=== PATIENT | female | born 2000 | race Caucasian/White ===

== ENCOUNTER 2020-06-23 10:46 | Outpatient (CLI) | payer BC, SELFPAY ==
[2020-06-23 11:49] LABS: SARS-CoV-2 Ag Negative (Negative)
[2020-06-24 00:45] LABS: SARS-CoV-2 RNA PCR Negative
== END 2020-06-23 10:47 | disposition home or self-care (01) ==
LOC: CHSLAB 10:49
PROVIDERS: PCP Internal Medicine; Visit Provider Internal Medicine
DX: Z20.822 Contact with and (suspected) exposure to COVID-19 (principal)
CPT/HCPCS: 87426; C9803; U0003; U0005

== ENCOUNTER 2020-08-23 14:41 | Outpatient (CLI) | payer BC, SELFPAY ==
[2020-08-23 16:01] LABS: SARS-CoV-2 RNA PCR Negative (Negative)
== END 2020-08-23 14:42 | disposition home or self-care (01) ==
LOC: CHSLAB 14:44
PROVIDERS: PCP Internal Medicine; Visit Provider Nurse Practitioner Family
DX: J06.9 Acute upper respiratory infection, unspecified (principal); Z20.822 Contact with and (suspected) exposure to COVID-19
CPT/HCPCS: C9803; U0003; U0005

== ENCOUNTER 2020-08-26 09:35 | Outpatient (CLI) | payer BC, SELFPAY ==
--- NOTE | ~2020-08-26 | XR_ITS ---
EXAMINATION: XR chest 2V EXAM DATE: 08/26/2020 09:58 INDICATION: Cough, right-sided chest pain. TECHNIQUE: Frontal and lateral projections of the chest obtained and reviewed. There is no prior govind dy for comparison. FINDINGS: Mild hyperinflation. The lungs are clear. There are no pleural effusions. The cardiomedi astinal silhouette is within normal limits. There is no pneumothorax suspected. The bones and soft tissues are unremarkable. IMPRESSION: Mild hyperinflation. Reviewed, dictated and finalized at location B. IMPRESSION: Mild hyperinflation.
[2020-08-26 09:48] LABS: Basophils Absolute Auto 0.04 K/mm3 (0.00-0.10); Basophils Percent Auto 0.6 % (0.0-1.0); Eosinophils Percent Auto 1.5 % (1.0-6.0); Hematocrit 37.9 % (35.0-49.0); Hemoglobin 12.6 g/dL (12.0-15.0); Immature Granulocyte Absolute 0.02 K/mm3 (0.00-0.00); Immature Granulocyte Percent A 0.3 % (0.0-0.0); Lymphocytes Percent Auto 33.6 % (18.0-42.0); Mean Corpuscular HGB Conc 33.2 g/dL (32.0-36.0); Mean Corpuscular Hemoglobin 29.6 pg (27.0-31.0); Mean Platelet Volume 10.7 fl (9.2-11.8); Monocytes Percent Auto 5.8 % (2.0-11.0); Neutrophils Percent Auto 58.2 % (50.0-70.0); Platelet Count Result 256 K/mm3 (150-420); Red Blood Count 4.26 M/mm3 (4.20-5.40); Red Cell Distribution Width 12.5 % (11.6-14.4); White Blood Count 6.9 K/mm3 (4.8-10.8)
[2020-08-26 11:11] LABS: Alanine Aminotransferase 21 U/L (14-59); Albumin Level 3.8 g/dL (3.4-5.0); Alkaline Phosphatase 58 U/L (46-116); Anion Gap 10 mmol/L (8-16); Aspartate Amino Transferase 13 U/L (15-37); Bilirubin,Total 0.3 mg/dL (0.00-1.00); Blood Urea Nitrogen 8 mg/dL (7-18); Calcium 9.6 mg/dL (8.5-10.1); Carbon Dioxide 26 mmol/L (21-32); Chloride 103 mmol/L (98-108); Estimated Glomerular Filt Rate > 60; Glucose 91 mg/dL (70-99); Osmolality Calculated 286 mOsm/kg (285-295); Potassium 4.4 mmol/L (3.5-5.1); Sodium 139 mmol/L (136-145)
== END 2020-08-26 09:36 | disposition home or self-care (01) ==
PROVIDERS: PCP Internal Medicine; Visit Provider Internal Medicine
DX: R05 Cough (principal); R07.9 Chest pain, unspecified
CPT/HCPCS: 36415; 71046; 80053; 85025

== ENCOUNTER 2020-10-01 14:05 | Outpatient (CLI) | payer BC, SELFPAY ==
--- NOTE | ~2020-10-01 | US_ITS ---
EXAMINATION: US thyroid EXAM DATE: 10/01/2020 14:59 INDICATION: LT Thyroid lobe enlarged . TECHNIQUE: Multiple grayscale and Doppler images of the thyroid were obtained (by a technologist who performed the scan) and subsequently reviewed. Individual nodules and recommendations may be reporte d in accordance with TI-RADS system as designated by the 2017 ACR White Paper TI-RADS committee. The re is no prior study for comparison. FINDINGS: The right there are lobe measures 5.3 x 1.5 x 2.0 cm, the left measuring 4.8 x 1.4 x 1.6 cm. There is homogeneous thyroid echogenicity with expected amount of vascularity. There is a left thyroid lobe c ategory TR 4 nodule measuring 8 x 4 x 6 mm. IMPRESSION: Left thyroid subcentimeter nodule; return to clinical follow-up and if additional palpabl e abnormality develops a repeat ultrasound can be obtained. Reviewed, dictated and finalized at location A. IMPRESSION: Left thyroid subcentimeter nodule; return to clinical follow-up and if additional palpable abnormality develops a repeat ultrasound can be obtaine d.
== END 2020-10-01 14:06 | disposition home or self-care (01) ==
LOC: CHSIMG 14:06
PROVIDERS: PCP Internal Medicine; Visit Provider Internal Medicine
DX: E04.9 Nontoxic goiter, unspecified (principal)
CPT/HCPCS: 76536

== ENCOUNTER 2020-12-06 15:36 | Outpatient (CLI) | payer BC, SELFPAY ==
--- NOTE | ~2020-12-06 | XR_ITS ---
XR chest 2V DATE: 12/06/2020 16:22 INDICATION: Chest pain and dyspnea for 3 days after second Covid vaccine TECHNIQUE: PA and lateral views COMPARISON: 08/26/2020 PA and lateral chest FINDINGS: Normal heart size. No hilar or mediastinal enlargement. No pulmonary infiltrate or consolid ation, pleural effusion or pulmonary vascular congestion or pneumothorax is detected. IMPRESSION: No active cardiopulmonary disease Reviewed, dictated and finalized at location A.
[2020-12-06 15:56] LABS: Hematocrit 37.1 % (35.0-49.0); Hemoglobin 12.3 g/dL (12.0-15.0); Mean Corpuscular HGB Conc 33.2 g/dL (32.0-36.0); Mean Corpuscular Hemoglobin 29.6 pg (27.0-31.0); Mean Corpuscular Volume 89.4 fL (78.0-102.0); Mean Platelet Volume 10.9 fl (9.2-11.8); Platelet Count Result 163 K/mm3 (150-420); Red Blood Count 4.15 M/mm3 (4.20-5.40); Red Cell Distribution Width 12.6 % (11.6-14.4); White Blood Count 6.1 K/mm3 (4.8-10.8)
[2020-12-06 16:24] LABS: Alanine Aminotransferase 28 U/L (14-59); Alkaline Phosphatase 56 U/L (46-116); Anion Gap 12 mmol/L (8-16); Aspartate Amino Transferase 17 U/L (15-37); Bilirubin,Total 0.2 mg/dL (0.00-1.00); Blood Urea Nitrogen 9 mg/dL (7-18); CRP 5.7 mg/dL (0.0-0.9); Carbon Dioxide 27 mmol/L (21-32); Chloride 103 mmol/L (98-108); Creatine Kinase 77 U/L (26-192); Estimated Glomerular Filt Rate > 60; Free T3 2.68 pg/mL (2.18-3.98); Free T4 Free Thyroxine 1.08 ng/dL (0.76-1.46); Glucose 81 mg/dL (70-99); NT Pro B Type Natriuretic Pept 981 pg/mL (0-125); Osmolality Calculated 291 mOsm/kg (285-295); Potassium 3.9 mmol/L (3.5-5.1); Sodium 142 mmol/L (136-145); Thyroid Stimulating Hormone 0.75 uIU/mL (0.36-3.74); Troponin I 45.6 ng/L (0.00-60.4)
[2020-12-06 16:30] LABS: Creatine Kinase MB < 0.50 ng/mL (0.00-5.00)
[2020-12-06 17:01] LABS: Band Neutrophils Percent 0 % (0-6); Eosinophils Absolute Manual 0.06 K/mm3 (0.02-0.5); Eosinophils Percent Manual 1 % (1-6); Monocytes Absolute Manual 0.48 K/mm3 (0.1-0.90); Monocytes Percent Manual 8 % (3-9); Neutrophils Absolute Manual 3.17 K/mm3 (1.7-7.2); Neutrophils Percent Manual 52 % (46-73); Total Cells Counted 100
[2020-12-06 17:02] LABS: Platelet Estimate Adequate (Adequate)
[2020-12-06 17:03] LABS: Atypical Lymphocytes Present
[2020-12-06 17:04] LABS: Lymphocytes Absolute Manual 2.37 K/mm3 (1.1-4.5); Lymphocytes Percent Manual 39 % (18-44)
[2020-12-06 17:47] LABS: Erythrocyte Sedimentation Rate 25 mm/hr (0-15)
--- NOTE | 2020-12-08 10:00 | WPDHOLTEREM ---
Holter/Event Monitor Holter/Event Monitor Date of procedure: 12/06/20 Holter/Event Procedure: 24 Hr Holter Monitor Indications: Palpitations Conclusion: 1. 24 hour holter monitor on 12/06/20. 2. Underlying rhythm is sinus rhythm. HR range 55-171 bpm; average HR 86 bpm. HR at 171 bpm occurred at 10:18 am. 3. There are 2 premature supraventricular complexes. No supraventricular tachycardia. 4. There are 4 premature ventricular complexes. No ventricular tachycardia. 5. No sinoatrial or atrioventricular blocks. No significant pauses greater than 2 seconds. 6. Patient reports symptoms of lightheadedness, chest pain, and heart racing which demonstrate sinus rhythm, HR range 74-124 bpm.
== END 2020-12-06 15:37 | disposition home or self-care (01) ==
LOC: CHSLAB 15:41
PROVIDERS: PCP Internal Medicine; Visit Provider Internal Medicine
DX: R00.2 Palpitations (principal); R06.00 Dyspnea, unspecified
CPT/HCPCS: 36415; 71046; 80053; 82550; 82553; 83880; 84439; 84443; 84481; 84484; 85025; 85652; 86140; 93225; 93226

== ENCOUNTER 2020-12-07 18:05 | Outpatient (CLI) | payer BC, SELFPAY ==
[2020-12-07 19:25] LABS: SARS-CoV-2 RNA PCR Negative (Negative)
== END 2020-12-07 18:06 | disposition home or self-care (01) ==
LOC: CHSLAB 18:08
PROVIDERS: PCP Internal Medicine; Visit Provider Internal Medicine
DX: J06.9 Acute upper respiratory infection, unspecified (principal); Z20.822 Contact with and (suspected) exposure to COVID-19
CPT/HCPCS: C9803; U0003; U0005

== ENCOUNTER 2021-01-24 16:09 | Outpatient (CLI) | payer BC, SELFPAY ==
[2021-01-24 16:59] LABS: Basophils Absolute Auto 0.03 K/mm3 (0.00-0.10); Basophils Percent Auto 0.3 % (0.0-1.0); Eosinophils Absolute Auto 0.09 K/mm3 (0.02-0.50); Hematocrit 36.8 % (35.0-49.0); Hemoglobin 12.3 g/dL (12.0-15.0); Immature Granulocyte Absolute 0.03 K/mm3 (0.00-0.00); Immature Granulocyte Percent A 0.3 % (0.0-0.0); Lymphocytes Percent Auto 32.6 % (18.0-42.0); Mean Corpuscular HGB Conc 33.4 g/dL (32.0-36.0); Mean Corpuscular Hemoglobin 29.8 pg (27.0-31.0); Mean Corpuscular Volume 89.1 fL (78.0-102.0); Mean Platelet Volume 11.2 fl (9.2-11.8); Monocytes Absolute Auto 0.63 K/mm3 (0.10-0.90); Monocytes Percent Auto 7.3 % (2.0-11.0); Neutrophils Percent Auto 58.5 % (50.0-70.0); Platelet Count Result 199 K/mm3 (150-420); Red Blood Count 4.13 M/mm3 (4.20-5.40); Red Cell Distribution Width 12.5 % (11.6-14.4); White Blood Count 8.6 K/mm3 (4.8-10.8)
[2021-01-24 17:15] LABS: Alanine Aminotransferase 22 U/L (14-59); Alkaline Phosphatase 59 U/L (46-116); Anion Gap 10 mmol/L (8-16); Aspartate Amino Transferase 14 U/L (15-37); Bilirubin,Total 0.4 mg/dL (0.00-1.00); Blood Urea Nitrogen 13 mg/dL (7-18); Calcium 8.8 mg/dL (8.5-10.1); Carbon Dioxide 30 mmol/L (21-32); Chloride 102 mmol/L (98-108); Estimated Glomerular Filt Rate > 60; Glucose 96 mg/dL (70-99); Magnesium 1.8 mg/dL (1.8-2.4); Osmolality Calculated 294 mOsm/kg (285-295); Potassium 4.1 mmol/L (3.5-5.1); Sodium 142 mmol/L (136-145); Total Protein 7.4 g/dL (6.4-8.2)
[2021-01-24 17:25] LABS: CRP < 0.5 mg/dL (0.0-0.9)
[2021-01-24 18:01] LABS: Erythrocyte Sedimentation Rate 6 mm/hr (0-15)
--- NOTE | 2021-02-01 08:25 | WPDHOLTEREM ---
Holter/Event Monitor Holter/Event Monitor Date of procedure: 01/24/21 Holter/Event Procedure: Event Monitor Indications: Palpitations Conclusion: 1. 6 days event monitor between 01/24/21-01/30/21. There are 31 available transmissions for analysis. 2. Underlying rhythm is sinus rhythm. HR range 52-176 bpm; average HR 84 bpm. HR ate 176 bpm is on 01/29/21 at 21:18. 3. Unable to calculate number of PAC's due to excessive artifact. 4. There are occasional premature ventricular complexes with total burden of <1%. No ventricular tachycardia. 5. No significant pauses greater than 2 seconds. 6. Patient reports 27 episodes of symptoms of heart racing, chest pain, shortness of breath, dizziness which demonstrate sinus rhythm, HR range 70-155 bpm.
== END 2021-01-24 16:10 | disposition home or self-care (01) ==
LOC: CHSLAB 16:10
PROVIDERS: PCP Internal Medicine; Visit Provider Internal Medicine
DX: R00.2 Palpitations (principal)
CPT/HCPCS: 36415; 80053; 83735; 85025; 85652; 86140; 93270

== ENCOUNTER 2021-04-13 11:20 | Outpatient (CLI) | payer BC, SELFPAY ==
[2021-04-13 12:39] LABS: SARS-CoV-2 RNA PCR Negative (Negative)
== END 2021-04-13 11:21 | disposition home or self-care (01) ==
LOC: CHSLAB 11:22
PROVIDERS: PCP Internal Medicine; Visit Provider Internal Medicine
DX: Z20.822 Contact with and (suspected) exposure to COVID-19 (principal)
CPT/HCPCS: C9803; U0003; U0005

== ENCOUNTER 2021-04-20 12:14 | Outpatient (CLI) | payer BC, SELFPAY ==
[2021-04-20 13:02] LABS: Basophils Absolute Auto 0.05 K/mm3 (0.00-0.10); Basophils Percent Auto 0.4 % (0.0-1.0); Eosinophils Absolute Auto 0.09 K/mm3 (0.02-0.50); Eosinophils Percent Auto 0.7 % (1.0-6.0); Hematocrit 37.8 % (35.0-49.0); Hemoglobin 12.5 g/dL (12.0-15.0); Immature Granulocyte Absolute 0.03 K/mm3 (0.00-0.00); Immature Granulocyte Percent A 0.2 % (0.0-0.0); Lymphocytes Absolute Auto 2.19 K/mm3 (1.10-4.50); Lymphocytes Percent Auto 17.8 % (18.0-42.0); Mean Corpuscular HGB Conc 33.1 g/dL (32.0-36.0); Mean Corpuscular Hemoglobin 30.1 pg (27.0-31.0); Mean Corpuscular Volume 91.1 fL (78.0-102.0); Mean Platelet Volume 10.8 fl (9.2-11.8); Monocytes Absolute Auto 0.78 K/mm3 (0.10-0.90); Monocytes Percent Auto 6.4 % (2.0-11.0); Neutrophils Absolute Auto 9.1 K/mm3 (1.7-7.2); Neutrophils Percent Auto 74.5 % (50.0-70.0); Platelet Count Result 193 K/mm3 (150-420); Red Blood Count 4.15 M/mm3 (4.20-5.40); Red Cell Distribution Width 12.5 % (11.6-14.4); White Blood Count 12.3 K/mm3 (4.8-10.8)
[2021-04-20 13:36] LABS: Alanine Aminotransferase 18 U/L (14-59); Albumin Level 4.1 g/dL (3.4-5.0); Alkaline Phosphatase 69 U/L (46-116); Anion Gap 12 mmol/L (8-16); Aspartate Amino Transferase 12 U/L (15-37); Bilirubin,Total 0.5 mg/dL (0.00-1.00); Blood Urea Nitrogen 13 mg/dL (7-18); Calcium 9.1 mg/dL (8.5-10.1); Carbon Dioxide 26 mmol/L (21-32); Chloride 104 mmol/L (98-108); Estimated Glomerular Filt Rate > 60; Glucose 87 mg/dL (70-99); Osmolality Calculated 293 mOsm/kg (285-295); Potassium 3.8 mmol/L (3.5-5.1); Sodium 142 mmol/L (136-145); Total Protein 7.2 g/dL (6.4-8.2)
[2021-04-20 14:35] LABS: Influenza A QL RT-PCR Negative (Negative); Influenza B QL RT-PCR Negative (Negative); SARS-CoV-2 RNA PCR Negative (Negative)
== END 2021-04-20 12:15 | disposition home or self-care (01) ==
LOC: CHSLAB 12:16
PROVIDERS: PCP Internal Medicine; Visit Provider Internal Medicine
DX: J06.9 Acute upper respiratory infection, unspecified (principal); Z20.822 Contact with and (suspected) exposure to COVID-19
CPT/HCPCS: 80053; 85025; 87081; 87502; 87880; C9803; U0003; U0005

== ENCOUNTER 2021-04-22 12:13 | Outpatient (CLI) | payer BC, SELFPAY ==
--- NOTE | ~2021-04-22 | XR_ITS ---
EXAMINATION: XR chest 2V DATE: 04/22/2021 12:30 INDICATION: Cough. TECHNIQUE: Frontal and lateral views of the chest were obtained. COMPARISON: Chest 2 views 12/06/2020 FINDINGS: The chest demonstrates clear lungs without pneumonia, pleural effusion, or pneumothorax. Th e heart size is normal. IMPRESSION: 1. No acute cardiopulmonary disease. Reviewed, dictated and finalized at location A. OF [employer]ES [employer]
== END 2021-04-22 12:14 | disposition home or self-care (01) ==
LOC: CHSIMG 12:15
PROVIDERS: PCP Internal Medicine; Visit Provider Internal Medicine
DX: R05.9 Cough, unspecified (principal)
CPT/HCPCS: 71046

== ENCOUNTER 2021-07-25 11:22 | Outpatient (CLI) | payer BC, SELFPAY ==
--- NOTE | ~2021-07-25 | XR_ITS ---
EXAMINATION: XR chest 2V DATE: 07/25/2021 11:38 INDICATION: Cough and shortness of breath and fever. TECHNIQUE: Frontal and lateral views of the chest were obtained. COMPARISON: Chest 2 views 04/22/2021 FINDINGS: The chest demonstrates clear lungs without pneumonia, pleural effusion, or pneumothorax. Th e heart size is normal. IMPRESSION: 1. No acute cardiopulmonary disease. Reviewed, dictated and finalized at location A.
[2021-07-25 11:32] LABS: Basophils Absolute Auto 0.02 K/mm3 (0.00-0.10); Basophils Percent Auto 0.3 % (0.0-1.0); Eosinophils Absolute Auto 0.04 K/mm3 (0.02-0.50); Eosinophils Percent Auto 0.7 % (1.0-6.0); Immature Granulocyte Absolute 0.02 K/mm3 (0.00-0.00); Immature Granulocyte Percent A 0.3 % (0.0-0.0); Lymphocytes Absolute Auto 1.45 K/mm3 (1.10-4.50); Lymphocytes Percent Auto 24.2 % (18.0-42.0); Mean Corpuscular HGB Conc 34.1 g/dL (32.0-36.0); Mean Corpuscular Hemoglobin 30.2 pg (27.0-31.0); Mean Corpuscular Volume 88.6 fL (78.0-102.0); Mean Platelet Volume 11.6 fl (9.2-11.8); Monocytes Absolute Auto 0.63 K/mm3 (0.10-0.90); Monocytes Percent Auto 10.5 % (2.0-11.0); Neutrophils Absolute Auto 3.8 K/mm3 (1.7-7.2); Platelet Count Result 158 K/mm3 (150-420); Red Blood Count 4.63 M/mm3 (4.20-5.40); Red Cell Distribution Width 12.5 % (11.6-14.4)
[2021-07-25 12:11] LABS: Alanine Aminotransferase 27 U/L (14-59); Albumin Level 4.2 g/dL (3.4-5.0); Alkaline Phosphatase 50 U/L (46-116); Anion Gap 12 mmol/L (8-16); Aspartate Amino Transferase 23 U/L (15-37); Bilirubin,Total 0.2 mg/dL (0.00-1.00); Blood Urea Nitrogen 11 mg/dL (7-18); Calcium 9.1 mg/dL (8.5-10.1); Carbon Dioxide 27 mmol/L (21-32); Chloride 100 mmol/L (98-108); Estimated Glomerular Filt Rate > 60; Glucose 78 mg/dL (70-99); Osmolality Calculated 286 mOsm/kg (285-295); Potassium 4.1 mmol/L (3.5-5.1); Sodium 139 mmol/L (136-145); Total Protein 7.7 g/dL (6.4-8.2)
== END 2021-07-25 11:23 | disposition home or self-care (01) ==
LOC: CHSIMG 11:23
PROVIDERS: PCP Internal Medicine; Visit Provider Nurse Practitioner Family
DX: J06.9 Acute upper respiratory infection, unspecified (principal)
CPT/HCPCS: 36415; 71046; 80053; 85025

== ENCOUNTER 2021-08-05 12:46 | Outpatient (CLI) | payer BC, SELFPAY | END 2021-08-05 12:47 | disposition home or self-care (01) | LOC: CHSCARD 12:48 | PROVIDERS: PCP Internal Medicine; Visit Provider Nurse Practitioner Family | DX: J45.909 Unspecified asthma, uncomplicated (principal) | CPT/HCPCS: 94060; 94726; 94729 ==

== ENCOUNTER 2021-10-12 11:20 | Outpatient (CLI) | payer BC, SELFPAY ==
[2021-10-12 12:47] LABS: Free T3 2.67 pg/mL (2.18-3.98); Free T4 Free Thyroxine 0.86 ng/dL (0.76-1.46); Thyroid Stimulating Hormone 0.49 uIU/mL (0.36-3.74)
[2021-10-14 12:06] LABS: NIL 0.02 IU/mL; Quantiferon TB Plus, 1T NEGATIVE (NEGATIVE)
== END 2021-10-12 11:21 | disposition home or self-care (01) ==
LOC: CHSLAB 11:23
PROVIDERS: PCP Internal Medicine; Visit Provider Internal Medicine
DX: K58.0 Irritable bowel syndrome with diarrhea (principal)
CPT/HCPCS: 36415; 84439; 84443; 84481; 86480

== ENCOUNTER 2021-10-17 08:04 | Outpatient (CLI) | payer BC, SELFPAY ==
--- NOTE | ~2021-10-17 | CT_ITS ---
EXAMINATION: CT sinus wo con DATE: 10/17/2021 08:21 INDICATION: Sinus pressure, drainage. Chronic sinusitis. TECHNIQUE: Computed tomography (CT) of the paranasal sinuses was performed without contrast. Iterativ e reconstruction technique was employed. Exam dose: 319.20 mGy-cm total exam DLP. COMPARISON: 02/04/2018 paranasal sinuses 08/29/2017 CT head FINDINGS: There is mild leftward bowing of the nasal septum. There is intralamellar cell and nas bullosa of both middle nasal turbinates. There is asymmetric s oft tissue swelling of the left inferior nasal turbinate compared to the right. The ostiomeatal units are patent bilaterally. The paranasal sinuses and mastoid air cells are normally developed and aerated. IMPRESSION: Intralamellar cell and nas bullosa of both middle nasal turbinates Asymmetric soft tissue swelling of left inferior nasal turbinate Patent paranasal sinuses, ostiomeatal units and mastoid air cells Reviewed, dictated and finalized at Location A. Reviewed, dictated and finalized at location B. IMPRESSION: Intralamellar cell and nas bullosa of both middle nasal turbina keyanna Asymmetric soft tissue swelling of left inferior nasal turbinate Patent paranasal sinuses, ostiomeatal units and mastoid air cells
== END 2021-10-17 08:05 | disposition home or self-care (01) ==
LOC: CHSIMG 08:05
PROVIDERS: PCP Internal Medicine; Visit Provider Internal Medicine
DX: J32.9 Chronic sinusitis, unspecified (principal)
CPT/HCPCS: 70486

== ENCOUNTER 2022-01-02 15:27 | Outpatient (CLI) | payer BC, SELFPAY ==
--- NOTE | ~2022-01-02 | XR_ITS ---
EXAMINATION: XR hand RT min 3V INDICATION: Right hand pain TECHNIQUE: Three views of the right hand are obtained. COMPARISON: None available FINDINGS: Bone alignment is normal. There is no acute fracture. Internal stabilization hardware is se en at the distal ulna stabilizing a healed fracture. There is palmar soft tissue swelling of the hand . IMPRESSION: 1. No acute osseous abnormality. Reviewed, dictated and finalized at location B.
== END 2022-01-02 15:28 | disposition home or self-care (01) ==
LOC: CHSIMG 15:30
PROVIDERS: PCP Internal Medicine; Visit Provider Internal Medicine
DX: S69.91XA Unspecified injury of right wrist, hand and finger(s), initial encounter (principal)
CPT/HCPCS: 73130

== ENCOUNTER 2022-10-09 15:02 | Outpatient (CLI) | payer BC, SELFPAY ==
--- NOTE | ~2022-10-09 | XR_ITS ---
XR hand RT min 3V 10/09/2022 15:19 INDICATION: Right hand pain for 2 days PROCEDURE: 3 views right hand COMPARISON: 01/02/2022 FINDINGS: Fracture, dislocation or subluxation is not identified. There is a side plate and screws tr ansfixing the distal ulna. The soft tissues appear within normal limits. No foreign bodies are ident ified. IMPRESSION: 1: NO ACUTE BONE OR JOINT ABNORMALITY IDENTIFIED. Reviewed, dictated and finalized at location []
== END 2022-10-09 15:03 | disposition home or self-care (01) ==
LOC: CHSIMG 15:04
PROVIDERS: PCP Internal Medicine; Visit Provider Internal Medicine
DX: S69.91XA Unspecified injury of right wrist, hand and finger(s), initial encounter (principal)
CPT/HCPCS: 73130

== ENCOUNTER 2022-10-16 13:24 | Outpatient (CLI) | payer BC, SELFPAY ==
--- NOTE | ~2022-10-16 | XR_ITS ---
EXAMINATION: XR hand RT min 3V INDICATION: Right hand injury and pain TECHNIQUE: Three views of the right hand are obtained. COMPARISON: 10/09/2022 FINDINGS: There is plate and screw fixation of an old distal ulnar fracture. No fracture is identifie d in the right hand. The joint spaces are normal. There are no productive changes of bony healing to indicate subacute fracture. IMPRESSION: 1. No acute osseous abnormality. Reviewed, dictated and finalized at location []
== END 2022-10-16 13:25 | disposition home or self-care (01) ==
LOC: CHSIMG 13:27
PROVIDERS: PCP Internal Medicine; Visit Provider Internal Medicine
DX: S69.91XA Unspecified injury of right wrist, hand and finger(s), initial encounter (principal)
CPT/HCPCS: 73130

== ENCOUNTER 2023-03-05 15:55 | Outpatient (RCR) | payer BC, SELFPAY ==
--- NOTE | 2023-03-05 16:58 | OTOPEVAL1 ---
Assessment and note entered by Lucrecia Corado, OT Evaluation Information Assessment Status Evaluation Diagnosis Left central TFCC tear, foveal TFCC tear and ulnocarpal impaction Onset 01/10/23 Subjective Information The patient reports that both of her ulnas are long and have affected the TFCC from tearing multiple times. The patient had tingling prior to surgery but has not since then. The patient reports that her pain is minimal 8 weeks post op but hurt severely bad after surgery. 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 The patient stated she is wearing her splint at all times except for AROM and bathing. Reported Pain Level Pain Score 0: Self Report Assessment OT Clinical Summary The patient is a 23 year old female who was referred to outpatient OT due to L central TFCC tear, foveal TFCC tear and ulnocarpal impaction. 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 The patient requires skilled OT to address deficits and return to PLOF. Plan of Care Interventions Therapeutic Exercise,Manual Therapy,Neuro Re- education,Therapeutic Activities,Hot Pack/Cold Pack,Electrical Stimulation,Sensory Integrative Techn,Self-Care/Home Management,Prosthetic Training,Check Out for Orthotic/Pr,Ultrasound OT Services Indicated Yes Treatment Frequency and 2x/week for 10 visits. Duration These treatments will address the objective and functional deficits as defined above. The patient will be advanced safely and appropriately in order for the patient to progress towards his/her prior level of function. Additional exercises will be introduced and as well as a comprehensive home exercise program upon discharge, if needed, ?to ensure carryover of functional gains achieved in the clinic. This treatment plan has been reviewed and agreement upon by the patient.
--- NOTE | 2023-04-19 10:09 | OTOPDC ---
Assessment and note entered by Lucrecia Corado, OT Evaluation Information Assessment Status Discharge Diagnosis Left central TFCC tear, foveal TFCC tear and ulnocarpal impaction Onset 01/10/23 Subjective Information The patient reports mild tingling in L hand digits 3-5. The patient reports 2/10 pain during activities throughout her day. She stated that her pain is tolerable and feels confident to discharge with HEP to maintain strength and function. The patient was instructed to perform ulnar nerve glides with HEP to address tingling at home. The patient reported that she will be going back to the doctor within the next month or two. 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 The patient continues to demonstrate minimal pain reporting 2/10 pain during daily tasks and new onset of mild tingling in L hand digits 3-5. The patient was educated on pain relief techniques and ulnar nerve glides to improve sensation of UE. The patient demonstrates improvement in overall function in L wrist scoring 15.9% on QuickDASH at discharge compared to 36.4% at evaluation. The patient is independent with UE HEP and is discharged at this time due to meeting goals and continued use of therapeutic techniques at home. Plan of Care OT Services Indicated No
== END 2023-04-19 14:21 | disposition home or self-care (01) ==
LOC: CHSOT 15:55
DX: M25.532 Pain in left wrist (principal)
CPT/HCPCS: 97110; 97140; 97165; 97530

== ENCOUNTER 2023-04-10 12:21 | Outpatient (CLI) | payer BC, SELFPAY ==
--- NOTE | ~2023-04-10 | CT_ITS ---
EXAMINATION: CT facial bones w con DATE: 04/10/2023 13:02 INDICATION: 2 months of cellulitis arising from right temporal at the right nasal region, refractory to 25 days of antibiotics. TECHNIQUE: Computed tomography (CT) of the facial bones and maxillofacial region was performed with 7 5 mL Omnipaque-350 intravenous contrast. Coronal reconstructions were obtained. Automated exposure co ntrol and iterative reconstruction technique were employed. The dose-length product was 303.17 mGy-cm . COMPARISON: None. FINDINGS: Tiny focus of skin thickening and underlying stranding in the superficial most subcutaneous fat overl dick the body of the right mandible. No other evident soft tissue swelling or inflammatory stranding. No abscess. Maxillofacial bones are unremarkable with no fractures or erosions. There is prominent s omewhat nodular mucosal thickening throughout the left maxillary sinus. Mild mucosal thickening along portions of the bilateral ethmoid and right maxillary sinuses. Orbits are normal. Visualized portion s of the brain are unremarkable. The visualized cervical spine is also unremarkable. IMPRESSION: 1. Tiny focus of skin thickening and superficial subcutaneous stranding likely inflammatory in etiolo gy overlying the body of the right mandible. No other evident soft tissue swelling, abscess or ostomy myelitis. 2. Sinus disease most prominent in the left maxillary sinus. Reviewed, dictated and finalized at location A. K TRADER IMPRESSION: 1. Tiny focus of skin thickening and superficial subcutaneous stranding likely inflammatory in etiology overlying the body of the right mandible. No other gorge dent soft tissue swelling, abscess or ostomy myelitis. 2. Sinus disease most prominent in the left maxillary sinus.
== END 2023-04-10 12:22 | disposition home or self-care (01) ==
LOC: CHSIMG 12:22
PROVIDERS: PCP Internal Medicine; Visit Provider Internal Medicine
DX: L03.211 Cellulitis of face (principal); L98.9 Disorder of the skin and subcutaneous tissue, unspecified; J32.0 Chronic maxillary sinusitis
CPT/HCPCS: 70487; Q9967

== ENCOUNTER 2023-06-08 08:27 | Outpatient (CLI) | payer BC, SELFPAY ==
[2023-06-08 08:45] LABS: Basophils Absolute Auto 0.02 K/mm3 (0.00-0.10); Basophils Percent Auto 0.3 % (0.0-1.0); Eosinophils Absolute Auto 0.07 K/mm3 (0.02-0.50); Eosinophils Percent Auto 1.1 % (1.0-6.0); Hemoglobin 12.7 g/dL (12.0-15.0); Immature Granulocyte Absolute 0.01 K/mm3 (0.00-0.00); Immature Granulocyte Percent A 0.2 % (0.0-0.0); Lymphocytes Absolute Auto 2.19 K/mm3 (1.10-4.50); Lymphocytes Percent Auto 33.2 % (18.0-42.0); Mean Corpuscular HGB Conc 33.4 g/dL (32.0-36.0); Mean Corpuscular Hemoglobin 29.5 pg (27.0-31.0); Mean Corpuscular Volume 88.2 fL (78.0-102.0); Mean Platelet Volume 10.5 fl (9.2-11.8); Monocytes Absolute Auto 0.58 K/mm3 (0.10-0.90); Monocytes Percent Auto 8.8 % (2.0-11.0); Neutrophils Absolute Auto 3.7 K/mm3 (1.7-7.2); Neutrophils Percent Auto 56.4 % (50.0-70.0); Platelet Count Result 196 K/mm3 (150-420); Red Blood Count 4.31 M/mm3 (4.20-5.40); Red Cell Distribution Width 12.7 % (11.6-14.4); White Blood Count 6.6 K/mm3 (4.8-10.8)
[2023-06-08 08:47] LABS: Appearance Urine Clear (Clear); Bilirubin Urine Negative (Negative); Blood Urine Negative (Negative); Color Urine Light Yellow (Yellow); Glucose Urine UA Negative (Negative); Ketones Urine Negative (Negative); Leukocyte Esterase Ur Negative LEU/UL (Negative); Nitrate Urine Negative (Negative); Protein Urine Negative (Negative); Urobilinogen Urine 0.2 mg/dL (0.2-1.0)
[2023-06-08 08:52] LABS: Add Urine Microscopic? NO
[2023-06-08 09:36] LABS: Alanine Aminotransferase 20 U/L (14-59); Alkaline Phosphatase 60 U/L (46-116); Anion Gap 9 mmol/L (8-16); Aspartate Amino Transferase 16 U/L (15-37); Bilirubin,Total 0.6 mg/dL (0.00-1.00); Blood Urea Nitrogen 15 mg/dL (7-18); Calcium 8.8 mg/dL (8.5-10.1); Carbon Dioxide 26 mmol/L (21-32); Chloride 103 mmol/L (98-108); Cholesterol 150 mg/dL (0-200); Estimated Glomerular Filt Rate > 60; Ferritin 54 ng/mL (8-252); Free T4 Free Thyroxine 0.76 ng/dL (0.76-1.46); Glucose 93 mg/dL (70-99); HDL Direct 65 mg/dL (40-60); Iron 122 ug/dL (50-170); LDL Cholesterol Calculated 77 mg/dL (<130); Osmolality Calculated 286 mOsm/kg (285-295); Potassium 4.3 mmol/L (3.5-5.1); Sodium 138 mmol/L (136-145); Thyroid Stimulating Hormone 0.59 uIU/mL (0.36-3.74); Total Protein 7.1 g/dL (6.4-8.2); Triglycerides 38 mg/dL (0-150)
[2023-06-12 14:34] LABS: NIL 0.03 IU/mL; Quantiferon TB Plus, 1T NEGATIVE (NEGATIVE); TB1-NIL 0.01 IU/mL; TB2-NIL 0.01 IU/mL
== END 2023-06-08 08:28 | disposition home or self-care (01) ==
LOC: CHSLAB 08:29
PROVIDERS: PCP Internal Medicine; Visit Provider Internal Medicine
DX: Z00.00 Encounter for general adult medical examination without abnormal findings (principal); Z11.1 Encounter for screening for respiratory tuberculosis
CPT/HCPCS: 36415; 80053; 80061; 81003; 82728; 83540; 84439; 84443; 85025; 86480

== ENCOUNTER 2023-08-06 08:01 | Outpatient (CLI) | payer BC, SELFPAY | END 2023-08-06 08:02 | disposition home or self-care (01) | LOC: CHSAUDIO 08:03 | PROVIDERS: PCP Internal Medicine; Visit Provider Internal Medicine | DX: H91.92 Unspecified hearing loss, left ear (principal) | CPT/HCPCS: 92552; 92556; 92567 ==

== ENCOUNTER 2024-03-05 07:58 | Outpatient (CLI) | payer BC, SELFPAY ==
[2024-03-05 09:15] LABS: Free T3 2.82 pg/mL (2.18-3.98); Free T4 Free Thyroxine 0.76 ng/dL (0.76-1.46); Thyroid Stimulating Hormone 0.47 uIU/mL (0.36-3.74)
== END 2024-03-05 07:59 | disposition home or self-care (01) ==
LOC: CHSLAB 08:01
PROVIDERS: PCP Internal Medicine; Visit Provider Internal Medicine
DX: L65.9 Nonscarring hair loss, unspecified (principal); R63.5 Abnormal weight gain
CPT/HCPCS: 36415; 84439; 84443; 84481

== ENCOUNTER 2024-06-09 09:50 | Outpatient (CLI) | payer BC, SELFPAY ==
[2024-06-09 10:05] LABS: Basophils Absolute Auto 0.02 K/mm3 (0.00-0.10); Basophils Percent Auto 0.4 % (0.0-1.0); Eosinophils Percent Auto 3.6 % (1.0-6.0); Hematocrit 38.4 % (35.0-49.0); Hemoglobin 12.6 g/dL (12.0-15.0); Immature Granulocyte Absolute 0.01 K/mm3 (0.00-0.00); Immature Granulocyte Percent A 0.2 % (0.0-0.0); Lymphocytes Absolute Auto 1.48 K/mm3 (1.10-4.50); Lymphocytes Percent Auto 26.9 % (18.0-42.0); Mean Corpuscular HGB Conc 32.8 g/dL (32-36); Mean Corpuscular Hemoglobin 29.6 pg (27.0-31.0); Mean Corpuscular Volume 90.1 fL (78.0-102.0); Mean Platelet Volume 10.9 fl (9.2-11.8); Monocytes Absolute Auto 0.59 K/mm3 (0.10-0.90); Monocytes Percent Auto 10.7 % (2.0-11.0); Neutrophils Absolute Auto 3.21 K/mm3 (1.70-7.20); Neutrophils Percent Auto 58.2 % (50.0-70.0); Platelet Count Result 192 K/mm3 (150-420); Red Blood Count 4.26 M/mm3 (4.20-5.40); White Blood Count 5.5 K/mm3 (4.8-10.8)
[2024-06-09 10:29] LABS: Alanine Aminotransferase 23 U/L (14-59); Albumin Level 4.3 g/dL (3.4-5.0); Alkaline Phosphatase 76 U/L (46-116); Anion Gap 10 mmol/L (4-12); Aspartate Amino Transferase 13 U/L (15-37); Bilirubin,Total 0.3 mg/dL (0.00-1.00); Blood Urea Nitrogen 8 mg/dL (7-18); Calcium 9.2 mg/dL (8.5-10.1); Carbon Dioxide 28 mmol/L (21-32); Chloride 104 mmol/L (98-108); Estimated Glomerular Filt Rate 60; Glucose 81 mg/dL (70-99); Osmolality Calculated 291 mOsm/kg (285-295); Potassium 4.3 mmol/L (3.5-5.1); Sodium 142 mmol/L (136-145); Total Protein 7.3 g/dL (6.4-8.2)
--- OUTSIDE RECORDS SUMMARY | 2024-06-09 12:42 | XMS_ITS | Clinical Summary ---
Author Organization [facility] osp[facility] Address [address] [place] [address] Care Team Providers Care Physical Therapy Instructor Name Role Phone Compa Correa MD Primary Care Provider Estuardo Luke MD Unavailable [phone] Polo Jeffery MD Unavailable Allergies Active Allergy Reactions Criticality Noted Date Comments Chlorhexidine Redness Low 01/24/2017 ChloraPrep local rash Medications albuterol HFA (PROVENTIL HFA,VENTOLIN HFA,PROAIR HFA) 90 mcg/actuation inhaler as needed Active fluticasone propionate (FLONASE) 50 mcg/actuation nasal sprayIndication s:Allergic Rhinitis Administer 2 sprays into each nostril every morning Active cetirizine (ZyrTEC) 10 mg tablet Take 1 tablet (10 mg total) by mouth daily as needed Active azelastine (ASTELIN) 137 mcg (0.1 %) nasal spray Administer 1 spray into each nostril daily Use in each nostril as directed Active Active Problems Problem Noted Date Diagnosed Date Nasal obstruction 07/11/2023 Otalgia of both ears 06/30/2023 Assessment & Plan (10/23/2023 8:25 PM CDT): Her ear exam is normal. She describes a sharp stabbing pain intermittently in each ear which does tend to improve with nonsteroidals such as Toradol. She does admit to probably grinding her teeth and clenching. 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 I recommended that she avoid chewing gum. I also recommended that she take ibuprofen as needed for the pain. She may want to consult with her dentist. She understands. 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 She tends to grind her teeth. I recommended that she talk with her dentist about this. Probably needs to get a crossing guard made. She understands. 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 She can breathe much better and everything seems to be better as far as her nasal airway is concerned. I suggested that she try using antibiotic ointment twice a day to the nasal septum because she does notice some dryness and crusting. She can do that for about a week to 10 days. She wanted to know if she should resume her Flonase and Astelin. I think resuming the Flonase would be fine as she does have pretty significant allergies. I recommended that she avoid spraying it medially towards the nasal septum. If she has any further problems she can call or follow-up with me. Assessment & Plan (10/02/2023 6:43 PM CDT): Her nasal septum looks good. No evidence of bleeding or hematoma. I recommended avoiding blowing her nose for few days and keep her head elevated as much as possible next 2-3 days. I would like to have her follow up in about 1-2 weeks. Assessment & Plan (06/30/2023 1:06 PM MENTAL HEALTH UNIT LEAD PSYCHOLOGIST): I think she would benefit from a septoplasty with bilateral inferior turbinectomy. I discussed the risk of a septoplasty with and without turbinectomy with the patient. There is a risk of continued nasal obstruction, bleeding, septal perforation, permanent anosmia. Also risk of inadequate correction which could result in continued nasal obstruction symptoms. She has a pharmacy technician program director and he would like to do this before she starts her clinicals. She is interested in getting it scheduled. She had no questions. Assessment & Plan (11/22/2021 7:42 PM CDT): She has pretty significant nasal septal deviation to the right side which is causing obstruction. Also has very large inferior turbinates. I think she would benefit from surgery to correct these. It is possible that they can be causing some of the facial pain also. I discussed the risk of a septoplasty with and without turbinectomy with the patient. There is a risk of continued nasal obstruction, bleeding, septal perforation, permanent anosmia. Also risk of inadequate correction which could result in continued nasal obstruction symptoms. She indicated that she is probably interested in pursuing this. Again I will look at her scan and let her know my thoughts. Chronic maxillary sinusitis 11/22/2021 Assessment & Plan (10/23/2023 8:23 PM CDT): Maxillary sinus areas look quite good and she has patent ostia and an open middle meatus. I removed all of the packing. She felt like that helped with her nasal congestion. I do not feel there is any need for further follow-up and she can follow up with me as needed. Assessment & Plan (10/02/2023 6:44 PM CDT): Sinus areas on both sides have packing which remains in place. No bleeding. I am recommending that she avoid blowing her nose for a few days. We would like to see her in about 2 weeks. Assessment & Plan (06/30/2023 1:11 PM MENTAL HEALTH UNIT LEAD PSYCHOLOGIST): She also has significant maxillary sinus disease worse on the left. This is noted on a CT scan of the sinuses that was done on 06/25/2023. I recommended surgery to address the nas bullosa and do bilateral maxillary antrostomies. I discussed the risks which include continued problems with maxillary sinusitis in the possibility of scar tissue obstructing the opening. Also risk of bleeding further infections as well as orbital and MOTOR GRADER ROUGH GRADE injuries. She understands. She would like to proceed with that also. She also currently is symptomatic and probably has a maxillary sinus infection. I am going to treat with a steroid pack and a course of Ceftin. Assessment & Plan (11/22/2021 7:41 PM CDT): I think she has obstruction of her maxillary sinuses probably due to nas bullosa that were mentioned on her CT scan report. I think she may benefit from surgery to address this. I would like to see her CT scan films however and I have asked her to bring a disc so I can view it. I will call her with further recommendations. Palpitations 12/29/2020 Right wrist pain 10/13/2019 Dysuria 11/09/2016 Overview (02/02/2017): 7--17 nl UA but grew 50-100K GBS - Rxed since symptomatic Elbow pain 04/03/2016 Overview (02/02/2017): RIGHT. 11/05 [facility] says triceps tendonitis. US & MRI neg. Surgery by Dr. Luke (this is SECOND surgery for elbow pain). Increase PT. 10 still hurts to throw in softball. Overweight 12/10/2013 Overview (02/02/2017): Arthralgia of temporomandibular joint 03/06/2013 Overview (02/02/2017): Ear pain, chews gum 03/05, 04/04, 06/06 Myopia 08/27/2012 Overview (02/02/2017): Contacts Health care maintenance 05/23/2012 Overview (02/02/2017): Resolved Problems Problem Noted Date Diagnosed Date Resolved Date Acute streptococcal pharyngitis 05/25/2016 02/02/2017 Overview (07/28/2016): Streptococcal pharyngitis Delayed onset of sleep 12/15/201402/02 Overview (02/02/2017): Melatonin Menorrhagia with irregular cycle 09/01/2014 02/02/2017 Overview (07/28/2016): Menometrorrhagia Otitis media 11/15/2012 02/02/2017 Overview (07/27/2016): Otitis media Immunizations Immunization Administration Dates Next Due DTaP 11/29/2004, 1,2000,05/08,2000 Hep B, Adolescent or Pediatric 2000,1999,2000 Hib (HbOC) 04/09/2001, 1,2000,03/07 IPV 11/29/2004, 1,2000,03/07 Influenza, Quadrivalent, Jocelyne l Culture-based MDCK, Preservative Free, Antibiotic Free, Intramuscular 02/13/2020 Influenza, Quadrivalent, Spl it, Intramuscular 02/02/2017 Influenza, Split 03/06/2013 Influenza, Trivalent, IM (MDV) 01/28/2014 Influenza, Trivalent, Preser vative Free, Intramuscular 03/16/2010 MMR 11/29/2004,01/08/2001 Meningococcal MCV4P (Menactra) 01/14/2016,2011 Pneumococcal Conjugate 7-Valent 04/09/20,2000,2000,03/07 Pneumococcal Polysaccharide PPV23 01/28/2014, Tdap 11/16/2011 Varicella 01/28/2014,01/08/2001 Surgical History Surgery Date Site/Laterality Comments OTHER SURGICAL HISTORY 04/23/2016 - 04/22/2017 Right R cubital tunnel/triceps tendinitis WRIST ARTHROSCOPY W/ TRIANGULAR FIBROCARTILAGE REPAIR 04/23/2012 - 04/22/[address] Luke WRIST ARTHROSCOPY W/ TRIANGULAR FIBROCARTILAGE REPAIR 04/23/2014 - 04/22/[address] Luke OTHER SURGICAL HISTORY 04/23/2015 - 04/22/2016 Right Medial epipicondylitis surgery Dr. Luke WRIST SURGERY 10/29/2019 Right Right wrist arthroscopy with extensive debridement WISDOM TOOTH EXTRACTION 04/23/2018 - 04/22/2019 NASAL SEPTOPLASTY W/ TURBINOPLASTY 10/01/2023 Septoplasty, bilateral inferior turbinectomy, bilateral endoscopic maxillary antrostomies & bilateral excision of nas bullosa Medical History Medical History Date Comments Nasal fracture 2013 2016 considering Platic Surgery Concussion 01/21/2014 & 11/05/2014 no residu al Fracture of phalanx of left thumb 02/15/2015 no surgery. Splinted-->heale d Jaw clicking no problems open ing mouth Allergic rhinitis Anxiety Sinusitis Last menstrual period (LMP) date last week Palpitations 11/2020 patient states s tarted after 2nd covid vaccine has off and on has seen cariodlogy dr Robbie Romero at [facility] see epic notes last visit 09/2021 Irritable bowel syndrome History of palpitations AFTER 2N D COVID VACCINE DEVELOPED PALPITATIONS SEES CARDIOLOGY Arrhythmia palpitations sin ce covid vaccine, moniter x2 that was ok Obesity Family History Medical History Relation Name Comments Atrial fibrillation Father Heart disease Mother Migraines Mother Bitemporal poun ding Asthma Other 1 Coronary artery disease Other 2 Diabetes Other 3 Hypertension Other 4 Stroke Other 5 Sudden Other 6 NONE Anesthesia problems Neg Hx Relation Name Status Comments Father Mother Alive Other 1 Other 2 Other 3 Other 4 Other 5 Other 6 Social History Tobacco Use Types Packs/Day Years Used Date Smoking Tobacco: Never Passive Smoke Exposure: Never Smokeless Tobacco: Never Alcohol Use Standard Drinks/Week Comments No 0 (1 standard drink = 0.6 oz pur e alcohol) AUDIT-C Answer Date Recorded Q1: How often do you have a drink containing alc ohol? 2-4 times a month 10/01/2023 Q2: How many drinks containi ng alcohol do you have on a typical day when you are drinking? 3 or 4 10/01/2023 Q3: How often do you have si x or more drinks on one occasion? Never 10/01/2023 Personal Safety Answer Date Recorded Have you ever been in or are you currently in a harmful physical or emotional relationship or is someone making you feel afraid or unsafe? Denies 10/01/2023 Comments No Sex and Gender Information Value Date Recorded Sex Assigned at Not on file Legal Sex Female 2:24 AM MENTAL HEALTH UNIT LEAD PSYCHOLOGIST Gender Identity Female 11/04/2019 10:07 PM CDT Sexual Orientation Straight 11/04/2019 10 :07 PM CDT Obstetrics History Last Filed Vital Signs Vital Sign Reading Time Taken Comments Blood Pressure 122/79 10/01/2023 2:00 PM CDT Pulse 70 10/01/2023 2:00 PM CDT Temperature 36.8 C (98.3 F) 10/01/2023 1:30 PM CDT Respiratory Rate 20 10/23/2023 4:44 PM CDT Oxygen Saturation 98% 10/01/2023 2: 00 PM CDT Inhaled Oxygen Concentration - - Weight 77.1 kg (169 lb 15.6 oz) 10/23/2023 4:44 PM CDT Height 160 cm (5' 3 ) 10/23/2023 4:44 PM CDT Body Mass Index 30.11 10/23/2023 4:44 PM CDT Plan of Treatment Health Maintenance Due Date Last Done Comments Cervical Cancer Screening 2000 Depression Screening 2000 Hepatitis C Screening 2000 HPV Vaccines (1 - 3-dose series) 01/05/2015 Regular Well Visit/Exam 18-64 01/05/2018 DTaP/Tdap/Td Vaccine (7 - Td or Tdap) 11/15/2021 11/16/2011, 11/29/2004, 04/09/2001, Additional history exists Influenza Vaccine (#1) 2023 0, 02/02/2017, 01/28/2014, Additional history exists Hepatitis B Screening Completed 2000 , 2000, 2000 Pneumococcal vaccine <65 Completed 014, 01/19/2009, 04/09/2001, Additional history exists Varicella Vaccines Completed 01/28/2014, 01/08/2001 Medical Devices Implanted Type Area Emt/Dispatcher Device Identifier Shelf Expiration Date Model / Serial / Lot AcSimris Algd [employer] Plul06 6 Hole Shortening Ulna Plate Bone Titanium Sterile - [id number] Implanted:Qty: 1 on 10/29/2019 by Estuardo Luke MD at [facility] [place] Right: Ulna [employer] [id number] / / [employer] Inc 102133 3.5mm 12mm Hexalobe Screw Bone Titanium Nonsterile Small Fragment - [id number] Implanted:Qty: 1 on 10/29/2019 by Estuardo Luke MD at [facility] [place] Right: Ulna [employer] [id number] / / [employer] 30-0258 3.5mm 14mm Hexalobe Screw Bone Titanium Nonsterile Small Fragment - [id number] Implanted:Qty: 1 on 10/29/2019 by Estuardo Luke MD at [facility] [place] Right: Ulna [employer] 30-0258 / / [employer] 101534 3.5mm 12mm Hexalobe Screw Bone Titanium Nonsterile Small Fragment - [id number] Implanted:Qty: 1 on 10/29/2019 by Estuardo Luke MD at [facility] [place] Right: Ulna [employer] [id number] / / [employer] [id number] 3.5mm 12mm Hexalobe Screw Bone Titanium Nonsterile Small Fragment - [id number] Implanted:Qty: 1 on 10/29/2019 by Estuardo Luke MD at [facility] [place] Right: Ulna [employer] [id number] / / [employer] 238262 3.5mm 12mm Hexalobe Screw Bone Titanium Nonsterile Small Fragment - [id number] Implanted:Qty: 1 on 10/29/2019 by Estuardo Luke MD at [facility] [place] Right: Ulna [employer] [id number] / / [employer] 155032 3.5mm 12mm Hexalobe Screw Bone Titanium Nonsterile Small Fragment - [id number] Implanted:Qty: 1 on 10/29/2019 by Estuardo Luke MD at [facility] [place] Right: Ulna [employer] [id number] / / [employer] [id number] 3.5mm 12mm Hexalobe Screw Bone Titanium Nonsterile Small Fragment - [id number] Implanted:Qty: 1 on 10/29/2019 by Estuardo Luke MD at [facility] [place] Right: Ulna [employer] [id number] / / [employer] 6 Hole Shortening Ulna Plate Bone Titanium Sterile Plul06 - [id number] Implanted:Qty: 1 on 01/10/2023 by Estuardo Luke MD at [facility] [place] Left: Arm [employer] [id number] / / [employer] 3.5mm 12mm Hexalobe Screw Bone Titanium Nonsterile Small Fragment [id number] - [id number] Implanted:Qty: 6 on 01/10/2023 by Estuardo Luke MD at [facility] Left: Arm [employer] [id number] / / [employer] 3.5mm 14mm Hexalobe Screw Bone Titanium Nonsterile Small Fragment 30-0258 - [id number] Implanted:Qty: 1 on 01/10/2023 by Estuardo Luke MD at [facility] [place] Left: Arm [employer] 30-0258 / / Ar[employer] Dx Swivelock 3.5mm 13.5mm Foot Elbow Medium Aiea Suture Peek Ar-8979p - [id number] Implanted:Qty: 1 on 01/10/2023 by Estuardo Luke MD at [facility] [place] Left: Arm Arth[employer] Inc AR-[id number] / / [employer] Inc Peg Fxatn Ulna Reduction Shortening Nonstrl 80-0422 - [id number] Implanted:Qty: 1 on 01/10/2023 by Estuardo Luke MD at [facility] [place] Left: Arm [employer] Inc 80-0422 / / Insurance COUNTS INCLUDE 234 BEDS AT [facility] BLUE ACCESS [place]ICE [place] ANTHEM ACCESS ANTHEM ACCESS CHOICE BLUE ACCESS CHOICE ID BLUE ACCESS ID BLUE ACCESS ID Advance Directives For more information, please contact: [phone] * Full Code (Latest Code Status on File) Date Activated Date Inactivated Comments 01/10/2023 3:03 PM 01/10/2023 8:07 PM * Full Code Date Activated Date Inactivated Comments 10/29/2019 1:32 PM 10/29/2019 6:42 PM Care Teams Physical Therapy Instructor Relationship Specialty Start Date End Date Compa Correa MD [address] [place] [address] PCP - General Internal Medicine 09/06/17 [place] [address] [place] [address] Surgeon Orthopedic Surgery 01/10/23 Polo Jeffery MD [address] [place] [address] Consulting Physician Otolaryngology 10/01/23
--- OUTSIDE RECORDS SUMMARY | 2024-06-09 12:42 | XMS_ITS | Encounter Summary ---
Author Organization [facility] Address [address] [place] [address] Phone Care Team Providers Care Animal Science Instructor Name Role Phone Compa Correa MD Primary Care Provider + [phone] Estuardo Luke MD Unavailable [phone] Polo Jeffery MD Unavailable [phone] Encounter Details Date Type Department Care Team (Latest Contact Info) Description 01/24/2021 Orders Only [facility] Scanning, Provider Social History Tobacco Use Types Packs/Day Years Used Date Smoking Tobacco: Never Smokeless Tobacco: Never Alcohol Use Standard Drinks/Week Comments No 0 (1 standard drink = 0.6 oz pur e alcohol) Comments No Sex and Gender Information Value Date Recorded Sex Assigned at Not on file Legal Sex Female 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 Gender Identity Female 11/04/2019 10:07 PM CDT Sexual Orientation Straight 11/04/2019 10 :07 PM CDT documented as of this encounter Plan of Treatment Not on file documented as of this encounter Procedures Procedure Name Priority Date/Time Associated Diagnosis Comments CARDIOLOGY DOCUMENT SCAN 01/24/2021 documented in this encounter Results * SCAN - CARDIOLOGY (01/24/2021) Anatomical Region Laterality Modality Other us Provider Scanning CV CARDIAC SERVICES PROCEDURES Final Result documented in this encounter Visit Diagnoses Not on filedocumented in this encounter Care Teams Animal Science Instructor Relationship Specialty Start Date End Date Compa Correa MD [address] [place] [address] PCP - General Internal Medicine 09/06/17 [place] [address] [place] [address] Surgeon Orthopedic Surgery 01/10/23 Polo Jeffery MD [address] [place] [address] Consulting Physician Otolaryngology 10/01/23 documented as of this encounter
--- OUTSIDE RECORDS SUMMARY | 2024-06-09 12:42 | XMS_ITS | Encounter Summary ---
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 2-4 times a month 10/01/2023 8:50 AM CDT Bridgette Delgado RN Q2: How many drinks containing alcohol do you have on a typical day when you are drinking? 3 or 4 10/01/2023 8:50 AM CDT Bridgette Delgado RN Q3: How often do you have six or more drinks on one occasion? Never 10/01/2023 8:50 AM CDT Bridgette Delgado RN documented as of this encounter Plan of Treatment Not on file documented as of this encounter Procedures Procedure Name Priority Date/Time Associated Diagnosis Comments HCG, URINE, QUALITATIVE Timed 08/16/2016 3:04 PM CDT documented in this encounter Results * HCG, urine, qualitative (08/16/2016 3:04 PM CDT) HCG, ur Negative Negative [facility] Urine 08/16/2016 3:04 PM CDT 08/16/2016 3:07 PM CDT Anupama Barth [facility] LAB URINE ORDERABLES Final Result [facility] [place] [address] documented in this encounter Visit Diagnoses Not on filedocumented in this encounter Care Teams Wastewater Operator Relationship Specialty Start Date End Date Vidhi Holley MD [address] [place] [address] PCP - General 06/16/16 09/05/17 documented as of this encounter
--- OUTSIDE RECORDS SUMMARY | 2024-06-09 12:42 | XMS_ITS | Referral Summary ---
Author Organization [facility] Address [address] [place] [address] Care Team Providers Care Agricultural Produce Washer Name Role Phone Compa Correa MD Primary Care Provider Estuardo Luke MD Unavailable [phone] Polo Jeffery MD Unavailable Allergies Active Allergy [...] understands. 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 She tends to grind her teeth. I recommended that she talk with her dentist about this. Probably needs to get a road crossing guard made. She understands. 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 Assessment & Plan (06/30/2023 1:06 PM WATCH ASSEMBLER): I think she would benefit from a septoplasty with bilateral inferior turbinectomy. I discussed the risk of a septoplasty with and without turbinectomy with the patient. There is a risk of continued nasal obstruction, bleeding, septal perforation, permanent anosmia. Also risk of inadequate correction which could result in continued nasal obstruction symptoms. She has a retail pharmacy manager and he would like to do this [...] weeks. 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 She understands. She would like to [...] Elbow pain 04/03/2016 Overview (02/02/2017): RIGHT. 11/05 [facility] says triceps tendonitis. US & MRI neg. [...] Polysaccharide PPV23 01/28/2014, Tdap 11/16/2011 Varicella 01/28/2014,01/08/2001 Social History Tobacco Use Types Packs/Day Years [...] on file Legal Sex Female 2:24 AM WATCH ASSEMBLER Gender Identity Female 11/04/2019 10:07 PM CDT Sexual Orientation Straight 11/04/2019 10 :07 PM CDT Last Filed Vital Signs Vital Sign Reading Time Taken Comments Blood Pressure 122/79 10/01/2023 2:00 PM CDT Pulse 70 10/01/2023 2:00 PM CDT Temperature 36.8 C (98.3 F) 10/01/2023 1:30 PM CDT Respiratory Rate 20 10/23/2023 4:44 PM CDT Oxygen Saturation 98% 10/01/2023 2:00 PM CDT Inhaled Oxygen Concentration - - Weight 77.1 kg (169 lb 15.6 oz) 10/23/2023 4:44 PM CDT Height 160 cm (5' 3 ) 10/23/2023 4:44 PM CDT Body Mass Index 30.11 10/23/2023 4:44 PM CDT Plan of Treatment Not on file Medical Devices Implanted Type [place] Finish Operator Tig Welder Device Identifier Shelf Expiration Date Model / Serial / Lot [employer] Plul06 6 Hole Shortening Ulna Plate Bone Titanium Sterile - [id number] Implanted:Qty: 1 on 10/29/2019 by Estuardo Luke MD at [facility] Right: Ulna [employer] [id number] / / [employer] [id number] 3.5mm 12mm Hexalobe Screw Bone Titanium Nonsterile Small Fragment - [id number] Implanted:Qty: 1 on 10/29/2019 by Estuardo Luke MD at [facility] Right: Ulna [employer] [id number] / / [employer] 30-0258 3.5mm 14mm Hexalobe Screw Bone Titanium Nonsterile Small Fragment - [id number] Implanted:Qty: 1 on 10/29/2019 by Estuardo Luke MD at [facility] Right: Ulna [employer] 30-0258 / / [employer] [id number] 3.5mm 12mm Hexalobe Screw Bone Titanium Nonsterile Small Fragment - [id number] Implanted:Qty: 1 on 10/29/2019 by Estuardo Luke MD at [facility] Right: Ulna [employer] [id number] / / [employer] [id number] 3.5mm 12mm Hexalobe Screw Bone Titanium Nonsterile Small Fragment - [id number] Implanted:Qty: 1 on 10/29/2019 by Estuardo Luke MD at [facility] Right: Ulna [employer] [id number] / / [employer] 022357 3.5mm 12mm Hexalobe Screw Bone Titanium Nonsterile Small Fragment - [id number] Implanted:Qty: 1 on 10/29/2019 by Estuardo Luke MD at [facility] Right: Ulna [employer] [id number] / / [employer] 208797 3.5mm 12mm Hexalobe Screw Bone Titanium Nonsterile Small Fragment - [id number] Implanted:Qty: 1 on 10/29/2019 by Estuardo Luke MD at [facility] Right: Ulna [employer] [id number] / / [employer] [id number] 3.5mm 12mm Hexalobe Screw Bone Titanium Nonsterile Small Fragment - [id number] Implanted:Qty: 1 on 10/29/2019 by Estuardo Luke MD at [facility] Right: Ulna [employer] [id number] / / [employer] 6 Hole Shortening Ulna Plate Bone Titanium Sterile Plul06 - [id number] Implanted:Qty: 1 on 01/10/2023 by Estuardo Luke MD at [facility] Left: Arm [employer] PLUL06 / / [employer] 3.5mm 12mm Hexalobe Screw Bone Titanium Nonsterile Small Fragment [id number] - [id number] Implanted:Qty: 6 on 01/10/2023 by Estuardo Luke MD at [facility] Left: Arm [employer] [id number] / / [employer] 3.5mm 14mm Hexalobe Screw Bone Titanium Nonsterile Small Fragment 30-0258 - [id number] Implanted:Qty: 1 on 01/10/2023 by Estuardo Luke MD at [facility] Left: Arm [employer] 30-0258 / / [employer] Dx Swivelock 3.5mm 13.5mm Foot Elbow Medium Mayer Suture Peek Ar-8979p - [id number] Implanted:Qty: 1 on 01/10/2023 by Estuardo Luke MD at [facility] Left: Arm [employer] AR-[id number] / / [employer] Peg Fxatn Ulna Reduction Shortening Nonstrl 80-0422 - [id number] Implanted:Qty: 1 on 01/10/2023 by Estuardo Luke MD at [facility] Left: Arm [employer] 80-0422 / / Insurance [facility] [employer] [place] AN[place] ACCESS CHOICE [employer] [place] [employer] [place] [employer] [place] Advance Directives For more information, please contact: [phone] * Full Code (Latest Code Status on File) Date Activated Date Inactivated Comments 01/10/2023 3:03 PM 01/10/2023 8:07 PM * Full Code Date Activated Date Inactivated Comments 10/29/2019 1:32 PM 10/29/2019 6:42 PM Care Teams Agricultural Produce Washer Relationship Specialty Start Date End Date Compa Correa MD [address] [place] [address] PCP - General Internal Medicine 09/06/17 [place] [id number] [place] [address] Surgeon Orthopedic Surgery 01/10/23 Polo Jeffery MD [address] [place] [address] Consulting Physician Otolaryngology 10/01/23
--- OUTSIDE RECORDS SUMMARY | 2024-06-09 12:42 | XMS_ITS | Data Portability ---
Author Organization [facility] [place] Address [address] [place] [address] Care Team Providers Care Guyline Operator Name Role Phone LIDIA MALDONADO Primary Care Provider Assessment Encounter Date Assessment Date Assessment LastModified by Organization Details LastModified Time 10/17/2021 10/17/2021 Annual gynecological exam performed. Patient will come back in a year unless there are new symptoms. Not available 10/17/2021 11:27:02 02/20/2024 02/20/2024 Annual gynecological exam performed. Patient will come back in a year unless there are new symptoms. [email or web address] Not available 02/04/2024 15:29:32 Plan of Treatment Reminders Order Date Submit Date Provider Last Modified By Organization Details Last Modified Time Details Appointments MED CHECK 2024 03:00P M OSMANY MCRAE NP Not available Not available Not available Lab HbA1c (hemoglob in A1c), blood 2023 [facility] (Lab), [address], [place], [address], 03/13/2024 13:16:29 dhea-sulf ate, serum 2023 [facility] (Lab), [address] [place], [address], 03/13/2024 13:16:26 estradiol , serum 2023 024 [facility] (Lab), [address], [place], [address], 03/13/2024 13:16:27 FSH (follicle -stimulat ing hormone), serum 2023 [facility] (Lab), [address] [facility], [place], [address], 03/13/2024 13:16:27 lh (luteiniz ing hormone), serum 2023 024 [facility] (Lab), [address] [facility], [place], [address], 03/13/2024 13:16:27 progester one, serum 2023 024 [facility] (Lab), [address] [facility], [place], [address], 03/13/2024 13:16:28 prolactin , serum 2023 [facility] (Lab), [address] [facility], [place], [address], 03/13/2024 13:16:28 testoster one free/test osterone total, ratio, serum 2023 024 [facility] (Lab), [address] [facility], [place], [address], 03/13/2024 13:16:29 test, urine 2023 [email or web address] [place], [facility] [address], [place], [address], 03/05/2024 12:31:02 vitamin B12, serum 2023 [facility] (Lab), [address] [facility], [place], [address], 03/13/2024 13:16:28 25-hydrox yvitamin D2 + 25-hydrox yvitamin D3, QN, serum or plasma 2023 024 [facility] (Lab), [address], [place], [address], 03/13/2024 13:16:29 Referral None recorded. Procedures None recorded. Surgeries None recorded. Imaging None recorded. Medication Orders Nexplanon 68 mg subdermal implant 2023 024 [email or web address] [facility], [address] [place], [place], [id number], 03/05/2024 12:31:01 buspirone 7.5 mg tablet 2023 024 [place] [facility], [address], [place], [id number], 02/20/2024 16:24:13 RASHMI (28) 3 mg-0.02 mg tablet 2021 022 [facility], [address] [place], [place], [id number], 02/20/2024 15:47:24 Aurovela 24 Fe 1 mg-20 mcg (24)/75 mg (4) tablet 2020 021 [email or web address] [facility], [facility] [address] [place], [place], [id number], 06/07/2020 11:04:25 Patient TargetsNo targets recorded. Patient InstructionsNo instructions recorded. Reason for Referral None Reported. Results Created Date Observation Date Name Description Value Unit Range Abnormal Flag Note LastModifiedBy Organization Detail LastModifiedTime 10/18/19 22 10/17/2021 IMAGE GUIDE D PAP, REFLE X HPV IF ASCUS ONLY image guided Pap, reflex HPV ASCUS only SEE RESULT S BELOW CASE REPOR T: Cytol ogy Gynec ologi lexa Repor t Case: [id number] Autho junie mendosa Provi cristin: Jason Ahuja Colle cted: 10/17 1431 DOCUMENT IMAGING MANAGER Order ing Locat ion: [place] [facility] logjamel Recei rodger: 10/18 0732 First Scree n: DeLuc a, Ingrid, CT Rescr een: Clarisse Lam Speci men: Scree feliz Pap - Image d, Cervi x STATE MENT OF ADEQU ACY: Satis facto ry for evalu ation Trans forma tion zone compo nent absen t. The absen ce of an endoc ervic al compo nent was confi rmed by an addit ional scree ner. FINAL DIAGN OSIS: Negat anil for Intra epith elial Lesio n or Shanika desai (NIL) . Funga l organ isms morph ologi wilbert consi stent with Sachi da spp. Elect lucius solis olu d by Clarisse Lam on 022 at 10:12 AM ----- ----- ----- ----- ----- ----- ----- ----- ----- ----- ----- ----- ----- ----- ----- ----- ----- ---- COMME NT: Note: This speci men was revie wed by a Cytot echno logis t and/o r Patho logis t (as indic ated in this repor t) after evalu ation using the Thinp rep Imagi ng Syste m. CLINI [facility] INFOR MATIO N: Menst rual Statu s: LMP (if appli cable ): Clini lexa Histo ry/Pr eviou s Pap: Type of Neopl es (if appli cable ): Signi fican t Clini lexa Findi ngs: Other Histo ry: Hormo cynthia (if appli cable ): PAP EDUCA IBETH L NOTE: The Pap Test is a scree feliz test with an inher ent false negat anil rate. Liqui d-bas ed sampl ing may decre ase, but will not elimi linsey, false negat anil resul ts. A negat anil resul t does not precl ude the prese nce and/o r devel opmen t of disea se, since the prese nce of abnor mal cells in the sampl e depen ds on the locat ion of the lesio n and sampl ing techn ique. Rose Marie nued regul ar scree feliz is the best metho d of cance r preve ntion . If repor kenyon cytol ogic findi ng do not corre late with physi lexa and/o r histo rical findi ngs, furth er inves tigat ion is recom royce d, as clini wilbert warra nted. Not Available [facility] (Lab) [address] [facility], [place], [address], 10/21/2021 11:15:00 10/18/19 22 10/17/2021 CT/GC (RAFFI) , THINP REP VIAL chlamydia trachomatis, PCR Negati ve negati ve Not Available [facility] (Lab) [address] [facility] [address], [place], [address], 10/21/2021 11:15:01 10/18/19 22 10/17/2021 CT/GC (RAFFI) , THINP REP VIAL neisseria gonorrhoeae, PCR Negati ve negati ve Not Available [facility] (Lab) [address], [place], [address], 10/21/2021 11:15:01 10/18/19 22 10/17/2021 TRICH OMONA S VAGIN RAY (RRNA ) trichomonas vaginalis ribosomal RNA (rrna) Negati ve negati ve Not Available [facility] (Lab) [address] [facility], [place], [address], 10/21/2021 11:15:01 03/05/20 24 03/05/2024 DHEA SULFA TE DHEA-sulfate 355 ug/dL Femal e Range s Age(y ) Range (ug/d L) 10-15 34-28 0 15-20 65-36 8 20-25 148-4 07 25-35 99-34 0 35-45 61-33 7 45-55 35-25 6 55-65 19-20 5 65-75 9-246 > 75 12-15 4 Not Available [facility] (Lab) [address] [facility], [place], [address], 03/13/2024 13:16:26 03/05/20 24 03/05/2024 LH (LUTE NIZIN G HORMO NE) LH 5.6 mIU/m L This assay was perfo rmed using [employer] ratio n reage nts and test kits. Value s obtai mino with other assay metho ds or kits canno t be used inter andrade eably . Femal es Mid-F ollic ular: 2.4-1 2.6 mIU/m L Mid-C ycle: 14.0- 95.6 mIU/m L Mid-L uteal : 1.0-1 1.4 mIU/m L Postm enopa use: 7.7-5 8.5 mIU/m L Not Available [facility] (Lab) [address], [place], [address], 03/13/2024 13:16:27 03/05/20 24 03/05/2024 ESTRA DIOL estradiol 17.7 pg/mL This assay was perfo rmed using [employer] ratio n reage nts and test kits. Value s obtai mino with other assay metho ds or kits canno t be used inter andrade eably . Femal e Estra diol Range s: Folli cular phase 12.4- 233 pg/mL Ovula tion phase 41.0- 398 pg/mL Lutea l phase 22.3- 341 pg/mL Postm enopa usal <5-13 8 pg/mL Healt hy Pregn ant Women 1st Trime ster 154-3 243 pg/mL 2nd Trime ster 1561- 72781 pg/mL 3rd Trime ster 8525- >3000 0 pg/mL Not Available [facility] (Lab) [address] [facility], [place], [address], 03/13/2024 13:16:27 03/05/20 24 03/05/2024 FSH FSH 5.5 mIU/m L This assay was perfo rmed using [employer] ratio n reage nts and test kits. Value s obtai mino with other assay metho ds or kits canno t be used inter [facility] . Femal es Folli cular : 3.5-1 2.5 mIU/m L Ovula tion: 4.7-2 1.5 mIU/m L Lutea l: 1.7-7 .7 mIU/m L Postm enopa use: 25.8- 134.8 mIU/m L Not Available [facility] (Lab) [address], [place], [address], 03/13/2024 13:16:27 03/05/20 24 03/05/2024 PROGE STERO NE progesterone 0.09 NG/mL This assay was perfo rmed using [employer] ratio n reage nts and test kits. Value s obtai mino with other assay metho ds or kits canno t be used inter [facility] . Femal e Proge stero ne Range s: Folli cular phase 0.06- 0.89 ng/mL Ovula tion phase 0.12- 12.00 ng/mL Lutea l phase 1.83- 23.90 ng/mL Postm enopa usal <0.05 -0.13 ng/mL Healt hy Pregn ant Women 1st Trime ster 11.0- 44.30 2nd Trime ster 25.40 -83.3 0 3rd Trime ster 58.70 -214. 00 Not Available [facility] (Lab) [address], [place], [address], 03/13/2024 13:16:28 03/05/20 24 03/05/2024 PROLA CTIN prolactin, total 14.90 NG/mL 4.79-2 3.30 This assay was perfo rmed using [employer] ratio n reage nts and test kits. Value s obtai mino with other assay metho ds or kits canno t be used inter [facility] . Not Available [facility] (Lab) [address] [place], [address], 03/13/2024 13:16:28 03/05/20 24 03/05/2024 VITAM IN B12 vitamin B12 267 pg/mL 180-91 4 Christine l Range : 180-9 14 pg/mL . Indet ermin ate Range : 145-1 80 pg/mL . Defic ient Range : <=145 pg/mL . Not Available [facility] (Lab) [address] [place], [address], 03/13/2024 13:16:28 03/05/20 24 03/05/2024 VITAM IN D, 25-OH (TOTA L D2/D3 ) vitamin D, 25-hydroxy, total 66.5 NG/mL 30.0-1 00.0 Sugge stive of Defic iency : <20 ng/mL Sugge stive of Insuf ficie ncy: 20-29 ng/mL Sugge stive of Suffi cienc y: 30-10 0 ng/mL Sugge stive of Toxic ity: >150 ng/mL Not Available [facility] (Lab) [address], [place], [address], 03/13/2024 13:16:29 03/05/20 24 03/05/2024 HEMOG LOBIN A1C hemoglobin A1C 5.2 % 0-5.6 The Ameri can Diabe keyanna Assoc iatio n recom mends that a prima ry goal of thera py shoul d be a HBA1C of < 7% and that physi cians shoul d reeva luate the treat ment regim en in patie nts with HBA1C value s consi stent ly > 8%. <5.7% Christine l 5.7 - 6.4% Incre ased risk for diabe keyanna >=6.5 % Diagn ostic of diabe keyanna <7.0% Goal of thera py >8.0% Actio n sugge sted Not Available [facility] (Lab) [address], [place], [address], 03/13/2024 13:16:29 03/05/20 24 03/05/2024 TESTO STERO NE, FREE( DIALY SIS) AND TOTAL (LC/M S/MS) testosterone , total 19 NG/dL 2-45 For addit ional [facility] refer to http: //rafael richardque stdia gnost ics.c om/fa q/ Total Testo stero neLCM SMSFA Q165 (This link is being provi ded for infor constance nal/ educa ibeth l purpo ses only. ) This test was devel oped and its catherine tical perfo rmanc e april cteri stics have been deter mined by [employer] [place], [place]. It has not been clear ed or appro rodger by the U.S. Food and Drug Admin istra tion. This assay has been valid ated pursu ant to the CLIA regul ation s and is used for clini lexa purpo ses. Not Available [facility] (Lab) [address] [facility], [place], [address], 03/13/2024 13:16:29 03/05/20 24 03/05/2024 TESTO STERO NE, FREE( DIALY SIS) AND TOTAL (LC/M S/MS) testosterone , free 3.3 pg/mL 0.1-6. 4 This test was devel oped and its catherine tical perfo rmanc e april cteri stics have been deter mined by [employer] [place] [place], [place]. It has not been clear ed or appro rodger by the U.S. Food and Drug Admin istra tion. This assay has been valid ated pursu ant to the CLIA regul ation s and is used for clini lexa purpo ses. Perfo rming Organ izati on [facility] n: Site ID: AMD Name: [employer] [facility] Addre ss: [id number] [place], [place] Direc tor: Rebecca Garcia MD PhD Not Available [facility] (Lab) [address] [facility], [place], [address], 03/13/2024 13:16:29 03/05/20 24 03/05/2024 pregn kimberly test, urine HCG negati ve Not Available [facility] [address], [place], [address], 03/05/2024 12:30:45 Result Notes None recorded. Problems Name Problem SNOMED Code Status Onset Date Resolution Date Notes Provider Name and Address Organization Details Recorded Time Educatio n Completed 201605/31/2020 Encounte r for oth general cnsl and advice on contrace ption;Pr actice ID: 0001 Moira maldonado, [facility] 09:18:41 Pregnanc y test negative [id number] Completed 201605/31/2020 Encounte r for pregnanc y test, result negative ;Practic e ID: 0001 Moira maldonado, [facility] 09:18:[address] Concept Completed 201605/31/2020 Encounte r for surveill ance of other contrace ptives;P ractice ID: 0001 Moirapato [facility], [facility] 09:18:45 Procedur e Completed 201705/31/2020 Enctr srvlnc implanta ble subderma l contrace ptive;Pr actice ID: 0001 Moira [facility], [facility] 09:18:44 Contrace ption care manageme nt Completed 201605/31/2020 Encounte r for contrace ptive manageme nt, unspecif ied;Kristian rded Elsewher e: No Locat ion: [facility] S ource: EHR Performance Tester marilou: N Practi ce ID: 0001 Thomas lable Time: 04:30:00 PM Moira maldonado [facility] 09:18:38 Problem Notes None recorded. Procedures Surgical History Date Name Laterality Status Provider Name and Address Organization Details Recorded Time 4 MM Nexplanon insert completed OSMANY MCRAE, SEB [address], [place], [address], [facility] 03/05/2024 13:54:07 0 Nexplanon Removal completed Poly Mckeon [facility] 03/03/2020 16:55:29 7 open reduction of fracture of ulna completed [facility] 02/16/2020 14:26:20 5 procedure on elbow completed [facility] 02/16/2020 14:26:36 Imaging Results None recorded. Procedure Notes None recorded. Medical Equipment None Reported. Allergies Allergen ID Allergen Name Allergen Category Reaction Reaction Severity Criticality Documentation Date Start Date Code Code System Note Provider Name and Address Organization Details Recorded Time 2504 chlorhexi dine medicatio n Not available Not available Not available 02/16/2020 2358 RxNorm [facility] 0 14:25:02 Medications Name Sig Start Date Stop Date Status Note LastModified by Organization Details LastModified Time amoxicillin 500 mg capsule 05/31 completed Not Available Not Available Not Available venlafaxine ER 37.5 mg capsule,ext ended release 24 hr 02/19 completed Not Available Not Available Not Available prednisone 10 mg tablet 02/19 completed Not Available Not Available Not Available cefuroxime axetil 250 mg tablet 02/19 completed Not Available Not Available Not Available tizanidine 2 mg tablet 02/19 completed Not Available Not Available Not Available azithromyci n 250 mg tablet 10/17 completed Not Available Not Available Not Available fluconazole 150 mg tablet Take 1 tablet every day by oral route as directed for 1 day. 02/19 completed Not Available Not Available Not Available benzonatate 200 mg capsule 10/17 completed Not Available Not Available Not Available hydrocodone 5 mg-acetamin ophen 325 mg tablet 05/31 completed Not Available Not Available Not Available prednisone 20 mg tablet 02/19 completed Not Available Not Available Not Available sulfamethox azole 800 mg-trimetho prim 160 mg tablet active Not Available Not Available Not Available ketorolac 10 mg tablet 02/19 completed Not Available Not Available Not Available cephalexin 500 mg capsule 02/19 completed Not Available Not Available Not Available buspirone 7.5 mg tablet TAKE ONE TABLET BY MOUTH TWICE A DAY active Not Available Not Available No t Available diclofenac sodium 75 mg tablet,clara yed release 02/19 completed Not Available Not Available Not Available amoxicillin 250 mg capsule 03/03 completed Not Available Not Available Not Available azelastine 137 mcg (0.1 %) nasal spray 02/19 completed Not Available Not Available Not Available methylpredn isolone 4 mg tablets in a dose pack 10/17 completed Not Available Not Available Not Available albuterol sulfate HFA 90 mcg/actuati on aerosol inhaler active Not Available Not Available Not Available ipratropium bromide 42 mcg (0.06 %) nasal spray 02/19 completed Not Available Not Available Not Available cefdinir 300 mg capsule 10/17 completed Not Available Not Available Not Available amoxicillin 875 mg-potassiu m clavulanate 125 mg tablet 02/19 completed Not Available Not Available Not Available neomycin 3.5 mg/g-polymy jordi B 10,000 unit/g-dexa meth 0.1 % eye oint 10/17 completed Not Available Not Available Not Available Zyrtec active Not Available Not Availa ble Not Available drospirenon e 3 mg-ethinyl estradiol 0.02 mg tablet TAKE ONE TABLET BY MOUTH DAILY 02/19 completed Not Available Not Available Not Available Nexplanon 68 mg subdermal implant Inject 1 implant by subcutane ous route. 2023 active Not Available Not Available Not Avai lable Allergy Relief (fluticason e) 50 mcg/actuati on nasal spray,suspe nsion active Not Available Not Available Not Available [place] Fe 1-20 EQ (28) 1 mg-20 mcg (21)/75 mg (7) tablet TAKE ONE TABLET BY MOUTH EVERY DAY 10/26 completed Not Available Not Available Not Available Aurovela 24 Fe 1 mg-20 mcg (24)/75 mg (4) tablet Take 1 tablet every day by oral route. 06/07 completed Not Available Not Available Not Available Flucelvax Quad (PF) 60 mcg (15 mcg x 4)/0.5 mL IM syringe 05/31 completed Not Available Not Available Not Available Vitals Date Recorded Body height Body mass index (BMI) Body weight Provider Name and Address Organization Details Last Updated DateTime 10/17/2021 162.56 cm 27.3 kg/m2 73364.19 g Bertha Rodriguez [facility] 10/17/2021 11:27:52 Date Recorded Systolic blood pressure Diastolic blood pressure Provider Name and Address Organization Details Last Updated DateTime 10/17/2021 120 mm[Hg] 74 mm[Hg] Cherry Doshi, [facility]- [address], [place], [address], [facility] 10/17/2021 11:35:46 Date Recorded Body height Body mass index (BMI) Body weight Systolic blood pressure Diastolic blood pressure Provider Name and Address Organization Details Last Updated DateTime 02/20/2024 162.56 cm 29.2 kg/m2 16382.42 g 130 mm[Hg] 81 mm[Hg] Doris Beyer [facility] 15:46:34 Date Recorded Body height Body mass index (BMI) Body mass index (BMI) Percentile per age and sex Body weight Body height Body mass index (BMI) Body mass index (BMI) Percentile per age and sex Body weight Systolic blood pressure Diastolic blood pressure Systolic blood pressure Diastolic blood pressure Provider Name and Address Organization Details Last Updated DateTime 1 160.02 cm 27.6 kg/m2 88 % 60895.4 1 g 160.02 cm 27.6 kg/m2 88 % 21498.4 1 g 122 mm[Hg] 78 mm[Hg] 122 mm[Hg] 78 mm[Hg] Moira [place] [facility] 09:52:08 Social History Question Answer Notes LastModified by Organizat ion Details LastModified Time Tobacco Smoking Status Never Smoker Christie [facility], [facility] 02/17/2020 10:57:01 Do You Have An Advance Directive? No [email or web address] Information n ot available 02/20/2024 What Is Your Level Of Alcohol Consumption? Moderate [email or web address] Information not available 02/20/2024 How Many Years Have You Consumed Alcohol? 3 [email or web address] Information not available 02/20/2024 Are You Blind Or Do You Have Difficulty Seeing? No Information n ot available 10/17/2021 What Is Your Level Of Caffeine Consumption? Moderate Information not available 10/17/2021 In The 14 Days Before Symptom Onset, Have You Had Close Contact With A Laboratory-confirm ed COVID-19 While That Case Was Ill? No [email or web address] Information n ot available 02/20/2024 In The 14 Days Before Symptom Onset, Have You Had Close Contact With A Person Who Is Under Investigation For COVID-19 While That Person Was Ill? No [email or web address] Information not available 02/20/2024 Have You Been To An Area Known To Be High Risk For COVID-19? No [email or web address] Information not available 02/20/2024 Are You Deaf Or Do You Have Serious Difficulty Hearing? No Information not available 10/17/2021 What Type Of Diet Are You Following? REGULAR [email or web address] Information n ot available 02/20/2024 What Is The Highest Grade Or Level Of School You Have Completed Or The Highest Degree You Have Received? 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 No Information not available 02/20/2024 Do You Use Protection During Sex? Always [email or web address] Information not available 02/20/2024 Do You Use Your Seat Belt Or Car Seat Routinely? Yes Information not available 10/17/2021 Do You Have Smoke And Carbon Monoxide Detectors In Your Home? Yes Information not available 10/17/2021 How Much Tobacco Do You Smoke? No Information not available 02/20/2024 Do You Feel Stressed (tense, Restless, Nervous, Or Anxious, Or Unable To Sleep At Night)? [id number] Information not available 10/17/2021 Do You Use Any Illicit Or Recreational Drugs? No Information not available 10/17/2021 Do You Use Sunscreen Routinely? Yes Information not available 10/17/2021 Have You Used IV Drugs? No Information not available 02/20/2024 Sex: Unknown Functional Status Question Answer Note LastModified by Organizat ion Details LastModified Time Do you have difficulty walking or climbing stairs? No Information not available 10/17/2021 Are you able to walk? [email or web address] Information not available 10/17/2021 Are you able to care for yourself? Yes Information not available 10/17/2021 Do you have difficulty dressing or bathing? No Information not available 10/17/2021 What is your exercise level? Moderate [email or web address] Information not available 02/20/2024 Mental Status None recorded. Family History Relationship Description Onset Age of this Age Resolved Age Notes LastModified by Organization Details LastModified Time Father Asthma [email or web address] Not available 14:23:24 Maternal Grandmother Heart disease jgumber Not available 2019 14:23:44 Maternal Grandmother Diabetes mellitus jgumber Not available 2019 14:24:09 Maternal Grandfather Heart disease jgumber Not available 2019 14:23:44 Maternal Grandfather Hypertensive disorder jgumber Not available 2019 14:24:01 Maternal Grandfather Diabetes mellitus jgumber Not available 2019 14:24:30 Paternal Grandmother Malignant tumor of lung jgumber Not available 2019 14:24:23 Maternal Aunt Seizure disorder Not available 2023 15:41:48 Medical History Condition Response Allergies (Food, seasonal, environmental ) Y Gynecological History Statement/Question Response Flow Heavy Date of Last Mammogram Date of LMP 02/05/2024 Was last menstrual period normal Y STIs/STDs N HPV Vaccine Y Duration of Flow (days) 3 Current Control Method Condoms Are cycles usually normal Y Frequency of Cycle (Q days) 28 Sexually Active? Y Menses Monthly N Age of first menstrual cycle 12 Date of Last Pap Smear Sexual Problems? N Desired Control Method Unknown LMP Approximate N Obstetrics History GPAL:G 0 P 0 0 0 0 Past Encounters Encounter ID Performer Location Encounter Start Date Encounter Closed Date Diagnosis/Indication Diagnosis SNOMED-CT Code Diagnosis ICD10 Code Diagnosis Note [id number] [place] [address] 02/17/2020 10:48:22 02/18/2020 12:52:43 Gynecologic examination [id number] Z01.419 Take Calcium with Vitamin D 1200mg daily if not receiving in daily diet. It is strongly advised to have an annual flu shot and up can obtain at most pharmacies . If you have not had a TDap shot in the last 10 years you should obtain one as well. Discussed with patient & provided with informatio n regarding Gardisil vaccine to prevent the 4 strains for HPV that cause cervical cancer. Encourage safe sexual practices, to use condoms and limit partners if not already in a monogamous relationsh ip. Do monthly self breast exams. BRCA testing is now available for patients with strong genetic history of female cancer. If interested contact the office. Engage in daily exercise of low impact aerobic exercise 45-60 minutes 4-5 times weekly. Avoid tobacco, illicit drugs, and alcohol. This lifestyle behavior pattern will lead to less health conditions and longer life span. If BMI greater than 25 weight watchers or dietary consult advised. Pap smear is not recommende d prior to the age of 21. If you have any concerns, pelvic, or vaginal problems we can discuss testing. Patient received above instructio ns, and questions have been answered. If you have any questions please call or respond to this email. Patient was made aware of the patient portal and may obtain a paper copy of today's plan if desired.p Contracept ion care management [id number] Z30.9 Discussed all control options in great detail. Pt would like to start ocp. She is aware of the risks and benefits. She does not have any medical condition that is contraindi cated with the use of estrogen containing control. Instructed on quick start since she still has nexplanon in and cycles are very irregular. She is aware it is not effective for control the first month. She is also aware of the importance of taking at the same time every day. Encouraged use of condoms as the pill does not protect against STD's. Will return in 3 months for med check. Consent was read and signed. Pt verbalized understand ing. Return for nexplanon removal 2 weeks after starting ocp. [id number] [facility] [address],[place] [address] 03/03/2020 15:09:33 03/03/2020 17:21:23 Removal of subcutaneous contraceptive [id number] Z30.46 Plan to return to follow up on ocp. [address] [facility] [address],[place] [address] 05/31/2020 09:35:22 05/31/2020 19:06:04 11560 Cherry Doshi [place] [address],[place] [address] 05/31/2020 09:46:38 05/31/2020 10:02:40 Contraception care management [id number] Z30.9 Patient is here today for a medicaton check of control. She voices goals of therapy have been met with use of this therapy. She denies neg side effects. She is eating, drinking, sleeping well; moods are stable & periods are well regulated. Wishes to continue this method of BC. Appropriat e to continue this medication . [id number] Cherry Doshi , [facility] [address],[place] [address] 10/17/2021 11:11:27 10/17/2021 12:02:13 Gynecologic examination [id number] Z01.419 Take Calcium with Vitamin D 1200mg daily if not receiving in daily diet. It is strongly advised to have an annual flu shot and up can obtain at most pharmacies . If you have not had a TDap shot in the last 10 years you should obtain one as well. Discussed with patient & provided with informatio n regarding Gardisil vaccine to prevent the 4 strains for HPV that cause cervical cancer if under age 26. Encourage safe sexual practices, to use condoms and limit partners if not already in a monogamous relationsh ip. Do monthly self breast exams. Have mammogram yearly or every other year depending on family history. BRCA testing is now available for patients with strong genetic history of female cancer. If interested contact the office. Engage in daily exercise of low impact aerobic exercise 45-60 minutes 4-5 times weekly. Avoid tobacco and illicit drugs as well as using moderation with alcohol intake less than 1-2 8 oz beverages daily. This lifestyle behavior pattern will lead to less health conditions and longer life span. If BMI greater than 25 weight watchers or dietary consult advised. Patient received above instructio ns, and questions have been answered. If you have any questions please call or respond to this email. Patient was made aware of the patient portal and may obtain a paper copy of today's plan if desired. Pap sent STD Screen sent Genetic Screen discussed Colon Screen na Dexa Screen na Routine Labs naMammo na Contracept ion care management [id number] Z30.9 Switch in OCP due to irregular start time of menses in her pill pack despite consistent use & timing.RTO x 3mos med check [id number] OSMANY MCRAE NP [place] [address] [address] 02/20/2024 15:41:11 02/20/2024 16:23:32 Gynecologic examination [id number] Z01.419 Annual gynecologi lexa exam performed. Patient will come back in a year unless there are new symptoms. Suggest Calcium with Vitamin D if not eating in diet. Patient advised to get annual flu shot. Recommend yearly physicals and perform monthly breast exams. Genetic testing is available for patients with family history of cancer. Engage in safe sexual practices, use condoms. Encouraged to have daily exercise. Avoid tobacco and illicit drugs, moderation of alcohol. If BMI greater than 25 dietary consult advised. If you have any questions please call or email. Pap smear- UTD (2021 - WNL), will repeat in 2024 per ASCCP guidelines . laboratory evaluation - PCP STI testing - declined Contracept ion care management [id number] Z30.9 Discussed all control options in depth and pt is interested in Nexplanon. Discussed all risks and benefits including irregular unschedule d bleeding. Pt verbalized understand ing and would like to proceed. She is aware that she needs to call us on the 1st day of her period to schedule placement. Generalize d anxiety disorder [id number] F41.1 Discussed coping mechanisms for stress and anxiety.Michele henry wishes to try a medication daily to treat anxiety.Rx sent for buspirone. Risks/bene fits/AEs discussed. RTO in 3 months for med check. [id number] Doris Beyer [facility] [address] [address] 03/05/2024 12:01:35 03/05/2024 14:01:41 Fatigue [id number] R53.83 Will check Vitamin B12 and vitamin D levels d/t c/o fatigue. Hirsutism [id number] L68. 0 Will check hormone levels that may contribute to reported sx of hirsutism and acne.Discu ssed that Nexplanon may aid in symptom improvemen t and we can re-evaluat e sx at 3 month med check. Patient verbalizes understand ing. Insertion of subcutaneous contraceptive [id number] Z30.46 1. The patient was instructed that the pressure dressing should remain in place until tomorrow. Most women do not experience pain after insertion, but if it occurs, OTC pain medication usually provide relief. She should call the provider if she develops pain, discharge, or swelling at the insertion site, fever, or other concerns.2 . Back-up contracept ion may be required.3 . The implant will need to be replaced in four years. Health Concerns Section Related Observation LastModified by Organization Detai ls LastModified Time None Recorded Concern Status LastModified by Organization Details LastModified Time None Recorded Advance Directives Directive N: Payers Encounter Date Sequence Insurance Name Policy Number Policy Rooney Covered Member ID Rooney Member ID Guarantor Name 05/31/2020 1 [place] [id number] Tyrone A Pirok [id number] 30 Tyrone Pirok 05/31/2020 1 [place] [id number] Tyrone A Pirok [id number] Tyrone Pirok 10/17/2021 1 [place] [id number] Tyrone A Pirok [id number] 30 Tyrone Pirok 02/20/2024 1 [place] [id number] Tyrone A Pirok [id number] 30 Tyrone Pirok 03/05/2024 1 [place] [id number] Tyrone Slater [id number] 30 Tyrone Slater Notes Date Note Type Note Provider Name and Address Organization Details Recorded Time 05/31/2020 text/html Patient is here today for a medicaton check of control. She voices goals of therapy have been met with use of this therapy. She denies neg side effects. She is eating, drinking, sleeping well; moods are stable & periods are well regulated. Wishes to continue this method of BC. Appropriate to continue this medication. Cherry Doshi [facility] [address], [place], [address], [facility] 05/31/2020 09:53:41 10/17/2021 text/html Annual GYNReport ed bypatient.Menstrual cycle:Irregular cycle intervals Urinary symptoms:No hematuria; No incontinence Vulva:No genital lesion Vagina:Normal vaginal discharge Breast:No breast pain; No breast lump; No nipple discharge Current Contraception:Oral contraceptives Sexual complaints:No sexual complaints; No pain during intercourse; Normal libido Menopausal Symptoms:No menopausal symptoms; Normal vaginal lubrication Psychological symptoms:No depression; No anxiety; No PMDD Preventive measures:Encourage self breast examination; Encourage regular exercise; Encourage no tobacco use; Encourage regular mammograms starting age 40 Cherry Doshi [facility] [address], [place], [address], [facility] 10/17/2021 11:46:43 02/20/2024 text/html Annual GYNReport ed bypatient.History:no gynecologic complaints Menstrual cycle:Normal menses Urinary symptoms:No hematuria; No incontinence Vulva:No genital lesion Vagina:Normal vaginal discharge Breast:No breast pain; No breast lump; No nipple discharge Sexual complaints:No sexual complaints; No pain during intercourse; Normal libido Menopausal Symptoms:No menopausal symptoms; Normal vaginal lubrication Psychological symptoms:No depression;Anxiety Preventive measures:Encourage self breast examination; Encourage regular exercise; Encourage no tobacco use; Encourage regular mammograms starting age 40 Patient presents for annual well woman exam. Patient would like to discuss BC options. Patient gained weight on the OCP and wishes for a progesterone only option. 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 Pt has tried venlafaxine in the past and did not like the side effects. OSMANY MCRAE, [facility] [address], [place], [address], [facility] 02/20/2024 16:23:03 03/05/2024 text/html Patient is here currently on her menses. She was given all the r/b/a of insertion of the Nexplanon device and has signed the consent. She is fully aware of all possible side effects of the device and has decided to move forward with placement. Patient also is wanting bloodwork to check hormone levels d/t difficulty losing weight and fatigue. Patient also c/o intermittent hair growth on chin and acne before her cycle. Doris maldonado, [facility] 03/05/2024 15:12:19 OBGyn Episode No OBEpisode recorded.
--- OUTSIDE RECORDS SUMMARY | 2024-06-09 12:42 | XMS_ITS | Encounter Summary ---
Author Organization [facility] Address [address] [place] [address] Phone Care Team Providers Care Executive Team Leader Name Role Phone Compa Correa MD Primary Care Provider + [phone] Estuardo Luke MD Unavailable [phone] Polo Jeffery MD Unavailable [phone] Encounter Details Date Type Department Care Team (Latest Contact Info) Description 02/01/2021 Orders Only [facility] Scanning, Provider Social History Tobacco Use Types Packs/Day Years Used Date Smoking Tobacco: Never Smokeless Tobacco: Never Alcohol Use Standard Drinks/Week Comments No 0 (1 standard drink = 0.6 oz pur e alcohol) Comments No Sex and Gender Information Value Date Recorded Sex Assigned at Not on file 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 Female 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 Gender Identity Female 11/04/2019 10:07 PM CDT Sexual Orientation Straight 11/04/2019 10 :07 PM CDT documented as of this encounter Plan of Treatment Not on file documented as of this encounter Procedures Procedure Name Priority Date/Time Associated Diagnosis Comments SCAN - LABS 02/01/2021 documented in this encounter Results * SCAN - LABS (02/01/2021) us Provider Scanning Edited Result - Final documented in this encounter Visit Diagnoses Not on filedocumented in this encounter Care Teams Executive Team Leader Relationship Specialty Start Date End Date Compa Correa MD [address] [place] [address] PCP - General Internal Medicine 09/06/17 [place] [address] [place] [address] Surgeon Orthopedic Surgery 01/10/23 Polo Jeffery MD [address] [facility] [place] [address] Consulting Physician Otolaryngology 10/01/23 documented as of this encounter
--- OUTSIDE RECORDS SUMMARY | 2024-06-09 12:42 | XMS_ITS | Encounter Summary ---
Author Organization [facility] Address [address] [place] [address] Phone Care Team Providers Care Buttonhole Maker Name Role Phone Vidhi Holley MD Primary Care Provider [phone] Compa Correa MD Primary Care Provider + [phone] Estuardo Luke MD Unavailable [phone] Polo Jeffery MD Unavailable [phone] Encounter Details Date Type Department Care Team (Late st Contact Info) Description 11/09/2016 Orders Only [facility] [address] [place] [address] Luciana Campbell RN Social History Tobacco Use Types Packs/Day Years Used Date Smoking Tobacco: Never Assessed Comments Unknown Sex and Gender Information Value Date Recorded Sex Assigned at Not on file Legal 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 40 tablet/capsule 11/09/2016 2 documented in this encounter Plan of Treatment Not on file documented as of this encounter Visit Diagnoses Not on filedocumented in this encounter Care Teams Buttonhole Maker Relationship Specialty Start Date End Date Vidhi Hloley MD [address] [place] [address] PCP - General 06/16/16 09/05/17 Compa Correa MD [address] [place] [address] PCP - General Internal Medicine 09/06/17 [place] [address] [facility] [address] [place] [address] Surgeon Orthopedic Surgery 01/10/23 Polo Jeffery MD [address] [place] [address] Consulting Physician Otolaryngology 10/01/23 documented as of this encounter
--- OUTSIDE RECORDS SUMMARY | 2024-06-09 12:42 | XMS_ITS | Encounter Summary ---
Author Organization [facility] Address [address] [place] [address] Phone Care Team Providers Care Casino Cashier Manager Name Role Phone Compa Correa MD Primary Care Provider [phone] Estuardo Luke MD Unavailable [phone] Polo Jeffery MD Unavailable [phone] Encounter Details Date Type Department Care Team (Latest Contact Info) Description 12/13/2020 Orders Only [facility] Scanning, Provider Social History Tobacco Use Types Packs/Day Years Used Date Smoking Tobacco: Never Smokeless Tobacco: Never Alcohol Use Standard Drinks/Week Comments No 0 (1 standard drink = 0.6 oz pur e alcohol) Comments No Sex and Gender Information Value Date Recorded Sex Assigned at Not on file 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 Gender Identity Female 11/04/2019 10:07 PM CDT Sexual Orientation Straight 11/04/2019 10 :07 PM CDT documented as of this encounter Plan of Treatment Not on file documented as of this encounter Procedures Procedure Name Priority Date/Time Associated Diagnosis Comments SCAN - RADIOLOGY/IMAGING 12/13/2020 CARDIOLOGY DOCUMENT SCAN 12/13/2020 documented in this encounter Results * SCAN - CARDIOLOGY (12/13/2020) Anatomical Region Laterality Modality Other us Provider Scanning [facility] CARDIAC SERVICES PROCEDURES Final Result * SCAN - RADIOLOGY/IMAGING (12/13/2020) Anatomical Region Laterality Modality Other us Provider Scanning Final Result documented in this encounter Visit Diagnoses Not on filedocumented in this encounter Care Teams Casino Cashier Manager Relationship Specialty Start Date End Date Compa Correa MD [address] [place] [address] PCP - General Internal Medicine 09/06/17 [place] [address] [place] [address] Surgeon Orthopedic Surgery 01/10/23 Polo Jeffery MD [address] [place] [address] Consulting Physician Otolaryngology 10/01/23 documented as of this encounter
== END 2024-06-09 09:51 | disposition home or self-care (01) ==
LOC: CHSLAB 09:52
PROVIDERS: PCP Internal Medicine; Visit Provider Internal Medicine
DX: J02.9 Acute pharyngitis, unspecified (principal)
CPT/HCPCS: 36415; 80053; 85025

== ENCOUNTER 2024-06-25 14:58 | Outpatient (CLI) | payer BC, SELFPAY ==
[2024-06-25 15:13] LABS: Basophils Absolute Auto 0.06 K/mm3 (0.00-0.10); Basophils Percent Auto 0.7 % (0.0-1.0); Eosinophils Absolute Auto 0.14 K/mm3 (0.02-0.50); Eosinophils Percent Auto 1.7 % (1.0-6.0); Hematocrit 37.9 % (35.0-49.0); Hemoglobin 12.4 g/dL (12.0-15.0); Immature Granulocyte Absolute 0.02 K/mm3 (0.00-0.00); Immature Granulocyte Percent A 0.2 % (0.0-0.0); Lymphocytes Percent Auto 32.1 % (18.0-42.0); Mean Corpuscular HGB Conc 32.7 g/dL (32-36); Mean Corpuscular Hemoglobin 29.4 pg (27.0-31.0); Mean Corpuscular Volume 89.8 fL (78.0-102.0); Mean Platelet Volume 10.8 fl (9.2-11.8); Monocytes Absolute Auto 0.53 K/mm3 (0.10-0.90); Monocytes Percent Auto 6.3 % (2.0-11.0); Neutrophils Absolute Auto 4.97 K/mm3 (1.70-7.20); Platelet Count Result 234 K/mm3 (150-420); Red Blood Count 4.22 M/mm3 (4.20-5.40); Red Cell Distribution Width 12.9 % (11.6-14.4); White Blood Count 8.4 K/mm3 (4.8-10.8)
--- OUTSIDE RECORDS SUMMARY | 2024-06-25 16:47 | XMS_ITS | Encounter Summary ---
Author Organization [facility] Address [address] [place] [address] Phone Care Team Providers Care Wad Compressor Operator Adjuster Name Role Phone Vidhi Holley MD Primary Care Provider [phone] Compa Correa MD Primary Care Provider + [phone] Estuardo Luke MD Unavailable [phone] Polo Jeffery MD Unavailable [phone] Encounter Details Date Type Department Care Team (Late st Contact Info) Description 11/09/2016 Orders Only [facility] [address] [place] [address] Luciana Campbell RN Social History Tobacco Use Types Packs/Day Years Used Date Smoking Tobacco: Never Assessed Comments Unknown Sex and Gender Information Value Date Recorded Sex Assigned at Not on file 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 Gender Identity Female 11/04/2019 10:07 PM CDT [...] on filedocumented in this encounter Care Teams Wad Compressor Operator Adjuster Relationship Specialty Start Date End Date Vidhi Holley MD [address] [place] [address] PCP - General 06/16/16 09/05/17 Compa Correa MD [address] [place] [address] PCP - General Internal Medicine 09/06/17 [place] [address] [facility] [address] [place] [address] Surgeon Orthopedic Surgery 01/10/23 Polo Jeffery MD [address] [place] [address] Consulting Physician Otolaryngology 10/01/23 documented as of this encounter
--- OUTSIDE RECORDS SUMMARY | 2024-06-25 16:47 | XMS_ITS | Continuity of Care Document ---
Author Organization [facility] Address [address] [place] [address] [address] [place] [address] Phone Care Team Providers Care Retail Salesman Name Role Phone Berkley MS, OTR/L, CHTChristie Unavailable Unavailable Procedures Procedure Date Therapeutic Exercise Neuromuscular Re-Ed Manual Therapy Therapeutic Exercise Neuromuscular Re-Ed Manual Therapy Therapeutic Exercise Neuromuscular Re-Ed OT Evaluation Low Complexity Therapeutic Exercise Theratube/band PT Re-evaluation Therapeutic Exercise Therapeutic Activities Neuromuscular Re-Ed Therapeutic Exercise Therapeutic Activities Neuromuscular Re-Ed Therapeutic Exercise Therapeutic Activities Neuromuscular Re-Ed Therapeutic Exercise Therapeutic Activities Neuromuscular Re-Ed Therapeutic Exercise Therapeutic Activities Neuromuscular Re-Ed Therapeutic Exercise Therapeutic Activities Neuromuscular Re-Ed Manual Therapy Therapeutic Exercise Therapeutic Activities Neuromuscular Re-Ed Manual Therapy Therapeutic Exercise Therapeutic Activities Neuromuscular Re-Ed Manual Therapy Therapeutic Exercise Therapeutic Activities Neuromuscular Re-Ed Manual Therapy Progress Note Therapeutic Exercise Therapeutic Activities Neuromuscular Re-Ed Manual Therapy Therapeutic Exercise Therapeutic Activities Neuromuscular Re-Ed Manual Therapy Therapeutic Exercise Therapeutic Activities Neuromuscular Re-Ed Manual Therapy Hot or Cold Pack Therapeutic Exercise Therapeutic Activities Neuromuscular Re-Ed Manual Therapy Hot or Cold Pack Therapeutic Exercise Therapeutic Activities Manual Therapy Hot or Cold Pack THERAPEUTIC EXERCISES NEUROMUSCULAR RE-ED MANUAL THERAPY FUNC ACTIVITY HOT/COLD PACK THERAPEUTIC EXERCISES NEUROMUSCULAR RE-ED MANUAL THERAPY FUNC ACTIVITY HOT/COLD PACK Therapeutic Exercise Therapeutic Activities Manual Therapy Hot or Cold Pack Electrical Stimulation Therapeutic Exercise Therapeutic Activities Manual Therapy Hot or Cold Pack Electrical Stimulation Therapeutic Exercise Therapeutic Activities Manual Therapy Hot or Cold Pack OT Evaluation Low Complexity Therapeutic Exercise Manual Therapy Hot or Cold Pack Progress Note THERAPEUTIC EXERCISES NEUROMUSCULAR RE-ED MANUAL THERAPY FUNC ACTIVITY THERAPEUTIC EXERCISES NEUROMUSCULAR RE-ED MANUAL THERAPY FUNC ACTIVITY THERAPEUTIC EXERCISES NEUROMUSCULAR RE-ED MANUAL THERAPY FUNC ACTIVITY ULTRASOUND THERAPY THERAPEUTIC EXERCISES NEUROMUSCULAR RE-ED FUNC ACTIVITY THERAPEUTIC EXERCISES NEUROMUSCULAR RE-ED FUNC ACTIVITY THERAPEUTIC EXERCISES NEUROMUSCULAR RE-ED FUNC ACTIVITY THERAPEUTIC EXERCISES NEUROMUSCULAR RE-ED MANUAL THERAPY FUNC ACTIVITY THERAPEUTIC EXERCISES NEUROMUSCULAR RE-ED FUNC ACTIVITY THERAPEUTIC EXERCISES NEUROMUSCULAR RE-ED FUNC ACTIVITY THERAPEUTIC EXERCISES NEUROMUSCULAR RE-ED FUNC ACTIVITY THERAPEUTIC EXERCISES NEUROMUSCULAR RE-ED FUNC ACTIVITY THERAPEUTIC EXERCISES NEUROMUSCULAR RE-ED FUNC ACTIVITY THERAPEUTIC EXERCISES NEUROMUSCULAR RE-ED FUNC ACTIVITY THERAPEUTIC EXERCISES NEUROMUSCULAR RE-ED MANUAL THERAPY FUNC ACTIVITY HOT/COLD PACK THERAPEUTIC EXERCISES NEUROMUSCULAR RE-ED MANUAL THERAPY FUNC ACTIVITY THERAPEUTIC EXERCISES NEUROMUSCULAR RE-ED MANUAL THERAPY FUNC ACTIVITY HOT/COLD PACK Progress Note THERAPEUTIC EXERCISES MANUAL THERAPY FUNC ACTIVITY HOT/COLD PACK ELECTRIC STIMULATION UNATT THERAPEUTIC EXERCISES MANUAL THERAPY FUNC ACTIVITY HOT/COLD PACK ELECTRIC STIMULATION UNATT THERAPEUTIC EXERCISES MANUAL THERAPY FUNC ACTIVITY HOT/COLD PACK ELECTRIC STIMULATION UNATT THERAPEUTIC EXERCISES MANUAL THERAPY FUNC ACTIVITY HOT/COLD PACK ELECTRIC STIMULATION UNATT THERAPEUTIC EXERCISES MANUAL THERAPY FUNC ACTIVITY HOT/COLD PACK ELECTRIC STIMULATION UNATT OT RE-EVALUATION THERAPEUTIC EXERCISES MANUAL THERAPY FUNC ACTIVITY HOT/COLD PACK ELECTRIC STIMULATION UNATT THERAPEUTIC EXERCISES MANUAL THERAPY FUNC ACTIVITY HOT/COLD PACK ELECTRIC STIMULATION UNATT THERAPEUTIC EXERCISES MANUAL THERAPY FUNC ACTIVITY HOT/COLD PACK ELECTRIC STIMULATION UNATT THERAPEUTIC EXERCISES MANUAL THERAPY FUNC ACTIVITY HOT/COLD PACK ELECTRIC STIMULATION UNATT THERAPEUTIC EXERCISES MANUAL THERAPY FUNC ACTIVITY HOT/COLD PACK ELECTRIC STIMULATION UNATT THERAPEUTIC EXERCISES MANUAL THERAPY FUNC ACTIVITY HOT/COLD PACK OT EVALUATION THERAPEUTIC EXERCISES NEUROMUSCULAR RE-ED MANUAL THERAPY FUNC ACTIVITY HOT/COLD PACK OT RE-EVALUATION THERAPEUTIC EXERCISES NEUROMUSCULAR RE-ED FUNC ACTIVITY HOT/COLD PACK THERAPEUTIC EXERCISES NEUROMUSCULAR RE-ED FUNC ACTIVITY HOT/COLD PACK THERAPEUTIC EXERCISES NEUROMUSCULAR RE-ED FUNC ACTIVITY THERAPEUTIC EXERCISES NEUROMUSCULAR RE-ED FUNC ACTIVITY HOT/COLD PACK THERAPEUTIC EXERCISES MANUAL THERAPY FUNC ACTIVITY HOT/COLD PACK THERAPEUTIC EXERCISES MANUAL THERAPY FUNC ACTIVITY HOT/COLD PACK THERAPEUTIC EXERCISES MANUAL THERAPY FUNC ACTIVITY HOT/COLD PACK THERAPEUTIC EXERCISES MANUAL THERAPY FUNC ACTIVITY HOT/COLD PACK THERAPEUTIC EXERCISES MANUAL THERAPY FUNC ACTIVITY HOT/COLD PACK ELECTRIC STIMULATION UNATT OT EVALUATION THERAPEUTIC EXERCISES MANUAL THERAPY FUNC ACTIVITY HOT/COLD PACK OT RE-EVALUATION THERAPEUTIC EXERCISES NEUROMUSCULAR RE-ED FUNC ACTIVITY 15 MIN THERAPEUTIC EXERCISES NEUROMUSCULAR RE-ED FUNC ACTIVITY 15 MIN THERAPEUTIC EXERCISES NEUROMUSCULAR RE-ED FUNC ACTIVITY 15 MIN HOT/COLD PACK THERAPEUTIC EXERCISES NEUROMUSCULAR RE-ED FUNC ACTIVITY 15 MIN THERAPEUTIC EXERCISES NEUROMUSCULAR RE-ED FUNC ACTIVITY 15 MIN Theraputty THERAPEUTIC EXERCISES NEUROMUSCULAR RE-ED FUNC ACTIVITY 15 MIN THERAPEUTIC EXERCISES NEUROMUSCULAR RE-ED THERAPEUTIC EXERCISES FUNC ACTIVITY 15 MIN HOT/COLD PACK THERAPEUTIC EXERCISES FUNC ACTIVITY 15 MIN HOT/COLD PACK Therabanedgardo bauman yard THERAPEUTIC EXERCISES FUNC ACTIVITY 15 MIN HOT/COLD PACK THERAPEUTIC EXERCISES FUNC ACTIVITY 15 MIN HOT/COLD PACK THERAPEUTIC EXERCISES FUNC ACTIVITY 15 MIN HOT/COLD PACK OT RE-EVALUATION THERAPEUTIC EXERCISES MANUAL THERAPY FUNC ACTIVITY 15 MIN HOT/COLD PACK THERAPEUTIC EXERCISES MANUAL THERAPY FUNC ACTIVITY 15 MIN HOT/COLD PACK THERAPEUTIC EXERCISES MANUAL THERAPY FUNC ACTIVITY 15 MIN HOT/COLD PACK THERAPEUTIC EXERCISES MANUAL THERAPY FUNC ACTIVITY 15 MIN HOT/COLD PACK THERAPEUTIC EXERCISES MANUAL THERAPY FUNC ACTIVITY 15 MIN HOT/COLD PACK THERAPEUTIC EXERCISES MANUAL THERAPY FUNC ACTIVITY 15 MIN HOT/COLD PACK THERAPEUTIC EXERCISES MANUAL THERAPY FUNC ACTIVITY 15 MIN HOT/COLD PACK THERAPEUTIC EXERCISES MANUAL THERAPY FUNC ACTIVITY 15 MIN HOT/COLD PACK THERAPEUTIC EXERCISES MANUAL THERAPY FUNC ACTIVITY 15 MIN HOT/COLD PACK OT RE-EVALUATION THERAPEUTIC EXERCISES FUNC ACTIVITY 15 MIN PT RE-EVALUATION THERAPEUTIC EXERCISES NEUROMUSCULAR RE-ED FUNC ACTIVITY 15 MIN HOT/COLD PACK ELECTRIC STIMULATION UNATT Theraband, per yard OT RE-EVALUATION THERAPEUTIC EXERCISES FUNC ACTIVITY 15 MIN HOT/COLD PACK THERAPEUTIC EXERCISES NEUROMUSCULAR RE-ED FUNC ACTIVITY 15 MIN HOT/COLD PACK ELECTRIC STIMULATION UNATT THERAPEUTIC EXERCISES NEUROMUSCULAR RE-ED MANUAL THERAPY HOT/COLD PACK THERAPEUTIC EXERCISES FUNC ACTIVITY 15 MIN HOT/COLD PACK THERAPEUTIC EXERCISES NEUROMUSCULAR RE-ED FUNC ACTIVITY 15 MIN HOT/COLD PACK ELECTRIC STIMULATION UNATT THERAPEUTIC EXERCISES NEUROMUSCULAR RE-ED FUNC ACTIVITY 15 MIN HOT/COLD PACK ELECTRIC STIMULATION UNATT THERAPEUTIC EXERCISES MANUAL THERAPY FUNC ACTIVITY 15 MIN HOT/COLD PACK THERAPEUTIC EXERCISES NEUROMUSCULAR RE-ED FUNC ACTIVITY 15 MIN HOT/COLD PACK ELECTRIC STIMULATION UNATT THERAPEUTIC EXERCISES MANUAL THERAPY FUNC ACTIVITY 15 MIN HOT/COLD PACK PT EVALUATION THERAPEUTIC EXERCISES THERAPEUTIC EXERCISES FUNC ACTIVITY 15 MIN HOT/COLD PACK ELECTRIC STIMULATION UNATT THERAPEUTIC EXERCISES FUNC ACTIVITY 15 MIN HOT/COLD PACK ELECTRIC STIMULATION UNATT THERAPEUTIC EXERCISES FUNC ACTIVITY 15 MIN HOT/COLD PACK ELECTRIC STIMULATION UNATT THERAPEUTIC EXERCISES FUNC ACTIVITY 15 MIN HOT/COLD PACK ELECTRIC STIMULATION UNATT OT EVALUATION THERAPEUTIC EXERCISES FUNC ACTIVITY 15 MIN HOT/COLD PACK ELECTRIC STIMULATION UNA Advance Directives Directive Yes / No Effective Date File Name No Information Encounters Encounter Description Practice Location Reason(s) For Visit Diagnoses Date Provider Providers Copied on Encounter [address], [id number], tel:[phone] [place] No Information 8 Berkley Soriano. [address] [place] [address], [address], [place], [facility], . tel:[phone] [facility] [address] [place] [address], [id number], tel:[phone] [place] No Information 8 Berkley Soriano. [address] [place] [address], [address], [place], [facility], . tel:[phone] Referring Provider: Jovani Wills [facility] [address], [place], [address]. tel:[phone], [id number], tel:[phone] [place] No Information 8 Berkley Soriano. [address] [place] [address], [address], [place], [place], [facility], . tel:[phone] Referring Provider: Nai Wills[address] [facility] [address], [place], [address]. tel:[phone], [id number], tel:[phone] [place] No Information 8 Berkley Soriano. [address] [place] [address], [address], [place], [facility], . tel:[phone] Referring Provider: Nai Wills1 [facility] [address], [place], [address]. tel:[phone], [id number], tel:[phone] [place] Synovitis and tenosynovitis , unspecified 7 Hauschild Christie. [address] [place] [address], [address], [place], [facility], [place]. tel:[phone] Referring Provider: Estuardo Luke, [address] [facility] [address], [place], [address]. tel:[phone], [place], [place], [id number], tel:[phone] [place] No Information 7 Hauschild Christie. [address] [place] [address], [address], [place], [facility], [place]. tel:[phone] Referring Provider: Estuardo Luke, [address], [place], [address]. tel:[phone] [address], [place], [place], [id number], tel:[phone] [place] No Information 7 Hauschild Christie. [address] [place] [address], [address], [place], [address], [place]. tel:[phone] Referring Provider: Estuardo Luke, [address], [place], [address]. tel:[phone], [id number], tel:[phone] [place] No Information 7 Hauschild Christie. [address] [facility], [address], [place], [address], [place]. tel:[phone] Referring Provider: Estuardo Luke, [address], [place], [address]. tel:[phone] [place] [address] [facility], [place], [id number], tel:[phone] [place] No Information Hacruz Christie. [address] [place] [address], [address], [place], [address], [place]. tel:[phone] Referring Provider: Estuardo Luke, [address], [place], [address]. tel:[phone] [place] [address] [address] [facility], [place], [id number], tel:[phone] [place] No Information Berkley Christie. [address] [place] [address], [address], [place], [address], [place]. tel:[phone] Referring Provider: Estuardo Luke, [address], [place], [address]. tel:[phone] [place] [address] [facility], [place], [place], [address], [place] tel:[phone] [place] No Information Tristian Haro. . Referring Provider: Estuardo Luke, [address], [place], [address]. tel:[phone] [facility], [place], [place], [address], [place] tel:[phone] [place] No Information Lucretia Owen. [address] [place] [address], [address], [place], [address], [place]. tel:[phone] Referring Provider: Estuardo Luke, [address], [place], [address]. tel:[phone] [facility], [place], [place], [id number], tel:[phone] [place] No Information 7 Berkley Soriano. [address] [place] [address], [address], [place], [facility], . tel:[phone] Referring Provider: Estuardo Luke, [address], [place], [address]. tel:[phone] [place] [address] [address], [id number], [place] tel:[phone] [place] No Information 7 Berkley Soriano. [address] [place] [address], [address], [place], [facility], [place]. tel:[phone] Referring Provider: Estuardo Luke, [address], [place], [address]. tel:[phone] [place] [address] [facility] [address] [place] [address], [id number], [place] tel:[phone] [place] No Information 7 Berkley Soriano. [address] [place] [address], [address], [place], [address], [place]. tel:[phone] Referring Provider: Estuardo Luke, [address], [place], [address]. tel:[phone] [place] [address], [place], [id number], [place] tel:[phone] [place] No Information 7 Berkley Soriano. [address] [place] [address], [address], [place], [address], [place]. tel:[phone] Referring Provider: Estuardo Luke, [address], [place], [address]. tel:[phone] [facility] [address] [facility], [place], [place], [address], tel:[phone] [place] No Information Sep-2 7-201 7 Hacruz Christie. [address] [facility], [address], [place], [facility], . tel:[phone] Referring Provider: Estuardo Luke, [address], [place], [address]. tel:[phone], [place], [place], [address], tel:[phone] [place] No Information Sep-2 3-201 7 Berkley Christie. [address] [facility], [address], [place], [facility], . tel:[phone] Referring Provider: Estuardo Luke [address], [place], [address]. tel:[phone] [place], [place] [address], [place], [place], [address], tel:[phone] [place] No Information Sep-2 0-201 7 Berkley Christie. [address] [facility], [address], [place], [address], [place]. tel:[phone] Referring Provider: Estuardo Luke, [address], [place], [address]. tel:[phone] [facility] [address] [facility], [place], [place], [id number], tel:[phone] [place] No Information Sep-1 5-201 7 Yair Martinez. . Referring Provider: Estuardo Luke [address], [place], [address]. tel:[phone] [facility] [address], [place], [place], [address], tel:[phone] [place] No Information Sep-1 3-201 7 Yair Martinez. . Referring Provider: Estuardo Luke, [address], [place], [address]. tel:[phone] [place] [address] [facility] [address], [place], [place], [id number], tel:[phone] [place] No Information Kristian-0 9-201 7 Hauscjayme Foxfer. [address] [place] [address], [address], [place], [address], . tel:[phone] Referring Provider: Estuardo Luke, [address], [place], [address]. tel:[phone] [facility] [address] [facility] [address], [place], [place], [id number], tel:[phone] [place] No Information Sep-0 6-201 7 Hacruz Soriano. [address] [place] [address], [address], [place], [address], [place]. tel:[phone] Referring Provider: Estuardo Luke, [address], [place], [address]. tel:[phone] [place] [address] [place] [address], [place], [place], [id number], tel:[phone] [place] No Information August-3 0-201 7 Berkley Soriano. [address] [place] [address], [address], [place], [address], [place]. tel:[phone] Referring Provider: Estuardo Luke, [address], [place], [address]. tel:[phone] [facility] [address], [id number], tel:[phone] [place] Stiffness of right elbow, not elsewhere classifiedEff usion, right elbowMuscle weakness (generalized) Stiffness of right shoulder, not elsewhere classifiedLes ion of ulnar nerve, right upper limb August-2 6-201 7 Berkley Soriano. [address] [place] [address], [address], [place], [address], [place]. tel:[phone] Referring Provider: Estuardo Luke, [address], [place], [address]. tel:[phone] [facility], [address] [place], [place] [address], [place], [place], [address], tel:[phone] [place] No Information 4-201 7 Hauschild Christie. [address] [place] [address], [address], [place], [address], [place]. tel:[phone] Referring Provider: Win Wills[address], [place], [address]. tel:[phone] [facility], [address] [place], [place] [address] [address] [place] [address], [id number], tel:[phone] [place] No Information 0 9-201 7 Hauschild Christie. [address] [place] [address], [address], [place], [address], [place]. tel:[phone] Referring Provider: Win Wills[address], [place], [address]. tel:[phone] [facility], [address] [place], [place] [address], [place], [place], [address], [place] tel:[phone] [place] No Information 0 - 7 Hauschild Christie. [address] [place] [address], [address], [place], [address], [place]. tel:[phone] Referring Provider: Estuardo Luke [address], [place], [address]. tel:[phone] [facility], [address] [place], [place] [address], [place], [place], [address], [place] tel:[phone] [place] No Information 0-201 6 Hauschild Christie. [address] [place] [address], [address], [place], [facility], [place]. tel:[phone] Referring Provider: Estuardo Luke [address], [place], [address]. tel:[phone] [place] [address], [address] [place] [address], [id number], tel:[phone] [place] No Information Dec-1 6-201 6 Hauschild Christie. [address] [place] [address], [address], [place], [facility], [place]. tel:[phone] Referring Provider: Estuardo Luke, [address], [place], [address]. tel:[phone] [place] [address], [address] [place] [address], [id number], tel:[phone] [place] No Information Dec-1 3-201 6 Hauschild Christie. [address] [place] [address], [address], [place], [facility], [place]. tel:[phone] Referring Provider: Estuardo Luke [address], [place], [address]. tel:[phone] [place] [address], [address] [place] [address], [id number], tel:[phone] [place] No Information Dec-0 9-201 6 Hauschild Christie. [address] [place] [address], [address], [place], [address], [place]. tel:[phone] Referring Provider: Estuardo Luke [address], [place], [address]. tel:[phone] [place] [address], [id number], tel:[phone] [place] No Information Dec-0 6-201 6 Hauschild Christie. [address] [place] [address], [address], [place], [address], [place]. tel:[phone] Referring Provider: Estuardo Luke, [address], [place], [address]. tel:[phone] [place] [address], [address] [facility], [place], [place], [address], [place] tel:[phone] [place] No Information Nov-3 0-201 6 Bagautdinronny ChowdaryKristine. [address] [place] [address], [address], [place], [facility], . tel:[phone] Referring Provider: Estuardo Luke, [address], [place], [address]. tel:[phone] [place] [address] [facility] [address] [place] [address], [id number], [place] tel:[phone] [place] No Information Nov-2 8- 6 Bagautdinova Kristine. [address] [place] [address], [address], [place], [facility], [place]. tel:[phone] Referring Provider: Estuardo Luke, [address], [place], [address]. tel:[phone] [place] [address], [address] [facility] [address], [id number], [place] tel:[phone] [place] No Information Nov-2 5- 6 Félix Dumas [place], [place]. Referring Provider: Estuardo Luke, [address], [place], [address]. tel:[phone] [facility], [address] [facility], [place], [place], [id number], [place] tel:[phone] [place] No Information Nov-2 3- 6 Berkley Soriano. [address] [place] [address], [address], [place], [facility], [place]. tel:[phone] Referring Provider: Estuardo Luke, [address], [place], [address]. tel:[phone] [place] [address] [address], [place], [place], [address], [place] tel:[phone] [place] No Information 6 Hacharlesld Christie. [address] [place] [address], [address], [place], [facility], [place]. tel:[phone] Referring Provider: Estuardo Luke, [address], [place], [address]. tel:[phone] [place] [address] [address], [place], [place], [id number], [place] tel:[phone] [place] No Information 6 Hauschild Christie. [address] [place] [address], [address], [place], [address], [place]. tel:[phone] Referring Provider: Estuardo Luke, [address], [place], [address]. tel:[phone] [place] [address] [address], [place], [place], [id number], [place] tel:[phone] [place] No Information 6 [place], [place]. Referring Provider: Estuardo Luke, [address], [place], [address]. tel:[phone] [place] [address] [address], [place], [place], [address], [place] tel:[phone] [place] No Information 6 Elisabethld Christie. [address] [place] [address], [address], [place], [address], [place]. tel:[phone] Referring Provider: Estuardo Luke, [address], [place], [address]. tel:[phone] [facility], [place], [place], [address], tel:[phone] [place] No Information Jan-3 1-201 6 Hauschild Christie. [address] [facility], [address], [place], [facility], . tel:[phone] Referring Provider: Win Wills[address], [place], [address]. tel:[phone] [place] [address], [place], [place], [address], tel:[phone] [place] No Information Jan-2 6-201 6 Hauschild Christie. [address] [place] [address], [address], [place], [place], [facility], [place]. tel:[phone] Referring Provider: Win Wills[address], [place], [address]. tel:[phone] [place] [address], [place], [place], [address], tel:[phone] [place] No Information Jan-1 7-201 6 Hauschild Christie. [address] [place] [address], [address], [place], [facility], [place]. tel:[phone] Referring Provider: Win Wills[address], [place], [address]. tel:[phone] [address], [place], [place], [address], tel:[phone] [place] No Information Jan-1 0-201 6 Hauschild Christie. [address] [place] [address], [address], [place], [address], [place]. tel:[phone] Referring Provider: Win Wills[address], [place], [address]. tel:[phone] [address] [address], [address], tel:[phone] [place] No Information Jan-0 5-201 6 Hauschild Christie. [address] [facility], [address], [place], [address], [place]. tel:[phone] Referring Provider: Estuardo Luke, [address], [place], [address]. tel:[phone] [place], [place] [address]uite [address], [address], tel:[phone] [place] No Information Sep-2 8-201 6 Hauschild Christie. [address] [place] [address], [address], [place], [facility], [place]. tel:[phone] Referring Provider: Estuardo Luke [address], [place], [address]. tel:[phone] [place], [place] [address], [place], [place], [address], tel:[phone] [place] No Information Dec-0 7-201 6 Hauschild Christie. [address] [place] [address], [address], [place], [address], [place]. tel:[phone] Referring Provider: Win Wills[address], [place], [address]. tel:[phone] [place] [address], [place], [place], [address], tel:[phone] [place] No Information Nov-3 1-201 6 Hauschild Christie. [address] [facility], [address], [place], [address], [place]. tel:[phone] Referring Provider: Estuardo Luke [address], [place], [address]. tel:[phone] [facility], [address] [place], [place] [address], [place], [place], [address], tel:[phone] [place] No Information 6 Hauschild Christie. [address] [facility], [address], [place], [address], [place]. tel:[phone] Referring Provider: Win Wills[address], [place], [address]. tel:[phone] [place] [address], [address] [facility], [place], [address], [place] tel:[phone] [place] No Information 6 Hauschild Christie. [address] [facility], [address], [place], [address], [place]. tel:[phone] Referring Provider: Win Wills[address], [place], [address]. tel:[phone] [place] [address] [address] [facility], [place], [place], [address], [place] tel:[phone] [place] Pain in right elbowWeakness Other enthesopathie s, not elsewhere classified 6 Elisabethld Christie. [address] [facility], [address], [place], [address], [place]. tel:[phone] Referring Provider: Win Wills[address], [place], [address]. tel:[phone] [facility] [address], [place], [place], [address], [place] tel:[phone] [place] No Information 6 Hauschild Christie. [address] [facility], [address], [place], [address], [place]. tel:[phone] Referring Provider: Win Wills[address], [place], [address]. tel:[phone] [facility] [facility], [place], [address], [place] tel:[phone] [place] No Information Apr-2 0-201 5 Hauschild Christie. [address] [facility], [address], [place], [address], [place]. tel:[phone] Referring Provider: Estuardo Luke, [address], [place], [address]. tel:[phone] [place] [address], [place], [place], [address], tel:[phone] [place] No Information Apr-1 7-201 5 Hauschild Christie. [address] [facility], [address], [place], [address], [place]. tel:[phone] Referring Provider: Estuardo Luke [address], [place], [address]. tel:[phone] [place] [address], [place], [place], [address], tel:[phone] [place] No Information Apr-1 0-201 5 Hauschild Christie. [address] [place] [address], [address], [place], [address], [place]. tel:[phone] Referring Provider: Estuardo Luke [address], [place], [address]. tel:[phone] [place] [address], [place], [address], [place] tel:[phone] [place] No Information Apr-0 8-201 5 Hauschild Christie. [address] [facility], [address], [place], [address], [place]. tel:[phone] Referring Provider: Estuardo Luke, [address], [place], [address]. tel:[phone] [facility], [address] [place], [place] [address], [place], [place], [address], tel:[phone] [place] No Information Apr-0 1-201 5 Tenny Dang. [address] [facility], [address], [place], [address], [place]. tel:[phone] Referring Provider: Ronda [address], [place], [address]. tel:[phone] [place], [place] [address]u[address], [place], [place], [address], tel:[phone] [place] No Information Mar-3 0-201 5 Tenny Dang. [address] [facility], [address], [place], [address], [place]. tel:[phone] Referring Provider: Ronda W[address], [place], [address]. tel:[phone] [place] [address], [place], [address], [place] tel:[phone] [place] No Information Mar-2 5-201 5 Hauschild Christie. [address] [place] [address], [address], [place], [address], [place]. tel:[phone] Referring Provider: Ronda W[address], [place], [address]. tel:[phone] [place] [address], [place], [place], [address], [place] tel:[phone] [place] No Information Mar-2 3-201 5 Hauschild Christie. [address] [place] [address], [address], [place], [address], [place]. tel:[phone] Referring Provider: Ronda Wills [address], [place], [address]. tel:[phone] [place] [address], [facility] [address], [place], [place], [address], [place] tel:[phone] [place] No Information Mar-1 8-201 5 Hauschild Christie. [facility], [address], [place], [address], [place]. tel:[phone] Referring Provider: Estuardo Luke, [address], [place], [address]. tel:[phone] [place] [address], [address] [place], [place] [address], [place], [address], [place] tel:[phone] [place] No Information Jun- 6-201 5 Berkley Soriano. [address] [place] [address], [address], [place], [address], [place]. tel:[phone] Referring Provider: Estuardo Luke, [address], [place], [address]. tel:[phone] [place] [address], [address] [place], [place] [address]e [address], [place], [address], [place] tel:[phone] [place] No Information Dec-2 7-201 3 Berkley Soriano. [address] [place] [address], [address], [place], [address], [place]. tel:[phone] Referring Provider: Estuardo Luke, [address], [place], [address]. tel:[phone] [place] [address], [address] [place], [place] [address], [place], [address], [place] tel:[phone] [place] No Information Dec-2 3-201 3 Berkley Soriano. [address] [place] [address], [address], [place], [address], [place]. tel:[phone] Referring Provider: Estuardo Luke [address], [place], [address]. tel:[phone] [facility], [address] [place], [place] [address], [place], [address], [place] tel:[phone] [place] No Information Dec-2 0-201 3 Tenny Dang. [address] [place] [address], [address], [place], [facility], [place]. tel:[phone] Referring Provider: Estuardo Luke [address], [place], [address]. tel:[phone] [place] [address], [address] [place] [address], [place], [address], tel:[phone] [place] No Information Dec-1 6-201 3 Hauschild Christie. [address] [place] [address], [address], [place], [facility], [place]. tel:[phone] Referring Provider: Estuardo Luke, [address], [place], [address]. tel:[phone] [place] [address], [id number], tel:[phone] [place] No Information Dec-1 1-201 3 Hauschild Christie. [address] [place] [address], [address], [place], [facility], [place]. tel:[phone] Referring Provider: Win Wills[address], [place], [address]. tel:[phone] [place] [address], [id number], tel:[phone] [place] No Information Dec-0 6-201 3 Hauschild Christie. [address] [place] [address], [address], [place], [facility], [place]. tel:[phone] Referring Provider: Estuardo Luke, [address], [place], [address]. tel:[phone] [place] [address], [address] [place] [address], [id number], tel:[phone] [place] No Information Dec-0 4-201 3 Hauschild Christie. [address] [place] [address], [address], [place], [address], [place]. tel:[phone] Referring Provider: Estuardo Luke, [address], [place], [address]. tel:[phone] [place] [address], [address] [place], [place] [address], [place], [place], [address], tel:[phone] [place] No Information 3 Carlo Lidia. [address] [place] [address], [address], [place], [address], [place]. tel:[phone] Referring Provider: Estuardo Luke, [address], [place], [address]. tel:[phone], [id number], tel:[phone] [place] No Information 3 Berkley Soriano. [address] [place] [address], [address], [place], [address], [place]. tel:[phone] Referring Provider: Estuardo Luke, [address], [place], [address]. tel:[phone] [place] [address]e [address] [place] [address], [id number], [place] tel:[phone] [place] No Information 3 Carlo Lidia. [address] [place] [address], [address], [place], [address], [place]. tel:[phone] Referring Provider: Estuardo Luke, [address], [place], [address]. tel:[phone], [place], [address], [place] tel:[phone] [place] No Information 3- 3 Berkley Soriano. [address] [place] [address], [address], [place], [address], [place]. tel:[phone] Referring Provider: Estuardo Luke, [address], [place], [address]. tel:[phone] [address], [place], [place], [address], tel:[phone] [place] No Information Nov-0 8-201 3 Berkley Christie. [address] [place] [address], [address], [place], [facility], [place]. tel:[phone] Referring Provider: Estuardo Luke, [address], [place], [address]. tel:[phone] [address] [address], [place], [address], tel:[phone] [place] No Information Nov-0 6-201 3 Berkley Christie. [address] [place] [address], [address], [place], [address], [place]. tel:[phone] Referring Provider: Estuardo Luke, [address], [place], [address]. tel:[phone] [address] [facility], [place], [place], [address], tel:[phone] [place] No Information Nov-0 1-201 3 Berkley Soriano. [address] [place] [address], [address], [place], [address], [place]. tel:[phone] Referring Provider: Estuardo Luke, [address], [place], [address]. tel:[phone], [place], [address], [place] tel:[phone] [place] No Information Oct-3 0-201 3 Tenny Dang. [address] [place] [address], [address], [place], [address], [place]. tel:[phone] Referring Provider: Estuardo Luke, [address], [place], [address]. tel:[phone] [facility], [address] [place], [place] [address], [place], [place], [address], tel:[phone] [place] No Information 5-201 3 Hauschild Christie. [address] [place] [address], [address], [place], [address], [place]. tel:[phone] Referring Provider: Estuardo Luke, [address], [place], [address]. tel:[phone] [address], [place], [place], [address], [place] tel:[phone] [place] No Information 3-201 3 Hauschild Christie. [address] [place] [address], [address], [place], [address], [place]. tel:[phone] Referring Provider: Estuardo Luke, [address], [place], [address]. tel:[phone] [address], [place], [place], [address], [place] tel:[phone] [place] No Information 8- 3 Hauschild Christie. [address] [place] [address], [address], [place], [address], [place]. tel:[phone] Referring Provider: Estuardo Luke, [address], [place], [address]. tel:[phone] [address], [place], [place], [address], [place] tel:[phone] [place] No Information 4-201 3 Hauschild Christie. [address] [place] [address], [address], [place], [address], [place]. tel:[phone] Referring Provider: Estuardo Luke, [address], [place], [address]. tel:[phone] [facility] [address], [place], [place], [address], [place] tel:[phone] [place] No Information 3 Carlo Murillo. [address] [place] [address], [address], [place], [address], . tel:[phone] Referring Provider: Estuardo Luke, [address], [place], [address]. tel:[phone] [facility] [address], [place], [place], [address], [place] tel:[phone] [place] No Information 3 Dipti Leong. [address] [place] [address], [address], [place], [address], [place]. tel:[phone] Referring Provider: Estuardo Luke, [address], [place], [address]. tel:[phone] [facility] [address], [place], [place], [address], [place] tel:[phone] [place] No Information 3 Berkley Christie. [address] [place] [address], [address], [place], [address], [place]. tel:[phone] Referring Provider: Tang Rios, [address], [place], [address]. tel:[phone] [facility] [address], [place], [place], [address], [place] tel:[phone] [place] No Information 3 Rubia Gomez. [address] [place] [address], [address], [place], [address], [place]. tel:[phone] [facility] [address], [place], [place], [address], [place] tel:[phone] [place] No Information May-2 9-201 3 Olucruz Christie. [address] [facility], [address], [place], [address], [place]. tel:[phone] Referring Provider: Tang Rios, [address], [place], [address]. tel:[phone], [place], [place], [address], [place] tel:[phone] [place] No Information May-2 2-201 3 Rubia Jason. [address] [facility], [address], [place], [address], [place]. [phone], [place], [place], [address], [place] tel:[phone] [place] No Information August-2 2-201 3 Carlo Lidia. [address] [place] [address], [address], [place], [address], [place]. [phone] Referring Provider: Tang Rios, [address], [place], [address]. tel:[phone], [place], [place], [address], [place] tel:[phone] [place] No Information August-2 0-201 3 Carlo Lidia. [address] [place] [address], [address], [place], [address], [place]. tel:[phone] Referring Provider: Tang Rios, [address], [place], [address]. tel:[phone], [place], [place], [address], [place] tel:[phone] [place] No Information May-2 0-201 3 Rubia Jason. [address] [place] [address], [address], [place], [address], [place]. tel:[phone], [place], [place], [address], [place] tel:[phone] [place] No Information August- 7-201 3 Rubia Jason. [address] [place] [address], [address], [place], [address], [place]. tel:[phone] [address], [place], [place], [address], [place] tel:[phone] [place] No Information 7-201 3 Hauschild Christie. [address] [place] [address], [address], [place], [address], [place]. tel:[phone] Referring Provider: Tang Rios, [address], [place], [address]. tel:[phone] [address], [place], [place], [address], [place] tel:[phone] [place] No Information 3-201 3 Rubia Jason. [address] [place] [address], [address], [place], [address], [place]. tel:[phone] [place] [address] [address], [place], [place], [address], [place] tel:[phone] [place] No Information 3-201 3 Hauschild Christie. [address] [place] [address], [address], [place], [address], [place]. tel:[phone] Referring Provider: Tang Rios, [address], [place], [address]. tel:[phone], [place], [place], [address], [place] tel:[phone] [place] Pain in joint involving lower leg May-1 0-201 3 Rubia Jason. [address] [place] [address], [address], [place], [address], [place]. tel:[phone], [place], [place], [address], [place] tel:[phone] [place] No Information May-1 0-201 3 Hauschild Christie. [address] [place] [address], [address], [place], [address], [place]. tel:[phone] Referring Provider: Michael Dowell [address], [place], [address]. tel:[phone] [address], [place], [place], [address], tel:[phone] [place] No Information May-0 6-201 3 Hauschild Christie. [address] [place] [address], [address], [place], [facility], [place]. tel:[phone] Referring Provider: Michael Dowell E [address] [place] [address], [place], [address]. tel:[phone] [address], [place], [place], [address], [place] tel:[phone] [place] No Information May-0 3-201 3 Hauschild Christie. [address] [place] [address], [address], [place], [address], [place]. tel:[phone] Referring Provider: Michael Dowell E [address] [place] [address], [place], [address]. tel:[phone] [address] [facility], [place], [place], [address], [place] tel:[phone] [place] No Information Apr-2 9-201 3 Hauschild Christie. [address] [place] [address], [address], [place], [address], [place]. tel:[phone] Referring Provider: Michael Dowell E [address] [place] [address], [place], [address]. tel:[phone] [address], [place], [place], [address], tel:[phone] [place] Pain in joint involving hand Apr-2 4-201 3 Hauschild Christie. [address] [place] [address], [address], [place], [address], [place]. tel:[phone] Referring Provider: Tang Rios, [address], [place], [address]. tel:[phone] Family History Family Member Type Diagnosis Age At Onset No Information Payers Payer name Insurance type Covered republican ID Authoriza tiivan(s) [facility] [id number] Social History Type Description Quantity Date Captured Comments Sex Female Smoking Status No Information Chief Complaint And Reason For Visit No Information Reason For Referral Reason For Referral No Information History Of Present Illness Encounter Date Complaint History Of Prese nt Illness No Information Functional Status Date Functional Assessmen t No Information Instructions Date Instruction Additional Infor mation No Information Assessments Type Assessment Date No Information Patient Care Teams Name Effective Dates (start - stop) Status Members No Information
--- OUTSIDE RECORDS SUMMARY | 2024-06-25 16:48 | XMS_ITS | Referral Summary ---
Author Organization [facility] Address [address] [place] [address] Care Team Providers Care Criminal Records Technician Name Role Phone Compa Correa MD Primary Care Provider Estuardo Luke MD Unavailable [phone] Polo Jeffery MD Unavailable Allergies Active Allergy [...] understands. 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 She tends to grind her teeth. I recommended that she talk with her dentist about this. Probably needs to get a night baker made. She understands. 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 Assessment & Plan (06/30/2023 1:06 PM PHOTOGRAPHER SCIENTIFIC): I think she would benefit from a septoplasty with bilateral inferior turbinectomy. I discussed the risk of a septoplasty with and without turbinectomy with the patient. There is a risk of continued nasal obstruction, bleeding, septal perforation, permanent anosmia. Also risk of inadequate correction which could result in continued nasal obstruction symptoms. She has a pharmacy clerk and he would like to do this [...] weeks. Assessment & Plan (06/30/2023 1:11 PM PHOTOGRAPHER SCIENTIFIC): She also has significant maxillary sinus disease [...] further infections as well as orbital and INSPECTOR ROUGH CASTINGS injuries. She understands. She would like to [...] Elbow pain 04/03/2016 Overview (02/02/2017): RIGHT. 11/05 [facility] says triceps tendonitis. US & MRI [...] on file Legal Sex Female 2:24 AM PHOTOGRAPHER SCIENTIFIC Gender Identity Female 11/04/2019 10:07 PM CDT [...] on file Medical Devices Implanted Type Area Battery Tester Field Device Identifier Shelf Expiration Date Model / Serial / Lot Acumed Inc Plul06 6 Hole Shortening Ulna Plate Bone Titanium Sterile - [id number] Implanted:Qty: 1 on 10/29/2019 by Estuardo Luke MD at [facility] Right: Ulna Acumed Inc PLUL06 / / Acumed Inc [id number] 3.5mm 12mm Hexalobe Screw Bone Titanium Nonsterile Small Fragment - [id number] Implanted:Qty: 1 on 10/29/2019 by Estuardo Luke MD at [facility] Right: Ulna Acumed Inc [id number] / / Acumed Inc 30-0258 3.5mm 14mm Hexalobe Screw Bone Titanium Nonsterile Small Fragment - [id number] Implanted:Qty: 1 on 10/29/2019 by Estuardo Luke MD at [facility] Right: Ulna Acumed Inc 30-0258 / / Acumed Inc 200683 3.5mm 12mm Hexalobe Screw Bone Titanium Nonsterile Small Fragment - [id number] Implanted:Qty: 1 on 10/29/2019 by Estuardo Luke MD at [facility] Right: Ulna [employer] Inc [id number] / / Acumed Inc 034948 3.5mm 12mm Hexalobe Screw Bone Titanium Nonsterile Small Fragment - [id number] Implanted:Qty: 1 on 10/29/2019 by Estuardo Luke MD at [facility] Right: Ulna [employer] Inc [id number] / / Acumed Inc 333214 3.5mm 12mm Hexalobe Screw Bone Titanium Nonsterile Small Fragment - [id number] Implanted:Qty: 1 on 10/29/2019 by Estuardo Luke MD at [facility] Right: Ulna [employer]umed Inc 192505 / / Acumed Inc 340260 3.5mm 12mm Hexalobe Screw Bone Titanium Nonsterile Small Fragment - [id number] Implanted:Qty: 1 on 10/29/2019 by Estuardo Luke MD at [facility] Right: Ulna [employer] Inc [id number] / / Ac[employer] Inc [id number] 3.5mm 12mm Hexalobe Screw Bone Titanium Nonsterile Small Fragment - [id number] Implanted:Qty: 1 on 10/29/2019 by Estuardo Luke MD at [facility] Right: Ulna [employer] Inc [id number] / / Acumed Inc 6 Hole Shortening Ulna Plate Bone Titanium Sterile Plul06 - [id number] Implanted:Qty: 1 on 01/10/2023 by Estuardo Luke MD at [facility] Left: Arm Acumed Inc PLUL06 / / Acumed Inc 3.5mm 12mm Hexalobe Screw Bone Titanium Nonsterile Small Fragment [id number] - [id number] Implanted:Qty: 6 on 01/10/2023 by Estuardo Luke MD at [facility] Left: Arm Acumed Inc [id number] / / Acumed Inc 3.5mm 14mm Hexalobe Screw Bone Titanium Nonsterile Small Fragment 30-0258 - [id number] Implanted:Qty: 1 on 01/10/2023 by Estuardo Luke MD at [facility] Left: Arm Acumed Inc 30-0258 / / Arthrex Inc Dx Swivelock 3.5mm 13.5mm Foot Elbow Medium [place] Suture Peek Ar-8979p - [id number] Implanted:Qty: 1 on 01/10/2023 by Estuardo Luke MD at [facility] Left: Arm Arthrex Inc AR-8979P / / Acumed Inc Peg Fxatn Ulna Reduction Shortening Nonstrl 80-0422 - [id number] Implanted:Qty: 1 on 01/10/2023 by Estuardo Luke MD at [facility] Left: Arm Acumed Inc 80-0422 / / Insurance [facility] [place] AN[place] ACC[place] ANTH[place]links ACC[place] Direct[place] For more information, please contact: [phone] * Full Code (Latest Code Status on File) Date Activated Date Inactivated Comments 01/10/2023 3:03 PM 01/10/2023 8:07 PM * Full Code Date Activated Date Inactivated Comments 10/29/2019 1:32 PM 10/29/2019 6:42 PM Care Teams Criminal Records Technician Relationship Specialty Start Date End Date Compa Correa MD [address] [place] [address] PCP - General Internal Medicine 09/06/17 [place] [address] [place] [address] Surgeon Orthopedic Surgery 01/10/23 Polo Jeffery MD [address] [place] [address] Consulting Physician Otolaryngology 10/01/23
--- OUTSIDE RECORDS SUMMARY | 2024-06-25 16:48 | XMS_ITS | Encounter Summary ---
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 Gender Identity Female 11/04/2019 10:07 PM CDT [...] 3:04 PM CDT) HCG, ur Negative Negative [facility] Urine 08/16/2016 3:04 PM CDT 08/16/2016 3:07 PM CDT Anupama Barth CUSTOMER SUPPORT MANAGER LAB URINE ORDERABLES Final Result [facility] Department [place] [address] documented in this encounter Visit Diagnoses Not on filedocumented in this encounter Care Teams Special Delivery Messenger Relationship Specialty Start Date End Date Vidhi Holley MD [address] [place] [address] PCP - General 06/16/16 09/05/17 documented as of this encounter
--- OUTSIDE RECORDS SUMMARY | 2024-06-25 16:48 | XMS_ITS | Clinical Summary ---
Author Organization [facility] Address [address] [place] [address] Care Team Providers Care Gettering Filament Machine Operator Name Role Phone Compa Correa MD Primary Care Provider Estuardo Luke MD Unavailable [phone] Polo Jeffery MD Unavailable [phone] Allergies Active Allergy Reactions Criticality Noted Date [...] understands. 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 She tends to grind her teeth. I recommended that she talk with her dentist about this. Probably needs to get a police guard made. She understands. 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 Assessment & Plan (06/30/2023 1:06 PM FILM EDITOR): I think she would benefit from a septoplasty with bilateral inferior turbinectomy. I discussed the risk of a septoplasty with and without turbinectomy with the patient. There is a risk of continued nasal obstruction, bleeding, septal perforation, permanent anosmia. Also risk of inadequate correction which could result in continued nasal obstruction symptoms. 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 Assessment & Plan (06/30/2023 1:11 PM FILM EDITOR): She also has significant maxillary sinus disease [...] further infections as well as orbital and PULL THROUGH HOOKER injuries. She understands. She would like to [...] Elbow pain 04/03/2016 Overview (02/02/2017): RIGHT. 11/05 [facility] says triceps tendonitis. US & MRI neg. [...] has seen cariodlogy dr Robbie Romero at [facility] see epic notes last visit 09/2021 Irritable [...] on file Legal Sex Female 2:24 AM FILM EDITOR Gender Identity Female 11/04/2019 10:07 PM CDT [...] 01/28/2014, 01/08/2001 Medical Devices Implanted Type Area Data Warehousing Manager Device Identifier Shelf Expiration Date Model / Serial / Lot [employer] Plul06 6 Hole Shortening Ulna Plate Bone Titanium Sterile - [id number] Implanted:Qty: 1 on 10/29/2019 by Estuardo Luke MD at [facility] Right: Ulna Acumed Inc PLUL06 / / Acumed Inc 766499 3.5mm 12mm Hexalobe Screw Bone Titanium Nonsterile Small Fragment - [id number] Implanted:Qty: 1 on 10/29/2019 by Estuardo Luke MD at [facility] Right: Ulna Acumed Inc [id number] / / Acumed Inc 30-0258 3.5mm 14mm Hexalobe Screw Bone Titanium Nonsterile Small Fragment - [id number] Implanted:Qty: 1 on 10/29/2019 by Estuardo Luke MD at [facility] Right: Ulna Acumed Inc 30-0258 / / Acumed Inc 795165 3.5mm 12mm Hexalobe Screw Bone Titanium Nonsterile Small Fragment - [id number] Implanted:Qty: 1 on 10/29/2019 by Estuardo Luke MD at [facility] Right: Ulna Acumed Inc 314175 / / Acumed Inc 418062 3.5mm 12mm Hexalobe Screw Bone Titanium Nonsterile Small Fragment - [id number] Implanted:Qty: 1 on 10/29/2019 by Estuardo Luke MD at [facility] Right: Ulna Acumed Inc 486214 / / Acumed Inc 421402 3.5mm 12mm Hexalobe Screw Bone Titanium Nonsterile Small Fragment - [id number] Implanted:Qty: 1 on 10/29/2019 by Estuardo Luke MD at [facility] Right: Ulna Acumed Inc 983435 / / Acumed Inc 192382 3.5mm 12mm Hexalobe Screw Bone Titanium Nonsterile Small Fragment - [id number] Implanted:Qty: 1 on 10/29/2019 by Estuardo Luke MD at [facility] Right: Ulna Acumed Inc [id number] / / Acumed Inc 468772 3.5mm 12mm Hexalobe Screw Bone Titanium Nonsterile Small Fragment - [id number] Implanted:Qty: 1 on 10/29/2019 by Estuardo Luke MD at [facility] Right: Ulna Acumed Inc 483643 / / Acumed Inc 6 Hole Shortening Ulna Plate Bone Titanium Sterile Plul06 - [id number] Implanted:Qty: 1 on 01/10/2023 by Estuardo Luke MD at [facility] Left: Arm Acumed Inc PLUL06 / / Acumed Inc 3.5mm 12mm Hexalobe Screw Bone Titanium Nonsterile Small Fragment 607703 - [id number] Implanted:Qty: 6 on 01/10/2023 by Estuardo Luke MD at [facility] Left: Arm Acumed Inc 714431 / / Acumed Inc 3.5mm 14mm Hexalobe Screw Bone Titanium Nonsterile Small Fragment 30-0258 - [id number] Implanted:Qty: 1 on 01/10/2023 by Estuardo Luke MD at [facility] Left: Arm Acumed Inc 30-0258 / / Arthrex Inc Dx Swivelock 3.5mm 13.5mm Foot Elbow Medium [place] Suture Peek Ar-8979p - [id number] Implanted:Qty: 1 on 01/10/2023 by Estuardo Luke MD at [facility] Left: Arm Arthrex Inc AR-8979P / / Acumed Inc Peg Fxatn Ulna Reduction Shortening Nonstrl 80-0422 - [id number] Implanted:Qty: 1 on 01/10/2023 by Estuardo Luke MD at [facility] Left: Arm Acumed Inc 80-0422 / / Insurance [facility] BL[facility] [place] CHO[place] ACC[place] ANTHEM ACCESS CHOICE [place] Advance Directives For more information, please contact: [phone] * Full Code (Latest Code Status on File) Date Activated Date Inactivated Comments 01/10/2023 3:03 PM 01/10/2023 8:07 PM * Full Code Date Activated Date Inactivated Comments 10/29/2019 1:32 PM 10/29/2019 6:42 PM Care Teams Gettering Filament Machine Operator Relationship Specialty Start Date End Date Compa Correa MD [address] [place] [address] PCP - General Internal Medicine 09/06/17 [place] [address] [place] [address] Surgeon Orthopedic Surgery 01/10/23 Polo Jeffery MD [address] [place] [address] Consulting Physician Otolaryngology 10/01/23
--- OUTSIDE RECORDS SUMMARY | 2024-06-25 16:48 | XMS_ITS | Encounter Summary ---
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
--- OUTSIDE RECORDS SUMMARY | 2024-06-25 16:48 | XMS_ITS | Encounter Summary ---
Author Organization [facility] Address [address] [place] [address] Phone Care Team Providers Care Mix Crusher Operator Name Role Phone Compa Correa MD Primary Care Provider + [phone] Estuardo Luke MD Unavailable [phone] Polo Jeffery MD Unavailable [phone] Encounter Details Date Type Department Care Team [...] on file Legal Sex Female 2:24 AM CODING SPECIALIST Gender Identity Female 11/04/2019 10:07 PM CDT [...] on filedocumented in this encounter Care Teams Mix Crusher Operator Relationship Specialty Start Date End Date Compa Correa MD [address] [place] [address] PCP - General Internal Medicine 09/06/17 [place] [address] [place] [address] Surgeon Orthopedic Surgery 01/10/23 Polo Jeffery MD [address] [facility] [facility] [address] Consulting Physician Otolaryngology 10/01/23 documented as of this encounter
--- OUTSIDE RECORDS SUMMARY | 2024-06-25 16:48 | XMS_ITS | Encounter Summary ---
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
--- OUTSIDE RECORDS SUMMARY | 2024-06-25 16:48 | XMS_ITS | Data Portability ---
Author Organization [facility] [place] Address [address] [place] [address] Care Team Providers Care Mortician Investigator Name Role Phone LIDIA MALDONADO Primary Care Provider Assessment Encounter Date Assessment Date Assessment LastModified by Organization Details LastModified Time 10/17/2021 10/17/2021 Annual gynecological exam performed. Patient will come back in a year unless there are new symptoms. Not available 10/17/2021 11:27:02 02/20/2024 02/20/2024 Annual gynecological exam performed. Patient will come back in a year unless there are new symptoms. [email or web address] Not available 02/04/2024 15:29:32 Plan of Treatment Reminders Order Date Submit Date Provider Last Modified By Organization Details Last Modified Time Details Appointments MED CHECK 2024 08:15A Blaise MCRAE NP Not available Not available Not available Lab HbA1c (hemoglob in A1c), blood 2023 [facility] (Lab), [address], [place], [address], 03/13/2024 13:16:29 dhea-sulf ate, serum 2023 [facility] (Lab), [address] [place], [address], 03/13/2024 13:16:26 estradiol , serum 2023 024 [facility] (Lab), [address], [place], [address], 03/13/2024 13:16:27 FSH (follicle -stimulat ing hormone), serum 2023 [facility] (Lab), [address], [place], [address], 03/13/2024 13:16:27 lh (luteiniz ing hormone), serum 2023 024 [facility] (Lab), [address], [place], [address], 03/13/2024 13:16:27 progester one, serum 2023 024 [facility] (Lab), [address], [place], [address], 03/13/2024 13:16:28 prolactin , serum 2023 [facility] (Lab), [address], [place], [address], 03/13/2024 13:16:28 testoster one free/test osterone total, ratio, serum 2023 024 [facility] (Lab), [address], [place], [address], 03/13/2024 13:16:29 test, urine 2023 [email or web address] [place], [facility] [address], [place], [address], 03/05/2024 12:31:02 vitamin B12, serum 2023 [facility] (Lab), [address], [place], [address], 03/13/2024 13:16:28 25-hydrox yvitamin D2 + 25-hydrox yvitamin D3, QN, serum or plasma 2023 024 [facility] (Lab), [address], [place], [address], 03/13/2024 13:16:29 Referral None recorded. Procedures None recorded. Surgeries None recorded. Imaging None recorded. Medication Orders sertralin e 50 mg tablet 2024 025 [place] [facility], [facility] [address], [id number], 06/17/2024 16:20:12 Nexplanon 68 mg subdermal implant 2023 024 [email or web address] [facility], [address], [place], [id number], 03/05/2024 12:31:01 buspirone 7.5 mg tablet 2023 024 [email or web address] [facility], [address], [id number], 06/17/2024 16:17:10 RASHMI (28) 3 mg-0.02 mg tablet 2021 022 [email or web address] [facility], [address], [id number], 02/20/2024 15:47:24 Aurovela 24 Fe 1 mg-20 mcg (24)/75 mg (4) tablet 2020 021 [email or web address] [facility], [address], [id number], 06/07/2020 11:04:25 Patient TargetsNo targets recorded. Patient [...] -0723 16 Autho junie mendosa Provi cristin: Linda nixon , Kathia Alcala cted: 10/17 1431 CLIENT TECHNOLOGIES ANALYST Order ing Locat ion: [place] [facility] Recei rodger: 10/18 0732 First Scree n: DeLuc a, Ingrid, CT Rescr een: Clarisse Lam Speci men: Scree feliz Pap - Image d, Cervi x STATE MENT OF ADEQU ACY: Satis facto ry for evalu ation Trans forma tion zone compo nent absen t. The absen ce of an endoc ervic al compo nent was confi rmed by an addit ional drake ner. FINAL DIAGN OSIS: Negat anil for Intra epith elial Lessmita n or Shanika desai (NIL) . Funga [...] is recom royce d, as clini wilbert mantilla nted. Not Available [facility] (Lab) [address], [place], [address], 10/21/2021 11:15:00 10/18/19 22 10/17/2021 CT/GC (RAFFI) , THINP REP VIAL chlamydia trachomatis, PCR Negati ve negati ve Not Available [facility] (Lab) [address], [place], [address], 10/21/2021 11:15:01 10/18/19 22 10/17/2021 CT/GC (RAFFI) , THINP REP VIAL neisseria gonorrhoeae, PCR Negati ve negati ve Not Available [facility] (Lab) [address], [place], [address], 10/21/2021 11:15:01 10/18/19 22 10/17/2021 TRICH OMONA S VAGIN RAY (RRNA ) trichomonas vaginalis ribosomal RNA (rrna) Negati ve negati ve Not Available [facility] (Lab) [address] [place], [address], 10/21/2021 11:15:01 03/05/20 24 03/05/2024 DHEA SULFA TE DHEA-sulfate 355 ug/dL Femal e Range s Age(y ) Range (ug/d L) 10-15 34-28 0 15-20 65-36 8 20-25 148-4 07 25-35 99-34 0 35-45 61-33 7 45-55 35-25 6 55-65 19-20 5 65-75 9-246 > 75 12-15 4 Not Available [facility] (Lab) [address], [place], [address], 03/13/2024 13:16:26 03/05/20 24 03/05/2024 LH (LUTE NIZIN G HORMO NE) LH 5.6 mIU/m L This assay was perfo rmed using [employer] ratio n reage nts and test kits. Value s obtai mino with other assay metho ds or kits canno t be used inter [facility] eay . Femal es Mid-F ollic ular: 2.4-1 2.6 mIU/m L Mid-C ycle: 14.0- 95.6 mIU/m L Mid-L uteal : 1.0-1 1.4 mIU/m L Postm enopa use: 7.7-5 8.5 mIU/m L Not Available [facility] (Lab) [address] [place], [address], 03/13/2024 13:16:27 03/05/20 24 03/05/2024 ESTRA DIOL [...] 154-3 243 pg/mL 2nd Trime ster 1561- 69585 pg/mL 3rd Trime ster 8525- >3000 0 pg/mL Not Available [facility] (Lab) [address] [place], [address], 03/13/2024 13:16:27 03/05/20 24 03/05/2024 FSH FSH 5.5 mIU/m L This assay was perfo rmed using [employer] ratio n reage nts and test kits. Value s obtai mino with other assay metho ds or kits canno t be used inter andrade eably . Femal es Folli cular : 3.5-1 2.5 mIU/m L Ovula tion: 4.7-2 1.5 mIU/m L Lutea l: 1.7-7 .7 mIU/m L Postm enopa use: 25.8- 134.8 mIU/m L Not Available [facility] (Lab) [address], [place], [address], 03/13/2024 13:16:27 03/05/20 24 03/05/2024 PROGE STERO NE progesterone 0.09 NG/mL This assay was perfo rmed using [employer] ratio n reage nts and test kits. Value s obtai mino with other assay metho ds or kits canno t be used inter andrade eay . Femal e Proge stero ne Range s: Folli cular phase 0.06- 0.89 ng/mL Ovula tion phase 0.12- 12.00 ng/mL Lutea l phase 1.83- 23.90 ng/mL Postm enopa usal <0.05 -0.13 ng/mL Healt hy Pregn ant Women 1st Trime ster 11.0- 44.30 2nd Trime ster 25.40 -83.3 0 3rd Trime ster 58.70 -214. 00 Not Available [facility] (Lab) [address], [place], [address], 03/13/2024 13:16:28 03/05/20 24 03/05/2024 PROLA CTIN prolactin, total 14.90 NG/mL 4.79-2 3.30 This assay was perfo rmed using [employer] ratio n reage nts and test kits. Value s obtai mino with other assay metho ds or kits canno t be used inter andrade eably . Not Available [facility] (Lab) [address] [place], [address], 03/13/2024 13:16:28 03/05/20 24 03/05/2024 VITAM IN B12 vitamin B12 267 pg/mL 180-91 4 Christine l Range : 180-9 14 pg/mL . Indet ermin ate Range : 145-1 80 pg/mL . Defic ient Range : <=145 pg/mL . Not Available [facility] (Lab) [address], [place], [address], 03/13/2024 13:16:28 03/05/20 24 03/05/2024 VITAM IN D, 25-OH (TOTA L D2/D3 ) vitamin D, 25-hydroxy, total 66.5 NG/mL 30.0-1 00.0 Sugge stive of Defic iency : <20 ng/mL Sugge stive of Insuf ficie ncy: 20-29 ng/mL Sugge stive of Suffi cienc y: 30-10 0 ng/mL Sugge stive of Toxic ity: >150 ng/mL Not Available [facility] (Lab) [address] [place], [address], 03/13/2024 13:16:29 03/05/20 24 03/05/2024 HEMOG LOBIN A1C hemoglobin A1C 5.2 % 0-5.6 The Ameri can Di[employer] keyanna [employer] iatio n recom mends that a prima ry goal of thera py ashley d be a HBA1C of < 7% and that physi cians shoul d reeva luate the treat ment regim en in patie nts with HBA1C value s consi stent ly > 8%. <5.7% Christine l 5.7 - 6.4% Incre ased risk for diabe keyanna >=6.5 % Diagn ostic of diabe keyanna <7.0% Goal of thera py >8.0% Actio n sugge sted Not Available [facility] (Lab) [address], [place], [address], 03/13/2024 13:16:29 03/05/20 24 03/05/2024 TESTO STERO NE, FREE( DIALY SIS) AND TOTAL (LC/M S/MS) testosterone , total 19 NG/dL 2-45 For addit ional infor rishi shah e refer to http: //[facility] karlene carias.que stdia gnost ics.c om/fa q/ Total Testo stero neLCM SMSFA Q165 (This link is being provi ded for infor matio nal/ educa ibeth l purpo ses only. ) This test was devel oped and its catherine tical perfo rmanc e april cteri stics have been deter mined by [employer] [facility] [place], [place]. It has not been clear ed or appro rodger by the U.S. Food and Drug Admin istra tion. This assay has been valid ated pursu ant to the CLIA regul ation s and is used for clini lexa purpo ses. Not Available [facility] (Lab) [address], [place], [address], 03/13/2024 13:16:29 03/05/20 24 03/05/2024 TESTO STERO NE, FREE( DIALY SIS) AND TOTAL (LC/M S/MS) testosterone , free 3.3 pg/mL 0.1-6. 4 This test was devel oped and its catherine tical perfo rmanc e april cteri stics have been deter mined by [employer] [place], [place]. It has not been clear ed or appro rodger by the U.S. Food and Drug Admin istra tion. This assay has been valid ated pursu ant to the CLIA regul ation s and is used for clini lexa purpo ses. Perfo rming Organ izati on [facility]: Site ID: AMD Name: [employer] ls Guidefitteri collin Addre ss: [id number] [place], [place] Direc tor: Rebecca Garcia MD PhD Not Available [facility] (Lab) [address], [place], [address], 03/13/2024 13:16:29 03/05/20 24 03/05/2024 pregn kimberly test, urine HCG negati ve Not Available [place] [address], [place], [address], 03/05/2024 12:30:45 Result Notes None recorded. Problems Name Problem SNOMED Code Status Onset Date Resolution Date Notes Provider Name and Address Organization Details Recorded Time Educatio n Completed 201605/31/2020 Encounte r for oth general cnsl and advice on contrace ption;Pr actice ID: 0001 Moira maldonado, [facility] 09:18:41 Pregnanc y test negative [id number] Completed 201605/31/2020 Encounte r for pregnanc y test, result negative ;Practic e ID: 0001 Moira [facility], [facility] 09:18:[address] Concept Completed 201605/31/2020 Encounte r for surveill ance of other contrace ptives;P ractice ID: 0001 Moira maldonado, [facility] 09:18:45 Procedur e Completed 201705/31/2020 Enctr srvlnc implanta ble subderma l contrace ptive;Pr actice ID: 0001 Moira maldonado, [facility] 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 1 09:18:38 Problem Notes None recorded. Procedures Surgical History Date Name Laterality Status Provider Name and Address Organization Details Recorded Time 4 MM Nexplanon insert completed OSMANY MCRAE NP [address], [place], [address], [facility] 03/05/2024 13:54:07 0 Nexplanon Removal completed Poly Mckeon [facility] 03/03/2020 16:55:29 7 open reduction of fracture of ulna completed [facility] 02/16/2020 14:26:20 5 procedure on elbow completed [facility] 02/16/2020 14:26:36 Imaging Results None recorded. Procedure Notes None recorded. Medical Equipment None Reported. Allergies Allergen ID Allergen Name Allergen Category Reaction Reaction Severity Criticality Documentation Date Start Date Code Code System Note Provider Name and Address Organization Details Recorded Time 2504 chlorhexi dine medicatio n Not available Not available Not available 02/16/2020 2358 RxNorm [facility] 0 14:25:02 Medications Name Sig Start [...] azole 800 mg-trimetho prim 160 mg tablet 06/17 completed Not Available Not Available Not Available ketorolac 10 mg tablet 02/19 completed Not Available Not Available Not Available cephalexin 500 mg capsule 02/19 completed Not Available Not Available Not Available buspirone 7.5 mg tablet TAKE ONE TABLET BY MOUTH TWICE A DAY 06/17 completed Not Available Not Available Not Available diclofenac sodium 75 mg tablet,clara yed release 02/19 completed Not Available Not Available Not Available amoxicillin 250 mg capsule 03/03 completed Not Available Not Available Not Available azelastine 137 mcg (0.1 %) nasal spray 02/19 completed Not Available Not Available Not Available triamcinolo ne acetonide 0.1 % lotion active Not Available Not Available Not Available methylpredn [...] completed Not Available Not Available Not Available sertraline 50 mg tablet Take 1 tablet every day by oral route. 2024 active Not Available Not Available Not Avai lable amoxicillin 875 mg-potassiu m clavulanate 125 mg tablet 06/17 completed Not Available Not Available Not Available [...] active Not Available Not Available Not Available Bangs Fe 1-20 EQ (28) 1 mg-20 mcg [...] Updated DateTime 10/17/2021 162.56 cm 27.3 kg/m2 10671.19 g Bertha Rodriguez [facility] 10/17/2021 11:27:52 Date Recorded Systolic blood pressure Diastolic blood pressure Provider Name and Address Organization Details Last Updated DateTime 10/17/2021 120 mm[Hg] 74 mm[Hg] Cherry Doshi, [facility]- [address], [place], [address], [facility] 10/17/2021 11:35:46 Date Recorded Body height Body mass index (BMI) Body weight Systolic blood pressure Diastolic blood pressure Provider Name and Address Organization Details Last Updated DateTime 02/20/2024 162.56 cm 29.2 kg/m2 81804.42 g 130 mm[Hg] 81 mm[Hg] Doris Beyer [facility] 15:46:34 Date Recorded Body height Body mass index (BMI) Body weight Systolic blood pressure Diastolic blood pressure Provider Name and Address Organization Details Last Updated DateTime 06/17/2024 162.56 cm 29.1 kg/m2 77057.55 g 118 mm[Hg] 78 mm[Hg] Doris Beyer [facility] 5 16:01:04 Date Recorded Body height Body mass index [...] 1 160.02 cm 27.6 kg/m2 88 % 30353.4 1 g 160.02 cm 27.6 kg/m2 88 % 73040.4 1 g 122 mm[Hg] 78 mm[Hg] 122 mm[Hg] 78 mm[Hg] Moira Duffan [facility] 1 09:52:08 Social History Question Answer Notes LastModified by Organizat ion Details LastModified Time Tobacco Smoking Status Never Smoker Christie maldonado, [facility] 02/17/2020 10:57:01 Do You Have An Advance Directive? No [email or web address] Information n ot available 02/20/2024 What Is Your Level Of Alcohol Consumption? Moderate [email or web address] Information not available 02/20/2024 How Many Years Have You Consumed Alcohol? 3 [email or web address] Information not available 02/20/2024 Are You Blind Or Do You Have Difficulty Seeing? No Information n ot available 10/17/2021 What Is Your Level Of Caffeine Consumption? Moderate Information not available 10/17/2021 In The 14 Days Before Symptom Onset, Have You Had Close Contact With A Laboratory-confirm ed COVID-19 While That Case Was Ill? No [email or web address] Information n ot available 02/20/2024 In The 14 Days Before Symptom Onset, Have You Had Close Contact With A Person Who Is Under Investigation For COVID-19 While That Person Was Ill? No Information not available 02/20/2024 Have You Been To An Area Known To Be High Risk For COVID-19? No [email or web address] Information not available 02/20/2024 Are You Deaf Or Do You Have Serious Difficulty Hearing? No Information not available 10/17/2021 What Type Of Diet Are You Following? REGULAR [email or web address] Information n ot available 02/20/2024 What Is The Highest Grade Or Level Of School You Have Completed Or The Highest Degree You Have Received? 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 Student [email or web address] Information not available 02/20/2024 Are There Any Guns Present In Your Home? No [email or web address] Information not available 02/20/2024 Do You Use Protection During Sex? Always [email or web address] Information not available 02/20/2024 Do You Use Your Seat Belt Or Car Seat Routinely? Yes Information not available 10/17/2021 Do You Have Smoke And Carbon Monoxide Detectors In Your Home? Yes Information not available 10/17/2021 How Much Tobacco Do You Smoke? No [email or web address] Information not available 02/20/2024 Do You Feel Stressed (tense, Restless, Nervous, Or Anxious, Or Unable To Sleep At Night)? [id number] Information not available 10/17/2021 Do You Use Any Illicit Or Recreational Drugs? No Information not available 10/17/2021 Do You Use Sunscreen Routinely? Yes Information not available 10/17/2021 Have You Used IV Drugs? No [email or web address] Information not available 02/20/2024 Sex: Unknown Functional [...] 10/17/2021 What is your exercise level? Moderate [email or web address] Information not available 02/20/2024 Mental Status None [...] available 2019 14:24:23 Maternal Aunt Seizure disorder [email or web address] Not available 2023 15:41:48 Medical History Condition Response Allergies (Food, seasonal, environmental ) Y Gynecological History Statement/Question Response Flow Heavy Date of Last Mammogram Date of LMP 02/05/2024 Was last menstrual period normal Y STIs/STDs N HPV Vaccine Y Duration of Flow (days) 3 Current Control Method Implant Are cycles usually normal Y Frequency of Cycle (Q days) 28 Sexually Active? Y Menses Monthly N Age of first menstrual cycle 12 Date of Last Pap Smear Sexual Problems? N Desired Control Method Implant LMP Approximate N Obstetrics History GPAL:G 0 P 0 0 0 0 Past Encounters Encounter ID Performer Location Encounter Start Date Encounter Closed Date Diagnosis/Indication Diagnosis SNOMED-CT Code Diagnosis ICD10 Code Diagnosis Note [id number] Poly Mckeon [address] [address] 02/17/2020 10:48:22 02/18/2020 12:52:43 Gynecologic examination 62106492 Z01.419 Take Calcium with Vitamin D 1200mg [...] a paper copy of today's plan if desired.lorena Contracept ion care management 454781263 Z30.9 Discussed all control options in great [...] nexplanon [facility] [id number] [address] [place] [address] 03/03/2020 15:09:33 03/03/2020 17:21:23 Removal of subcutaneous contraceptive 093735152 Z30.46 Plan to return to follow up on ocp. [id number] Poly Mckeon [facility] [address] [place] [place] [address] 05/31/2020 09:35:22 05/31/2020 19:06:04 [id number] [facility] [address] [place] [address] 05/31/2020 09:46:38 05/31/2020 10:02:40 Contraception care management 131997515 Z30.9 Patient is here today for a medicaton check of control. She voices goals of therapy have been met with use of this therapy. She denies neg side effects. She is eating, drinking, sleeping well; moods are stable & periods are well regulated. Wishes to continue this method of BC. Appropriat e to continue this medication . [id number] DEEPIKA [facility] [address] [address] 10/17/2021 11:11:27 10/17/2021 12:02:13 Gynecologic examination 70575052 Z01.419 Take Calcium with Vitamin D 1200mg [...] Labs naMammo na Contracept ion care management 562193882 Z30.9 Switch in OCP due to irregular start time of menses in her pill pack despite consistent use & timing.RTO x 3mos med check [id number] OSMANY MCRAE NP [facility] [address] [address] 02/20/2024 15:41:11 02/20/2024 16:23:32 Gynecologic examination 09094343 Z01.419 Annual gynecologi lexa exam performed. Patient [...] testing - declined Contracept ion care management 905078473 Z30.9 Discussed all control options in depth and pt is interested in Nexplanon. Discussed all risks and benefits including irregular unschedule d bleeding. Pt verbalized understand ing and would like to proceed. She is aware that she needs to call us on the 1st day of her period to schedule placement. Generalize d anxiety disorder 56759373 F41.1 Discussed coping mechanisms for stress and anxiety.Michele henry wishes to try a medication daily to treat anxiety.Rx sent for buspirone. Risks/bene fits/AEs discussed. RTO in 3 months for med check. [id number] [facility] [address] [address] 03/05/2024 12:01:35 03/05/2024 14:01:41 Fatigue 51031828 R53.83 Will check Vitamin B12 and vitamin D levels d/t c/o fatigue. Hirsutism 080740775 L68. 0 Will check hormone levels that may contribute to reported sx of hirsutism and acne.Discu ssed that Nexplanon may aid in symptom improvemen t and we can re-evaluat e sx at 3 month med check. Patient verbalizes understand ing. Insertion of subcutaneous contraceptive 814249155 Z30.46 1. The patient was instructed that [...] need to be replaced in four years. [id number] OSMANY MCRAE NP [facility] [address] [address] 06/17/2024 15:58:13 06/17/2024 16:22:13 Generalized anxiety disorder 58507629 F41.1 Recommende d that patient stop buspirone due to worsening AE of dizziness when taking. Discussed other treatment options for chronic anxiety, including risks/bene fits/adver se effects.Michele henry interested in trying a SSRI to stabilize her mood.Discu ssed that antidepres sants may take 4-6 weeks to become effective. Rx sent for sertraline 50 mg PO daily. Patient to start with 1/2 tablet (25 mg) PO daily for 2 weeks, then increase to 50 mg thereafter for maintenanc e therapy. Recommende d that patient take medication with food.Discu ssed that patient is to go to ER if she experience s any suicidal/h omicidal ideation. Patient to RTO in 6 weeks for med check. Patient verbalized understand ing and agreement of POC. Recommende d counseling /therapy in addition to pharmacolo gic treatment. Health Concerns Section Related Observation LastModified by Organization Detai ls LastModified Time None Recorded Concern Status LastModified by Organization Details LastModified Time None Recorded Advance Directives Directive N: Payers Encounter Date Sequence Insurance Name Policy Number Policy Rooney Covered Member ID Rooney Member ID Guarantor Name 05/31/2020 1 [place] [id number] Tyrone A Pirok [id number] 30 Tyrone Pirok 10/17/2021 1 [place] [id number] Tyrone A Pirok [id number] 30 Tyrone Pirok 02/20/2024 1 [place] [id number] Tyrone A Pirok [id number] 30 Tyrone Pirok 03/05/2024 1 [place] [id number] Tyrone A Pirok [id number] 30 Tyrone Pirok 06/17/2024 1 [place] [id number] Tyrone A Pirok [id number] 30 Tyrone Pirok Notes Date Note Type Note Provider Name [...] Appropriate to continue this medication. Cherry Doshi [facility] [address], [place], [address], [facility] 05/31/2020 09:53:41 10/17/2021 text/html Annual GYNReport [...] regular mammograms starting age 40 Cherry Doshi [facility] [address], [place], [address], [facility] 10/17/2021 11:46:43 02/20/2024 text/html Annual GYNReport [...] did not like the side effects. OSMANY MCRAE NP [address], [place], [address], [facility] 02/20/2024 16:23:03 03/05/2024 text/html Patient is [...] and acne before her cycle. Doris maldonado, [facility] 03/05/2024 15:12:19 06/17/2024 text/html Patient here for 3 month med check since starting buspirone for generalized anxiety.Patient states that the buspirone helped her mood slightly, but she has moderate to severe dizziness and feeling of intoxication for 45 minutes to 1 hour after taking each dose. Patient said that she wanted to give the medication at least a few months to see if the AE would go away, but it has not subsided.Denies SI/HI. OSMANY MCRAE NP [address], [place], [address], [facility] 06/17/2024 16:21:37 OBGyn Episode No OBEpisode recorded.
[2024-06-25 16:53] LABS: Toxigenic C. Diff POSITIVE (NEGATIVE)
[2024-06-25 22:17] LABS: Alanine Aminotransferase 17 U/L (14-59); Albumin Level 4.6 g/dL (3.4-5.0); Alkaline Phosphatase 72 U/L (46-116); Anion Gap 10 mmol/L (4-12); Aspartate Amino Transferase 28 U/L (15-37); Bilirubin,Total 0.4 mg/dL (0.00-1.00); Blood Urea Nitrogen 13 mg/dL (7-18); Calcium 9.4 mg/dL (8.5-10.1); Carbon Dioxide 28 mmol/L (21-32); Chloride 105 mmol/L (98-108); Estimated Glomerular Filt Rate > 60; Glucose 85 mg/dL (70-99); Osmolality Calculated 295 mOsm/kg (285-295); Potassium 4.2 mmol/L (3.5-5.1); Sodium 143 mmol/L (136-145); Total Protein 7.3 g/dL (6.4-8.2)
== END 2024-06-25 14:59 | disposition home or self-care (01) ==
PROVIDERS: PCP Internal Medicine; Visit Provider Nurse Practitioner Family
DX: R19.7 Diarrhea, unspecified (principal)
CPT/HCPCS: 36415; 80053; 85025; 87045; 87427; 87449; 87493

== ENCOUNTER 2024-07-07 13:30 | Outpatient (CLI) | payer BC, SELFPAY ==
[2024-07-07 13:44] LABS: Hemoglobin 12.1 g/dL (12.0-15.0); Mean Corpuscular HGB Conc 32.7 g/dL (32-36); Mean Corpuscular Volume 88.7 fL (78.0-102.0); Mean Platelet Volume 11.3 fl (9.2-11.8); Platelet Count Result 203 K/mm3 (150-420); Red Blood Count 4.17 M/mm3 (4.20-5.40); Red Cell Distribution Width 12.4 % (11.6-14.4); White Blood Count 7.1 K/mm3 (4.8-10.8)
[2024-07-07 14:13] LABS: Alanine Aminotransferase 20 U/L (14-59); Albumin Level 4.2 g/dL (3.4-5.0); Alkaline Phosphatase 76 U/L (46-116); Anion Gap 8 mmol/L (4-12); Aspartate Amino Transferase 13 U/L (15-37); Bilirubin,Total 0.4 mg/dL (0.00-1.00); Blood Urea Nitrogen 14 mg/dL (7-18); Calcium 9.3 mg/dL (8.5-10.1); Carbon Dioxide 30 mmol/L (21-32); Chloride 104 mmol/L (98-108); Estimated Glomerular Filt Rate > 60; Glucose 91 mg/dL (70-99); Osmolality Calculated 294 mOsm/kg (285-295); Sodium 142 mmol/L (136-145); Total Protein 7.2 g/dL (6.4-8.2)
--- OUTSIDE RECORDS SUMMARY | 2024-07-07 16:05 | XMS_ITS | Clinical Summary ---
Author Organization [facility] Address [address] [place] [address] Care Team Providers Care Pulmonary Fellow Name Role Phone Compa Correa MD Primary Care Provider Estuardo Luke MD Unavailable [phone] Polo Jeffery MD Unavailable Allergies Active Allergy [...] understands. 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 She tends to grind her teeth. I recommended that she talk with her dentist about this. Probably needs to get a lumber stacker operator made. She understands. 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 Assessment & Plan (06/30/2023 1:06 PM MOONER): I think she would benefit from a septoplasty with bilateral inferior turbinectomy. I discussed the risk of a septoplasty with and without turbinectomy with the patient. There is a risk of continued nasal obstruction, bleeding, septal perforation, permanent anosmia. Also risk of inadequate correction which could result in continued nasal obstruction symptoms. She has a director pharmacy services and he would like to do this [...] weeks. 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 She understands. She would like to [...] Elbow pain 04/03/2016 Overview (02/02/2017): RIGHT. 11/05 [facility] says triceps tendonitis. US & [...] has seen cariodlogy dr Robbie Romero at [facility]. [facility] see epic notes last visit 09/2021 [...] on file Legal Sex Female 2:24 AM MOONER Gender Identity Female 11/04/2019 10:07 PM CDT [...] 01/28/2014, 01/08/2001 Medical Devices Implanted Type Area Cycle Director Device Identifier Shelf Expiration Date Model / Serial / Lot Ac[employer]d Inc Plul06 6 Hole Shortening Ulna Plate Bone Titanium Sterile - [id number] Implanted:Qty: 1 on 10/29/2019 by Estuardo Luke MD at [facility] Right: Ulna Acumed Inc [id number] / / Acumed Inc [id number] 3.5mm 12mm Hexalobe Screw Bone Titanium Nonsterile Small Fragment - [id number] Implanted:Qty: 1 on 10/29/2019 by Estuardo Luke MD at [facility] Right: Ulna Acumed Inc [id number] / / Acumed Inc 30-0258 3.5mm 14mm Hexalobe Screw Bone Titanium Nonsterile Small Fragment - [id number] Implanted:Qty: 1 on 10/29/2019 by Estuardo Luke MD at [facility] Right: Ulna [employer]umed Inc 30-0258 / / Acumed Inc 632926 3.5mm 12mm Hexalobe Screw Bone Titanium Nonsterile Small Fragment - [id number] Implanted:Qty: 1 on 10/29/2019 by Estuardo Luke MD at [facility] Right: Ulna [employer] Inc [id number] / / Acumed Inc [id number] 3.5mm 12mm Hexalobe Screw Bone Titanium Nonsterile Small Fragment - [id number] Implanted:Qty: 1 on 10/29/2019 by Estuardo Luke MD at [facility] Right: Ulna [employer]umed Inc [id number] / / Acumed Inc 339945 3.5mm 12mm Hexalobe Screw Bone Titanium Nonsterile Small Fragment - [id number] Implanted:Qty: 1 on 10/29/2019 by Estuardo Luke MD at [facility] Right: Ulna Acumed Inc [id number] / / Acumed Inc 032725 3.5mm 12mm Hexalobe Screw Bone Titanium Nonsterile Small Fragment - [id number] Implanted:Qty: 1 on 10/29/2019 by Estuardo Luke MD at [facility] Right: Ulna [employer] Inc [id number] / / Acumed Inc [id number] 3.5mm 12mm Hexalobe Screw Bone Titanium Nonsterile Small Fragment - [id number] Implanted:Qty: 1 on 10/29/2019 by Estuardo Luke MD at [facility] Right: Ulna [employer] Inc [id number] / / Acumed Inc 6 Hole Shortening Ulna Plate Bone Titanium Sterile Plul06 - [id number] Implanted:Qty: 1 on 01/10/2023 by Estuardo Luke MD at [facility] Left: Arm Acumed Inc PLUL06 / / Acumed Inc 3.5mm 12mm Hexalobe Screw Bone Titanium Nonsterile Small Fragment [id number] - [id number] Implanted:Qty: 6 on 01/10/2023 by Estuardo Luke MD at [facility] Left: Arm Acumed Inc [id number] / / Acumed Inc 3.5mm 14mm Hexalobe Screw Bone Titanium Nonsterile Small Fragment 30-0258 - [id number] Implanted:Qty: 1 on 01/10/2023 by Estuardo Luke MD at [facility] Left: Arm Acumed Inc 30-0258 / / Arthrex Inc Dx Swivelock 3.5mm 13.5mm Foot Elbow Medium [place] Suture Peek Ar-8979p - [id number] Implanted:Qty: 1 on 01/10/2023 by Estuardo Luke MD at [facility] Left: Arm Arthrex Inc AR-8979P / / Acumed Inc Peg Fxatn Ulna Reduction Shortening Nonstrl 80-0422 - [id number] Implanted:Qty: 1 on 01/10/2023 by Estuardo Luke MD at [facility] Left: Arm Acumed Inc 80-0422 / / Insurance [facility] BLUE ACCESS CHOICE [place] ACC[place] ACCESS CHO[place] Advance Directives For more information, please contact: [phone] * Full Code (Latest Code Status on File) Date Activated Date Inactivated Comments 01/10/2023 3:03 PM 01/10/2023 8:07 PM * Full Code Date Activated Date Inactivated Comments 10/29/2019 1:32 PM 10/29/2019 6:42 PM Care Teams Pulmonary Fellow Relationship Specialty Start Date End Date Compa Correa MD [address] [place] [address] PCP - General Internal Medicine 09/06/17 [place] [address] [place] [address] Surgeon Orthopedic Surgery 01/10/23 Polo Jeffery MD [address] [place] [address] Consulting Physician Otolaryngology 10/01/23
--- OUTSIDE RECORDS SUMMARY | 2024-07-07 16:05 | XMS_ITS | Encounter Summary ---
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
--- OUTSIDE RECORDS SUMMARY | 2024-07-07 16:05 | XMS_ITS | Encounter Summary ---
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
--- OUTSIDE RECORDS SUMMARY | 2024-07-07 16:05 | XMS_ITS | Encounter Summary ---
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
--- OUTSIDE RECORDS SUMMARY | 2024-07-07 16:05 | XMS_ITS | Encounter Summary ---
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
--- OUTSIDE RECORDS SUMMARY | 2024-07-07 16:05 | XMS_ITS | Referral Summary ---
Author Organization [facility] Address [address] [place] [address] Care Team Providers Care Pipelines Superintendent Name Role Phone Compa Correa MD Primary Care Provider Estuardo Luke MD Unavailable [phone] Polo Jeffery MD Unavailable Allergies Active Allergy [...] understands. 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 She tends to grind her teeth. I recommended that she talk with her dentist about this. Probably needs to get a guide tour made. She understands. 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 Assessment & Plan (06/30/2023 1:06 PM EXCEL VBA DEVELOPER): I think she would benefit from a septoplasty with bilateral inferior turbinectomy. I discussed the risk of a septoplasty with and without turbinectomy with the patient. There is a risk of continued nasal obstruction, bleeding, septal perforation, permanent anosmia. Also risk of inadequate correction which could result in continued nasal obstruction symptoms. She has a pharmacy sales representative and he would like to do this [...] weeks. 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 She understands. She would like to [...] Elbow pain 04/03/2016 Overview (02/02/2017): RIGHT. 11/05 [facility] says triceps tendonitis. US & MRI neg. [...] on file Legal Sex Female 2:24 AM EXCEL VBA DEVELOPER Gender Identity Female 11/04/2019 10:07 PM CDT [...] on file Medical Devices Implanted Type Area Evp Global Product Leadership Device Identifier Shelf Expiration Date Model / Serial / Lot Acumed Inc Plul06 6 Hole Shortening Ulna Plate Bone Titanium Sterile - [id number] Implanted:Qty: 1 on 10/29/2019 by Estuardo Luke MD at [facility] Right: Ulna Acumed Inc PLUL06 / / Acumed Inc 608384 3.5mm 12mm Hexalobe Screw Bone Titanium Nonsterile Small Fragment - [id number] Implanted:Qty: 1 on 10/29/2019 by Estuardo Luke MD at [facility] Right: Ulna Acumed Inc [id number] / / Acumed Inc 30-0258 3.5mm 14mm Hexalobe Screw Bone Titanium Nonsterile Small Fragment - [id number] Implanted:Qty: 1 on 10/29/2019 by Estuardo Luke MD at [facility] Right: Ulna Acumed Inc 30-0258 / / Acumed Inc 230344 3.5mm 12mm Hexalobe Screw Bone Titanium Nonsterile Small Fragment - [id number] Implanted:Qty: 1 on 10/29/2019 by Estuardo Luke MD at [facility] Right: Ulna Acumed Inc 870178 / / Acumed Inc 553061 3.5mm 12mm Hexalobe Screw Bone Titanium Nonsterile Small Fragment - [id number] Implanted:Qty: 1 on 10/29/2019 by Estuardo Luke MD at [facility] Right: Ulna Acumed Inc [id number] / / Acumed Inc 101819 3.5mm 12mm Hexalobe Screw Bone Titanium Nonsterile Small Fragment - [id number] Implanted:Qty: 1 on 10/29/2019 by Estuardo Luke MD at [facility] Right: Ulna Acumed Inc 283904 / / Acumed Inc 984243 3.5mm 12mm Hexalobe Screw Bone Titanium Nonsterile Small Fragment - [id number] Implanted:Qty: 1 on 10/29/2019 by Estuardo Luke MD at [facility] Right: Ulna Acumed Inc [id number] / / Acumed Inc 827431 3.5mm 12mm Hexalobe Screw Bone Titanium Nonsterile Small Fragment - [id number] Implanted:Qty: 1 on 10/29/2019 by Estuardo Luke MD at [facility] Right: Ulna Acumed Inc 037438 / / Acumed Inc 6 Hole Shortening Ulna Plate Bone Titanium Sterile Plul06 - [id number] Implanted:Qty: 1 on 01/10/2023 by Estuardo Luke MD at [facility] Left: Arm Acumed Inc PLUL06 / / Acumed Inc 3.5mm 12mm Hexalobe Screw Bone Titanium Nonsterile Small Fragment [id number] - [id number] Implanted:Qty: 6 on 01/10/2023 by Estuardo Luke MD at [facility] Left: Arm Acumed Inc [id number] / / Acumed Inc 3.5mm 14mm Hexalobe Screw Bone Titanium Nonsterile Small Fragment 30-0258 - [id number] Implanted:Qty: 1 on 01/10/2023 by Estuardo Luke MD at [facility] Left: Arm Acumed Inc 30-0258 / / Arthrex Inc Dx Swivelock 3.5mm 13.5mm Foot Elbow Medium [place] Suture Peek Ar-8979p - [id number] Implanted:Qty: 1 on 01/10/2023 by Estuardo Luke MD at [facility] Left: Arm Arthrex Inc AR-8979P / / Acumed Inc Peg Fxatn Ulna Reduction Shortening Nonstrl 80-0422 - [id number] Implanted:Qty: 1 on 01/10/2023 by Estuardo Luke MD at [facility] Left: Arm Acumed Inc 80-0422 / / Insurance [facility] [place] ACCESS [employer] ACCESS CHOICE [place] CHO[place] GLG [place] GLG [place] Advance Directives For more information, please contact: [phone] * Full Code (Latest Code Status on File) Date Activated Date Inactivated Comments 01/10/2023 3:03 PM 01/10/2023 8:07 PM * Full Code Date Activated Date Inactivated Comments 10/29/2019 1:32 PM 10/29/2019 6:42 PM Care Teams Pipelines Superintendent Relationship Specialty Start Date End Date Compa Correa MD [address] [place] [address] PCP - General Internal Medicine 09/06/17 [place] [address] [place] [address] Surgeon Orthopedic Surgery 01/10/23 Polo Jeffery MD [address] [place] [address] Consulting Physician Otolaryngology 10/01/23
--- OUTSIDE RECORDS SUMMARY | 2024-07-07 16:05 | XMS_ITS | Data Portability ---
Author Organization [facility] [place] Address [address] [place] [address] Care Team Providers Care Senior Painter Name Role Phone LIDIA MALDONADO Primary Care Provider [phone] Assessment Encounter Date Assessment Date Assessment LastModified by Organization Details LastModified Time 10/17/2021 10/17/2021 Annual gynecological exam performed. Patient will come back in a year unless there are new symptoms. Not available 10/17/2021 11:27:02 02/20/2024 02/20/2024 Annual gynecological exam performed. Patient will come back in a year unless there are new symptoms. [email or web address] Not available 02/04/2024 15:29:32 Plan of Treatment Reminders Order Date Submit Date Provider Last Modified By Organization Details Last Modified Time Details Appointments MED CHECK 2024 08:15A Blaise MCRAE NP Not available Not available Not available Lab HbA1c (hemoglob in A1c), blood 2023 [facility] (Lab), [address], [place], [address], 03/13/2024 13:16:29 dhea-sulf ate, serum 2023 [facility] (Lab), [address] [place], [address], 03/13/2024 13:16:26 estradiol , serum 2023 024 [facility] (Lab), [address], [place], [address], 03/13/2024 13:16:27 FSH (follicle -stimulat ing hormone), serum 2023 [facility] (Lab), [address], [place], [address], 03/13/2024 13:16:27 lh (luteiniz ing hormone), serum 2023 024 [facility] (Lab), [address], [place], [address], 03/13/2024 13:16:27 progester one, serum 2023 024 [facility] (Lab), [address], [place], [address], 03/13/2024 13:16:28 prolactin , serum 2023 [facility] (Lab), [address], [place], [address], 03/13/2024 13:16:28 testoster one free/test osterone total, ratio, serum 2023 024 [facility] (Lab), [address], [place], [address], 03/13/2024 13:16:29 test, urine 2023 [email or web address] [place], [facility] [address], [place], [address], 03/05/2024 12:31:02 vitamin B12, serum 2023 [facility] (Lab), [address], [place], [address], 03/13/2024 13:16:28 25-hydrox yvitamin D2 + 25-hydrox yvitamin D3, QN, serum or plasma 2023 024 [facility] (Lab), [address], [place], [address], 03/13/2024 13:16:29 Referral None recorded. Procedures None recorded. Surgeries None recorded. Imaging None recorded. Medication Orders sertralin e 50 mg tablet 2024 025 MELLETTE [facility], [facility] [address], [id number], 06/17/2024 16:20:12 Nexplanon 68 mg subdermal implant 2023 024 [email or web address] [facility], [address], [id number], 03/05/2024 12:31:01 buspirone 7.5 mg tablet 2023 024 [email or web address] [facility], [address], [id number], 06/17/2024 16:17:10 RASHMI (28) 3 mg-0.02 mg tablet 2021 022 [facility], [address], [id number], 02/20/2024 15:47:24 Aurovela 24 Fe 1 mg-20 mcg (24)/75 mg (4) tablet 2020 021 [email or web address] [facility], [address], [id number], 06/07/2020 11:04:25 Patient TargetsNo targets recorded. 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 Not Available [facility] (Lab) [address], [place], [address], 10/21/2021 11:15:00 10/18/19 22 10/17/2021 CT/GC (RAFFI) , THINP REP VIAL chlamydia trachomatis, PCR Negati ve negati ve Not Available [facility] (Lab) [address], [place], [address], 10/21/2021 11:15:01 10/18/19 22 10/17/2021 CT/GC (RAFFI) , THINP REP VIAL neisseria gonorrhoeae, PCR Negati ve negati ve Not Available [facility] (Lab) [address], [place], [address], 10/21/2021 11:15:01 10/18/19 22 10/17/2021 TRICH OMONA S VAGIN RAY (RRNA ) trichomonas vaginalis ribosomal RNA (rrna) Negati ve negati ve Not Available [facility] (Lab) [address] [place], [address], 10/21/2021 11:15:01 03/05/20 24 03/05/2024 DHEA SULFA TE DHEA-sulfate 355 ug/dL Femal e Range s Age(y ) Range (ug/d L) 10-15 34-28 0 15-20 65-36 8 20-25 148-4 07 25-35 99-34 0 35-45 61-33 7 45-55 35-25 6 55-65 19-20 5 65-75 9-246 > 75 12-15 4 Not Available [facility] (Lab) [address], [place], [address], 03/13/2024 13:16:26 03/05/20 24 03/05/2024 LH (LUTE NIZIN G HORMO NE) LH 5.6 mIU/m L This assay was perfo rmed using [employer] ratio n reage nts and test kits. Value s obtai mino with other assay metho ds or kits canno t be used inter [facility] eay . Femal es Mid-F ollic ular: 2.4-1 2.6 mIU/m L Mid-C ycle: 14.0- 95.6 mIU/m L Mid-L uteal : 1.0-1 1.4 mIU/m L Postm enopa use: 7.7-5 8.5 mIU/m L Not Available [facility] (Lab) [address] [place], [address], 03/13/2024 13:16:27 03/05/20 24 03/05/2024 ESTRA DIOL [...] 154-3 243 pg/mL 2nd Trime ster 1561- 80547 pg/mL 3rd Trime ster 8525- >3000 0 pg/mL Not Available [facility] (Lab) [address] [place], [address], 03/13/2024 13:16:27 03/05/20 24 03/05/2024 FSH FSH [...] use: 25.8- 134.8 mIU/m L Not Available [facility] (Lab) [address], [place], [address], 03/13/2024 13:16:27 03/05/20 24 03/05/2024 PROGE STERO [...] Trime ster 58.70 -214. 00 Not Available [facility] (Lab) [address], [place], [address], 03/13/2024 13:16:28 03/05/20 24 03/05/2024 PROLA CTIN prolactin, total 14.90 NG/mL 4.79-2 3.30 This assay was perfo rmed using [employer] ratio n reage nts and test kits. Value s obtai mino with other assay metho ds or kits canno t be used inter andrade eably . Not Available [facility] (Lab) [address] [place], [address], 03/13/2024 13:16:28 03/05/20 24 03/05/2024 VITAM IN B12 vitamin B12 267 pg/mL 180-91 4 Christine l Range : 180-9 14 pg/mL . Indet ermin ate Range : 145-1 80 pg/mL . Defic ient Range : <=145 pg/mL . Not Available [facility] (Lab) [address], [place], [address], 03/13/2024 13:16:28 03/05/20 24 03/05/2024 VITAM IN D, 25-OH (TOTA L D2/D3 ) vitamin D, 25-hydroxy, total 66.5 NG/mL 30.0-1 00.0 Sugge stive of Defic iency : <20 ng/mL Sugge stive of Insuf ficie ncy: 20-29 ng/mL Sugge stive of Suffi cienc y: 30-10 0 ng/mL Sugge stive of Toxic ity: >150 ng/mL Not Available [facility] (Lab) [address] [place], [address], 03/13/2024 13:16:29 03/05/20 24 03/05/2024 HEMOG LOBIN [...] >8.0% Actio n sugge sted Not Available [facility] (Lab) [address], [place], [address], 03/13/2024 13:16:29 03/05/20 24 03/05/2024 TESTO STERO NE, FREE( DIALY SIS) AND TOTAL (LC/M S/MS) testosterone , total 19 NG/dL 2-45 For addit ional infor rishi shah e refer to http: //[facility] karlene carias.que stdia gnost ics.c om/fa q/ Total Testo stero neLCM SMSFA Q165 (This link is being provi ded for infor matio nal/ educa ibeth l purpo ses only. ) This test was devel oped and its catherine tical perfo rmanc e april cteri stics have been deter mined by [employer] [place], [place]. It has not been clear ed or appro rodger by the U.S. Food and Drug Admin istra tion. This assay has been valid ated pursu ant to the CLIA regul ation s and is used for clini lexa purpo ses. Not Available [facility] (Lab) [address], [place], [address], 03/13/2024 13:16:29 03/05/20 24 03/05/2024 TESTO STERO NE, FREE( DIALY SIS) AND TOTAL (LC/M S/MS) testosterone , free 3.3 pg/mL 0.1-6. 4 This test was devel oped and its catherine tical perfo rmanc e april cteri stics have been deter mined by [employer] [place], [place]. It has not been clear ed or appro rodger by the U.S. Food and Drug Admin istra tion. This assay has been valid ated pursu ant to the CLIA regul ation s and is used for clini lexa purpo ses. Perfo rming Organ izati on [facility] n: Site ID: AMD Name: [email or web address] collin Addre ss: [id number] [place], [place] Direc tor: Rebecca Garcia MD PhD Not Available [facility] (Lab) [address], [place], [address], 03/13/2024 13:16:29 03/05/20 24 03/05/2024 pregn kimberly test, urine HCG negati ve Not Available [place] [address], [place], [address], 03/05/2024 12:30:45 Result Notes None recorded. Problems Name Problem SNOMED Code Status Onset Date Resolution Date Notes Provider Name and Address Organization Details Recorded Time Educatio n Completed 201605/31/2020 Encounte r for oth general cnsl and advice on contrace ption;Pr actice ID: 0001 Moira maldonado, [facility] 09:18:41 Pregnanc y test negative [id number] Completed 201605/31/2020 Encounte r for pregnanc y test, result negative ;Practic e ID: 0001 Moira Moreland [facility], [facility] 09:18:[address] Concept Completed 201605/31/2020 Encounte r for surveill ance of other contrace ptives;P ractice ID: 0001 Moira maldonado, [facility] 09:18:45 Procedur e Completed 201705/31/2020 Enctr srvlnc implanta ble subderma l contrace ptive;Pr actice ID: 0001 Moira maldonado, [facility] 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 1 09:18:38 Problem Notes None recorded. Procedures Surgical History Date Name Laterality Status Provider Name and Address Organization Details Recorded Time 4 MM Nexplanon insert completed OSMANY MCRAE NP [address], [place], [address], [facility] 03/05/2024 13:54:07 0 Nexplanon Removal completed Poly Mckeon [facility] 03/03/2020 16:55:29 7 open reduction of fracture of ulna completed [facility] 02/16/2020 14:26:20 5 procedure on elbow completed [facility] 02/16/2020 14:26:36 Imaging Results None recorded. Procedure Notes None recorded. Medical Equipment None Reported. Allergies Allergen ID Allergen Name Allergen Category Reaction Reaction Severity Criticality Documentation Date Start Date Code Code System Note Provider Name and Address Organization Details Recorded Time 2504 chlorhexi dine medicatio n Not available Not available Not available 02/16/2020 2358 RxNorm [facility] 0 14:25:02 Medications Name Sig Start [...] Not Available Not Available Not Available fluconazole 200 mg tablet active Not Available Not Available Not Available prednisone 20 mg tablet 02/19 completed Not Available Not Available Not Available sulfamethox azole 800 mg-trimetho prim 160 mg tablet 06/17 completed Not Available Not Available Not Available vancomycin 125 mg capsule active Not Available Not Available Not Available [...] 1 tablet every day by oral route. active Not Available Not Available No t Available amoxicillin 875 mg-potassiu m clavulanate 125 [...] active Not Available Not Available Not Available [place] Fe 1-20 EQ (28) 1 mg-20 mcg [...] Updated DateTime 10/17/2021 162.56 cm 27.3 kg/m2 55988.19 g Bertha Rodriguez [facility] 10/17/2021 11:27:52 Date Recorded Systolic blood pressure Diastolic blood pressure Provider Name and Address Organization Details Last Updated DateTime 10/17/2021 120 mm[Hg] 74 mm[Hg] Cherry Doshi, [facility]- [address], [place], [address], [facility] 10/17/2021 11:35:46 Date Recorded Body height Body mass index (BMI) Body weight Systolic blood pressure Diastolic blood pressure Provider Name and Address Organization Details Last Updated DateTime 02/20/2024 162.56 cm 29.2 kg/m2 94254.42 g 130 mm[Hg] 81 mm[Hg] Doris Beyer [facility] 15:46:34 Date Recorded Body height Body mass index (BMI) Body weight Systolic blood pressure Diastolic blood pressure Provider Name and Address Organization Details Last Updated DateTime 06/17/2024 162.56 cm 29.1 kg/m2 76795.55 g 118 mm[Hg] 78 mm[Hg] Doris Beyer [facility] 5 16:01:04 Date Recorded Body height [...] 1 160.02 cm 27.6 kg/m2 88 % 04953.4 1 g 160.02 cm 27.6 kg/m2 88 % 61979.4 1 g 122 mm[Hg] 78 mm[Hg] 122 mm[Hg] 78 mm[Hg] Moira Moreland [facility] 1 09:52:08 Social History Question Answer Notes LastModified by Organizat ion Details LastModified Time Tobacco Smoking Status Never Smoker Christie maldonado, [facility] 02/17/2020 10:57:01 Do You Have An Advance Directive? No [email or web address] Information n ot available 02/20/2024 What Is Your Level Of Alcohol Consumption? Moderate [email or web address] Information not available 02/20/2024 How Many Years Have You Consumed Alcohol? 3 [email or web address] Information not available 02/20/2024 Are You Blind Or Do You Have Difficulty Seeing? No Information n ot available 10/17/2021 What Is Your Level Of Caffeine Consumption? Moderate Information not available 10/17/2021 In The 14 Days Before Symptom Onset, Have You Had Close Contact With A Laboratory-confirm ed COVID-19 While That Case Was Ill? No [email or web address] Information n ot available 02/20/2024 In The 14 Days Before Symptom Onset, Have You Had Close Contact With A Person Who Is Under Investigation For COVID-19 While That Person Was Ill? No [email or web address] Information not available 02/20/2024 Have You Been To An Area Known To Be High Risk For COVID-19? No [email or web address] Information not available 02/20/2024 Are You Deaf Or Do You Have Serious Difficulty Hearing? No Information not available 10/17/2021 What Type Of Diet Are You Following? REGULAR Information n ot available 02/20/2024 What Is The Highest Grade Or Level Of School You Have Completed Or The Highest Degree You Have Received? 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 Student [email or web address] Information not available 02/20/2024 Are There Any Guns Present In Your Home? No [email or web address] Information not available 02/20/2024 Do You Use Protection During Sex? Always [email or web address] Information not available 02/20/2024 Do You Use Your Seat Belt Or Car Seat Routinely? Yes Information not available 10/17/2021 Do You Have Smoke And Carbon Monoxide Detectors In Your Home? Yes Information not available 10/17/2021 How Much Tobacco Do You Smoke? No Information not available 02/20/2024 Do You Feel Stressed (tense, Restless, Nervous, Or Anxious, Or Unable To Sleep At Night)? [id number] Information not available 10/17/2021 Do You Use Any Illicit Or Recreational Drugs? No Information not available 10/17/2021 Do You Use Sunscreen Routinely? Yes Information not available 10/17/2021 Have You Used IV Drugs? No [email or web address] Information not available 02/20/2024 Sex: Unknown Functional [...] 10/17/2021 What is your exercise level? Moderate [email or web address] Information not available 02/20/2024 Mental Status None [...] available 2019 14:24:23 Maternal Aunt Seizure disorder [email or web address] Not available 2023 15:41:48 Medical History Condition [...] SNOMED-CT Code Diagnosis ICD10 Code Diagnosis Note 57122 Poly Mckeon [address] [address] 02/17/2020 10:48:22 02/18/2020 12:52:43 Gynecologic examination 49033411 Z01.419 Take Calcium with Vitamin D 1200mg [...] paper copy of today's plan if desired.lorena Alvaradot ion care management [id number] Z30.9 Discussed all control options in great [...] nexplanon removal 2 [facility]. [address] [address] [place] [address] 03/03/2020 15:09:33 03/03/2020 17:21:23 Removal of subcutaneous contraceptive [id number] Z30.46 Plan to return to follow up on ocp. 33760 Poly Mckeon [place] [address] [place] [address] 05/31/2020 09:35:22 05/31/2020 19:06:04 51858 Cherry Doshi [facility] [address] [place] [address] 05/31/2020 09:46:38 05/31/2020 10:02:40 Contraception care management 460564950 Z30.9 Patient is here today for a medicaton check of control. She voices goals of therapy have been met with use of this therapy. She denies neg side effects. She is eating, drinking, sleeping well; moods are stable & periods are well regulated. Wishes to continue this method of BC. Appropriat e to continue this medication . [id number] DEEPIKA [facility] [address] [address] 10/17/2021 11:11:27 10/17/2021 12:02:13 Gynecologic examination 27412551 Z01.419 Take Calcium with Vitamin D 1200mg [...] Labs naMammo na Contracept ion care management 301566687 Z30.9 Switch in OCP due to irregular start time of menses in her pill pack despite consistent use & timing.RTO x 3mos med check 193852 OSMANY MCRAE NP [place] [address] [address] 02/20/2024 15:41:11 02/20/2024 16:23:32 Gynecologic examination 24741824 Z01.419 Annual gynecologi lexa exam performed. Patient [...] testing - declined Contracept ion care management 917977067 Z30.9 Discussed all control options in depth and pt is interested in Nexplanon. Discussed all risks and benefits including irregular unschedule d bleeding. Pt verbalized understand ing and would like to proceed. She is aware that she needs to call us on the 1st day of her period to schedule placement. Generalize d anxiety disorder 80276984 F41.1 Discussed coping mechanisms for stress and anxiety.Michele henry wishes to try a medication daily to treat anxiety.Rx sent for buspirone. Risks/bene fits/AEs discussed. RTO in 3 months for med check. 169846 Doris [facility] [address] [address] 03/05/2024 12:01:35 03/05/2024 14:01:41 Fatigue 45621855 R53.83 Will check Vitamin B12 and vitamin D levels d/t c/o fatigue. Hirsutism 150982832 L68. 0 Will check hormone levels that may contribute to reported sx of hirsutism and acne.Discu ssed that Nexplanon may aid in symptom improvemen t and we can re-evaluat e sx at 3 month med check. Patient verbalizes understand ing. Insertion of subcutaneous contraceptive 062916385 Z30.46 1. The patient was instructed that [...] need to be replaced in four years. [id number] OSMANY MCRAE, SEB [place] [address] [address] 06/17/2024 15:58:13 06/17/2024 16:22:13 Generalized anxiety disorder 76524964 F41.1 Recommende d that patient stop buspirone [...] ID Guarantor Name 05/31/2020 1 [place] [id number] Tyrone A Pirok [id number] 30 Tyrone Pirok 10/17/2021 1 [place] [id number] Tyrone A Pirok [id number] 30 Tyrone Pirok 02/20/2024 1 [place] [id number] Tyrone A Pirok [id number] 30 Tyrone Pirok 03/05/2024 1 [place] [id number] Tyrone A Pirok [id number] 30 Tyrone Pirok 06/17/2024 1 [place] [id number] Tyrone A Pirok [id number] 30 Tyrone Pirok Notes Date Note Type [...] Appropriate to continue this medication. Cherry Doshi [facility] [address], [place], [address], [facility] 05/31/2020 09:53:41 10/17/2021 text/html Annual GYNReport [...] regular mammograms starting age 40 Cherry Doshi [facility] [address], [place], [address], [facility] 10/17/2021 11:46:43 02/20/2024 text/html Annual GYNReport [...] and did not like the side effects. OMSANY MCRAE NP [address], [place], [address], [facility] 02/20/2024 16:23:03 03/05/2024 text/html Patient is [...] and acne before her cycle. Doris maldonado, [facility] 03/05/2024 15:12:19 06/17/2024 text/html Patient here [...] has not subsided.Denies SI/HI. OSMANY MCRAE NP [address], [place], [address], [facility] 06/17/2024 16:21:37 OBGyn Episode No OBEpisode recorded.
--- OUTSIDE RECORDS SUMMARY | 2024-07-07 16:05 | XMS_ITS | Encounter Summary ---
Author Organization [facility] Address [address] [place] [address] Phone Care Team Providers Care Hospice Office Coordinator Name Role Phone Vidhi Holley MD Primary Care Provider [phone] Compa Correa MD Primary Care Provider [phone] Estuardo Luke MD Unavailable [phone] Polo Jeffery MD Unavailable [phone] Encounter Details Date Type Department Care Team (Late st Contact Info) Description 11/09/2016 Orders Only [facility] [address] [place] [address] Luciana Campbell RN Social History Tobacco Use Types Packs/Day Years Used Date Smoking Tobacco: Never Assessed Comments Unknown Sex and Gender Information Value Date Recorded Sex Assigned at Not on file Legal Sex Female 2:24 AM [employer] Gender Identity Female 11/04/2019 10:07 PM CDT [...] on filedocumented in this encounter Care Teams Hospice Office Coordinator Relationship Specialty Start Date End Date Vidhi Holley MD [address] [place] [address] PCP - General 06/16/16 09/05/17 Compa Correa MD [address] [place] [address] PCP - General Internal Medicine 09/06/17 [place] [id number] [facility] [address] [place] [address] Surgeon Orthopedic Surgery 01/10/23 Polo Jeffery MD [address] [place] [address] Consulting Physician Otolaryngology 10/01/23 documented as of this encounter
== END 2024-07-07 13:31 | disposition home or self-care (01) ==
LOC: CHSLAB 13:32
PROVIDERS: PCP Internal Medicine; Visit Provider Nurse Practitioner Family
DX: A04.72 Enterocolitis due to Clostridium difficile, not specified as recurrent (principal)
CPT/HCPCS: 36415; 80053; 85027

== ENCOUNTER 2024-07-08 08:28 | Outpatient (CLI) | payer BC, SELFPAY ==
--- OUTSIDE RECORDS SUMMARY | 2024-07-08 08:41 | XMS_ITS | Clinical Summary ---
Author Organization [facility] ospital Address [address] [place] [address] Care Team Providers Care Car Mechanic Name Role Phone Compa Correa MD Primary Care Provider Estuardo Luke MD Unavailable [phone] Polo Jeffery MD Unavailable Allergies Active Allergy [...] understands. 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 She tends to grind her teeth. I recommended that she talk with her dentist about this. Probably needs to get a adult crossing guard made. She understands. 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 Assessment & Plan (06/30/2023 1:06 PM COMPANY TRUCK DRIVER): I think she would benefit from a septoplasty with bilateral inferior turbinectomy. I discussed the risk of a septoplasty with and without turbinectomy with the patient. There is a risk of continued nasal obstruction, bleeding, septal perforation, permanent anosmia. Also risk of inadequate correction which could result in continued nasal obstruction symptoms. She has a student success counselor and he would like to do this [...] weeks. Assessment & Plan (06/30/2023 1:11 PM COMPANY TRUCK DRIVER): She also has significant maxillary sinus disease [...] infections as well as orbital and INSPECTOR SUBASSEMBLY injuries. She understands. She would like to [...] Elbow pain 04/03/2016 Overview (02/02/2017): RIGHT. 11/05 [facility] says triceps tendonitis. US & MRI [...] has seen cariodlogy dr Robbie Romero at [facility]. [facility] see epic notes last visit 09/2021 Irritable [...] on file Legal Sex Female 2:24 AM COMPANY TRUCK DRIVER Gender Identity Female 11/04/2019 10:07 PM CDT [...] 01/28/2014, 01/08/2001 Medical Devices Implanted Type Area Building Construction Superintendent Device Identifier Shelf Expiration Date Model / Serial / Lot AcMoleculind Inc Plul06 6 Hole Shortening Ulna Plate Bone Titanium Sterile - [id number] Implanted:Qty: 1 on 10/29/2019 by Estuardo Luke MD at [facility] [place] Right: Ulna Acumed Inc PLUL06 / / Acumed Inc [id number] 3.5mm 12mm Hexalobe Screw Bone Titanium Nonsterile Small Fragment - [id number] Implanted:Qty: 1 on 10/29/2019 by Estuardo Luke MD at [facility] [place] Right: Ulna Acumed Inc [id number] / / Acumed Inc 30-0258 3.5mm 14mm Hexalobe Screw Bone Titanium Nonsterile Small Fragment - [id number] Implanted:Qty: 1 on 10/29/2019 by Estuardo Luke MD at [facility] [place] Right: Ulna Acumed Inc 30-0258 / / Acumed Inc [id number] 3.5mm 12mm Hexalobe Screw Bone Titanium Nonsterile Small Fragment - [id number] Implanted:Qty: 1 on 10/29/2019 by Estuardo Luke MD at [facility] [place] Right: Ulna Acumed Inc [id number] / / Acumed Inc 900025 3.5mm 12mm Hexalobe Screw Bone Titanium Nonsterile Small Fragment - [id number] Implanted:Qty: 1 on 10/29/2019 by Estuardo Luke MD at [facility] [place] Right: Ulna Acumed Inc [id number] / / Acumed Inc 004158 3.5mm 12mm Hexalobe Screw Bone Titanium Nonsterile Small Fragment - [id number] Implanted:Qty: 1 on 10/29/2019 by Estuardo Luke MD at [facility] [place] Right: Ulna Acumed Inc [id number] / / Acumed Inc 986432 3.5mm 12mm Hexalobe Screw Bone Titanium Nonsterile Small Fragment - [id number] Implanted:Qty: 1 on 10/29/2019 by Estuardo Luke MD at [facility] [place] Right: Ulna Acumed Inc [id number] / / Acumed Inc 136512 3.5mm 12mm Hexalobe Screw Bone Titanium Nonsterile Small Fragment - [id number] Implanted:Qty: 1 on 10/29/2019 by Estuardo Luke MD at [facility] [place] Right: Ulna Acumed Inc [id number] / / Acumed Inc 6 Hole Shortening Ulna Plate Bone Titanium Sterile Plul06 - [id number] Implanted:Qty: 1 on 01/10/2023 by Estuardo Luke MD at [facility] [place] Left: Arm Acumed Inc PLUL06 / / Acumed Inc 3.5mm 12mm Hexalobe Screw Bone Titanium Nonsterile Small Fragment [id number] - [id number] Implanted:Qty: 6 on 01/10/2023 by Estuardo Luke MD at [facility] Left: Arm Acumed Inc [id number] / / Acumed Inc 3.5mm 14mm Hexalobe Screw Bone Titanium Nonsterile Small Fragment 30-0258 - [id number] Implanted:Qty: 1 on 01/10/2023 by Estuardo Luke MD at [facility] [place] Left: Arm Acumed Inc 30-0258 / / Arthrex Inc Dx Swivelock 3.5mm 13.5mm Foot Elbow Medium [place] Suture Peek Ar-8979p - [id number] Implanted:Qty: 1 on 01/10/2023 by Estuardo Luke MD at [facility] [place] Left: Arm Arthrex Inc AR-8979P / / Acumed Inc Peg Fxatn Ulna Reduction Shortening Nonstrl 80-0422 - [id number] Implanted:Qty: 1 on 01/10/2023 by Estuardo Luke MD at [facility] [place] Left: Arm Acumed Inc 80-0422 / / Insurance [facility] BLUE ACCESS CHOICE [place] ANTHEM ACCESS ANTHEM ACCESS CHOICE BLUE ACCESS CHOICE CT BLUE ACCESS CT BLUE ACCESS CT Advance Directives For more information, please contact: [phone] * Full Code (Latest Code Status on File) Date Activated Date Inactivated Comments 01/10/2023 3:03 PM 01/10/2023 8:07 PM * Full Code Date Activated Date Inactivated Comments 10/29/2019 1:32 PM 10/29/2019 6:42 PM Care Teams Car Mechanic Relationship Specialty Start Date End Date Compa Correa MD [address] [place] [address] PCP - General Internal Medicine 09/06/17 [place] [address] [place] [address] Surgeon Orthopedic Surgery 01/10/23 Polo Jeffery MD [address] [place] [address] Consulting Physician Otolaryngology 10/01/23
--- OUTSIDE RECORDS SUMMARY | 2024-07-08 08:41 | XMS_ITS | Encounter Summary ---
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
--- OUTSIDE RECORDS SUMMARY | 2024-07-08 08:41 | XMS_ITS | Encounter Summary ---
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
--- OUTSIDE RECORDS SUMMARY | 2024-07-08 08:41 | XMS_ITS | Encounter Summary ---
Author Organization [facility] Address [address] [place] [address] Phone Care Team Providers Care Truck Spotter Name Role Phone Compa Correa MD Primary Care Provider + [phone] Estuardo Luke MD Unavailable [phone] Polo Jeffery MD Unavailable [phone] Encounter Details Date Type Department Care Team [...] on file Legal Sex Female 2:24 AM ROOF BOLTER Gender Identity Female 11/04/2019 10:07 PM CDT [...] on filedocumented in this encounter Care Teams Truck Spotter Relationship Specialty Start Date End Date Compa Correa MD [address] [place] [address] PCP - General Internal Medicine 09/06/17 [place] [address] [place] [address] Surgeon Orthopedic Surgery 01/10/23 Polo Jeffery MD [address] [place] [address] Consulting Physician Otolaryngology 10/01/23 documented as of this encounter
--- OUTSIDE RECORDS SUMMARY | 2024-07-08 08:41 | XMS_ITS | Encounter Summary ---
Author Organization [facility] Address [address] [place] [address] Phone Care Team Providers Care Photovoltaic Fabrication Technician Name Role Phone Vidhi Holley MD Primary Care Provider [phone] Compa Correa MD Primary Care Provider + [phone] Estuardo Luke MD Unavailable [phone] Polo Jeffery MD Unavailable [phone] Encounter Details Date Type Department Care Team (Late st Contact Info) Description 11/09/2016 Orders Only [facility] [address] [place] [address] Luciana Campbell RN Social History Tobacco Use Types Packs/Day Years Used Date Smoking Tobacco: Never Assessed Comments Unknown Sex and Gender Information Value Date Recorded Sex Assigned at Not on file Legal Sex Female 2:24 AM TEST 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 Gender Identity Female 11/04/2019 10:07 PM CDT [...] on filedocumented in this encounter Care Teams Photovoltaic Fabrication Technician Relationship Specialty Start Date End Date Vidhi Holley MD [address] [place] [address] PCP - General 06/16/16 09/05/17 Compa Correa MD [address] [place] [address] PCP - General Internal Medicine 09/06/17 [place] [address] [facility] [address] [place] [address] Surgeon Orthopedic Surgery 01/10/23 Polo Jeffery MD [address] [place] [address] Consulting Physician Otolaryngology 10/01/23 documented as of this encounter
--- OUTSIDE RECORDS SUMMARY | 2024-07-08 08:41 | XMS_ITS | Encounter Summary ---
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
--- OUTSIDE RECORDS SUMMARY | 2024-07-08 08:42 | XMS_ITS | Referral Summary ---
Author Organization [facility] ospital Address [address] [place] [address] Care Team Providers Care Certified Vehicle Fire Investigator Name Role Phone Compa Correa MD Primary Care Provider Estuardo Luke MD Unavailable [phone] Polo Jeffery MD Unavailable [phone] Allergies Active Allergy Reactions Criticality Noted Date [...] understands. 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 She tends to grind her teeth. I recommended that she talk with her dentist about this. Probably needs to get a toll testboard worker made. She understands. 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 Assessment & Plan (06/30/2023 1:06 PM C[place]ION MAT MAKER): I think she would benefit from a septoplasty with bilateral inferior turbinectomy. I discussed the risk of a septoplasty with and without turbinectomy with the patient. There is a risk of continued nasal obstruction, bleeding, septal perforation, permanent anosmia. Also risk of inadequate correction which could result in continued nasal obstruction symptoms. She has a pharmacy resource tech and he would like to do this [...] weeks. Assessment & Plan (06/30/2023 1:11 PM C[place]ION MAT MAKER): She also has significant maxillary sinus disease [...] further infections as well as orbital and EMR SPECIALIST injuries. She understands. She would like to [...] Elbow pain 04/03/2016 Overview (02/02/2017): RIGHT. 11/05 [facility] says triceps tendonitis. US & MRI neg. [...] on file Legal Sex Female 2:24 AM CUSHION MAT MAKER Gender Identity Female 11/04/2019 10:07 PM CDT [...] on file Medical Devices Implanted Type Area Preparing Box Tender Device Identifier Shelf Expiration Date Model / Serial / Lot Acumed Inc Plul06 6 Hole Shortening Ulna Plate Bone Titanium Sterile - [id number] Implanted:Qty: 1 on 10/29/2019 by Estuardo Luke MD at [facility] Right: Ulna Acumed Inc PLUL06 / / Acumed Inc 861689 3.5mm 12mm Hexalobe Screw Bone Titanium Nonsterile Small Fragment - [id number] Implanted:Qty: 1 on 10/29/2019 by Estuardo Luke MD at [facility] Right: Ulna Acumed Inc [id number] / / Acumed Inc 30-0258 3.5mm 14mm Hexalobe Screw Bone Titanium Nonsterile Small Fragment - [id number] Implanted:Qty: 1 on 10/29/2019 by Estuardo Luke MD at [facility] [place] Right: Ulna Acumed Inc 30-0258 / / Acumed Inc 694810 3.5mm 12mm Hexalobe Screw Bone Titanium Nonsterile Small Fragment - [id number] Implanted:Qty: 1 on 10/29/2019 by Estuardo Luke MD at [facility] Right: Ulna Acumed Inc [id number] / / Acumed Inc 762911 3.5mm 12mm Hexalobe Screw Bone Titanium Nonsterile Small Fragment - [id number] Implanted:Qty: 1 on 10/29/2019 by Estuardo Luke MD at [facility] [place] Right: Ulna Acumed Inc [id number] / / Acumed Inc 521761 3.5mm 12mm Hexalobe Screw Bone Titanium Nonsterile Small Fragment - [id number] Implanted:Qty: 1 on 10/29/2019 by Estuardo Luke MD at [facility] Right: Ulna Acumed Inc [id number] / / Acumed Inc 318414 3.5mm 12mm Hexalobe Screw Bone Titanium Nonsterile Small Fragment - [id number] Implanted:Qty: 1 on 10/29/2019 by Estuardo Luke MD at [facility] Right: Ulna Acumed Inc [id number] / / Acumed Inc 307513 3.5mm 12mm Hexalobe Screw Bone Titanium Nonsterile Small Fragment - [id number] Implanted:Qty: 1 on 10/29/2019 by Estuardo Luke MD at [facility] Right: Ulna Acumed Inc 368348 / / Acumed Inc 6 Hole Shortening Ulna Plate Bone Titanium Sterile Plul06 - [id number] Implanted:Qty: 1 on 01/10/2023 by Estuardo Luke MD at [facility] Left: Arm Acumed Inc PLUL06 / / Acumed Inc 3.5mm 12mm Hexalobe Screw Bone Titanium Nonsterile Small Fragment 070180 - [id number] Implanted:Qty: 6 on 01/10/2023 by Estuardo Luke MD at [facility] Left: Arm Acumed Inc [id number] / / Acumed Inc 3.5mm 14mm Hexalobe Screw Bone Titanium Nonsterile Small Fragment 30-0258 - [id number] Implanted:Qty: 1 on 01/10/2023 by Estuardo Luke MD at [facility] Left: Arm Acumed Inc 30-0258 / / Arthrex Inc Dx Swivelock 3.5mm 13.5mm Foot Elbow Medium [place] Suture Peek Ar-8979p - [id number] Implanted:Qty: 1 on 01/10/2023 by Estuardo Luke MD at [facility] Left: Arm Arthrex Inc AR-8979P / / Acumed Inc Peg Fxatn Ulna Reduction Shortening Nonstrl 80-0422 - [id number] Implanted:Qty: 1 on 01/10/2023 by Estuardo Luke MD at [facility] Left: Arm Acumed Inc 80-0422 / / Insurance [facility] [employer] [place] ACCESS ANTHPay-[place] ACCESS CHOICE [employer] [place] [employer] [place] [employer] [place] Advance Directives For more information, please contact: [phone] * Full Code (Latest Code Status on File) Date Activated Date Inactivated Comments 01/10/2023 3:03 PM 01/10/2023 8:07 PM * Full Code Date Activated Date Inactivated Comments 10/29/2019 1:32 PM 10/29/2019 6:42 PM Care Teams Certified Vehicle Fire Investigator Relationship Specialty Start Date End Date Compa Correa MD [address] [place] [address] PCP - General Internal Medicine 09/06/17 [place] [address] [place] [address] Surgeon Orthopedic Surgery 01/10/23 Polo Jeffery MD [address] [place] [address] Consulting Physician Otolaryngology 10/01/23
[2024-07-08 10:48] LABS: Toxigenic C. Diff NEGATIVE (NEGATIVE)
== END 2024-07-08 08:29 | disposition home or self-care (01) ==
LOC: CHSLAB 08:30
PROVIDERS: PCP Internal Medicine; Visit Provider Nurse Practitioner Family
DX: A04.72 Enterocolitis due to Clostridium difficile, not specified as recurrent (principal)
CPT/HCPCS: 87493

== ENCOUNTER 2024-09-23 09:13 | Outpatient (CLI) | payer BC, SELFPAY ==
--- OUTSIDE RECORDS SUMMARY | 2024-09-23 09:31 | XMS_ITS | Encounter Summary ---
Author Organization [facility] Address [address] [place] [address] Phone Care Team Providers Care Container Shop Welder Name Role Phone Compa Correa MD Primary Care Provider + [phone] Estuardo Luke MD Unavailable [phone] Polo Jeffery MD Unavailable [phone] Encounter Details Date Type Department Care Team [...] on file Legal Sex Female 2:24 AM BIRTH ATTENDANT Gender Identity Female 11/04/2019 10:07 PM CDT [...] on filedocumented in this encounter Care Teams Container Shop Welder Relationship Specialty Start Date End Date Compa Correa MD [address] [place] [address] PCP - General Internal Medicine 09/06/17 [place] [address] [place] [address] Surgeon Orthopedic Surgery 01/10/23 Polo Jeffery MD [address] [place] [address] Consulting Physician Otolaryngology 10/01/23 documented as of this encounter
--- OUTSIDE RECORDS SUMMARY | 2024-09-23 09:31 | XMS_ITS | Encounter Summary ---
Author Organization [facility] Address [address] [place] [address] Phone Care Team Providers Care Intelligence Agent Name Role Phone Compa Correa MD Primary Care Provider + [phone] Estuardo Luke MD Unavailable [phone] Polo Jeffery MD Unavailable [phone] Encounter Details Date Type Department Care Team [...] on file Legal Sex Female 2:24 AM TRANSPORT OPERATIONS INSPECTOR Gender Identity Female 11/04/2019 10:07 PM [...] on filedocumented in this encounter Care Teams Intelligence Agent Relationship Specialty Start Date End Date Compa Correa MD [address] [place] [address] PCP - General Internal Medicine 09/06/17 [place] [address] [place] [address] Surgeon Orthopedic Surgery 01/10/23 Polo Jeffery MD [address] [facility] [place] [address] Consulting Physician Otolaryngology 10/01/23 documented as of this encounter
--- OUTSIDE RECORDS SUMMARY | 2024-09-23 09:31 | XMS_ITS | Data Portability ---
Author Organization [facility] Address [address] [place] [address] Care Team Providers Care Sports Media Name Role Phone LIDIA MALDONADO Primary Care Provider Assessment Encounter Date Assessment Date Assessment LastModified by Organization Details LastModified Time 10/17/2021 10/17/2021 Annual gynecological exam performed. Patient will come back in a year unless there are new symptoms. Not available 10/17/2021 11:27:02 02/20/2024 02/20/2024 Annual gynecological exam performed. Patient will come back in a year unless there are new symptoms. [email or web address] Not available 02/04/2024 15:29:32 Plan of Treatment Reminders Order Date Submit Date Provider Last Modified By Organization Details Last Modified Time Details Appointments WELL WOMAN-EST 2024 09:00A M OSMANY MCRAE NP Not available Not available Not available Lab HbA1c (hemoglob in A1c), blood 2023 [facility] (Lab), [address], [place], [address], 03/13/2024 13:16:29 dhea-sulf ate, serum 2023 024 [facility] (Lab), [address], [place], [address], 03/13/2024 13:16:26 estradiol , serum 2023 024 [facility] (Lab), [address], [place], [address], 03/13/2024 13:16:27 FSH (follicle -stimulat ing hormone), serum 2023 [facility] (Lab), [address], [place], [address], 03/13/2024 13:16:27 lh (luteiniz ing hormone), serum 2023 024 [facility] (Lab), [address], [place], [address], 03/13/2024 13:16:27 progester one, serum 2023 024 [facility] (Lab), [address], [place], [address], 03/13/2024 13:16:28 prolactin , serum 2023 024 [facility] (Lab), [address], [place], [address], 03/13/2024 13:16:28 testoster one free/test osterone total, ratio, serum 2023 024 [facility] (Lab), [address] [facility], [place], [address], 03/13/2024 13:16:29 test, urine 2023 [place], [facility] [address], [place], [address], 03/05/2024 12:31:02 vitamin B12, serum 2023 [facility] (Lab), [address] [facility], [place], [address], 03/13/2024 13:16:28 25-hydrox yvitamin D2 + 25-hydrox yvitamin D3, QN, serum or plasma 2023 024 [facility] (Lab), [address], [place], [address], 03/13/2024 13:16:29 Referral None recorded. Procedures None recorded. Surgeries None recorded. Imaging None recorded. Medication Orders sertralin e 50 mg tablet 2024 025 IWONA [facility], [facility] [place], [address], 07/31/2024 15:59:26 sertralin e 50 mg tablet 2024 025 IWONA [facility], [address] [place], [address], 06/17/2024 16:20:12 Nexplanon 68 mg subdermal implant 2023 024 [email or web address] [facility], [address] [place], [address], 03/05/2024 12:31:01 buspirone 7.5 mg tablet 2023 024 [email or web address] [facility], [address] [place], [address], 06/17/2024 16:17:10 RASHMI (28) 3 mg-0.02 mg tablet 2021 022 [facility], [facility] [place], [address], 02/20/2024 15:47:24 Patient TargetsNo targets recorded. Patient InstructionsNo instructions recorded. Reason for Referral None Reported. Results Created Date Observation Date Name Description Value Unit Range Abnormal Flag Note LastModifiedBy Organization Detail LastModifiedTime 10/18/19 22 10/17/2021 IMAGE GUIDE D PAP, REFLE X HPV IF ASCUS ONLY image guided Pap, reflex HPV ASCUS only SEE RESULT S BELOW CASE REPOR T: Cytol ogy Gynec ologi margarito Repor t Case: [id number] Autho junie mendosa Provi cristin: Linda tiffani , Kathia Alcala cted: 10/17 1431 [employer] Order ing Locat ion: [place] [facility] logjamel [...] Negat anil for Intra epith elial Lessmita carias or Shanika desai (NIL) . Funga l [...] Thinp rep Imagi ng Syste m. CLINI MARGARITO INFOR MATIO N: Menst rual Statu s: LMP (if appli cable ): Clini margarito Histo ry/Pr eviou s Pap: Type of Neopl es (if appli cable ): Signi fican t Clini margarito Findi ngs: Other Histo ry: Hormo cynthia [...] ng do not corre late with physi margarito and/o r histo rical findi ngs, furth er inves tigat ion is recom royce d, as clini wilbert mantilla nted. Not Available [facility] (Lab) [address], [place], [address], 10/21/2021 11:15:00 10/18/19 22 10/17/2021 CT/GC (RAFFI) , THINP REP VIAL chlamydia trachomatis, PCR Negati ve negati ve Not Available [facility] (Lab) [address] [facility] [address], [place], [address], 10/21/2021 11:15:01 10/18/19 22 10/17/2021 CT/GC (RAFFI) , THINP REP VIAL neisseria gonorrhoeae, PCR Negati ve negati ve Not Available [facility] (Lab) [address] [place], [address], 10/21/2021 11:15:01 10/18/19 22 10/17/2021 TRICH OMONA S VAGIN RAY (RRNA ) trichomonas vaginalis ribosomal RNA (rrna) Negati ve negati ve Not Available [facility] (Lab) [address], [place], [address], 10/21/2021 11:15:01 03/05/20 24 03/05/2024 DHEA SULFA TE DHEA-sulfate 355 ug/dL Femal e Range s Age(y ) Range (ug/d L) 10-15 34-28 0 15-20 65-36 8 20-25 148-4 07 25-35 99-34 0 35-45 61-33 7 45-55 35-25 6 55-65 19-20 5 65-75 9-246 > 75 12-15 4 Not Available [facility] (Lab) [address] [facility], [place], [address], 03/13/2024 13:16:26 03/05/20 24 03/05/2024 LH (LUTE NIZIN G HORMO NE) LH 5.6 mIU/m L This assay was perfo rmed using [employer] ratio n reage nts and test kits. Value s obtai mino with other assay metho ds or kits canno t be used [facility] . Femal es Mid-F ollic ular: 2.4-1 2.6 mIU/m L Mid-C ycle: 14.0- 95.6 mIU/m L Mid-L uteal : 1.0-1 1.4 mIU/m L Postm enopa use: 7.7-5 8.5 mIU/m L Not Available [facility] (Lab) [address] [facility], [place], [address], 03/13/2024 13:16:27 03/05/20 24 03/05/2024 ESTRA DIOL estradiol 17.7 pg/mL This assay was perfo rmed using [employer] ratio n reage nts and test kits. Value s obtai mino with other assay metho ds or kits canno t be used inter [facility] . Femal e Estra diol Range s: Folli cular phase 12.4- 233 pg/mL Ovula tion phase 41.0- 398 pg/mL Lutea l phase 22.3- 341 pg/mL Postm enopa usal <5-13 8 pg/mL Healt hy Pregn ant Women 1st Trime ster 154-3 243 pg/mL 2nd Trime ster 1561- 88666 pg/mL 3rd Trime ster 8525- >3000 0 pg/mL Not Available [facility] (Lab) [address], [place], [address], 03/13/2024 13:16:27 03/05/20 24 03/05/2024 FSH FSH 5.5 mIU/m L This assay was perfo rmed using [employer] ratio n reage nts and test kits. Value s obtai mino with other assay metho ds or kits canno t be used inter [facility] . Femal es Folli cular : 3.5-1 2.5 mIU/m L Ovula tion: 4.7-2 1.5 mIU/m L Lutea l: 1.7-7 .7 mIU/m L Postm enopa use: 25.8- 134.8 mIU/m L Not Available [facility] (Lab) [address] [place], [address], 03/13/2024 13:16:27 03/05/20 24 03/05/2024 PROGE STERO NE progesterone 0.09 NG/mL This assay was perfo rmed using [employer] ratio n reage nts and test kits. Value s obtai mino with other assay metho ds or kits canno t be used [facility] . Femal e Proge stero ne Range s: Folli cular phase 0.06- 0.89 ng/mL Ovula tion phase 0.12- 12.00 ng/mL Lutea l phase 1.83- 23.90 ng/mL Postm enopa usal <0.05 -0.13 ng/mL Healt hy Pregn ant Women 1st Trime ster 11.0- 44.30 2nd Trime ster 25.40 -83.3 0 3rd Trime ster 58.70 -214. 00 Not Available [facility] (Lab) [address], [place], [address], 03/13/2024 13:16:28 03/05/20 24 03/05/2024 PROLA CTIN prolactin, total 14.90 NG/mL 4.79-2 3.30 This assay was perfo rmed using [employer] ratio n reage nts and test kits. Value s obtai mino with other assay metho ds or kits canno t be used [facility] . Not Available [facility] (Lab) [address] [facility] [address], [place], [address], 03/13/2024 13:16:28 03/05/20 24 03/05/2024 VITAM IN B12 vitamin B12 267 pg/mL 180-91 4 Christine l Range : 180-9 14 pg/mL . Indet ermin ate Range : 145-1 80 pg/mL . Defic ient Range : <=145 pg/mL . Not Available [facility] (Lab) [address] [facility] [address], [place], [address], 03/13/2024 13:16:28 03/05/20 24 03/05/2024 VITAM IN D, 25-OH (TOTA L D2/D3 ) vitamin D, 25-hydroxy, total 66.5 NG/mL 30.0-1 00.0 Sugge stive of Defic iency : <20 ng/mL Sugge stive of Insuf ficie ncy: 20-29 ng/mL Sugge stive of Suffi cienc y: 30-10 0 ng/mL Sugge stive of Toxic ity: >150 ng/mL Not Available [facility] (Lab) [address] [facility] [address], [place], [address], 03/13/2024 13:16:29 03/05/20 24 03/05/2024 HEMOG LOBIN [...] >8.0% Actio n sugge sted Not Available [facility] (Lab) [address] [facility] [address], [place], [address], 03/13/2024 13:16:29 03/05/20 24 03/05/2024 TESTO STERO NE, FREE( DIALY SIS) AND TOTAL (LC/M S/MS) testosterone , total 19 NG/dL 2-45 For addit ional [facility] e refer to http: //[facility] karlene carias.que stdia gnost ics.c om/fa q/ Total Testo stero neLCM SMSFA Q165 (This link is being provi ded for infor constance nal/ educa ibeth l purpo ses only. ) This test was devel oped and its catherine tical perfo rmanc e april cteri stics have been deter mined by [employer] ostic s [place], [place]. It has not been clear ed or appro rodger by the U.S. Food and Drug Admin istra tion. This assay has been valid ated pursu ant to the CLGA regul ation s and is used for clini margarito purpo ses. Not Available [facility] (Lab) [address] [facility] [address], [place], [address], 03/13/2024 13:16:29 03/05/20 24 03/05/2024 TESTO STERO NE, FREE( DIALY SIS) AND TOTAL (LC/M S/MS) testosterone , free 3.3 pg/mL 0.1-6. 4 This test was devel oped and its catherine tical perfo rmanc e april cteri stics have been deter mined by [employer] ostic [employer] [place]. It has not been clear ed or appro rodger by the U.S. Food and Drug Admin istra tion. This assay has been valid ated pursu ant to the CLIA regul ation s and is used for clini margarito purpo ses. Perfo rming Organ izati on [facility] melasmita carias: Site ID: AMD Name: [employer] ostcherri s [employer] collin Addre ss: [id number] [facility] [employer] [place], [place] Direc tor: Rebecca Garcia MD PhD Not Available [facility] (Lab) [address], [place], [address], 03/13/2024 13:16:29 03/05/20 24 03/05/2024 pregn kimberly test, urine HCG negati ve Not Available [place] [address], [place], [address], 03/05/2024 12:30:45 Result Notes None recorded. Problems Name Problem SNOMED Code Status Onset Date Resolution Date Notes Provider Name and Address Organization Details Recorded Time Educatio n Completed 201605/31/2020 Encounte r for oth general cnsl and advice on contrace ption;Pr actice ID: 0001 Moira maldonado, [facility] 09:18:41 Pregnanc y test negative [id number] Completed 201605/31/2020 Encounte r for pregnanc y test, result negative ;Practic e ID: 0001 Moira maldonado, [facility] 09:18:[address] Concept Completed 201605/31/2020 Encounte r for surveill ance of other contrace ptives;P ractice ID: [id number] Moira Doran [facility], [facility] 09:18:45 Procedur e Completed 201705/31/2020 Enctr srvlnc implanta ble subderma l contrace ptive;Pr actice ID: 0001 Moira maldonado, [facility] 09:18:44 Contrace ption care manageme nt Completed 201605/31/2020 Encounte r for contrace ptive manageme nt, unspecif ied;Kristian rded Elsewher e: No [facility] S ource: EHR Installation Drafter marilou: N Practi ce ID: 0001 Thomas lable Time: 04:30:[address] [facility] 1 09:18:38 Problem Notes None recorded. Procedures Surgical History Date Name Laterality Status Provider Name and Address Organization Details Recorded Time 03/05/20 24 MM Nexplanon insert completed OSMANY MCRAE NP [address], [place], [address], [place] [facility] 03/05/2024 13:54:07 10/18/19 22 Date of Last Pap Smear completed [facility] 07/31/2024 15:17:42 03/03/20 20 [facility]2020 16:55:29 04/23/19 17 open reduction of fracture of ulna completed [facility] 02/16/2020 14:26:20 04/23/19 15 procedure on elbow completed [facility] 02/16/2020 14:26:36 12/05/19 13 Orthopedic Surgery completed [facility] 07/31/2024 15:17:23 Imaging Results None recorded. Procedure Notes None recorded. Medical Equipment None Reported. Allergies Allergen ID Allergen Name Allergen Category Reaction Reaction Severity Criticality Documentation Date Start Date Code Code System Note Provider Name and Address Organization Details Recorded Time 2504 chlorhexi dine medicatio n Not available Not available Not available 02/16/2020 3586 RxNorm Christie [facility] 0 14:25:02 Medications [...] Available Not Available fluconazole 200 mg tablet 07/31 completed Not Available Not Available Not Available prednisone 20 mg tablet 02/19 completed Not Available Not Available Not Available hydroxyzine HCl 50 mg tablet Take 1 tablet every day by oral route at bedtime. 2024 active Not Available Not Available Not Avai lable sulfamethox azole 800 mg-trimetho prim 160 mg tablet 06/17 completed Not Available Not Available Not Available vancomycin 125 mg capsule 07/31 completed Not Available Not Available Not Available [...] active Not Available Not Available Not Available [place] Fe 1-20 EQ (28) 1 mg-20 mcg [...] Updated DateTime 06/17/2024 162.56 cm 29.1 kg/m2 70425.55 g 118 mm[Hg] 78 mm[Hg] [facility] 5 16:01:04 Date Recorded Body height Body mass index (BMI) Body weight Systolic blood pressure Diastolic blood pressure Provider Name and Address Organization Details Last Updated DateTime 07/31/2024 162.56 cm 27.8 kg/m2 92718.96 g 110 mm[Hg] 71 mm[Hg] [facility] 04/10/202 5 15:26:53 Date Recorded Systolic blood pressure Diastolic blood pressure Provider Name and Address Organization Details Last Updated DateTime 10/17/2021 120 mm[Hg] 74 mm[Hg] Cherry Doshi, [facility]- [address], [place], [address], [facility] 10/17/2021 11:35:46 Date Recorded Body height Body mass index (BMI) Body weight Provider Name and Address Organization Details Last Updated DateTime 10/17/2021 162.56 cm 27.3 kg/m2 01517.19 g Bertha Rodriguez [facility] 10/17/2021 11:27:52 Date Recorded Body height Body mass index (BMI) Body weight Systolic blood pressure Diastolic blood pressure Provider Name and Address Organization Details Last Updated DateTime 02/20/2024 162.56 cm 29.2 kg/m2 45515.42 g 130 mm[Hg] 81 mm[Hg] Doris Beyer [facility] 4 15:46:34 Social History Question Answer Notes LastModified by Organizat ion Details LastModified Time Tobacco Smoking Status Never Smoker Christie maldonado, [facility] 02/17/2020 10:57:01 Do You Have An Advance Directive? No [email or web address] Information n ot available 02/20/2024 How Many Years Have You Consumed Alcohol? 3 Information not available 02/20/2024 Are You Blind Or Do You Have Difficulty Seeing? No Information n ot available 10/17/2021 What Is Your Level Of Caffeine Consumption? Moderate Information not available 10/17/2021 How Much Tobacco Do You Chew? None [email or web address] Information not available 07/31/2024 In The 14 Days Before Symptom Onset, Have You Had Close Contact With A Laboratory-confirm ed COVID-19 While That Case Was Ill? No [email or web address] Information n ot available 02/20/2024 In The 14 Days Before Symptom Onset, Have You Had Close Contact With A Person Who Is Under Investigation For COVID-19 While That Person Was Ill? No [email or web address] Information not available 02/20/2024 Have You Been To An Area Known To Be High Risk For COVID-19? No [email or web address] Information not available 02/20/2024 Are You Deaf Or Do You Have Serious Difficulty Hearing? No Information not available 10/17/2021 What Type Of Diet Are You Following? REGULAR [email or web address] Information n ot available 02/20/2024 What Is The Highest Grade Or Level Of School You Have Completed Or The Highest Degree You Have Received? [id number] [email or web address] Information not available 02/20/2024 Are There Any Guns Present In Your Home? No [email or web address] Information not available 02/20/2024 Do You Use Protection During Sex? Always [email or web address] Information not available 02/20/2024 Do You Use Your Seat Belt Or Car Seat Routinely? Yes Information not available 10/17/2021 Do You Have Smoke And Carbon Monoxide Detectors In Your Home? Yes Information not available 10/17/2021 How Much Tobacco Do You Smoke? No [email or web address] Information not available 02/20/2024 Do You Use Sunscreen Routinely? Yes Information not available 10/17/2021 Have You Used IV Drugs? No [email or web address] Information not available 02/20/2024 Do You Have Difficulty Walking Or Climbing Stairs? No Information not available 10/17/2021 Sex: Unknown Functional Status Question Answer Note LastModified by Organizat ion Details LastModified Time Do you use any illicit or recreational drugs? No Information not available 10/17/2021 What is your level of alcohol consumption? Moderate [email or web address] Information not available 02/20/2024 Are you able to walk? [email or web address] Information not available 10/17/2021 Are you able to care for yourself? 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 No Information not available 10/17/2021 What is your exercise level? Moderate [email or web address] Information not available 02/20/2024 Mental Status Question Answer Note LastModified by Organization D etails LastModified Time Do you feel stressed (tense, restless, nervous, or anxious, or unable to sleep at night)? [id number] Information not available 10/17/2021 Family History Relationship Description Onset Age of [...] Not available 2019 14:24:30 Paternal Grandmother Malignant neoplasm of lung [email or web address] Not available 2019 14:24:23 Maternal Aunt Seizure disorder [email or web address] Not available 2024 15:16:13 Medical History Condition Response Allergies (Food, seasonal, environmental ) Y Gynecological History Statement/Question Response Flow Heavy Date of Last Mammogram Date of LMP 03/23/2024 Was last menstrual period normal Y STIs/STDs N HPV Vaccine Y Duration of Flow (days) 3 Current Control Method Implant Are cycles usually normal Y Frequency of Cycle (Q days) 28 Sexually Active? Y Menses Monthly N Age of first menstrual cycle 12 Date of Last Pap Smear 10/17/2021 Sexual Problems? N Desired Control Method Implant LMP Approximate N Obstetrics History GPAL:G 0 P 0 0 0 0 Past Encounters Encounter ID Performer Location Encounter Start Date Encounter Closed Date Diagnosis/Indication Diagnosis SNOMED-CT Code Diagnosis ICD10 Code Diagnosis Note [id number] Poly Mckeon CNM [address] [address] 02/17/2020 10:48:22 02/18/2020 12:52:43 Gynecologic examination 08100242 Z01.419 Take Calcium with Vitamin D 1200mg [...] paper copy of today's plan if desired.lorena Vazquez [facility] care management [id number] Z30.9 Discussed all control options in great [...] nexplanon removal 2 weeks after [facility]. [id number] [facility] [address] [address] 03/03/2020 15:09:33 03/03/2020 17:21:23 Removal of subcutaneous contraceptive 095197405 Z30.46 Plan to return to follow up on ocp. [id number] Poly Mckeon CNM [facility] [address] [address] 05/31/2020 09:35:22 05/31/2020 19:06:04 [id number] Cherry Doshi [facility] [address] [address] 05/31/2020 09:46:38 05/31/2020 10:02:40 Contraception care management 592361269 Z30.9 Patient is here today for a medicaton check of control. She voices goals of therapy have been met with use of this therapy. She denies neg side effects. She is eating, drinking, sleeping well; moods are stable & periods are well regulated. Wishes to continue this method of BC. Appropriat e to continue this medication . [id number] Cherry Doshi , [facility] [address],[facility] [place] [address] 10/17/2021 11:11:27 10/17/2021 12:02:13 Gynecologic examination 21147300 Z01.419 Take Calcium with Vitamin D 1200mg [...] Labs naMammo na Contracept ion care management 125775172 Z30.9 Switch in OCP due to irregular start time of menses in her pill pack despite consistent use & timing.RTO x 3mos med check [id number] Jonny Cabral MD [facility] [address],[facility] [place] [address] 02/20/2024 15:41:11 02/20/2024 16:23:32 Gynecologic examination 29522975 Z01.419 Annual gynecologi margarito exam performed. Patient will come back in [...] evaluation - [facility] 486621091 Z30.9 Discussed all control options in depth and pt is interested in Nexplanon. Discussed all risks and benefits including irregular unschedule d bleeding. Pt verbalized understand ing and would like to proceed. She is aware that she needs to call us on the 1st day of her period to schedule placement. Generalize d anxiety disorder 60911194 F41.1 Discussed coping mechanisms for stress and anxiety.Michele henry wishes to try a medication daily to treat anxiety.Rx sent for buspirone. Risks/bene fits/AEs discussed. RTO in 3 months for med check. [id number] Jonny Cabral MD [facility] [address] [address] 03/05/2024 12:01:35 03/05/2024 14:01:41 Fatigue 79171707 R53.83 Will check Vitamin B12 and vitamin D levels d/t c/o fatigue. Hirsutism 318270973 L68. 0 Will check hormone levels that may contribute to reported sx of hirsutism and acne.Discu ssed that Nexplanon may aid in symptom improvemen t and we can re-evaluat e sx at 3 month med check. Patient verbalizes understand ing. Implantati on of subcutaneous contraceptive 644309733 Z30.46 1. The patient was instructed that [...] need to be replaced in four years. [id number] Jonny Cabral MD [place] [address] [address] 06/17/2024 15:58:13 06/17/2024 16:22:13 Generalized anxiety disorder 66821674 F41.1 Recommende d that patient stop buspirone [...] /therapy in addition to pharmacolo gic treatment. [id number] Jonny Cabral MD [place] [address] [address] 07/31/2024 15:15:41 07/31/2024 16:00:30 Generalized anxiety disorder 03385251 F41.1 Patient voices improvemen t in PATTI symptoms since starting sertraline . Discussed increasing dosage of medication if patient's anxiety worsens again. Risks/bene fits/AEs reviewed. Discussed that patient is to go to ER if she experience s any suicidal/h omicidal ideation. Patient to RTO for annual WWE, or sooner if needed. Health Concerns Section Related Observation LastModified by Organization [facility] LastModified Time None Recorded Concern Status LastModified by Organization Details LastModified Time None Recorded Advance Directives Directive N: Payers Encounter Date Sequence Insurance Name Policy Number Policy Rooney Covered Member ID Rooney Member ID Guarantor Name 10/17/2021 1 [place] [id number] Tyrone A Pirok [id number] 30 Tyrone Pirok 02/20/2024 1 [place] [id number] Tyrone A Pirok [id number] 30 Tyrone Pirok 03/05/2024 1 [place] [id number] Tyrone A Pirok [id number] 30 Tyrone Pirok 06/17/2024 1 [place] [id number] Tyrone A Pirok [id number] 30 Tyrone Pirok 07/31/2024 1 [place] [id number] Tyrone A Pirok [id number] 30 Tyrone Pirok Notes Date Note Type Note Provider Name and Address Organization Details Recorded Time 10/17/2021 text/html Annual GYNReport ed bypatient.Menstrual cycle:Irregular [...] Encourage regular mammograms starting age 40 Cherry Doshi, [facility]- [address], [place], [address], [facility] 10/17/2021 11:46:43 02/20/2024 text/html Annual GYNReport [...] the side effects. OSMANY MCRAE NP [address], [place], [address], [facility] 02/20/2024 16:23:03 03/05/2024 text/html Patient is [...] and acne before her cycle. Doris maldonado, [facility] 03/05/2024 15:12:19 06/17/2024 text/html Patient here [...] not subsided.Denies SI/HI. OSMANY MCRAE NP [address], [place], [address], [facility] 06/17/2024 16:21:37 07/31/2024 text/html 24 y/o female presents for 6 week med check after starting sertraline 50 mg PO daily for PATTI.Patient states that her mood and anxiety has improved significantly since starting the medication. Denies SI/HI. OSAMNY MCRAE NP [address], [place], [address], [facility] 07/31/2024 15:58:46 OBGyn Episode No OBEpisode recorded.
--- OUTSIDE RECORDS SUMMARY | 2024-09-23 09:31 | XMS_ITS | Clinical Summary ---
Author Organization [facility] Address [address] [place] [address] Care Team Providers Care Dry End Tester Name Role Phone Compa Correa MD Primary Care Provider Estuardo Luke MD Unavailable [phone] Polo Jeffery MD Unavailable Allergies Active Allergy [...] understands. 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 She tends to grind her teeth. I recommended that she talk with her dentist about this. Probably needs to get a guard chief made. She understands. 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 Assessment & Plan (06/30/2023 1:06 PM ESCROW PROCESSOR): I think she would benefit from a septoplasty with bilateral inferior turbinectomy. I discussed the risk of a septoplasty with and without turbinectomy with the patient. There is a risk of continued nasal obstruction, bleeding, septal perforation, permanent anosmia. Also risk of inadequate correction which could result in continued nasal obstruction symptoms. She has a student affairs vice president and he would like to do this [...] weeks. 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 She understands. She would like to [...] Elbow pain 04/03/2016 Overview (02/02/2017): RIGHT. 11/05 [facility] says triceps tendonitis. US & MRI neg. [...] has seen cariodlogy dr Robbie Romero at [facility]. [facility] see epic notes last visit 09/2021 Irritable [...] on file Legal Sex Female 2:24 AM ESCROW PROCESSOR Gender Identity Female 11/04/2019 10:07 PM CDT [...] 4:44 PM CDT Height 160 cm (5' 3) 10/23/2023 4:44 PM CDT Body Mass Index 30.11 10/23/2023 4:44 PM CDT Plan of Treatment Health Maintenance Due Date Last Done Comments Cervical Cancer Screening 2000 Depression Screening 2000 Hepatitis C Screening 2000 HPV Vaccines (1 - 3-dose series) 01/05/2015 Regular Well Visit/Exam 18-64 01/05/2018 DTaP/Tdap/Td Vaccine (7 - Td or Tdap) 11/15/2021 11/16/2011, 11/29/2004, 04/09/2001, Additional history exists Influenza Vaccine (Season Ended) 2024 02/13/2020, 02/02/2017, 01/28/2014, Additional history exists Hepatitis B Screening Completed 2000 , 2000, 2000 Pneumococcal vaccine <65 Completed 014, 01/19/2009, 04/09/2001, Additional history exists Varicella Vaccines Completed 01/28/2014, 01/08/2001 Medical Devices Implanted Type Area Agency Sales Director Device Identifier Shelf Expiration Date Model / Serial / Lot [employer] Plul06 6 Hole Shortening Ulna Plate Bone Titanium Sterile - [id number] Implanted:Qty: 1 on 10/29/2019 by Estuardo Luke MD at [facility] Right: Ulna [employer] Inc [id number] / / Acumed Inc [id number] 3.5mm 12mm Hexalobe Screw Bone Titanium Nonsterile Small Fragment - [id number] Implanted:Qty: 1 on 10/29/2019 by Estuardo Luke MD at [facility] Right: Ulna [employer] Inc [id number] / / Ac[employer] Inc 30-0258 3.5mm 14mm Hexalobe Screw Bone Titanium Nonsterile Small Fragment - [id number] Implanted:Qty: 1 on 10/29/2019 by Estuardo Luke MD at [facility] Right: Ulna [employer] Inc 30-0258 / / [employer] [id number] 3.5mm 12mm Hexalobe Screw Bone Titanium Nonsterile Small Fragment - [id number] Implanted:Qty: 1 on 10/29/2019 by Estuardo Luke MD at [facility] Right: Ulna [employer] Inc [id number] / / [employer] 748527 3.5mm 12mm Hexalobe Screw Bone Titanium Nonsterile Small Fragment - [id number] Implanted:Qty: 1 on 10/29/2019 by Estuardo Luke MD at [facility] Right: Ulna [employer] Inc [id number] / / [employer] Inc 749358 3.5mm 12mm Hexalobe Screw Bone Titanium Nonsterile Small Fragment - [id number] Implanted:Qty: 1 on 10/29/2019 by Estuardo Luke MD at [facility] Right: Ulna [employer] Inc [id number] / / [employer] Inc 205488 3.5mm 12mm Hexalobe Screw Bone Titanium Nonsterile Small Fragment - [id number] Implanted:Qty: 1 on 10/29/2019 by Estuardo Luke MD at [facility] Right: Ulna [employer] Inc [id number] / / [employer] Inc 717250 3.5mm 12mm Hexalobe Screw Bone Titanium Nonsterile Small Fragment - [id number] Implanted:Qty: 1 on 10/29/2019 by Estuardo Luke MD at [facility] Right: Ulna [employer] Inc [id number] / / [employer] Inc 6 Hole Shortening Ulna Plate Bone Titanium Sterile Plul06 - [id number] Implanted:Qty: 1 on 01/10/2023 by Estuardo Luke MD at [facility] Left: Arm [employer] Inc PLUL06 / / [employer] Inc 3.5mm 12mm Hexalobe Screw Bone Titanium Nonsterile Small Fragment [id number] - [id number] Implanted:Qty: 6 on 01/10/2023 by Estuardo Luke MD at [facility] Left: Arm [employer] Inc [id number] / / [employer] Inc 3.5mm 14mm Hexalobe Screw Bone Titanium Nonsterile Small Fragment 30-0258 - [id number] Implanted:Qty: 1 on 01/10/2023 by Estuardo Luke MD at [facility] Left: Arm Ac[employer] Inc 30-0258 / / Arthrex Inc Dx Swivelock 3.5mm 13.5mm Foot Elbow Medium [place] Suture Peek Ar-8979p - [id number] Implanted:Qty: 1 on 01/10/2023 by Estuardo Luke MD at [facility] Left: Arm Ar[employer] Inc AR-8979P / / Acumed Inc Peg Fxatn Ulna Reduction Shortening Nonstrl 80-0422 - [id number] Implanted:Qty: 1 on 01/10/2023 by Estuardo Luke MD at [facility] Left: Arm [employer] Inc 80-0422 / / Insurance [facility] [place] CHO[place] ACC[place] AN[place] ACCESS CHO[place] Advance Directives For more information, please contact: [phone] * Full Code (Latest Code Status on File) Date Activated Date Inactivated Comments 01/10/2023 3:03 PM 01/10/2023 8:07 PM * Full Code Date Activated Date Inactivated Comments 10/29/2019 1:32 PM 10/29/2019 6:42 PM Care Teams Dry End Tester Relationship Specialty Start Date End Date Compa Correa MD [address] [place] [address] PCP - General Internal Medicine 09/06/17 [place] [address] [place] [address] Surgeon Orthopedic Surgery 01/10/23 Polo Jeffery MD [address] [place] [address] Consulting Physician Otolaryngology 10/01/23
--- OUTSIDE RECORDS SUMMARY | 2024-09-23 09:31 | XMS_ITS | Encounter Summary ---
Author Organization [facility] Address [address] [place] [address] Care Team Providers Care Ware Finisher Name Role Phone Vidhi Holley MD Primary Care Provider Encounter Details Date Type Department Care Team (Late st Contact Info) Description 08/16/2016 1:15 PM CDT Hospital Encounter [facility] Procedure Holding [address] [place] [address] [place] [address] [place] [address] Social History Tobacco Use Types Packs/Day Years [...] on file Legal Sex Female 2:24 AM HAND PASTER Gender Identity Female 11/04/2019 10:07 PM CDT [...] 3:04 PM CDT) HCG, ur Negative Negative [facility] Urine 08/16/2016 3:04 PM CDT 08/16/2016 3:07 PM CDT Anupama Barth BAR USEFUL OR BUSSER LAB URINE ORDERABLES Final Result [facility] Department [place] [address] documented in this encounter Visit Diagnoses Not on filedocumented in this encounter Care Teams Ware Finisher Relationship Specialty Start Date End Date Vidhi Holley MD [address] [place] [address] PCP - General 06/16/16 09/05/17 documented as of this encounter
--- OUTSIDE RECORDS SUMMARY | 2024-09-23 09:31 | XMS_ITS | Referral Summary ---
Author Organization [facility] Address [address] [place] [address] Care Team Providers Care Clinical Trial Associate Name Role Phone Compa Correa MD Primary Care Provider Estuardo Luke MD Unavailable [phone] Polo Jeffery MD Unavailable Allergies Active Allergy [...] understands. 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 She tends to grind her teeth. I recommended that she talk with her dentist about this. Probably needs to get a lifeguard made. She understands. 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 Assessment & Plan (06/30/2023 1:06 PM NEEDLE LOOM OPERATOR HELPER): I think she would benefit from a septoplasty with bilateral inferior turbinectomy. I discussed the risk of a septoplasty with and without turbinectomy with the patient. There is a risk of continued nasal obstruction, bleeding, septal perforation, permanent anosmia. Also risk of inadequate correction which could result in continued nasal obstruction symptoms. She has a environmental health safety engineer and he would like to do this [...] weeks. 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 She understands. She would like to [...] Elbow pain 04/03/2016 Overview (02/02/2017): RIGHT. 11/05 [facility] says triceps tendonitis. US & MRI [...] on file Legal Sex Female 2:24 AM NEEDLE LOOM OPERATOR HELPER Gender Identity Female 11/04/2019 10:07 PM [...] on file Medical Devices Implanted Type Area Campus Recruiting Coordinator Device Identifier Shelf Expiration Date Model / Serial / Lot Acumed Inc Plul06 6 Hole Shortening Ulna Plate Bone Titanium Sterile - [id number] Implanted:Qty: 1 on 10/29/2019 by Estuardo Luke MD at [facility] Right: Ulna [employer] Inc PLUL06 / / Acumed Inc 200780 3.5mm 12mm Hexalobe Screw Bone Titanium Nonsterile Small Fragment - [id number] Implanted:Qty: 1 on 10/29/2019 by Estuardo Luke MD at [facility] Right: Ulna [employer]umed Inc [id number] / / Acumed Inc 30-0258 3.5mm 14mm Hexalobe Screw Bone Titanium Nonsterile Small Fragment - [id number] Implanted:Qty: 1 on 10/29/2019 by Estuardo Luke MD at [facility] Right: Ulna [employer] Inc 30-0258 / / Acumed Inc [id number] 3.5mm 12mm Hexalobe Screw Bone Titanium Nonsterile Small Fragment - [id number] Implanted:Qty: 1 on 10/29/2019 by Estuardo Luke MD at [facility] Right: Ulna [employer]umed Inc [id number] / / Acumed Inc 958919 3.5mm 12mm Hexalobe Screw Bone Titanium Nonsterile Small Fragment - [id number] Implanted:Qty: 1 on 10/29/2019 by Esutardo Luke MD at [facility] Right: Ulna [employer]umed Inc [id number] / / Acumed Inc 197709 3.5mm 12mm Hexalobe Screw Bone Titanium Nonsterile Small Fragment - [id number] Implanted:Qty: 1 on 10/29/2019 by Estuardo Luke MD at [facility] Right: Ulna [employer]umed Inc [id number] / / Acumed Inc 477139 3.5mm 12mm Hexalobe Screw Bone Titanium Nonsterile Small Fragment - [id number] Implanted:Qty: 1 on 10/29/2019 by Estuardo Luke MD at [facility] Right: Ulna [employer]umed Inc [id number] / / Acumed Inc 014182 3.5mm 12mm Hexalobe Screw Bone Titanium Nonsterile Small Fragment - [id number] Implanted:Qty: 1 on 10/29/2019 by Estuardo Luke MD at [facility] Right: Ulna [employer]umed Inc 841234 / / Acumed Inc 6 Hole Shortening Ulna Plate Bone Titanium Sterile Plul06 - [id number] Implanted:Qty: 1 on 01/10/2023 by Estuardo Luke MD at [facility] Left: Arm Ac[employer] Inc PLUL06 / / Acumed Inc 3.5mm 12mm Hexalobe Screw Bone Titanium Nonsterile Small Fragment [id number] - [id number] Implanted:Qty: 6 on 01/10/2023 by Estuardo Luke MD at [facility] Left: Arm Acumed Inc [id number] / / Acumed Inc 3.5mm 14mm Hexalobe Screw Bone Titanium Nonsterile Small Fragment 30-0258 - [id number] Implanted:Qty: 1 on 01/10/2023 by Estuardo Luke MD at [facility] Left: Arm Acumed Inc 30-0258 / / Arthrex Inc Dx Swivelock 3.5mm 13.5mm Foot Elbow Medium [place] Suture Peek Ar-8979p - [id number] Implanted:Qty: 1 on 01/10/2023 by Estuardo Luke MD at [facility] Left: Arm Arthrex Inc AR-8979P / / Acumed Inc Peg Fxatn Ulna Reduction Shortening Nonstrl 80-0422 - [id number] Implanted:Qty: 1 on 01/10/2023 by Estuardo Luke MD at [facility] Left: Arm Acumed Inc 80-0422 / / Insurance [facility] [employer] [place]ESS CHO[place] [employer] [place] [employer] [place] [employer] [place] Advance Directives For more information, please contact: [phone] * Full Code (Latest Code Status on File) Date Activated Date Inactivated Comments 01/10/2023 3:03 PM 01/10/2023 8:07 PM * Full Code Date Activated Date Inactivated Comments 10/29/2019 1:32 PM 10/29/2019 6:42 PM Care Teams Clinical Trial Associate Relationship Specialty Start Date End Date Compa Correa MD [address] [place] [address] PCP - General Internal Medicine 09/06/17 [place] [address] [place] [address] Surgeon Orthopedic Surgery 01/10/23 Polo Jeffery MD [address] [place] [address] Consulting Physician Otolaryngology 10/01/23
--- OUTSIDE RECORDS SUMMARY | 2024-09-23 09:31 | XMS_ITS | Encounter Summary ---
Author Organization [facility] Address [address] [place] [address] Phone Care Team Providers Care Director Payment Name Role Phone Compa Correa MD Primary Care Provider [phone] Estuardo Luke MD Unavailable [phone] Polo Jeffery MD Unavailable [phone] Encounter Details Date Type Department Care Team [...] file Legal Sex Female 2:24 AM CLIENT SERVICE COORDINATOR Gender Identity Female 11/04/2019 10:07 PM CDT [...] on filedocumented in this encounter Care Teams Director Payment Relationship Specialty Start Date End Date Compa Correa MD [address] [place] [address] PCP - General Internal Medicine 09/06/17 [place] [address] [place] [address] Surgeon Orthopedic Surgery 01/10/23 Polo Jeffery MD [address] [place] [address] Consulting Physician Otolaryngology 10/01/23 documented as of this encounter
--- OUTSIDE RECORDS SUMMARY | 2024-09-23 09:31 | XMS_ITS | Encounter Summary ---
Author Organization [facility] Address [address] [place] [address] Phone Care Team Providers Care Epic Interface Analyst Name Role Phone Vidhi Holley MD Primary Care Provider [phone] Compa Correa MD Primary Care Provider [phone] Estuardo Luke MD Unavailable [phone] Polo Jeffery MD Unavailable [phone] Encounter Details Date Type Department Care Team (Late st Contact Info) Description 11/09/2016 Orders Only [facility] [address] [place] [address] Luciana Campbell RN Social History Tobacco Use Types Packs/Day Years Used Date Smoking Tobacco: Never Assessed Comments Unknown Sex and Gender Information Value Date Recorded Sex Assigned at Not on file Legal Sex Female 2:24 AM HUMAN FACTORS 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 Gender Identity Female 11/04/2019 10:07 PM CDT [...] on filedocumented in this encounter Care Teams Epic Interface Analyst Relationship Specialty Start Date End Date Vidhi Holley MD [address] [place] [address] PCP - General 06/16/16 09/05/17 Compa Correa MD [address] [place] [address] PCP - General Internal Medicine 09/06/17 [place] [address] [facility] [address] [place] [address] Surgeon Orthopedic Surgery 01/10/23 Polo Jeffery MD [address] [place] [address] Consulting Physician Otolaryngology 10/01/23 documented as of this encounter
[2024-09-23 10:02] LABS: Hematocrit 38.3 % (35.0-49.0); Hemoglobin 12.5 g/dL (12.0-15.0); Mean Corpuscular HGB Conc 32.6 g/dL (32-36); Mean Corpuscular Hemoglobin 29.6 pg (27.0-31.0); Mean Corpuscular Volume 90.5 fL (78.0-102.0); Mean Platelet Volume 11.1 fl (9.2-11.8); Platelet Count Result 201 K/mm3 (150-420); Red Blood Count 4.23 M/mm3 (4.20-5.40); Red Cell Distribution Width 13.1 % (11.6-14.4); White Blood Count 5.3 K/mm3 (4.8-10.8)
[2024-09-23 10:30] LABS: Alanine Aminotransferase 15 U/L (6-35); Albumin Level 4.7 g/dL (3.5-5.1); Alkaline Phosphatase 59 U/L (38-126); Anion Gap 6 mmol/L (4-12); Aspartate Amino Transferase 27 U/L (14-36); Bilirubin,Total 0.6 mg/dL (0.2-1.3); Blood Urea Nitrogen 13 mg/dL (7-17); Calcium 9.5 mg/dL (8.4-10.2); Carbon Dioxide 27 mmol/L (22-30); Chloride 108 mmol/L (98-107); Estimated Glomerular Filt Rate > 60; Glucose 90 mg/dL (65-110); Iron 96 ug/dL (37-170); Osmolality Calculated 292 mOsm/kg (285-295); Potassium 4.5 mmol/L (3.4-5.0); Sodium 141 mmol/L (137-145); Total Protein 7.3 g/dL (6.3-8.2)
[2024-09-23 10:39] LABS: Percent Iron Saturation 28 % (20-50)
[2024-09-23 10:47] LABS: Vitamin D 25 Hydroxy 56.1 ng/mL
[2024-09-23 11:01] LABS: Thyroid Stimulating Hormone 0.521 uIU/mL (0.465-4.680)
[2024-09-24 16:39] LABS: FSH 6.7 mIU/mL; LH 6.1 mIU/mL
[2024-09-25 15:13] LABS: Total Triiodothyronine (T3) 80 ng/dL (76-181)
== END 2024-09-23 09:14 | disposition home or self-care (01) ==
LOC: CHSLAB 09:15
PROVIDERS: PCP Internal Medicine; Visit Provider Nurse Practitioner Family
DX: E04.9 Nontoxic goiter, unspecified (principal); R79.89 Other specified abnormal findings of blood chemistry; E55.9 Vitamin D deficiency, unspecified; L65.9 Nonscarring hair loss, unspecified; N92.0 Excessive and frequent menstruation with regular cycle; D64.9 Anemia, unspecified
CPT/HCPCS: 36415; 80053; 82306; 82670; 82728; 83001; 83002; 83540; 83550; 84436; 84443; 84480; 85027

== ENCOUNTER 2024-10-02 13:21 | Outpatient (CLI) | payer BC, SELFPAY ==
--- NOTE | ~2024-10-02 | US_ITS ---
Thyroid ultrasound. Clinical History: Nontoxic goiter Findings: Real-time sonography of the thyroid gland was performed. The right lobe measures 5.0 x 1.5 x 1.3 cm. The left lobe measures 4.2 x 1.7 x 1.5 cm. The isthmus is 3 mm in AP diameter. There is a 1.1 x 0.6 x 0.6 cm mixed solid and cystic, somewhat spongiform nodule at the left midpole, with benign appearance. No other thyroid nodule seen. Impression: 1.1 cm benign-appearing thyroid nodule, as detailed above.. Reviewed, dictated and finalized at location M. Impression: 1.1 cm benign-appearing thyroid nodule, as detailed above..
--- OUTSIDE RECORDS SUMMARY | 2024-10-02 14:00 | XMS_ITS | Encounter Summary ---
Author Organization [facility] Address [address] [place] [address] Phone Care Team Providers Care Customer Success Associate Name Role Phone Vidhi Holley MD Primary Care Provider [phone] Compa Correa MD Primary Care Provider [phone] Estuardo Luke MD Unavailable [phone] Polo Jeffery MD Unavailable [phone] Encounter Details Date Type Department Care Team (Late st Contact Info) Description 11/09/2016 Orders Only [facility] [address] [place] [address] Luciana Campbell RN Social History Tobacco Use Types Packs/Day Years Used Date Smoking Tobacco: Never Assessed Comments Unknown Sex and Gender Information Value Date Recorded Sex Assigned at Not on file Legal Sex Female 2:24 AM STOVE FITTER Gender Identity Female 11/04/2019 10:07 PM [...] on filedocumented in this encounter Care Teams Customer Success Associate Relationship Specialty Start Date End Date Vidhi Holley MD [address] [place] [address] PCP - General 06/16/16 09/05/17 Compa Correa MD [address] [place] [address] PCP - General Internal Medicine 09/06/17 [place] [address] [facility] [address] [place] [address] Surgeon Orthopedic Surgery 01/10/23 Polo Jeffery MD [address] [place] [address] Consulting Physician Otolaryngology 10/01/23 documented as of this encounter
--- OUTSIDE RECORDS SUMMARY | 2024-10-02 14:00 | XMS_ITS | Encounter Summary ---
Author Organization [facility] Healthcare Address [address] [place] [address] Care Team Providers Care Color Specialist Name Role Phone Vidhi Holley MD Primary Care Provider [phone] Encounter Details Date Type Department Care Team (Late st Contact Info) Description 08/16/2016 1:15 PM CDT Hospital Encounter [facility] Procedure Holding [address] [place] [address] [place] [address] [place] [address] Social History Tobacco Use Types Packs/Day Years [...] on file Legal Sex Female 2:24 AM NURSE INSTRUCTOR Gender Identity Female 11/04/2019 10:07 PM CDT [...] 3:04 PM CDT) HCG, ur Negative Negative [facility] Urine 08/16/2016 3:04 PM CDT 08/16/2016 3:07 PM CDT Anupama Barth DRY ICE MACHINE OPERATOR LAB URINE ORDERABLES Final Result [facility] Department [place] [address] documented in this encounter Visit Diagnoses Not on filedocumented in this encounter Care Teams Color Specialist Relationship Specialty Start Date End Date Vidhi Holley MD [address] [place] [address] PCP - General 06/16/16 09/05/17 documented as of this encounter
--- OUTSIDE RECORDS SUMMARY | 2024-10-02 14:01 | XMS_ITS | Data Portability ---
Author Organization [facility] Address [address] [place] [address] Care Team Providers Care Motel Keeper Name Role Phone LIDIA MALDONADO Primary Care Provider Assessment Encounter Date Assessment Date Assessment LastModified by Organization Details LastModified Time 10/17/2021 10/17/2021 Annual gynecological exam performed. Patient will come back in a year unless there are new symptoms. Not available 10/17/2021 11:27:02 02/20/2024 02/20/2024 Annual gynecological exam performed. Patient will come back in a year unless there are new symptoms. [email or web address] Not available 02/04/2024 15:29:32 Plan of Treatment Reminders Order Date Submit Date Provider Last Modified By Organization Details Last Modified Time Details Appointments WELL [facility]OMAN-EST 2024 09:00A M OSMANY MCRAE NP Not available Not available Not available Lab HbA1c (hemoglob in A1c), blood 2023 [facility] (Lab), [address], [place], [address], 03/13/2024 13:16:29 dhea-sulf ate, serum [address] [facility] (Lab), [address], [place], [address], 03/13/2024 13:16:26 estradiol , serum [address] [facility] (Lab), [address], [place], [address], 03/13/2024 13:16:27 FSH (follicle -stimulat ing hormone), serum [address]23 [facility] (Lab), [address], [place], [address], 03/13/2024 13:16:27 lh (luteiniz ing hormone), serum [address] [facility] (Lab), [address], [place], [address], 03/13/2024 13:16:27 progester one, serum [address] [facility] (Lab), [address], [place], [address], 03/13/2024 13:16:28 prolactin , serum [address] [facility] (Lab), [address], [place], [address], 03/13/2024 13:16:28 testoster one free/test osterone total, ratio, serum [address] [facility] (Lab), [address], [place], [address], 03/13/2024 13:16:29 test, urine 2023 [email or web address] [facility], [facility] [address], [place], [address], 03/05/2024 12:31:02 vitamin B12, serum 2023 [facility] (Lab), [address], [place], [address], 03/13/2024 13:16:28 25-hydrox yvitamin D2 + 25-hydrox yvitamin D3, QN, serum or plasma [address] [facility] (Lab), [address], [place], [address], 03/13/2024 13:16:29 Referral None recorded. Procedures None recorded. Surgeries None recorded. Imaging None recorded. Medication Orders sertralin e 50 mg tablet 2024 025 IWONA [facility], Formerly named [facility] [place], [address], 07/31/2024 15:59:26 sertralin e 50 mg tablet 2024 025 IWONA [facility], [address] [place], [address], 06/17/2024 16:20:12 Nexplanon 68 mg subdermal implant 2023 024 [email or web address] [facility], [address] [place], [address], 03/05/2024 12:31:01 buspirone 7.5 mg tablet 2023 024 [email or web address] [facility], [address] [place], [address], 06/17/2024 16:17:10 RASHMI (28) 3 mg-0.02 mg tablet 2021 022 [email or web address] [facility], Formerly named [facility] [place] [place], [address], 02/20/2024 15:47:24 Patient TargetsNo targets recorded. Patient [...] junie mendosa Provi cristin: Linda tiffani , Kathai Alcala cted: 10/17 1431 DAY CARE DIRECTOR Order ing Locat ion: [place] Patho logjamel [...] as clini wilbert mantilla nted. Not Available [facility] (Lab) [address], [place], [address], 10/21/2021 11:15:00 10/18/19 22 10/17/2021 CT/GC (RAFFI) , THINP REP VIAL chlamydia trachomatis, PCR Negati ve negati ve Not Available [facility] (Lab) [address], [place], [address], 10/21/2021 11:15:01 10/18/19 22 10/17/2021 CT/GC (RAFFI) , THINP REP VIAL neisseria gonorrhoeae, PCR Negati ve negati ve Not Available [facility] (Lab) [address] [place], [address], 10/21/2021 11:15:01 10/18/19 22 10/17/2021 TRICH OMONA S VAGIN RAY (RRNA ) trichomonas vaginalis ribosomal RNA (rrna) Negati ve negati ve Not Available [facility] (Lab) [address], [place], [address], 10/21/2021 11:15:01 03/05/20 24 03/05/2024 DHEA SULFA TE DHEA-sulfate 355 ug/dL Femal e Range s Age(y ) Range (ug/d L) 10-15 34-28 0 15-20 65-36 8 20-25 148-4 07 25-35 99-34 0 35-45 61-33 7 45-55 35-25 6 55-65 19-20 5 65-75 9-246 > 75 12-15 4 Not Available [facility] (Lab) [address], [place], [address], 03/13/2024 13:16:26 03/05/20 24 03/05/2024 LH (LUTE NIZIN G HORMO NE) LH 5.6 mIU/m L This assay was perfo rmed using [employer] ratio n reage nts and test kits. Value s obtai mino with other assay metho ds or kits canno t be used inter [facility] . Femal es Mid-F ollic ular: 2.4-1 2.6 mIU/m L Mid-C ycle: 14.0- 95.6 mIU/m L Mid-L uteal : 1.0-1 1.4 mIU/m L Postm enopa use: 7.7-5 8.5 mIU/m L Not Available [facility] (Lab) [address], [place], [address], 03/13/2024 13:16:27 03/05/20 24 03/05/2024 ESTRA DIOL estradiol 17.7 pg/mL This assay was perfo rmed using [employer] ratio n reage nts and test kits. Value s obtai mino with other assay metho ds or kits canno t be used inter [facility] . Femal e Estra diol Range s: Folli cular phase 12.4- 233 pg/mL Ovula tion phase 41.0- 398 pg/mL Lutea l phase 22.3- 341 pg/mL Postm enopa usal <5-13 8 pg/mL Healt hy Pregn ant Women 1st Trime ster 154-3 243 pg/mL 2nd Trime ster 1561- 41676 pg/mL 3rd Trime ster 8525- >3000 0 pg/mL Not Available [facility] (Lab) [address], [place], [address], 03/13/2024 13:16:27 03/05/20 24 03/05/2024 FSH FSH 5.5 mIU/m L This assay was perfo rmed using [employer] ratio n reage nts and test kits. Value s obtai mino with other assay metho ds or kits canno t be used inter [facility] . Femal es Folli cular : 3.5-1 2.5 mIU/m L Ovula tion: 4.7-2 1.5 mIU/m L Lutea l: 1.7-7 .7 mIU/m L Postm enopa use: 25.8- 134.8 mIU/m L Not Available [facility] (Lab) [address] [place], [address], 03/13/2024 13:16:27 03/05/20 24 03/05/2024 PROGE STERO NE progesterone 0.09 NG/mL This assay was perfo rmed using [employer] ratio n reage nts and test kits. Value s obtai mino with other assay metho ds or kits canno t be used inter [facility] . Femal e Proge stero ne Range s: Folli cular phase 0.06- 0.89 ng/mL Ovula tion phase 0.12- 12.00 ng/mL Lutea l phase 1.83- 23.90 ng/mL Postm enopa usal <0.05 -0.13 ng/mL Healt hy Pregn ant Women 1st Trime ster 11.0- 44.30 2nd Trime ster 25.40 -83.3 0 3rd Trime ster 58.70 -214. 00 Not Available [facility] (Lab) [address], [place], [address], 03/13/2024 13:16:28 03/05/20 24 03/05/2024 PROLA CTIN prolactin, total 14.90 NG/mL 4.79-2 3.30 This assay was perfo rmed using [employer] ratio n reage nts and test kits. Value s obtai mino with other assay metho ds or kits canno t be used [facility] . Not Available [facility] (Lab) [address], [place], [address], 03/13/2024 13:16:28 03/05/20 24 03/05/2024 VITAM IN B12 vitamin B12 267 pg/mL 180-91 4 Christine l Range : 180-9 14 pg/mL . Indet ermin ate Range : 145-1 80 pg/mL . Defic ient Range : <=145 pg/mL . Not Available [facility] (Lab) [address], [place], [address], 03/13/2024 13:16:28 03/05/20 24 03/05/2024 VITAM IN D, 25-OH (TOTA L D2/D3 ) vitamin D, 25-hydroxy, total 66.5 NG/mL 30.0-1 00.0 Sugge stive of Defic iency : <20 ng/mL Sugge stive of Insuf ficie ncy: 20-29 ng/mL Sugge stive of Suffi cienc y: 30-10 0 ng/mL Sugge stive of Toxic ity: >150 ng/mL Not Available [facility] (Lab) [address], [place], [address], 03/13/2024 13:16:29 03/05/20 24 03/05/2024 HEMOG LOBIN [...] >8.0% Actio n sugge sted Not Available [facility] (Lab) [address], [place], [address], 03/13/2024 13:16:29 03/05/20 24 03/05/2024 TESTO STERO NE, FREE( DIALY SIS) AND TOTAL (LC/M S/MS) testosterone , total 19 NG/dL 2-45 For addit ional [facility] e refer to http: //[facility] karlene carias.que stdia gnost ics.c om/fa q/ Total Testo stero neLCM SMSFA Q165 (This link is being provi ded for infor constance nal/ educa ibeth l purpo ses only. ) This test was devel oped and its catherine tical perfo rmanc e april cteri stics have been deter mined by [employer] [place], [place]. It has not been clear ed or appro rodger by the U.S. Food and Drug Admin istra tion. This assay has been valid ated pursu ant to the CLPA regul ation s and is used for clini margarito purpo ses. Not Available [facility] (Lab) [address], [place], [address], 03/13/2024 13:16:29 03/05/20 24 03/05/2024 TESTO STERO NE, FREE( DIALY SIS) AND TOTAL (LC/M S/MS) testosterone , free 3.3 pg/mL 0.1-6. 4 This test was devel oped and its catherine tical perfo rmanc e april cteri stics have been deter mined by [employer] [place] [place], [place]. It has not been clear ed or appro rodger by the U.S. Food and Drug Admin istra tion. This assay has been valid ated pursu ant to the CLIA regul ation s and is used for clini margarito purpo ses. Perfo rming Organ izati on [facility] melasmita carias: Site ID: AMD Name: [employer] [place] collin Addre ss: [id number] [facility] [place], [place] Direc tor: Rebecca Garcia MD PhD Not Available [facility] (Lab) [address], [place], [address], 03/13/2024 13:16:29 03/05/20 24 03/05/2024 pregn kimberly test, urine HCG negati ve Not Available [facility] [address], [place], [address], 03/05/2024 12:30:45 Result Notes None recorded. Problems Name Problem SNOMED Code Status Onset Date Resolution Date Notes Provider Name and Address Organization Details Recorded Time Educatio n Completed 201605/31/2020 Encounte r for oth general cnsl and advice on contrace ption;Pr actice ID: 0001 Moira maldonado, [facility] 09:18:41 Pregnanc y test negative [id number] Completed 201605/31/2020 Encounte r for pregnanc y test, result negative ;Practic e ID: 0001 Moira maldonado, [facility] 09:18:[address] Concept Completed 201605/31/2020 Encounte r for surveill ance of other contrace ptives;P ractice ID: 0001 Moira Doran [facility], [facility] 09:18:45 Procedur e Completed 201705/31/2020 Enctr srvlnc implanta ble subderma l contrace ptive;Pr actice ID: 0001 Moira maldonado, [facility] 09:18:44 Contrace ption care manageme nt Completed 201605/31/2020 Encounte r for contrace ptive manageme nt, unspecif ied;Kristian rded Elsewher e: No [facility] [place] S ource: EHR Landscape Contractor marilou: N Practi ce ID: [id number] Thomas lable Time: 04:30:00 PM Moira Aniceto [facility] 1 09:18:38 Problem Notes None recorded. Procedures Surgical History Date Name Laterality Status Provider Name and Address Organization Details Recorded Time 03/05/20 24 MM Nexplanon insert completed OSMANY MCRAE NP [address], [place], [address], [place] [facility] 03/05/2024 13:54:07 10/18/19 22 Date of Last Pap Smear completed [facility] 07/31/2024 15:17:42 03/03/20 20 [facility] 03/03/2020 16:55:29 04/23/19 17 open reduction of fracture of ulna completed [facility] 02/16/2020 14:26:20 04/23/19 15 procedure on elbow completed [facility] 02/16/2020 14:26:36 12/05/19 13 Orthopedic Surgery completed [facility] 07/31/2024 15:17:23 Imaging Results None recorded. Procedure Notes None recorded. Medical Equipment None Reported. Allergies Allergen ID Allergen Name Allergen Category Reaction Reaction Severity Criticality Documentation Date Start Date Code Code System Note Provider Name and Address Organization Details Recorded Time 2504 chlorhexi dine medicatio n Not available Not available Not available 02/16/2020 6427 RxNorm Christie [facility] 0 14:25:02 Medications Name Sig Start [...] active Not Available Not Available Not Available [place] Fe 1-20 EQ (28) 1 mg-20 mcg [...] Updated DateTime 06/17/2024 162.56 cm 29.1 kg/m2 53524.55 g 118 mm[Hg] 78 mm[Hg] [facility] 5 16:01:04 Date Recorded Body height Body mass index (BMI) Body weight Systolic blood pressure Diastolic blood pressure Provider Name and Address Organization Details Last Updated DateTime 07/31/2024 162.56 cm 27.8 kg/m2 10473.96 g 110 mm[Hg] 71 mm[Hg] [facility] 04/10/202 5 15:26:53 Date Recorded Systolic blood pressure Diastolic blood pressure Provider Name and Address Organization Details Last Updated DateTime 10/17/2021 120 mm[Hg] 74 mm[Hg] Cherry Doshi, [facility]- [address], [place], [address], [facility] 10/17/2021 11:35:46 Date Recorded Body height Body mass index (BMI) Body weight Provider Name and Address Organization Details Last Updated DateTime 10/17/2021 162.56 cm 27.3 kg/m2 96181.19 g Bertha Rodriguez [facility] 10/17/2021 11:27:52 Date Recorded Body height Body mass index (BMI) Body weight Systolic blood pressure Diastolic blood pressure Provider Name and Address Organization Details Last Updated DateTime 02/20/2024 162.56 cm 29.2 kg/m2 07176.42 g 130 mm[Hg] 81 mm[Hg] Doris Beyer [facility] 4 15:46:34 Social History Question Answer Notes LastModified by Organizat ion Details LastModified Time Tobacco Smoking Status Never Smoker Christie maldonado, [facility] 02/17/2020 10:57:01 Do You Have An Advance Directive? No [email or web address] Information n ot available 02/20/2024 How Many Years Have You Consumed Alcohol? 3 Information not available 02/20/2024 Are You Blind Or Do You Have Difficulty Seeing? No Information n ot available 10/17/2021 What Is Your Level Of Caffeine Consumption? Moderate Information not available 10/17/2021 How Much Tobacco Do You Chew? None [email or web address] Information not available 07/31/2024 In The 14 Days Before Symptom Onset, Have You Had Close Contact With A Laboratory-confirm ed COVID-19 While That Case Was Ill? No [email or web address] Information n ot available 02/20/2024 In The 14 Days Before Symptom Onset, Have You Had Close Contact With A Person Who Is Under Investigation For COVID-19 While That Person Was Ill? No [email or web address] Information not available 02/20/2024 Have You Been To An Area Known To Be High Risk For COVID-19? No [email or web address] Information not available 02/20/2024 Are You Deaf Or Do You Have Serious Difficulty Hearing? No Information not available 10/17/2021 What Type Of Diet Are You Following? REGULAR Information n ot available 02/20/2024 What Is The Highest Grade Or Level Of School You Have Completed Or The Highest Degree You Have Received? [id number] Information not available 02/20/2024 Are There Any Guns Present In Your Home? No Information not available 02/20/2024 Do You Use Protection During Sex? Always [email or web address] Information not available 02/20/2024 Do You Use Your Seat Belt Or Car Seat Routinely? Yes Information not available 10/17/2021 Do You Have Smoke And Carbon Monoxide Detectors In Your Home? Yes Information not available 10/17/2021 How Much Tobacco Do You Smoke? No [email or web address] Information not available 02/20/2024 Do You Use Sunscreen Routinely? Yes Information not available 10/17/2021 Have You Used IV Drugs? No [email or web address] Information not available 02/20/2024 Do You Have Difficulty Walking Or Climbing Stairs? No Information not available 10/17/2021 Sex: Unknown Functional Status Question Answer Note LastModified by Organizat ion Details LastModified Time Do you use any illicit or recreational drugs? No Information not available 10/17/2021 What is your level of alcohol consumption? Moderate [email or web address] Information not available 02/20/2024 Are you able to walk? YESWOREST Information not available 10/17/2021 Are you able to care for yourself? 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 No Information not available 10/17/2021 What is your exercise level? Moderate [email or web address] Information not available 02/20/2024 Mental Status Question Answer Note LastModified by Organization D etails LastModified Time Do you feel stressed (tense, restless, nervous, or anxious, or unable to sleep at night)? [id number] Information not available 10/17/2021 Family History Relationship [...] available 2019 14:24:23 Maternal Aunt Seizure disorder [email or web address] Not available 2024 15:16:13 Medical History Condition [...] SNOMED-CT Code Diagnosis ICD10 Code Diagnosis Note 39042 Poly Mckeon CNM [address] [address] 02/17/2020 10:48:22 02/18/2020 12:52:43 Gynecologic examination 97323111 Z01.419 Take Calcium with Vitamin D 1200mg [...] copy of today's plan if desired.lorena Vazquez [facility] care management [id number] Z30.9 Discussed all control options in great [...] nexplanon removal 2 weeks after starting [facility]. [id number] [facility] [address] [address] 03/03/2020 15:09:33 03/03/2020 17:21:23 Removal of subcutaneous contraceptive [id number] Z30.46 Plan to return to follow up on ocp. [id number] Poly Mckeon CNM [facility] [address] [address] 05/31/2020 09:35:22 05/31/2020 19:06:04 98353 Cherry Doshi [facility] [address] [address] 05/31/2020 09:46:38 05/31/2020 10:02:40 Contraception care management [id number] Z30.9 Patient is here today for a medicaton check of control. She voices goals of therapy have been met with use of this therapy. She denies neg side effects. She is eating, drinking, sleeping well; moods are stable & periods are well regulated. Wishes to continue this method of BC. Appropriat e to continue this medication . [id number] Cherry Doshi , [facility] [address],[facility] [place] [address] 10/17/2021 11:11:27 10/17/2021 12:02:13 Gynecologic examination 75454240 Z01.419 Take Calcium with Vitamin D 1200mg [...] Labs naMammo na Contracept ion care management [id number] Z30.9 Switch in OCP due to irregular start time of menses in her pill pack despite consistent use & timing.RTO x 3mos med check [id number] Jonny Cabral MD [facility] [address],[facility] [place] [address] 02/20/2024 15:41:11 02/20/2024 16:23:32 Gynecologic examination 42018662 Z01.419 Annual gynecologi margarito exam performed. Patient [...] evaluation - [facility] 438782276 Z30.9 Discussed all control options in depth and pt is interested in Nexplanon. Discussed all risks and benefits including irregular unschedule d bleeding. Pt verbalized understand ing and would like to proceed. She is aware that she needs to call us on the 1st day of her period to schedule placement. Generalize d anxiety disorder 14005122 F41.1 Discussed coping mechanisms for stress and anxiety.Michele henry wishes to try a medication daily to treat anxiety.Rx sent for buspirone. Risks/bene fits/AEs discussed. RTO in 3 months for med check. [id number] Jonny Cabral MD [facility] [address] [address] 03/05/2024 12:01:35 03/05/2024 14:01:41 Fatigue 28098706 R53.83 Will check Vitamin B12 and vitamin D levels d/t c/o fatigue. Hirsutism 270911228 L68. 0 Will check hormone levels that may contribute to reported sx of hirsutism and acne.Discu ssed that Nexplanon may aid in symptom improvemen t and we can re-evaluat e sx at 3 month med check. Patient verbalizes understand ing. Implantati on of subcutaneous contraceptive 435120614 Z30.46 1. The patient was instructed that [...] need to be replaced in four years. [id number] Jonny Cabral MD [facility] [address] [address] 06/17/2024 15:58:13 06/17/2024 16:22:13 Generalized anxiety disorder 35824419 F41.1 Recommende d that patient stop buspirone [...] /therapy in addition to pharmacolo gic treatment. [id number] Jonny Cabral MD [facility] [address] [address] 07/31/2024 15:15:41 07/31/2024 16:00:30 Generalized anxiety disorder 92808874 F41.1 Patient voices improvemen t in PATTI symptoms since starting sertraline . Discussed increasing dosage of medication if patient's anxiety worsens again. Risks/bene fits/AEs reviewed. Discussed that patient is to go to ER if she experience s any suicidal/h omicidal ideation. Patient to RTO for annual WWE, or sooner if needed. Health Concerns Section Related Observation LastModified by Organization [facility] LastModified Time None Recorded Concern Status LastModified by Organization Details LastModified Time None Recorded Advance Directives Directive N: Payers Insurance Date Sequence Insurance Name Policy Number Policy Rooney Covered Member ID Rooney Member ID Guarantor Name 07/29/2024 1 [place] [id number] Tyrone Slater [id number] Tyrone Slater Notes Date Note Type [...] use; Encourage regular mammograms starting age 40 DEEPIKA Trejo- [address], [place], [address], [facility] 10/17/2021 11:46:43 02/20/2024 text/html Annual GYNReport [...] effects. OSMANY MCRAE NP [address], [place], [address], [facility] 02/20/2024 16:23:03 03/05/2024 text/html Patient is [...] and acne before her cycle. Doris maldonado, [facility] 03/05/2024 15:12:19 06/17/2024 text/html Patient [...] SI/HI. OSMANY MCRAE NP [address], [place], [address], [facility] 06/17/2024 16:21:37 07/31/2024 text/html 24 y/o female presents for 6 week med check after starting sertraline 50 mg PO daily for PATTI.Patient states that her mood and anxiety has improved significantly since starting the medication. Denies SI/HI. OSMANY MCRAE NP [address], [place], [address], [facility] 07/31/2024 15:58:46 OBGyn Episode No OBEpisode recorded.
--- OUTSIDE RECORDS SUMMARY | 2024-10-02 14:01 | XMS_ITS | Referral Summary ---
Author Organization [facility] o[facility] Address [address] [place] [address] Care Team Providers Care Speech Therapy Teacher Name Role Phone Compa Correa MD Primary Care Provider Estuardo Luke MD Unavailable [phone] Polo Jeffery MD Unavailable [phone] Allergies Active Allergy Reactions Criticality Noted Date [...] understands. 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 She tends to grind her teeth. I recommended that she talk with her dentist about this. Probably needs to get a plant security guard made. She understands. 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 Assessment & Plan (06/30/2023 1:06 PM CONTINUOUS PROCESS ROTARY DRUM TANNER): I think she would benefit from a septoplasty with bilateral inferior turbinectomy. I discussed the risk of a septoplasty with and without turbinectomy with the patient. There is a risk of continued nasal obstruction, bleeding, septal perforation, permanent anosmia. Also risk of inadequate correction which could result in continued nasal obstruction symptoms. She has a clinical pharmacy manager and he would like to [...] weeks. Assessment & Plan (06/30/2023 1:11 PM CONTINUOUS PROCESS ROTARY DRUM TANNER): She also has significant maxillary sinus disease [...] further infections as well as orbital and DAY CARE AIDE injuries. She understands. She would like to [...] Elbow pain 04/03/2016 Overview (02/02/2017): RIGHT. 11/05 [facility] says triceps tendonitis. US & MRI [...] on file Legal Sex Female 2:24 AM CONTINUOUS PROCESS ROTARY DRUM TANNER Gender Identity Female 11/04/2019 10:07 PM CDT [...] on file Medical Devices Implanted Type Area Manager Quality Device Identifier Shelf Expiration Date Model / Serial / Lot Acumed Inc Plul06 6 Hole Shortening Ulna Plate Bone Titanium Sterile - [id number] Implanted:Qty: 1 on 10/29/2019 by Estuardo Luke MD at [facility] Right: Ulna Acumed Inc PLUL06 / / Acumed Inc [id number] 3.5mm 12mm Hexalobe Screw Bone Titanium Nonsterile Small Fragment - [id number] Implanted:Qty: 1 on 10/29/2019 by Estuardo Luke MD at [facility] [place] Right: Ulna Acumed Inc [id number] / / Acumed Inc 30-0258 3.5mm 14mm Hexalobe Screw Bone Titanium Nonsterile Small Fragment - [id number] Implanted:Qty: 1 on 10/29/2019 by Estuardo Luke MD at [facility] [place] Right: Ulna Acumed Inc 30-0258 / / Acumed Inc 640778 3.5mm 12mm Hexalobe Screw Bone Titanium Nonsterile Small Fragment - [id number] Implanted:Qty: 1 on 10/29/2019 by Estuardo Luke MD at [facility] Right: Ulna Acumed Inc 685401 / / Acumed Inc [id number] 3.5mm 12mm Hexalobe Screw Bone Titanium Nonsterile Small Fragment - [id number] Implanted:Qty: 1 on 10/29/2019 by Estuardo Luke MD at [facility] [place] Right: Ulna Acumed Inc 101380 / / Acumed Inc 726358 3.5mm 12mm Hexalobe Screw Bone Titanium Nonsterile Small Fragment - [id number] Implanted:Qty: 1 on 10/29/2019 by Estuardo Luke MD at [facility] Right: Ulna Acumed Inc [id number] / / Acumed Inc 160956 3.5mm 12mm Hexalobe Screw Bone Titanium Nonsterile Small Fragment - [id number] Implanted:Qty: 1 on 10/29/2019 by Estuardo Luke MD at [facility] [place] Right: Ulna Acumed Inc 826589 / / Acumed Inc 325386 3.5mm 12mm Hexalobe Screw Bone Titanium Nonsterile Small Fragment - [id number] Implanted:Qty: 1 on 10/29/2019 by Estuardo Luke MD at [facility] [place] Right: Ulna Acumed Inc 215680 / / Acumed Inc 6 Hole Shortening Ulna Plate Bone Titanium Sterile Plul06 - [id number] Implanted:Qty: 1 on 01/10/2023 by Estuardo Luke MD at [facility] [place] Left: Arm Acumed Inc PLUL06 / / Acumed Inc 3.5mm 12mm Hexalobe Screw Bone Titanium Nonsterile Small Fragment 123739 - [id number] Implanted:Qty: 6 on 01/10/2023 by Estuardo Luke MD at [facility] [place] Left: Arm Acumed Inc [id number] / / Acumed Inc 3.5mm 14mm Hexalobe Screw Bone Titanium Nonsterile Small Fragment 30-0258 - [id number] Implanted:Qty: 1 on 01/10/2023 by Estuardo Luke MD at [facility] [place] Left: Arm Acumed Inc 30-0258 / / Arthrex Inc Dx Swivelock 3.5mm 13.5mm Foot Elbow Medium [place] Suture Peek Ar-8979p - [id number] Implanted:Qty: 1 on 01/10/2023 by Estuardo Luke MD at [facility] [place] Left: Arm Arthrex Inc AR-8979P / / Acumed Inc Peg Fxatn Ulna Reduction Shortening Nonstrl 80-0422 - [id number] Implanted:Qty: 1 on 01/10/2023 by Estuardo Luke MD at [facility] [place] Left: Arm Acumed Inc 80-0422 / / Insurance [facility] [employer] [place] ANTHEM ACCESS ANTHRevivn ACCESS CHOICE [employer] [place] [employer] [place] [employer] [place] Advance Directives For more information, please contact: [phone] * Full Code (Latest Code Status on File) Date Activated Date Inactivated Comments 01/10/2023 3:03 PM 01/10/2023 8:07 PM * Full Code Date Activated Date Inactivated Comments 10/29/2019 1:32 PM 10/29/2019 6:42 PM Care Teams Speech Therapy Teacher Relationship Specialty Start Date End Date Compa Correa MD [address] [place] [address] PCP - General Internal Medicine 09/06/17 [place] [address] [place] [address] Surgeon Orthopedic Surgery 01/10/23 Polo Jeffery MD [address] [place] [address] Consulting Physician Otolaryngology 10/01/23
--- OUTSIDE RECORDS SUMMARY | 2024-10-02 14:01 | XMS_ITS | Clinical Summary ---
Author Organization [facility] o[facility] Address [address] [place] [address] Care Team Providers Care Medical Billing Supervisor Name Role Phone Compa Correa MD Primary Care Provider Estuardo Luke MD Unavailable [phone] Polo Jeffery MD Unavailable [phone] Allergies Active Allergy Reactions Criticality Noted Date [...] understands. 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 She tends to grind her teeth. I recommended that she talk with her dentist about this. Probably needs to get a bank guard made. She understands. 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 Assessment & Plan (06/30/2023 1:06 PM SUPERVISOR CONCRETE PIPE PLANT): I think she would benefit from a septoplasty with bilateral inferior turbinectomy. I discussed the risk of a septoplasty with and without turbinectomy with the patient. There is a risk of continued nasal obstruction, bleeding, septal perforation, permanent anosmia. Also risk of inadequate correction which could result in continued nasal obstruction symptoms. She has a pharmacy billing adjudicator and he would like to do this [...] weeks. Assessment & Plan (06/30/2023 1:11 PM SUPERVISOR CONCRETE PIPE PLANT): She also has significant maxillary sinus disease [...] further infections as well as orbital and FLASK MAKER injuries. She understands. She would like to [...] Elbow pain 04/03/2016 Overview (02/02/2017): RIGHT. 11/05 [facility] says triceps tendonitis. US & MRI [...] and on has seen cariodlogy dr Robbie oRmero at [facility]. [facility] see epic notes last visit 09/2021 [...] on file Legal Sex Female 2:24 AM SUPERVISOR CONCRETE PIPE PLANT Gender Identity Female 11/04/2019 10:07 PM CDT [...] 01/28/2014, 01/08/2001 Medical Devices Implanted Type Area Clinical Laboratory Scientist Device Identifier Shelf Expiration Date Model / Serial / Lot AcInTouch Technologyd Inc Plul06 6 Hole Shortening Ulna Plate Bone Titanium Sterile - [id number] Implanted:Qty: 1 on 10/29/2019 by Estuardo Luke MD at [facility] [place] Right: Ulna Acumed Inc PLUL06 / / Acumed Inc 158016 3.5mm 12mm Hexalobe Screw Bone Titanium Nonsterile Small Fragment - [id number] Implanted:Qty: 1 on 10/29/2019 by Estuardo Luke MD at [facility] Right: Ulna Acumed Inc [id number] / / Acumed Inc 30-0258 3.5mm 14mm Hexalobe Screw Bone Titanium Nonsterile Small Fragment - [id number] Implanted:Qty: 1 on 10/29/2019 by Estuardo Luke MD at [facility] Right: Ulna Acumed Inc 30-0258 / / Acumed Inc 636854 3.5mm 12mm Hexalobe Screw Bone Titanium Nonsterile Small Fragment - [id number] Implanted:Qty: 1 on 10/29/2019 by Estuardo Luke MD at [facility] Right: Ulna Acumed Inc 322570 / / Acumed Inc 808451 3.5mm 12mm Hexalobe Screw Bone Titanium Nonsterile Small Fragment - [id number] Implanted:Qty: 1 on 10/29/2019 by Estuardo Luke MD at [facility] Right: Ulna Acumed Inc 792708 / / Acumed Inc 033772 3.5mm 12mm Hexalobe Screw Bone Titanium Nonsterile Small Fragment - [id number] Implanted:Qty: 1 on 10/29/2019 by Estuardo Luke MD at [facility] Right: Ulna Acumed Inc 391637 / / Acumed Inc 408770 3.5mm 12mm Hexalobe Screw Bone Titanium Nonsterile Small Fragment - [id number] Implanted:Qty: 1 on 10/29/2019 by Estuardo Luke MD at [facility] Right: Ulna Acumed Inc 415560 / / Acumed Inc 627881 3.5mm 12mm Hexalobe Screw Bone Titanium Nonsterile Small Fragment - [id number] Implanted:Qty: 1 on 10/29/2019 by Estuardo Luke MD at [facility] Right: Ulna Acumed Inc 522400 / / Acumed Inc 6 Hole Shortening Ulna Plate Bone Titanium Sterile Plul06 - [id number] Implanted:Qty: 1 on 01/10/2023 by Estuardo Luke MD at [facility] Left: Arm Acumed Inc PLUL06 / / Acumed Inc 3.5mm 12mm Hexalobe Screw Bone Titanium Nonsterile Small Fragment 895340 - [id number] Implanted:Qty: 6 on 01/10/2023 by Estuardo Luke MD at [facility] Left: Arm Acumed Inc [id number] / / Acumed Inc 3.5mm 14mm Hexalobe Screw Bone Titanium Nonsterile Small Fragment 30-0258 - [id number] Implanted:Qty: 1 on 01/10/2023 by Estuardo Luke MD at [facility] Left: Arm Acumed Inc 30-0258 / / Arthrex Inc Dx Swivelock 3.5mm 13.5mm Foot Elbow Medium [place] Suture Peek Ar-8979p - [id number] Implanted:Qty: 1 on 01/10/2023 by Estuardo Luke MD at [facility] Left: Arm Arthrex Inc AR-8979P / / Acumed Inc Peg Fxatn Ulna Reduction Shortening Nonstrl 80-0422 - [id number] Implanted:Qty: 1 on 01/10/2023 by Estuardo Luke MD at [facility] Left: Arm Acumed Inc 80-0422 / / Insurance [facility] BLUE ACCESS CHOICE [place] ACC[place] ANTHE[place] ACCESS CHO[place] Advance Directives For more information, please contact: [phone] * Full Code (Latest Code Status on File) Date Activated Date Inactivated Comments 01/10/2023 3:03 PM 01/10/2023 8:07 PM * Full Code Date Activated Date Inactivated Comments 10/29/2019 1:32 PM 10/29/2019 6:42 PM Care Teams Medical Billing Supervisor Relationship Specialty Start Date End Date Compa Correa MD [address] [place] [address] PCP - General Internal Medicine 09/06/17 [place] [address] [place] [address] Surgeon Orthopedic Surgery 01/10/23 Polo Jeffery MD [address] [place] [address] Consulting Physician Otolaryngology 10/01/23
--- OUTSIDE RECORDS SUMMARY | 2024-10-02 14:01 | XMS_ITS | Encounter Summary ---
Author Organization [facility] Address [address] [place] [address] Phone Care Team Providers Care Combine Driver Name Role Phone Compa Correa MD Primary Care Provider [phone] Estuardo Luke MD Unavailable [phone] Polo Jeffery MD Unavailable [phone] Encounter Details Date Type Department Care Team [...] on file Legal Sex Female 2:24 AM DB2 DEVELOPER Gender Identity Female 11/04/2019 10:07 PM [...] on filedocumented in this encounter Care Teams Combine Driver Relationship Specialty Start Date End Date Compa Correa MD [address] [place] [address] PCP - General Internal Medicine 09/06/17 [place] [address] [place] [address] Surgeon Orthopedic Surgery 01/10/23 Polo Jeffery MD [address] [place] [address] Consulting Physician Otolaryngology 10/01/23 documented as of this encounter
--- OUTSIDE RECORDS SUMMARY | 2024-10-02 14:01 | XMS_ITS | Encounter Summary ---
Author Organization [facility] Address [address] [place] [address] Phone Care Team Providers Care Construction Project Assistant Name Role Phone Compa Correa MD Primary Care Provider [phone] Estuardo Luke MD Unavailable [phone] Polo Jeffery MD Unavailable [phone] Encounter Details Date Type Department Care Team [...] on file Legal Sex Female 2:24 AM INFORMATION SECURITY MANAGER Gender Identity Female 11/04/2019 10:07 PM [...] on filedocumented in this encounter Care Teams Construction Project Assistant Relationship Specialty Start Date End Date Compa Correa MD [address] [place] [address] PCP - General Internal Medicine 09/06/17 [place] [address] [place] [address] Surgeon Orthopedic Surgery 01/10/23 Polo Jeffery MD [address] [facility] [place] [address] Consulting Physician Otolaryngology 10/01/23 documented as of this encounter
--- OUTSIDE RECORDS SUMMARY | 2024-10-02 14:01 | XMS_ITS | Encounter Summary ---
Author Organization [facility] Address [address] [place] [address] Phone Care Team Providers Care Vp Talent Management Name Role Phone Compa Correa MD Primary Care Provider [phone] Estuardo Luke MD Unavailable [phone] Polo Jeffery MD Unavailable [phone] Encounter Details Date Type Department Care Team [...] on file Legal Sex Female 2:[address] Gender Identity Female 11/04/2019 10:07 PM CDT [...] on filedocumented in this encounter Care Teams Vp Talent Management Relationship Specialty Start Date End Date Compa Correa MD [address] [place] [address] PCP - General Internal Medicine 09/06/17 [place] [address] [place] [address] Surgeon Orthopedic Surgery 01/10/23 Polo Jeffery MD [address] [place] [address] Consulting Physician Otolaryngology 10/01/23 documented as of this encounter
== END 2024-10-02 13:22 | disposition home or self-care (01) ==
PROVIDERS: PCP Internal Medicine; Visit Provider Nurse Practitioner Family
DX: E04.9 Nontoxic goiter, unspecified (principal); R79.89 Other specified abnormal findings of blood chemistry
CPT/HCPCS: 76536

== ENCOUNTER 2024-11-28 21:43 | Emergency (ER) | payer BC, SELFPAY ==
--- NOTE | ~2024-11-28 | XR_ITS ---
HISTORY: SOFTBALL INJURY. LEFT KNEE PAIN AFTER POP WHILE RUNNING. COMPARISON: None TECHNIQUE: 3 views of the left knee were performed FINDINGS: No acute or subacute fracture, erosion, lytic or sclerotic lesion. Medial tibiofemoral joint space narrowing with sclerosis is identified. Small suprapatellar joint effusion is identified. The infrapatellar joint space is clear. Femoral notch sign is identified on lateral view for which ACL injury is suspected. 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 Additional findings suggesting possible ACL injury, as detailed above. Reviewed, dictated and finalized at location A. IMPRESSION: Trace degenerative disease with a small suprapatellar joint effusi on. Additional findings suggesting possible ACL injury, as detailed above.
--- NOTE | 2024-11-28 21:45 | PC.NURSE ---
ICE PACK TO LEFT KNEE. CURRENTLY IN WAITING ROOM. JULIETH CANCINO, OBTAINING VITAL SIGNS.
--- OUTSIDE RECORDS SUMMARY | 2024-11-28 21:45 | XMS_ITS | Clinical Summary ---
Author Organization [facility] o[facility] Address [address] [place] [address] Care Team Providers Care Cashier General Name Role Phone Compa Correa MD Primary Care Provider [phone] Estuardo Luke MD Unavailable [phone] Polo Jeffery MD Unavailable [phone] Allergies Active Allergy Reactions Criticality Noted Date [...] understands. 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 She tends to grind her teeth. I recommended that she talk with her dentist about this. Probably needs to get a zipper ironer made. She understands. 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 Assessment & Plan (06/30/2023 1:06 PM CHEMIST STEROIDS): I think she would benefit from a septoplasty with bilateral inferior turbinectomy. I discussed the risk of a septoplasty with and without turbinectomy with the patient. There is a risk of continued nasal obstruction, bleeding, septal perforation, permanent anosmia. Also risk of inadequate correction which could result in continued nasal obstruction symptoms. She has a pharmacy ancillary and he would like to do this [...] weeks. Assessment & Plan (06/30/2023 1:11 PM CHEMIST STEROIDS): She also has significant maxillary sinus disease [...] further infections as well as orbital and RESEARCH RN SPEC injuries. She understands. She would like to [...] Elbow pain 04/03/2016 Overview (02/02/2017): RIGHT. 11/05 [facility] says triceps tendonitis. US & MRI [...] seen cariodlogy dr Robbie Romero at [facility]. [facility] see epic notes last visit 09/2021 [...] on file Legal Sex Female 2:24 AM CHEMIST STEROIDS Gender Identity Female 11/04/2019 10:07 PM CDT [...] 04/09/2001, Additional history exists Influenza Vaccine (#1) 2024 0, 02/02/2017, 01/28/2014, Additional history exists Hepatitis B Screening Completed 2000 , 2000, 2000 Pneumococcal vaccine <65 Completed 014, 01/19/2009, 04/09/2001, Additional history exists Varicella Vaccines Completed 01/28/2014, 01/08/2001 Medical Devices Implanted Type Area Patient Relations Liaison Device Identifier Shelf Expiration Date Model / Serial / Lot AcMultimedia Plus | Quiz[employer] Inc Plul06 6 Hole Shortening Ulna Plate Bone Titanium Sterile - [id number] Implanted:Qty: 1 on 10/29/2019 by Estuardo Luke MD at [facility] [place] Right: Ulna Acumed Inc PLUL06 / / Acumed Inc 100471 3.5mm 12mm Hexalobe Screw Bone Titanium Nonsterile Small Fragment - [id number] Implanted:Qty: 1 on 10/29/2019 by Estuardo Luke MD at [facility] [place] Right: Ulna Acumed Inc 082705 / / Acumed Inc 30-0258 3.5mm 14mm Hexalobe Screw Bone Titanium Nonsterile Small Fragment - [id number] Implanted:Qty: 1 on 10/29/2019 by Estuardo Luke MD at [facility] [place] Right: Ulna Acumed Inc 30-0258 / / Acumed Inc 114096 3.5mm 12mm Hexalobe Screw Bone Titanium Nonsterile Small Fragment - [id number] Implanted:Qty: 1 on 10/29/2019 by Estuardo Luke MD at [facility] [place] Right: Ulna Acumed Inc 198381 / / Acumed Inc 402226 3.5mm 12mm Hexalobe Screw Bone Titanium Nonsterile Small Fragment - [id number] Implanted:Qty: 1 on 10/29/2019 by Estuardo Luke MD at [facility] [place] Right: Ulna Acumed Inc 038984 / / Acumed Inc 913221 3.5mm 12mm Hexalobe Screw Bone Titanium Nonsterile Small Fragment - [id number] Implanted:Qty: 1 on 10/29/2019 by Estuardo Luke MD at [facility] [place] Right: Ulna Acumed Inc 007197 / / Acumed Inc 462140 3.5mm 12mm Hexalobe Screw Bone Titanium Nonsterile Small Fragment - [id number] Implanted:Qty: 1 on 10/29/2019 by Estuardo Luke MD at [facility] [place] Right: Ulna Acumed Inc 596295 / / Acumed Inc 852435 3.5mm 12mm Hexalobe Screw Bone Titanium Nonsterile Small Fragment - [id number] Implanted:Qty: 1 on 10/29/2019 by Estuardo Luke MD at [facility] [place] Right: Ulna Acumed Inc 295785 / / Acumed Inc 6 Hole Shortening Ulna Plate Bone Titanium Sterile Plul06 - [id number] Implanted:Qty: 1 on 01/10/2023 by Estuardo Luke MD at [facility] [place] Left: Arm Acumed Inc PLUL06 / / Acumed Inc 3.5mm 12mm Hexalobe Screw Bone Titanium Nonsterile Small Fragment 858237 - [id number] Implanted:Qty: 6 on 01/10/2023 by Estuardo Luke MD at [facility] Left: Arm Acumed Inc 807426 / / Acumed Inc 3.5mm 14mm Hexalobe Screw Bone Titanium Nonsterile Small Fragment 30-0258 - [id number] Implanted:Qty: 1 on 01/10/2023 by Estuardo Luke MD at [facility] [place] Left: Arm Acumed Inc 30-0258 / / Arthrex Inc Dx Swivelock 3.5mm 13.5mm Foot Elbow Medium [place] Suture Peek Ar-8979p - [id number] Implanted:Qty: 1 on 01/10/2023 by Estuardo Luke MD at [facility] [place] Left: Arm Arthrex Inc AR-8979P / / Acumed Inc Peg Fxatn Ulna Reduction Shortening Nonstrl 80-0422 - [id number] Implanted:Qty: 1 on 01/10/2023 by Estuardo Luke MD at [facility] [place] Left: Arm Acumed Inc 80-0422 / / Insurance [facility] BLUE ACCESS CHOICE [place] ANTHEM ACCESS ANTHEM ACCESS CHOICE [place] Advance Directives For more information, please contact: [phone] * Full Code (Latest Code Status on File) Date Activated Date Inactivated Comments 01/10/2023 3:03 PM 01/10/2023 8:07 PM * Full Code Date Activated Date Inactivated Comments 10/29/2019 1:32 PM 10/29/2019 6:42 PM Care Teams Cashier General Relationship Specialty Start Date End Date Compa Correa MD [address] [place] [address] PCP - General Internal Medicine 09/06/17 [place] [address] [place] [address] Surgeon Orthopedic Surgery 01/10/23 Polo Jeffery MD [address] [place] [address] Consulting Physician Otolaryngology 10/01/23"
--- OUTSIDE RECORDS SUMMARY | 2024-11-28 21:45 | XMS_ITS | Encounter Summary ---
Author Organization [facility] Address [address] [place] [address] Phone Care Team Providers Care Quiller Machine Fixer Name Role Phone Compa Correa MD Primary Care Provider [phone] Estuardo Luke MD Unavailable [phone] Polo Jeffery MD Unavailable [phone] Encounter Details Date Type Department Care Team [...] on file Legal Sex Female 2:24 AM DRIVER ENGINEER Gender Identity Female 11/04/2019 10:07 PM CDT [...] on filedocumented in this encounter Care Teams Quiller Machine Fixer Relationship Specialty Start Date End Date Compa Correa MD [address] [place] [address] PCP - General Internal Medicine 09/06/17 [place] [address] [place] [address] Surgeon Orthopedic Surgery 01/10/23 Polo Jeffery MD [address] [place] [address] Consulting Physician Otolaryngology 10/01/23 documented as of this encounter
--- OUTSIDE RECORDS SUMMARY | 2024-11-28 21:45 | XMS_ITS | Encounter Summary ---
Author Organization [facility] Address [address] [place] [address] Phone Care Team Providers Care Door Frame Assembler Machine Name Role Phone Compa Correa MD Primary Care Provider + [phone] Estuardo Luke MD Unavailable [phone] Polo Jeffery MD Unavailable [phone] Encounter Details Date Type Department Care Team [...] on file Legal Sex Female 2:24 AM ELEVATOR SERVICE MECHANIC Gender Identity Female 11/04/2019 10:07 PM CDT [...] on filedocumented in this encounter Care Teams Door Frame Assembler Machine Relationship Specialty Start Date End Date Compa Correa MD [address] [place] [address] PCP - General Internal Medicine 09/06/17 [place] [address] [place] [address] Surgeon Orthopedic Surgery 01/10/23 Polo Jeffery MD [address] [facility] [address] Consulting Physician Otolaryngology 10/01/23 documented as of this encounter
--- OUTSIDE RECORDS SUMMARY | 2024-11-28 21:45 | XMS_ITS | Encounter Summary ---
Author Organization [facility] Address [address] [place] [address] Phone Care Team Providers Care Lead Blender Name Role Phone Vidhi Holley MD Primary Care Provider [phone] Compa Correa MD Primary Care Provider + [phone] Estuardo Luke MD Unavailable [phone] Polo Jeffery MD Unavailable [phone] Encounter Details Date Type Department Care Team (Late st Contact Info) Description 11/09/2016 Orders Only [facility] [address] [place] [address] Luciana Campbell RN Social History Tobacco Use Types Packs/Day Years Used Date Smoking Tobacco: Never Assessed Comments Unknown Sex and Gender Information Value Date Recorded Sex Assigned at Not on file Legal Sex Female 2:24 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
--- OUTSIDE RECORDS SUMMARY | 2024-11-28 21:45 | XMS_ITS | Encounter Summary ---
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 Gender Identity Female 11/04/2019 10:07 PM CDT [...] PM CDT) HCG, ur Negative Negative [facility] Urine 08/16/2016 3:04 PM CDT 08/16/2016 3:07 PM CDT [facility]up[facility] URINE ORDERABLES Final Result [facility] [place] [address] documented in this encounter Visit Diagnoses Not on filedocumented in this encounter Care Teams Licensed Surveyor Relationship Specialty Start Date End Date Vidhi Holley MD [address] [place] [address] PCP - General 06/16/16 09/05/17 documented as of this encounter
--- OUTSIDE RECORDS SUMMARY | 2024-11-28 21:45 | XMS_ITS | Continuity of Care Document ---
Author Organization [employer] [place] Address [address] [place] [address] [address] [place] [address] Phone Care Team Providers Care Molding Line Assistant Name Role Phone Berkley MS, OTR/L, CHTChristie [...] Diagnoses Date Provider Providers Copied on Encounter [address], [id number], tel:[phone] [place] No Information 8 Berkley Soriano. [address] [place] [address], [address], [place], [facility], . tel:[phone] [facility] [address] [place] [address], [place], [id number], tel:[phone] [place] No Information 8 Berkley Soriano. [address] [place] [address], [address], [place], [facility], . tel:[phone] Referring Provider: Jovani Wills [facility] [address]A, [place], [address]. tel:[phone], [id number], tel:[phone] [place] No Information 8 Berkley Soriano. [address] [place] [address], [address], [place], [facility], . tel:[phone] Referring Provider: Nai Wills1 [facility] [address],6B,12A, [place], [address]. tel:[phone], [id number], tel:[phone] [place] No Information 8 Berkley Soriano. [address] [place] [address], [address], [place], [facility], . tel:[phone] Referring Provider: Nai Wills1 [facility] [address],6B,12A, [place], [address]. tel:[phone], [id number], tel:[phone] [place] Synovitis and tenosynovitis , unspecified 7 Hauschild Christie. [address] [place] [address], [address], [place], [facility], [place]. tel:[phone] Referring Provider: Estuardo Luke, [address] [facility] [address],6B,12A, [place], [address]. tel:[phone] [address], [place], [place], [address], tel:[phone] [place] No Information 7 Hauschild Christie. [address] [place] [address], [address], [place], [facility], [place]. tel:[phone] Referring Provider: Estuardo Luke, [address], [place], [address]. tel:[phone] [address], [place], [place], [address], tel:[phone] [place] No Information 7 Hauschild Christie. [address] [place] [address], [address], [place], [address], [place]. tel:[phone] Referring Provider: Estuardo Luke, [address], [place], [address]. tel:[phone], [id number], tel:[phone] [place] No Information 7 Hauschild Christie. [address] [facility], [address], [place], [address], [place]. tel:[phone] Referring Provider: Estuardo Luke, [address], [place], [address]. tel:[phone] [place] [id number] [facility], [place], [place], [address], tel:[phone] [place] No Information Hacruz Christie. [address] [place] [address], [address], [place], [address], [place]. tel:[phone] Referring Provider: Estuardo Luke, [address], [place], [address]. tel:[phone] [place] [address] 2121 [facility], [place], [place], [address], tel:[phone] [place] No Information Berkley Christie. [address] [place] [address], [address], [place], [address], [place]. tel:[phone] Referring Provider: Estuardo Luke, [address], [place], [address]. tel:[phone] [place] [id number] [facility], [place], [place], [address], [place] tel:[phone] [place] No Information Tristian Haro. . Referring Provider: Estuardo Luke, [address], [place], [address]. tel:[phone] [facility], [place], [place], [address], [place] tel:[phone] [place] No Information Lucretia Owen. [address] [place] [address], [address], [place], [address], [place]. tel:[phone] Referring Provider: Estuardo Luke, [address], [place], [address]. tel:[phone] [facility], [place], [place], [address], tel:[phone] [place] No Information 7 Berkley Soriano. [address] [place] [address], [address], [place], [facility], . tel:[phone] Referring Provider: Estuardo Luke, [address], [place], [address]. tel:[phone] [place] [address] 2121 [facility] [address], [place], [address], [place] tel:[phone] [place] No Information 7 Berkley Soriano. [address] [place] [address], [address], [place], [facility], [place]. tel:[phone] Referring Provider: Estuardo Luke, [address], [place], [address]. tel:[phone] [place] [address] 2121 [facility] [address] [place] [address], [id number], [place] tel:[phone] [place] No Information 7 Berkley Soriano. [address] [place] [address], [address], [place], [address], [place]. tel:[phone] Referring Provider: Estuardo Luke, [address], [place], [address]. tel:[phone] [place] [address] 2121 [facility], [place], [place], [address], [place] tel:[phone] [place] No Information 7 Berkley Soriano. [address] [place] [address], [address], [place], [address], [place]. tel:[phone] Referring Provider: Estuardo Luke, [address], [place], [address]. tel:[phone] [facility] 2[address] [facility], [place], [place], [address], tel:[phone] [place] No Information Sep-2 7-201 7 Hacruz Christie. [address] [facility], [address], [place], [facility], . tel:[phone] Referring Provider: Estuardo Luke, [address], [place], [address]. tel:[phone], [place], [place], [address], tel:[phone] [place] No Information Sep-2 3-201 7 Berkley Christie. [address] [facility], [address], [place], [facility], . tel:[phone] Referring Provider: Estuardo Luke [address], [place], [address]. tel:[phone] [place], [place] [address], [place], [place], [address], tel:[phone] [place] No Information Sep-2 0-201 7 Berkley Christie. [address] [facility], [address], [address], [place]. tel:[phone] Referring Provider: Estuardo Luke, [address], [place], [address]. tel:[phone] [facility] [address] [facility], [place], [place], [address], tel:[phone] [place] No Information Sep-1 5-201 7 Yair Martinez. . Referring Provider: Estuardo Luke [address], [place], [address]. tel:[phone] [facility] [address], [place], [place], [address], tel:[phone] [place] No Information Sep-1 3-201 7 Yair Martinez. . Referring Provider: Estuardo Luke, [address], [place], [address]. tel:[phone] [place] [address] [facility] [address], [place], [place], [address], tel:[phone] [place] No Information Kristian-0 9-201 7 Hauscjayme Foxfer. [address] [place] [address], [address], [place], [address], . tel:[phone] Referring Provider: Estuardo Luke, [address], [place], [address]. tel:[phone] [facility] [address] [facility] 300, [place], [place], [address], tel:[phone] [place] No Information Sep-0 6-201 7 Hacruz Soriano. [address] [place] [address], [address], [place], [address], [place]. tel:[phone] Referring Provider: Estuardo Luke, [address], [place], [address]. tel:[phone] [address] [place] [address] [address] [address], [place], [place], [address], tel:[phone] [place] No Information August-3 0-201 7 Berkley Soriano. [address] [place] [address], [address], [place], [address], [place]. tel:[phone] Referring Provider: Estuardo Luke, [address], [place], [address]. tel:[phone] [facility] [address], [id number], tel:[phone] [place] Stiffness of right elbow, not elsewhere classifiedEff usion, right elbowMuscle weakness (generalized) Stiffness of right shoulder, not elsewhere classifiedLes ion of ulnar nerve, right upper limb August-2 6-201 7 Berkley Soriano. [address] [place] [address], [address], [place], [address], [place]. tel:[phone] Referring Provider: Estuardo Luke, [address], [place], [address]. tel:[phone] [facility], [address] [place], [place] [address], [place], [place], [address], tel:[phone] [place] No Information 4-201 7 Hauschild Christie. [address] [place] [address], [address], [place], [address], [place]. tel:[phone] Referring Provider: Win Wills[address], [place], [address]. tel:[phone] [facility], [address] [place], [place] [address]e [address] [place] [address], [id number], tel:[phone] [place] No Information 0 9-201 7 Hauschild Christie. [address] [place] [address], [address], [place], [address], [place]. tel:[phone] Referring Provider: Win Wills[address], [place], [address]. tel:[phone] [facility], [address] [place], [place] [address], [place], [place], [address], [place] tel:[phone] [place] No Information 0 - 7 Hauschild Christie. [address] [place] [address], [address], [place], [address], [place]. tel:[phone] Referring Provider: Estuardo Luke [address], [place], [address]. tel:[phone] [facility], [address] [place], [place] [address], [place], [place], [address], [place] tel:[phone] [place] No Information 0-201 6 Hauschild Christie. [address] [place] [address], [address], [place], [facility], [place]. tel:[phone] Referring Provider: Estuardo Luke [address], [place], [address]. tel:[phone] [place] [address], [address] [place] [address], [id number], tel:[phone] [place] No Information Dec-1 6-201 6 Hauschild Christie. [address] [place] [address], [address], [place], [facility], [place]. tel:[phone] Referring Provider: Estuardo Luke, [address], [place], [address]. tel:[phone] [place] [address], [address] [place] [address], [id number], tel:[phone] [place] No Information Dec-1 3-201 6 Hauschild Christie. [address] [place] [address], [address], [place], [facility], [place]. tel:[phone] Referring Provider: Estuardo Luke [address], [place], [address]. tel:[phone] [place] [address], [address] [place] [address], [id number], tel:[phone] [place] No Information Dec-0 9-201 6 Hauschild Christie. [address] [place] [address], [address], [place], [address], [place]. tel:[phone] Referring Provider: Estuardo Luke [address], [place], [address]. tel:[phone] [place] [address], [id number], tel:[phone] [place] No Information Dec-0 6-201 6 Hauschild Christie. [address] [place] [address], [address], [place], [address], [place]. tel:[phone] Referring Provider: Estuardo Luke, [address], [place], [address]. tel:[phone] [place] [address], [address]121 [facility], [place], [place], [address], [place] tel:[phone] [place] No Information Nov-3 0-201 6 Bagautdinronny ChowdaryKristine. [address] [place] [address], [address], [place], [facility], . tel:[phone] Referring Provider: Estuardo Luke, [address], [place], [address]. tel:[phone] [place] [address] 2121 [facility] [address] [place] [address], [id number], [place] tel:[phone] [place] No Information Nov-2 8- 6 Bagautdinova Kristine. [address] [place] [address], [address], [place], [facility], [place]. tel:[phone] Referring Provider: Estuardo Luke, [address], [place], [address]. tel:[phone] [place] [address], [address] [facility] [address], [place], [address], [place] tel:[phone] [place] No Information Nov-2 5- 6 Félix Dumas [place], [place]. Referring Provider: Estuardo Luke, [address], [place], [address]. tel:[phone] [facility], [address] [facility], [place], [place], [address], [place] tel:[phone] [place] No Information Nov-2 3- 6 Berkley Soriano. [address] [place] [address], [address], [place], [facility], [place]. tel:[phone] Referring Provider: Estuardo Luke, [address], [place], [address]. tel:[phone] [place] [id number] [address], [place], [place], [address], [place] tel:[phone] [place] No Information 6 Hacharlesld Christie. [address] [place] [address], [address], [place], [facility], [place]. tel:[phone] Referring Provider: Estuardo Luke, [address], [place], [address]. tel:[phone] [place] [id number] [address], [place], [place], [address], [place] tel:[phone] [place] No Information 6 Hauschild Christie. [address] [place] [address], [address], [place], [address], [place]. tel:[phone] Referring Provider: Estuardo Luke, [address], [place], [address]. tel:[phone] [place] [id number] [address], [place], [place], [address], [place] tel:[phone] [place] No Information 6 [place], [place]. Referring Provider: Estuardo Luke, [address], [place], [address]. tel:[phone] [place] [id number] [address], [place], [place], [address], [place] tel:[phone] [place] No Information 6 Elisabethld Christie. [address] [place] [address], [address], [place], [address], [place]. tel:[phone] Referring Provider: Estuardo Luke, [address], [place], [address]. tel:[phone] [facility], [place], [place], [address], tel:[phone] [place] No Information Jan-3 1-201 6 Hauschild Christie. [address] [facility], [address], [place], [facility], . tel:[phone] Referring Provider: Win Wills[address], [place], [address]. tel:[phone] [place] [address]e [address], [place], [place], [address], tel:[phone] [place] No Information Jan-2 6-201 6 Hauschild Christie. [address] [place] [address], [address], [place], [facility], [place]. tel:[phone] Referring Provider: Win Wills[address], [place], [address]. tel:[phone] [place] [address], [place], [place], [address], tel:[phone] [place] No Information Jan-1 7-201 6 Hauschild Christie. [address] [place] [address], [address], [place], [facility], [place]. tel:[phone] Referring Provider: Win Wills[address], [place], [address]. tel:[phone] [address], [place], [place], [address], tel:[phone] [place] No Information Jan-1 0-201 6 Hauschild Christie. [address] [place] [address], [address], [place], [address], [place]. tel:[phone] Referring Provider: Win Wills[address], [place], [address]. tel:[phone] [address], [place], [address], tel:[phone] [place] No Information Jan-0 5-201 6 Hauschild Christie. [address] [facility], [address], [place], [address], [place]. tel:[phone] Referring Provider: Estuardo Luke, [address], [place], [address]. tel:[phone] [place], [place] [address]u[address] [address], [place], [address], tel:[phone] [place] No Information Sep-2 8-201 6 Hauschild Christie. [address] [place] [address], [address], [place], [facility], [place]. tel:[phone] Referring Provider: Estuardo Luke [address], [place], [address]. tel:[phone] [place], [place] [address], [place], [place], [address], tel:[phone] [place] No Information Dec-0 7-201 6 Hauschild Christie. [address] [place] [address], [address], [place], [address], [place]. tel:[phone] Referring Provider: Win Wills[address], [place], [address]. tel:[phone] [place], [place] [address], [place], [place], [address], tel:[phone] [place] No Information Nov-3 1-201 6 Hauschild Christie. [address] [facility], [address], [place], [address], [place]. tel:[phone] Referring Provider: Estuardo Luke [address], [place], [address]. tel:[phone] [facility], [address] [place], [place] [address], [place], [place], [address], tel:[phone] [place] No Information 6 Hauschild Christie. [address] [facility], [address], [place], [address], [place]. tel:[phone] Referring Provider: Win Wills[address], [place], [address]. tel:[phone] [place] [address], [address] [facility], [place], [place], [address], [place] tel:[phone] [place] No Information 6 Hauschild Christie. [address] [facility], [address], [place], [address], [place]. tel:[phone] Referring Provider: Win Wills[address], [place], [address]. tel:[phone] [place] [address] 2121 [facility], [place], [place], [address], [place] tel:[phone] [place] Pain in right elbowWeakness Other enthesopathie s, not elsewhere classified 6 Elisabethld Christie. [address] [facility], [address], [place], [address], [place]. tel:[phone] Referring Provider: Win Wills[address], [place], [address]. tel:[phone] [facility] [address], [place], [place], [address], [place] tel:[phone] [place] No Information 6 Hauschild Christie. [address] [facility], [address], [place], [address], [place]. tel:[phone] Referring Provider: Win Wills[address], [place], [address]. tel:[phone] [facility], [place], [place], [address], [place] tel:[phone] [place] No Information Apr-2 0-201 5 Hauschild Christie. [address] [facility], [address], [place], [address], [place]. tel:[phone] Referring Provider: Estuardo Luke, [address], [place], [address]. tel:[phone] [place], [place] [address], [place], [place], [address], tel:[phone] [place] No Information Apr-1 7-201 5 Hauschild Christie. [address] [facility], [address], [place], [address], [place]. tel:[phone] Referring Provider: Estuardo Luke [address], [place], [address]. tel:[phone] [place], [place] [address], [place], [place], [address], tel:[phone] [place] No Information Apr-1 0-201 5 Hauschild Christie. [address] [place] [address], [address], [place], [address], [place]. tel:[phone] Referring Provider: Estuardo Luke [address], [place], [address]. tel:[phone] [place], [place] [address], [place], [place], [address], [place] tel:[phone] [place] No Information Apr-0 8-201 5 Hauschild Christie. [address] [facility], [address], [place], [address], [place]. tel:[phone] Referring Provider: Estuardo Luke, [address], [place], [address]. tel:[phone] [facility], [address] [place], [place] [address], [place], [place], [address], tel:[phone] [place] No Information Apr-0 1-201 5 Tenny Dang. [address] [facility], [address], [place], [address], [place]. tel:[phone] Referring Provider: Ronda Wills [address], [place], [address]. tel:[phone] [place], [place] [address], [place], [place], [address], tel:[phone] [place] No Information Mar-3 0-201 5 Tenny Dang. [address] [facility], [address], [place], [address], [place]. tel:[phone] Referring Provider: Ronda Wills [address], [place], [address]. tel:[phone] [place], [place] [address], [place], [place], [address], [place] tel:[phone] [place] No Information Mar-2 5-201 5 Hauschild Christie. [address] [place] [address], [address], [place], [address], [place]. tel:[phone] Referring Provider: Ronda Wills [address], [place], [address]. tel:[phone] [place], [place] [address], [place], [place], [address], [place] tel:[phone] [place] No Information Mar-2 3-201 5 Hauschild Christie. [address] [place] [address], [address], [place], [address], [place]. tel:[phone] Referring Provider: Ronda Wills [address], [place], [address]. tel:[phone] [place] [address], [facility] [address], [place], [place], [address], [place] tel:[phone] [place] No Information Mar-1 8-201 5 Hauschild Christie. [facility], [address], [place], [address], [place]. tel:[phone] Referring Provider: Estuardo Luke, [address], [place], [address]. tel:[phone] [place] [address], [address] [place], [place] [address], [place], [place], [address], [place] tel:[phone] [place] No Information Jun- 6-201 5 Berkley Soriano. [address] [place] [address], [address], [place], [address], [place]. tel:[phone] Referring Provider: Estuardo Luke, [address], [place], [address]. tel:[phone] [place] [address], [address] [address] [place] [address], [place], [place], [id number], [place] tel:[phone] [place] No Information Dec-2 7-201 3 Berkley Soriano. [address] [place] [address], [address], [place], [address], [place]. tel:[phone] Referring Provider: Estuardo Luke, [address], [place], [address]. tel:[phone] [place] [address], [address] [place], [place] [address], [place], [place], [id number], [place] tel:[phone] [place] No Information Dec-2 3-201 3 Berkley Soriano. [address] [place] [address], [address], [place], [address], [place]. tel:[phone] Referring Provider: Estuardo Luke [address], [place], [address]. tel:[phone] [facility], [address] [place], [place] [address], [place], [place], [id number], [place] tel:[phone] [place] No Information Dec-2 0-201 3 Tenny Dang. [address] [place] [address], [address], [place], [place], [facility], [place]. tel:[phone] Referring Provider: Estuardo Luke [address], [place], [address]. tel:[phone] [place] [address], [address] [place] [address], [place], [id number], tel:[phone] [place] No Information Dec-1 6-201 3 Hauschild Christie. [address] [place] [address], [address], [place], [facility], [place]. tel:[phone] Referring Provider: Estuardo Luke, [address], [place], [address]. tel:[id number] [place] [address], [id number], tel:[phone] [place] No Information Dec-1 1-201 3 Hauschild Christie. [address] [place] [address], [address], [place], [facility], [place]. tel:[phone] Referring Provider: Win Wills[address], [place], [address]. tel:[phone] [place] [address], [id number], tel:[phone] [place] No Information Dec-0 6-201 3 Hauschild Christie. [address] [place] [address], [address], [place], [facility], [place]. tel:[phone] Referring Provider: Estuardo Luke, [address], [place], [address]. tel:[phone] [place] [address], [address] [place] [address], [id number], tel:[phone] [place] No Information Dec-0 4-201 3 Hauschild Christie. [address] [place] [address], [address], [place], [address], [place]. tel:[phone] Referring Provider: Estuardo Luke, [address], [place], [address]. tel:[phone] [place] [address], [address] [place], [place] [address], [place], [place], [id number], tel:[phone] [place] No Information 3 Carlo Lidia. [address] [place] [address], [address], [place], [address], [place]. tel:[phone] Referring Provider: Estuardo Luke, [address], [place], [address]. tel:[phone], [id number], tel:[phone] [place] No Information 3 Berkley Soriano. [address] [place] [address], [address], [place], [address], [place]. tel:[phone] Referring Provider: Estuardo Luke, [address], [place], [address]. tel:[phone] [place] [address] [place] [address], [id number], [place] tel:[phone] [place] No Information 3 Carlo Lidia. [address] [place] [address], [address], [place], [address], [place]. tel:[phone] Referring Provider: Estuardo Luke, [address], [place], [address]. tel:[phone], [place], [id number], [place] tel:[phone] [place] No Information 3- 3 Berkley Soriano. [address] [place] [address], [address], [place], [address], [place]. tel:[phone] Referring Provider: Estuardo Luke, [address], [place], [address]. tel:[phone] [address], [place], [place], [id number], tel:[phone] [place] No Information Nov-0 8-201 3 Berkley Christie. [address] [place] [address], [address], [place], [facility], [place]. tel:[phone] Referring Provider: Estuardo Luke, [address], [place], [address]. tel:[phone] [address] [address], [place], [id number], tel:[phone] [place] No Information Nov-0 6-201 3 Berkley Christie. [address] [place] [address], [address], [place], [address], [place]. tel:[phone] Referring Provider: Estuardo Luke, [address], [place], [address]. tel:[phone] [address] [facility], [place], [place], [id number], tel:[phone] [place] No Information Nov-0 1-201 3 Berkley Soriano. [address] [place] [address], [address], [place], [address], [place]. tel:[phone] Referring Provider: Estuardo Luke, [address], [place], [address]. tel:[phone] [address] [address], [place], [address], [place] tel:[phone] [place] No Information Oct-3 0-201 3 Tenny Dang. [address] [place] [address], [address], [place], [address], [place]. tel:[phone] Referring Provider: Estuardo Luke, [address], [place], [address]. tel:[phone] [facility], [address] [place], [place] [address], [place], [place], [id number], tel:[phone] [place] No Information 5-201 3 Hauschild Christie. [address] [place] [address], [address], [place], [address], [place]. tel:[phone] Referring Provider: Estuardo Luke, [address], [place], [address]. tel:[phone] [address], [place], [place], [id number], [place] tel:[phone] [place] No Information 3-201 3 Hauschild Christie. [address] [place] [address], [address], [place], [address], [place]. tel:[phone] Referring Provider: Estuardo Luke, [address], [place], [address]. tel:[phone] [address], [place], [place], [id number], [place] tel:[phone] [place] No Information 8- 3 Hauschild Christie. [address] [place] [address], [address], [place], [address], [place]. tel:[phone] Referring Provider: Estuardo Luke, [address], [place], [address]. tel:[phone] [address], [place], [place], [id number], [place] tel:[phone] [place] No Information 4-201 3 Hauschild Christie. [address] [place] [address], [address], [place], [address], [place]. tel:[phone] Referring Provider: Estuardo Luke, [address], [place], [address]. tel:[phone] [facility] [address], [place], [place], [id number], [place] tel:[phone] [place] No Information 3 Carlo Murillo. [address] [place] [address], [address], [place], [address], . tel:[phone] Referring Provider: Estuardo Luke, [address], [place], [address]. tel:[phone] [facility] [address], [place], [place], [id number], [place] tel:[phone] [place] No Information 3 Dipti Leong. [address] [place] [address], [address], [place], [address], [place]. tel:[phone] Referring Provider: Estuardo Luke, [address], [place], [address]. tel:[phone] [facility] [address], [place], [place], [id number], [place] tel:[phone] [place] No Information 3 Berkley Christie. [address] [place] [address], [address], [place], [address], [place]. tel:[phone] Referring Provider: Tang Rios, [address], [place], [address]. tel:[phone] [facility] [address], [place], [place], [id number], [place] tel:[phone] [place] No Information 3 Rubia Gomez. [address] [place] [address], [address], [place], [address], [place]. tel:[phone] [facility] [address], [place], [place], [address], [place] tel:[phone] [place] No Information May-2 9-201 3 Olucruz Christie. [address] [facility], [address], [place], [address], [place]. tel:[phone] Referring Provider: Tang Rios, [address], [place], [address]. tel:[phone], [place], [place], [id number], [place] tel:[phone] [place] No Information May-2 2-201 3 Rubia Jason. [address] [facility], [address], [place], [address], [place]. [phone], [place], [place], [address], [place] tel:[phone] [place] No Information August-2 2-201 3 Carlo Lidia. [address] [place] [address], [address], [place], [address], [place]. [phone] Referring Provider: Tang Rios, [address], [place], [address]. tel:[phone], [place], [place], [address], [place] tel:[phone] [place] No Information August-2 0-201 3 Carlo Lidia. [address] [place] [address], [address], [place], [address], [place]. tel:[phone] Referring Provider: Tang Rios, [address], [place], [address]. tel:[phone], [place], [place], [id number], [place] tel:[phone] [place] No Information May-2 0-201 3 Rubia Jason. [address] [place] [address], [address], [place], [address], [place]. tel:[phone], [place], [place], [id number], [place] tel:[phone] [place] No Information August- 7-201 3 Rubia Jason. [address] [place] [address], [address], [place], [address], [place]. tel:[phone] [address], [place], [place], [address], [place] tel:[phone] [place] No Information 7-201 3 Hauschild Christie. [address] [place] [address], [address], [place], [address], [place]. tel:[phone] Referring Provider: Tang Rios, [address], [place], [address]. tel:[phone] [address], [place], [place], [address], [place] tel:[phone] [place] No Information 3-201 3 Rubia Jason. [address] [place] [address], [address], [place], [address], [place]. tel:[phone] [place] [address] [address], [place], [place], [address], [place] tel:[phone] [place] No Information 3-201 3 Hauschild Christie. [address] [place] [address], [address], [place], [address], [place]. tel:[phone] Referring Provider: Tang Rios, [address], [place], [address]. tel:[phone], [place], [place], [id number], [place] tel:[phone] [place] Pain in joint involving lower leg May-1 0-201 3 Rubia Jason. [address] [place] [address], [address], [place], [address], [place]. tel:[phone], [place], [place], [address], [place] tel:[phone] [place] No Information May-1 0-201 3 Hauschild Christie. [address] [place] [address], [address], [place], [address], [place]. tel:[phone] Referring Provider: Michael Dowell [address], [place], [address]. tel:[phone] [address], [place], [place], [address], tel:[phone] [place] No Information May-0 6-201 3 Hauschild Christie. [address] [place] [address], [address], [place], [facility], [place]. tel:[phone] Referring Provider: Michael Dowell E [address] [place] [address], [place], [address]. tel:[phone] [place] [address], [place], [place], [address], [place] tel:[phone] [place] No Information May-0 3-201 3 Hauschild Christie. [address] [place] [address], [address], [place], [address], [place]. tel:[phone] Referring Provider: Michale Dowell E [address] [place] [address], [place], [address]. tel:[phone] [address] [facility], [place], [place], [id number], [place] tel:[phone] [place] No Information Apr-2 9-201 3 Hauschild Christie. [address] [place] [address], [address], [place], [address], [place]. tel:[phone] Referring Provider: Michael Dowell E [address] [place] [address], [place], [address]. tel:[phone] [place] [address], [place], [place], [address], tel:[phone] [place] Pain in joint involving hand Apr-2 4-201 3 Hauschild Christie. [address] [place] [address], [address], [place], [address], [place]. tel:[phone] Referring Provider: Tang Rios, [address], [place], [address]. tel:[phone] Family History Family Member Type Diagnosis Age At Onset No Information Payers Payer name Insurance type Covered constitution party ID Authoriza tiivan(s) [facility] [id number] Social History Type Description Quantity Date Captured [...]
--- OUTSIDE RECORDS SUMMARY | 2024-11-28 21:45 | XMS_ITS | Encounter Summary ---
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
--- NOTE | 2024-11-28 21:47 | PC.NURSE ---
NOTIFIED MELISSA WITH RADIOLOGY THAT PATIENT IS CURRENTLY IN THE WAITING ROOM
--- NOTE | 2024-11-28 21:49 | PC.NURSE ---
PATIENT WAS UPDATED THAT AN XRAY ORDER WAS PLACED AND THAT MELISSA WITH RADIOLOGY WOULD BE COMING TO GET HER SOON. PATIENT VERBALIZED UNDERSTANDING
[2024-11-28 21:52] VITALS: BP 122/69; PULSE 116; RESP 15; TEMP 36.4; O2SAT 97
--- NOTE | 2024-11-28 22:23 | ED_ITS ---
HPI - Extremity Injury (Lower) General Chief Complaint: Extremity Injury, Lower Stated Complaint: left lower extremity injury Time Seen by Provider: 11/28/24 22:22 Source: patient Mode of arrival: ambulatory Limitations: no limitations History of Present Illness HPI Narrative: Patient is a 24-year-old female who was playing softball today and was running to a base and heard a pop in her knee. She was unable to walk on that leg any further and required assistance. MD complaint: knee injury ( Left) Onset (ago): day(s) ( 1) Type of Injury: hyperextension Place: street/outdoors Severity: moderate Severity scale (1-10): 4 Relieving factors: cold therapy and immobilization Exacerbating factors: weight bearing, movement and palpation Context: running Associated symptoms: snap/pop sensation Other symptoms: none Treatments prior to arrival: cold therapy Related Data Allergies Allergy/AdvReac Type Severity Reaction Status Date / Time chlorhexidine Allergy Unknown Unknown Verified 08/27/17 18:23 Review of Systems Review of Systems: All systems reviewed & are unremarkable except as noted in HPI and below Constitutional: Constitutional: Reports no additional constitutional complaints Eyes: Eyes: Reports no additional eye complaints ENT: Reports system reviewed and no additional complaints, except as documented Cardiovascular: Cardiovascular: Reports no additional cardiovascular compl aints Respiratory: Respiratory: Reports no additional respiratory complaints Gastrointestinal: Gastrointestinal: Reports no additional gastrointestinal complaints Genitourinary: Genitourinary: Reports no additional female genitourinary co mplaints Musculoskeletal: Musculoskeletal: Reports no additional musculoskeletal complaints Integumentary/Breasts: Skin/Breast: Reports system reviewed and no additional complaints, except as docu Neurologic: Reports system reviewed and no additional complaints, except as documented Psychiatric: Psychiatric: Reports no additional psychiatric complaints Endocrine: Endocrine: Reports no additional endocrine complaints Hematologic/Lymphatic: Hematologic/Lymphatic: Reports no additional hematologic/lymphatic complaints Allergic/Immunologic: Allergic/Immunologic: Reports no additional allergic/immunologic complaints Exam Const: General: healthy appearing Nutritional Appearance: well nourished Orientation/consciousness: patient oriented x3 HENMT: Head: normal to inspection Ears: external ears normal Face/Nose/Sinus: Normal external nose present Eyes: Conjunctivae: conjunctivae normal Pupils: Equal, round and reactive pupils present EOM: EOMs intact bilaterally Neck: Neck: normal visual inspection Chest: Chest palpation & inspection: normal inspection of the chest Resp: Effort & Inspection: normal respiratory effort and not labored Auscultation: clear to auscultation bilaterally and no crackles Cardio: Rate: regular rate Rhythm: regular rhythm Heart sounds: no murmurs GI: Inspection: non-distended GI Palp: Yes Soft to palpation and No Tenderness to palpation present (GI) Auscultation: normal bowel sounds : General: Yes bladder normal to palpation Back/Spine/Pelvis: Back: no CVA tenderness Skin: General skin exam: normal color Rashes: no rashes Wounds: no wounds Neuro: General: patient oriented x3 and moves all extremities Cranial nerves: Yes Nystagmus not present Extrem: General: abnormal to inspection Other: left knee has some prepatellar inflammation and fluid and ACL movement of the knee allows laxity and suspicious for ACL tear Psych: Mental Status: mental status grossly normal Affect: normal affect Attitude: cooperative Course Vital Signs Vital signs: Vital Signs Temperature 36.4 C 11/28/24 21:52 Pulse Rate 116 H 11/28/24 21:52 Respiratory Rate 15 11/28/24 21:52 Blood Pressure 122/69 11/28/24 21:52 Pulse Oximetry 97 11/28/24 21:52 Oxygen Delivery Room Air 11/28/24 21:52 Temperature 36.4 C 11/28/24 21:52 Pulse Rate 88 11/29/24 00:21 Respiratory Rate 20 11/29/24 00:21 Blood Pressure 120/70 11/29/24 00:21 Pulse Oximetry 100 11/29/24 00:21 Oxygen Delivery Room Air 11/29/24 00:21 MDM - Extremity Injury (Lower) MDM Narrative Medical decision making narrative: patient is a 24-year-old female with a left knee injury after playing softball. Patient heard a pop. She needs MRI in the next week. Pain control. Patient did not want pain medicine at this time. But she will take a script at the pharmacy. Knee immobilizer. x-ray knee. Imaging Data Attestation: I personally reviewed and interpreted this imaging study as follows: Radiologist's impression: X-ray left knee shows IMPRESSION: Trace degenerative disease with a small suprapatellar joint effusion. Additional findings suggesting possible ACL injury, as detailed above. Discharge Plan Discharge Clinical Impression: Rupture of anterior cruciate ligament of left knee Qualifiers: Encounter type: initial encounter Qualified Code(s): S83.512A - Sprain of anterior cruciate ligament of left knee, initial encounter Patient Disposition: Home Condition: Stable Instructions: ACL Injury (ED) Additional Instructions: Please follow-up with primary doctor in the next week. You will need an MRI of the left knee in the upcoming 1-2 weeks. Patient Language: [place] Prescriptions: New hydrocodone-acetaminophen 5-325 mg tablet 1 tablet PO Q8H PRN (Reason: pain) Qty: 20 0RF Follow-up/Referrals: Compa Correa MD [Primary Care Provider] - Time of Disposition: 00:00
--- NOTE | 2024-11-28 22:30 | PC.NURSE ---
RESTING ON STRETCHER. AWAITING XRAY RESULTS. DENIES ANY NEEDS. LEFT LEG ELEVATED ON PILLOW. ICE PACK IN PLACE. CALL LIGHT IN REACH
--- OUTSIDE RECORDS SUMMARY | 2024-11-28 22:44 | XMS_ITS | Continuity of Care Document ---
Author Organization [employer] Address [address] [place] [address] [address] [place] [address] Phone Care Team Providers Care Statistical Modeler Name Role Phone Berkley MS, OTR/L, CHTChristie [...] Diagnoses Date Provider Providers Copied on Encounter [address], [id number], tel:[phone] [place] No Information 8 Berkley Soriano. [address] [place] [address], [address], [place], [facility], . tel:[phone] [facility] [address] [place] [address], [place], [id number], tel:[phone] [place] No Information 8 Berkley Soriano. [address] [place] [address], [address], [place], [facility], . tel:[phone] Referring Provider: Jovani Wills [facility] [address], [place], [address]. tel:[phone], [id number], tel:[phone] [place] No Information 8 Berkley Soriano. [address] [place] [address], [address], [place], [place], [facility], . tel:[phone] Referring Provider: Nai Wills1 [facility] [address],6B,12A, [place], [address]. tel:[phone], [id number], tel:[phone] [place] No Information 8 Berkley Soriano. [address] [place] [address], [address], [place], [facility], . tel:[phone] Referring Provider: Nai Wills1 [facility] [address],6B,12A, [place], [address]. tel:[phone], [id number], tel:[phone] [place] Synovitis and tenosynovitis , unspecified 7 Hauschild Christie. [address] [place] [address], [address], [place], [place], [facility], [place]. tel:[phone] Referring Provider: Estuardo Luke, [address] [facility] [address],6B,12A, [place], [address]. tel:[phone] [address], [place], [place], [id number], tel:[phone] [place] No Information 7 Hauschild Christie. [address] [place] [address], [address], [place], [facility], [place]. tel:[phone] Referring Provider: Estuardo Luke, [address], [place], [address]. tel:[phone] [address], [place], [place], [address], tel:[phone] [place] No Information 7 Hauschild Christie. [address] [place] [address], [address], [place], [address], [place]. tel:[phone] Referring Provider: Estuardo Luke, [address], [place], [address]. tel:[phone], [id number], tel:[phone] [place] No Information 7 Hauschild Christie. [address] [facility], [address], [place], [address], [place]. tel:[phone] Referring Provider: Estuardo Luke, [address], [place], [address]. tel:[phone] [place] [id number] [facility], [place], [place], [address], tel:[phone] [place] No Information Hacruz Christie. [address] [place] [address], [address], [place], [address], [place]. tel:[phone] Referring Provider: Estuardo Luke, [address], [place], [address]. tel:[phone] [place] [address] 2121 [facility], [place], [place], [address], tel:[phone] [place] No Information Berkley Christie. [address] [place] [address], [address], [place], [address], [place]. tel:[phone] Referring Provider: Estuardo Luke, [address], [place], [address]. tel:[phone] [place] [id number] [facility], [place], [address], [place] tel:[phone] [place] No Information Tristian Haro. . Referring Provider: Estuardo Luke, [address], [place], [address]. tel:[phone] [facility], [place], [place], [address], [place] tel:[phone] [place] No Information Lucretia Owen. [address] [place] [address], [address], [place], [address], [place]. tel:[phone] Referring Provider: Estuardo Luke, [address], [place], [address]. tel:[phone] [facility], [place], [place], [address], tel:[phone] [place] No Information 7 Berkley Soriano. [address] [place] [address], [address], [place], [facility], . tel:[phone] Referring Provider: Estuardo Luke, [address], [place], [address]. tel:[phone] [place] [address] 2121 [facility] [address], [id number], [place] tel:[phone] [place] No Information 7 Berkley Soriano. [address] [place] [address], [address], [place], [facility], [place]. tel:[phone] Referring Provider: Estuardo Luke, [address], [place], [address]. tel:[phone] [place] [address] 2121 [facility] [address] [place] [address], [id number], [place] tel:[phone] [place] No Information 7 Berkley Soriano. [address] [place] [address], [address], [place], [address], [place]. tel:[phone] Referring Provider: Estuardo Luke, [address], [place], [address]. tel:[phone] [place] [address] 2[address] [facility], [place], [place], [address], [place] tel:[phone] [place] No Information 7 Berkley Soriano. [address] [place] [address], [address], [place], [address], [place]. tel:[phone] Referring Provider: Estuardo Luke, [address], [place], [address]. tel:[phone] [facility] [address] [facility], [place], [place], [address], tel:[phone] [place] No Information Sep-2 7-201 7 Hacruz Christie. [address] [facility], [address], [place], [facility], . tel:[phone] Referring Provider: Estuardo Luke, [address], [place], [address]. tel:[phone], [place], [place], [address], tel:[phone] [place] No Information Sep-2 3-201 7 Berkley Christie. [address] [facility], [address], [place], [facility], . tel:[phone] Referring Provider: Estuardo Luke [address], [place], [address]. tel:[phone] [place] [address], [place], [place], [address], tel:[phone] [place] No Information Sep-2 0-201 7 Berkley Christie. [address] [facility], [address], [place], [address], [place]. tel:[phone] Referring Provider: Estuardo Luke, [address], [place], [address]. tel:[phone] [facility] [address]121 [facility], [place], [place], [address], tel:[phone] [place] No Information Sep-1 5-201 7 Yair Martinez. . Referring Provider: Estuardo Luke [address], [place], [address]. tel:[phone] [facility] [address], [place], [place], [address], tel:[phone] [place] No Information Sep-1 3-201 7 Yair Martinez. . Referring Provider: Estuardo Luke, [address], [place], [address]. tel:[phone] [place] [address] [facility], [place], [place], [address], tel:[phone] [place] No Information Kristian-0 9-201 7 Hauscjayme Foxfer. [address] [place] [address], [address], [place], [address], . tel:[phone] Referring Provider: Estuardo Luke, [address], [place], [address]. tel:[phone] [facility] [address] [facility] [address], [place], [address], tel:[phone] [place] No Information Sep-0 6-201 7 Hacruz Soriano. [address] [place] [address], [address], [place], [address], [place]. tel:[phone] Referring Provider: Estuardo Luke, [address], [place], [address]. tel:[phone] [place] [address] [place] [address], [place], [place], [address], tel:[phone] [place] No Information August-3 0-201 7 Berkley Soriano. [address] [place] [address], [address], [place], [address], [place]. tel:[phone] Referring Provider: Estuardo Luke, [address], [place], [address]. tel:[phone] [facility] [address], [id number], tel:[phone] [place] Stiffness of right elbow, not elsewhere classifiedEff usion, right elbowMuscle weakness (generalized) Stiffness of right shoulder, not elsewhere classifiedLes ion of ulnar nerve, right upper limb August-2 6-201 7 Berkley Soriano. [address] [place] [address], [address], [place], [address], [place]. tel:[phone] Referring Provider: Estuardo Luke, [address], [place], [address]. tel:[phone] [facility], [address] [place], [place] [address], [place], [place], [address], tel:[phone] [place] No Information 4-201 7 Hauschild Christie. [address] [place] [address], [address], [place], [address], [place]. tel:[phone] Referring Provider: Win Wills[address], [place], [address]. tel:[phone] [facility], [address] [place], [place] [address]e [address] [place] [address], [id number], tel:[phone] [place] No Information 0 9-201 7 Hauschild Christie. [address] [place] [address], [address], [place], [address], [place]. tel:[phone] Referring Provider: Win Wills[address], [place], [address]. tel:[phone] [facility], [address] [place], [place] [address], [place], [place], [address], [place] tel:[phone] [place] No Information 0 - 7 Hauschild Christie. [address] [place] [address], [address], [place], [address], [place]. tel:[phone] Referring Provider: Estuardo Luke [address], [place], [address]. tel:[phone] [facility], [address] [place], [place] [address], [place], [address], [place] tel:[phone] [place] No Information 0-201 6 Hauschild Christie. [address] [place] [address], [address], [place], [facility], [place]. tel:[phone] Referring Provider: Estuardo Luke [address], [place], [address]. tel:[phone] [place] [address], [address] [place] [address], [id number], tel:[phone] [place] No Information Dec-1 6-201 6 Hauschild Christie. [address] [place] [address], [address], [place], [facility], [place]. tel:[phone] Referring Provider: Estuardo Luke, [address], [place], [address]. tel:[phone] [place] [address], [address] [place] [address], [id number], tel:[phone] [place] No Information Dec-1 3-201 6 Hauschild Christie. [address] [place] [address], [address], [place], [facility], [place]. tel:[phone] Referring Provider: Estuardo Luke [address], [place], [address]. tel:[phone] [place] [address], [address] [place] [address], [id number], tel:[phone] [place] No Information Dec-0 9-201 6 Hauschild Christie. [address] [place] [address], [address], [place], [address], [place]. tel:[phone] Referring Provider: Estuardo Luke [address], [place], [address]. tel:[phone] [place] [address], [id number], tel:[phone] [place] No Information Dec-0 6-201 6 Hauschild Christie. [address] [place] [address], [address], [place], [address], [place]. tel:[phone] Referring Provider: Estuardo Luke, [address], [place], [address]. tel:[phone] [place] [address], 2121 [facility], [place], [address], [place] tel:[phone] [place] No Information Nov-3 0-201 6 Bagautdinronny ChowdaryKristine. [address] [place] [address], [address], [place], [facility], . tel:[phone] Referring Provider: Estuardo Luke, [address], [place], [address]. tel:[phone] [place] [address] 2121 [facility] [address] [place] [address], [id number], [place] tel:[phone] [place] No Information Nov-2 8- 6 Bagautdinova Kristine. [address] [place] [address], [address], [place], [facility], [place]. tel:[phone] Referring Provider: Estuardo Luke, [address], [place], [address]. tel:[phone] [place] [address], 2121 [facility] [address], [place], [address], [place] tel:[phone] [place] No Information Nov-2 5- 6 Félix Dumas [place], [place]. Referring Provider: Estuardo Luke, [address], [place], [address]. tel:[phone] [facility], [address] [facility], [place], [address], [place] tel:[phone] [place] No Information Nov-2 3- 6 Berkley Soriano. [address] [place] [address], [address], [place], [facility], [place]. tel:[phone] Referring Provider: Estuardo Luke, [address], [place], [address]. tel:[phone] [place] [id number] [address], [place], [address], [place] tel:[phone] [place] No Information 6 Hacharlesld Christie. [address] [place] [address], [address], [place], [facility], [place]. tel:[phone] Referring Provider: Estuardo Luke, [address], [place], [address]. tel:[phone] [place] [address] [address], [place], [place], [address], [place] tel:[phone] [place] No Information 6 Hauschild Christie. [address] [place] [address], [address], [place], [address], [place]. tel:[phone] Referring Provider: Estuardo Luke, [address], [place], [address]. tel:[phone] [place] [id number] [address], [place], [place], [address], [place] tel:[phone] [place] No Information 6 [place], [place], [place]. Referring Provider: Estuardo Luke, [address], [place], [address]. tel:[phone] [place] [address] [address], [place], [address], [place] tel:[phone] [place] No Information 6 Elisabethld Christie. [address] [place] [address], [address], [place], [address], [place]. tel:[phone] Referring Provider: Estuardo Luke, [address], [place], [address]. tel:[phone] [facility], [place], [place], [address], tel:[phone] [place] No Information Jan-3 1-201 6 Hauschild Christie. [address] [facility], [address], [place], [facility], . tel:[phone] Referring Provider: Win Wills[address], [place], [address]. tel:[phone] [place] [address], [place], [place], [address], tel:[phone] [place] No Information Jan-2 6-201 6 Hauschild Christie. [address] [place] [address], [address], [place], [facility], [place]. tel:[phone] Referring Provider: Win Wills[address], [place], [address]. tel:[phone] [place] [address] [address], [place], [place], [address], tel:[phone] [place] No Information Jan-1 7-201 6 Hauschild Christie. [address] [place] [address], [address], [place], [facility], [place]. tel:[phone] Referring Provider: Win Wills[address], [place], [address]. tel:[phone] [address], [place], [place], [address], tel:[phone] [place] No Information Jan-1 0-201 6 Hauschild Christie. [address] [place] [address], [address], [place], [address], [place]. tel:[phone] Referring Provider: Win Wills[address], [place], [address]. tel:[phone] [address], [place], [address], tel:[phone] [place] No Information Jan-0 5-201 6 Hauschild Christie. [address] [facility], [address], [place], [address], [place]. tel:[phone] Referring Provider: Estuardo Luke, [address], [place], [address]. tel:[phone] [place] [address]u[address] [address], [place], [address], tel:[phone] [place] No Information Sep-2 8-201 6 Hauschild Christie. [address] [place] [address], [address], [place], [facility], [place]. tel:[phone] Referring Provider: Estuardo Luke [address], [place], [address]. tel:[phone] [place] [address], [place], [place], [address], tel:[phone] [place] No Information Dec-0 7-201 6 Hauschild Christie. [address] [place] [address], [address], [place], [address], [place]. tel:[phone] Referring Provider: Win Wills[address], [place], [address]. tel:[phone] [place] [address], [place], [place], [address], tel:[phone] [place] No Information Nov-3 1-201 6 Hauschild Christie. [address] [facility], [address], [place], [address], [place]. tel:[phone] Referring Provider: Estuardo Luke [address], [place], [address]. tel:[phone] [facility], [address] [place], [place] [address], [place], [place], [address], tel:[phone] [place] No Information 6 Hauschild Christie. [address] [facility], [address], [place], [address], [place]. tel:[phone] Referring Provider: Win Wills[address], [place], [address]. tel:[phone] [place] [address], [address] [facility], [place], [place], [address], [place] tel:[phone] [place] No Information 6 Hauschild Christie. [address] [facility], [address], [place], [address], [place]. tel:[phone] Referring Provider: Win Wills[address], [place], [address]. tel:[phone] [place] [address] 2121 [facility], [place], [place], [address], [place] tel:[phone] [place] Pain in right elbowWeakness Other enthesopathie s, not elsewhere classified 6 Elisabethld Christie. [address] [facility], [address], [place], [address], [place]. tel:[phone] Referring Provider: Win Wills[address], [place], [address]. tel:[phone] [facility] [address], [place], [place], [address], [place] tel:[phone] [place] No Information 6 Hauschild Christie. [address] [facility], [address], [place], [address], [place]. tel:[phone] Referring Provider: Win Wills[address], [place], [address]. tel:[phone] [facility]2121 [facility], [place], [place], [address], [place] tel:[phone] [place] No Information Apr-2 0-201 5 Hauschild Christie. [address] [facility], [address], [place], [address], [place]. tel:[phone] Referring Provider: Estuardo Luke, [address], [place], [address]. tel:[phone] [place] [address], [place], [place], [address], tel:[phone] [place] No Information Apr-1 7-201 5 Hauschild Christie. [address] [facility], [address], [place], [address], [place]. tel:[phone] Referring Provider: Estuardo Luke [address], [place], [address]. tel:[phone] [place] [address], [place], [place], [address], tel:[phone] [place] No Information Apr-1 0-201 5 Hauschild Christie. [address] [place] [address], [address], [place], [address], [place]. tel:[phone] Referring Provider: Estuardo Luke [address], [place], [address]. tel:[phone] [place] [address], [place], [place], [address], [place] tel:[phone] [place] No Information Apr-0 8-201 5 Hauschild Christie. [address] [facility], [address], [place], [address], [place]. tel:[phone] Referring Provider: Estuardo Luke, [address], [place], [address]. tel:[phone] [facility], [address] [place], [place] [address], [place], [place], [address], tel:[phone] [place] No Information Apr-0 1-201 5 Tenny Dang. [address] [facility], [address], [place], [address], [place]. tel:[phone] Referring Provider: Ronda W[address], [place], [address]. tel:[phone] [place], [place] [address], [place], [place], [address], tel:[phone] [place] No Information Mar-3 0-201 5 Tenny Dang. [address] [facility], [address], [place], [address], [place]. tel:[phone] Referring Provider: Ronda Wills [address], [place], [address]. tel:[phone] [place] [address], [place], [place], [address], [place] tel:[phone] [place] No Information Mar-2 5-201 5 Hauschild Christie. [address] [place] [address], [address], [place], [address], [place]. tel:[phone] Referring Provider: Ronda Wills [address], [place], [address]. tel:[phone] [place], [place] [address], [place], [place], [address], [place] tel:[phone] [place] No Information Mar-2 3-201 5 Hauschild Christie. [address] [place] [address], [address], [place], [address], [place]. tel:[phone] Referring Provider: Ronda Wills [address], [place], [address]. tel:[phone] [place] [address], [facility] [address], [place], [place], [address], [place] tel:[phone] [place] No Information Mar-1 8-201 5 Hauschild Christie. [facility], [address], [place], [address], [place]. tel:[phone] Referring Provider: Estuardo Luke, [address], [place], [address]. tel:[phone] [place] [address], [address] [place], [place] [address], [place], [address], [place] tel:[phone] [place] No Information Jun- 6-201 5 Berkley Soriano. [address] [place] [address], [address], [place], [address], [place]. tel:[phone] Referring Provider: Estuardo Luke, [address], [place], [address]. tel:[phone] [place] [address], [address] [place], [place] [address], [place], [address], [place] tel:[phone] [place] No Information Dec-2 7-201 3 Berkley Soriano. [address] [place], [place] [address], [address], [place], [address], [place]. tel:[phone] Referring Provider: Estuardo Luke, [address], [place], [address]. tel:[phone] [place] [address], [address] [place], [place] [address], [place], [place], [id number], [place] tel:[phone] [place] No Information Dec-2 3-201 3 Berkley Soriano. [address] [place] [address], [address], [place], [address], [place]. tel:[phone] Referring Provider: Estuardo Luke [address], [place], [address]. tel:[phone] [facility], [address] [place], [place] [address], [place], [id number], [place] tel:[phone] [place] No Information Dec-2 0-201 3 Tenny Dang. [address] [place] [address], [address], [place], [place], [facility], [place]. tel:[phone] Referring Provider: Estuardo Luke [address], [place], [address]. tel:[phone] [place] [address], [address] [place] [address], [id number], tel:[phone] [place] No Information Dec-1 6-201 3 Hauschild Christie. [address] [place] [address], [address], [place], [facility], [place]. tel:[phone] Referring Provider: Estuardo Luke, [address], [place], [address]. tel:[id number] [place] [address], [id number], tel:[phone] [place] No Information Dec-1 1-201 3 Hauschild Christie. [address] [place] [address], [address], [place], [facility], [place]. tel:[phone] Referring Provider: Win Wills[address], [place], [address]. tel:[phone] [place] [address], [id number], tel:[phone] [place] No Information Dec-0 6-201 3 Hauschild Christie. [address] [place] [address], [address], [place], [facility], [place]. tel:[phone] Referring Provider: Estuardo Luke, [address], [place], [address]. tel:[phone] [place] [address], [address] [place] [address], [id number], tel:[phone] [place] No Information Dec-0 4-201 3 Hauschild Christie. [address] [place] [address], [address], [place], [address], [place]. tel:[phone] Referring Provider: Estuardo Luke, [address], [place], [address]. tel:[phone] [place] [address], [address] [place], [place] [address], [place], [id number], tel:[phone] [place] No Information 3 Carlo Lidia. [address] [place] [address], [address], [place], [address], [place]. tel:[phone] Referring Provider: Estuardo Luke, [address], [place], [address]. tel:[phone], [id number], tel:[phone] [place] No Information 3 Berkley Soriano. [address] [place] [address], [address], [place], [address], [place]. tel:[phone] Referring Provider: Estuardo Luke, [address], [place], [address]. tel:[phone] [place] [address] [place] [address], [id number], [place] tel:[phone] [place] No Information 3 Carlo Lidia. [address] [place] [address], [address], [place], [address], [place]. tel:[phone] Referring Provider: Estuardo Luke, [address], [place], [address]. tel:[phone], [id number], [place] tel:[phone] [place] No Information 3- 3 Berkley Soriano. [address] [place] [address], [address], [place], [address], [place]. tel:[phone] Referring Provider: Estuardo Luke, [address], [place], [address]. tel:[phone] [address], [place], [place], [id number], tel:[phone] [place] No Information Nov-0 8-201 3 Berkley Christie. [address] [place] [address], [address], [place], [facility], [place]. tel:[phone] Referring Provider: Estuardo Luke, [address], [place], [address]. tel:[phone] [address] [address], [id number], tel:[phone] [place] No Information Nov-0 6-201 3 Berkley Christie. [address] [place] [address], [address], [place], [address], [place]. tel:[phone] Referring Provider: Estuardo Luke, [address], [place], [address]. tel:[phone] [address] [facility], [place], [place], [id number], tel:[phone] [place] No Information Nov-0 1-201 3 Berkley Soriano. [address] [place] [address], [address], [place], [address], [place]. tel:[phone] Referring Provider: Estuardo Luke, [address], [place], [address]. tel:[phone] [address] [address], [id number], [place] tel:[phone] [place] No Information Oct-3 0-201 3 Tenny Dang. [address] [place] [address], [address], [place], [address], [place]. tel:[phone] Referring Provider: Estuardo Luke, [address], [place], [address]. tel:[phone] [facility], [address] [place], [place] [address], [place], [place], [id number], tel:[phone] [place] No Information 5-201 3 Hauschild Christie. [address] [place] [address], [address], [place], [address], [place]. tel:[phone] Referring Provider: Estuardo uLke, [address], [place], [address]. tel:[phone] [address], [place], [id number], [place] tel:[phone] [place] No Information 3-201 3 Hauschild Christie. [address] [place] [address], [address], [place], [address], [place]. tel:[phone] Referring Provider: Estuardo Luke, [address], [place], [address]. tel:[phone] [address], [place], [place], [id number], [place] tel:[phone] [place] No Information 8- 3 Hauschild Christie. [address] [place] [address], [address], [place], [address], [place]. tel:[phone] Referring Provider: Estuardo Luke, [address], [place], [address]. tel:[phone] [address], [place], [place], [address], [place] tel:[phone] [place] No Information 4-201 3 Hauschild Christie. [address] [place] [address], [address], [place], [address], [place]. tel:[phone] Referring Provider: Estuardo Luke, [address], [place], [address]. tel:[phone] [facility] [address], [place], [place], [id number], [place] tel:[phone] [place] No Information 3 Carlo Murillo. [address] [place] [address], [address], [place], [address], . tel:[phone] Referring Provider: Estuardo Luke, [address], [place], [address]. tel:[phone] [facility] [address], [place], [place], [id number], [place] tel:[phone] [place] No Information 3 Dipti Leong. [address] [place] [address], [address], [place], [address], [place]. tel:[phone] Referring Provider: Estuardo Luke, [address], [place], [address]. tel:[phone] [facility] [address], [place], [place], [id number], [place] tel:[phone] [place] No Information 3 Berkley Christie. [address] [place] [address], [address], [place], [address], [place]. tel:[phone] Referring Provider: Tang Rios, [address], [place], [address]. tel:[phone] [facility] [address], [place], [place], [id number], [place] tel:[phone] [place] No Information 3 Rubia Gomez. [address] [place] [address], [address], [place], [address], [place]. tel:[phone] [facility] [address], [place], [place], [id number], [place] tel:[phone] [place] No Information May-2 9-201 3 Olucruz Christie. [address] [facility], [address], [place], [address], [place]. tel:[phone] Referring Provider: Tang Rios, [address], [place], [address]. tel:[phone], [place], [place], [id number], [place] tel:[phone] [place] No Information May-2 2-201 3 Rubia Jason. [address] [facility], [address], [place], [address], [place]. [phone], [place], [place], [address], [place] tel:[phone] [place] No Information August-2 2-201 3 Carlo Lidia. [address] [place] [address], [address], [place], [address], [place]. [phone] Referring Provider: Tang Rios, [address], [place], [address]. tel:[phone], [place], [place], [id number], [place] tel:[phone] [place] No Information August-2 0-201 3 Carlo Lidia. [address] [place] [address], [address], [place], [address], [place]. tel:[phone] Referring Provider: Tang Rios, [address], [place], [address]. tel:[phone], [place], [place], [id number], [place] tel:[phone] [place] No Information May-2 0-201 3 Rubia Jason. [address] [place] [address], [address], [place], [address], [place]. tel:[phone], [place], [place], [id number], [place] tel:[phone] [place] No Information August- 7-201 3 Rubia Jason. [address] [place] [address], [address], [place], [address], [place]. tel:[phone] [address], [place], [place], [address], [place] tel:[phone] [place] No Information 7-201 3 Hauschild Christie. [address] [place] [address], [address], [place], [address], [place]. tel:[phone] Referring Provider: Tang Rios, [address], [place], [address]. tel:[phone] [address], [place], [address], [place] tel:[phone] [place] No Information 3-201 3 Rubia Jason. [address] [place] [address], [address], [place], [address], [place]. tel:[phone] [place] [address] [address], [place], [place], [address], [place] tel:[phone] [place] No Information 3-201 3 Hauschild Christie. [address] [place] [address], [address], [place], [address], [place]. tel:[phone] Referring Provider: Tang Rios, [address], [place], [address]. tel:[phone], [place], [place], [address], [place] tel:[phone] [place] Pain in joint involving lower leg May-1 0-201 3 Rubia Jason. [address] [place] [address], [address], [place], [address], [place]. tel:[phone], [place], [address], [place] tel:[phone] [place] No Information May-1 0-201 3 Hauschild Christie. [address] [place] [address], [address], [place], [address], [place]. tel:[phone] Referring Provider: Michael Dowell E st [address], [place], [address]. tel:[phone] [address], [place], [place], [address], tel:[phone] [place] No Information May-0 6-201 3 Hauschild Christie. [address] [place] [address], [address], [place], [place], [facility], [place]. tel:[phone] Referring Provider: Michael Dowell E [address] [place] [address], [place], [address]. tel:[phone] [address], [place], [address], [place] tel:[phone] [place] No Information May-0 3-201 3 Hauschild Christie. [address] [place] [address], [address], [place], [address], [place]. tel:[phone] Referring Provider: Michael Dowell E [address] [place] [address], [place], [address]. tel:[phone] [address] [facility], [place], [place], [id number], [place] tel:[phone] [place] No Information Apr-2 9-201 3 Hauschild Christie. [address] [place] [address], [address], [place], [address], [place]. tel:[phone] Referring Provider: Michael Dowell E [address] [place] [address], [place], [address]. tel:[phone] [address], [place], [place], [address], tel:[phone] [place] Pain in joint involving hand Apr-2 4-201 3 Hauschild Christie. [address] [place] [address], [address], [place], [address], [place]. tel:[phone] Referring Provider: Tang Rios, [address], [place], [address]. tel:[phone] Family History Family Member Type Diagnosis Age At Onset No Information Payers Payer name Insurance type Covered democrat ID Authoriza tiivan(s) [facility] [id number] Social History Type Description Quantity Date Captured [...]
--- OUTSIDE RECORDS SUMMARY | 2024-11-28 22:44 | XMS_ITS | Encounter Summary ---
Author Organization 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
--- OUTSIDE RECORDS SUMMARY | 2024-11-28 22:44 | XMS_ITS | Encounter Summary ---
Author Organization [facility] Address [address] [place] [address] Phone Care Team Providers Care Maintenance Supervisor 2Nd Shift Name Role Phone Vidhi Holley MD Primary Care Provider [phone] Compa Correa MD Primary Care Provider + [phone] Estuardo Luke MD Unavailable [phone] Polo Jeffery MD Unavailable [phone] Encounter Details Date Type Department Care Team (Late st Contact Info) Description 11/09/2016 Orders Only [facility] [address] [place] [address] Luciana Campbell RN Social History Tobacco Use Types Packs/Day Years Used Date Smoking Tobacco: Never Assessed Comments Unknown Sex and Gender Information Value Date Recorded Sex Assigned at Not on file 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 [address] [place] [address] Surgeon Orthopedic Surgery 01/10/23 Polo Jeffery MD [address] [place] [address] Consulting Physician Otolaryngology 10/01/23 documented as of this encounter
--- OUTSIDE RECORDS SUMMARY | 2024-11-28 22:44 | XMS_ITS | Encounter Summary ---
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
--- OUTSIDE RECORDS SUMMARY | 2024-11-28 22:44 | XMS_ITS | Encounter Summary ---
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
--- OUTSIDE RECORDS SUMMARY | 2024-11-28 22:44 | XMS_ITS | Clinical Summary ---
Author Organization [facility] Address [address] [place] [address] Care Team Providers Care Licensed Physical Therapist Name Role Phone Compa Correa MD Primary Care Provider Estuardo Luke MD Unavailable [phone] Polo Jeffery MD Unavailable Allergies Active Allergy [...] understands. 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 She tends to grind her teeth. I recommended that she talk with her dentist about this. Probably needs to get a subway guard made. She understands. 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 Assessment & Plan (06/30/2023 1:06 PM CASHIER AND SALESPERSON): I think she would benefit from a septoplasty with bilateral inferior turbinectomy. I discussed the risk of a septoplasty with and without turbinectomy with the patient. There is a risk of continued nasal obstruction, bleeding, septal perforation, permanent anosmia. Also risk of inadequate correction which could result in continued nasal obstruction symptoms. She has a certified pharmacy technician and he would like to do this [...] weeks. Assessment & Plan (06/30/2023 1:11 PM CASHIER AND SALESPERSON): She also has significant maxillary sinus disease [...] further infections as well as orbital and MASTER PLUMBER injuries. She understands. She would like to [...] Elbow pain 04/03/2016 Overview (02/02/2017): RIGHT. 11/05 [facility] says triceps tendonitis. US & [...] has seen cariodlogy dr Robbie Romero at [facility]. 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 Gender Identity Female 11/04/2019 10:07 PM CDT [...] 01/28/2014, 01/08/2001 Medical Devices Implanted Type Area Drying Machine Back Tender Device Identifier Shelf Expiration Date Model / Serial / Lot [employer] Plul06 6 Hole Shortening Ulna Plate Bone Titanium Sterile - [id number] Implanted:Qty: 1 on 10/29/2019 by Estuardo Luke MD at [facility] Right: Ulna [employer] PLUL06 / / [employer] [id number] 3.5mm 12mm Hexalobe Screw Bone Titanium Nonsterile Small Fragment - [id number] Implanted:Qty: 1 on 10/29/2019 by Estuardo Luke MD at [facility] Right: Ulna [employer] [id number] / / [employer] 30-0258 3.5mm 14mm Hexalobe Screw Bone Titanium Nonsterile Small Fragment - [id number] Implanted:Qty: 1 on 10/29/2019 by Estuardo Luke MD at [facility] Right: Ulna [employer] 30-0258 / / [employer] [id number] 3.5mm 12mm Hexalobe Screw Bone Titanium Nonsterile Small Fragment - [id number] Implanted:Qty: 1 on 10/29/2019 by Estuardo Luke MD at [facility] Right: Ulna [employer] [id number] / / [employer] 811115 3.5mm 12mm Hexalobe Screw Bone Titanium Nonsterile Small Fragment - [id number] Implanted:Qty: 1 on 10/29/2019 by Estuardo Luke MD at [facility] Right: Ulna [employer] 690337 / / [employer] 144031 3.5mm 12mm Hexalobe Screw Bone Titanium Nonsterile Small Fragment - [id number] Implanted:Qty: 1 on 10/29/2019 by Estuardo Luke MD at [facility] Right: Ulna [employer] [id number] / / [employer] 978916 3.5mm 12mm Hexalobe Screw Bone Titanium Nonsterile Small Fragment - [id number] Implanted:Qty: 1 on 10/29/2019 by Estuardo Luke MD at [facility] Right: Ulna [employer] 413900 / / [employer] 238897 3.5mm 12mm Hexalobe Screw Bone Titanium Nonsterile Small Fragment - [id number] Implanted:Qty: 1 on 10/29/2019 by Estuardo Luke MD at [facility] Right: Ulna [employer] 785565 / / [employer] 6 Hole Shortening Ulna Plate Bone Titanium Sterile Plul06 - [id number] Implanted:Qty: 1 on 01/10/2023 by Estuardo Luke MD at [facility] Left: Arm [employer] PLUL06 / / [employer] 3.5mm 12mm Hexalobe Screw Bone Titanium Nonsterile Small Fragment [id number] - [id number] Implanted:Qty: 6 on 01/10/2023 by Estuardo Luke MD at [facility] Left: Arm [employer] [id number] / / [employer] 3.5mm 14mm Hexalobe Screw Bone Titanium Nonsterile Small Fragment 30-0258 - [id number] Implanted:Qty: 1 on 01/10/2023 by Estuardo Luke MD at [facility] Left: Arm [employer] 30-0258 / / [employer] Dx Swivelock 3.5mm 13.5mm Foot Elbow Medium Bushnell Suture Peek Ar-8979p - [id number] Implanted:Qty: 1 on 01/10/2023 by Estuardo Luke MD at [facility] Left: Arm [employer] AR-8979P / / [employer] Peg Fxatn Ulna Reduction Shortening Nonstrl 80-0422 - [id number] Implanted:Qty: 1 on 01/10/2023 by Estuardo Luke MD at [facility] Left: Arm [employer] 80-0422 / / Insurance [facility] BL[place] AN[place] ACCESS AN[place] Advance [place]ives For more information, please contact: [phone] * Full Code (Latest Code Status on File) Date Activated Date Inactivated Comments 01/10/2023 3:03 PM 01/10/2023 8:07 PM * Full Code Date Activated Date Inactivated Comments 10/29/2019 1:32 PM 10/29/2019 6:42 PM Care Teams Licensed Physical Therapist Relationship Specialty Start Date End Date Compa Correa MD [address] [place] [address] PCP - General Internal Medicine 09/06/17 [place] [address] [place] [address] Surgeon Orthopedic Surgery 01/10/23 Polo Jeffery MD [address] [place] [address] Consulting Physician Otolaryngology 10/01/23
--- OUTSIDE RECORDS SUMMARY | 2024-11-28 22:44 | XMS_ITS | Encounter Summary ---
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
--- NOTE | 2024-11-28 23:33 | PC.NURSE ---
PATIENT IS RESTING ON STRETCHER. LEFT KNEE ELEVATED ON PILLOW WITH ICE PACK IN PLACE. CURRENTLY DENIES ANY NEEDS. CALL LIGHT IN REACH
[2024-11-29 00:21] VITALS: BP 120/70; PULSE 88; RESP 20; O2SAT 100
== END 2024-11-29 00:21 | disposition home or self-care (01) ==
PROVIDERS: Emergency Provider Emergency Medicine; PCP Internal Medicine
DX: S83.512A Sprain of anterior cruciate ligament of left knee, initial encounter (principal); X50.0XXA Overexertion from strenuous movement or load, initial encounter; Y93.64 Activity, baseball
CPT/HCPCS: 73562; 99283; L1830

== ENCOUNTER 2025-01-20 13:38 | Outpatient (CLI) | payer BC, SELFPAY ==
--- OUTSIDE RECORDS SUMMARY | 2016-08-16 13:15 | XMS_ITS | Encounter Summary ---
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 Gender Identity Female 11/04/2019 10:07 PM CDT [...] Description 02/04/2025 9:00 AM CDT Hospital Encounter [facility] [address] [place] [address] [place] [address] [place] [address] 02/04/2025 9:00 AM CDT Anesthesia Event [facility] [address] [place] [address] Karyn Petersen, SEB [address] [facility] [id number] [place] [address] 02/04/2025 9:00 AM CDT - 02/04/2025 11:00 AM CDT Surgery [facility] [address] [place] [address] [place] [address] [place] [address] LEFT KNEE ANTERIOR CRUCIATE LIGAMENT RECONSTRUCTION WITH [...] 3:04 PM CDT) HCG, ur Negative Negative [facility] Urine 08/16/2016 3:0 4 PM CDT 08/16/2016 3:07 PM CDT Anupama Barth SHIPPING CLERK LAB URINE ORDERABLES Final Result [facility] [place] [address] documented in this encounter Visit Diagnoses Not on filedocumented in this encounter Care Teams Wheelage Clerk Relationship Specialty Start Date End Date Vidhi Holley MD [address] [place] [address] PCP - General 06/16/16 09/05/17 documented as of this encounter
--- NOTE | ~2025-01-20 | XR_ITS ---
EXAMINATION: XR chest 2V DATE: 01/20/2025 14:18 INDICATION: Shortness of breath. Palpitations. TECHNIQUE: PA and lateral views of the chest were obtained. COMPARISON: Chest radiograph dated 07/25/2021 FINDINGS: The lungs remain clear with no focal airspace opacities, pulmonary edema, pleural effusion or pneumothorax. The cardiomediastinal silhouette is normal. Visualized bones and soft tissues are unremarkable. IMPRESSION: 1. No acute cardiopulmonary disease. Reviewed, dictated and finalized at location A.
--- OUTSIDE RECORDS SUMMARY | 2025-01-20 13:53 | XMS_ITS | Encounter Summary ---
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 Gender Identity Female 11/04/2019 10:07 PM CDT Sexual Orientation Straight 11/04/2019 10 :07 PM CDT documented as of this encounter Plan of Treatment Upcoming Encounters Date Type Department Care Team (Latest Contact Info) Description 02/04/2025 9:00 AM CDT Hospital Encounter [facility] [address] [place] [address] [place] [address] [place] [address] 02/04/2025 9:00 AM CDT Anesthesia Event [facility] [address] [place] [address] Karyn Petersen NP [address] [facility] [address] [place] [address] 02/04/2025 9:00 AM CDT - 02/04/2025 11:00 AM CDT Surgery [facility] [address] [place] [address] [place] [address] [facility] [address] [facility] [address] [place] [address] LEFT KNEE ANTERIOR CRUCIATE LIGAMENT RECONSTRUCTION WITH [...] on filedocumented in this encounter Care Teams Warehouse Attendant Relationship Specialty Start Date End Date Compa Correa MD [address] [place] [address] PCP - General Internal Medicine 09/06/17 [place] [address] [place] [address] Surgeon Orthopedic Surgery 01/10/23 Polo Jeffery MD [address] [place] [address] Consulting Physician Otolaryngology 10/01/23 documented as of this encounter
--- OUTSIDE RECORDS SUMMARY | 2025-01-20 13:53 | XMS_ITS | Encounter Summary ---
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 [address] [place] [address] [place] [address] [place] [address] 02/04/2025 9:00 AM CDT Anesthesia Event [facility] [address] [place] [address] Karyn Petersen NP [address] [facility] [address] [place] [address] 02/04/2025 9:00 AM CDT - 02/04/2025 11:00 AM CDT Surgery [facility] [address] [place] [address] [place] [address] [facility] [address] [facility] [address] [place] [address] LEFT KNEE ANTERIOR CRUCIATE LIGAMENT RECONSTRUCTION WITH [...] on filedocumented in this encounter Care Teams Associate Professor Of Media Arts Relationship Specialty Start Date End Date Compa Correa MD [address] [place] [address] PCP - General Internal Medicine 09/06/17 [place] [address] [place] [address] Surgeon Orthopedic Surgery 01/10/23 Polo Jeffery MD [address] [place] [address] Consulting Physician Otolaryngology 10/01/23 documented as of this encounter
--- OUTSIDE RECORDS SUMMARY | 2025-01-20 13:53 | XMS_ITS | Encounter Summary ---
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 Gender Identity Female 11/04/2019 10:07 PM CDT Sexual Orientation Straight 11/04/2019 10 :07 PM CDT documented as of this encounter Plan of Treatment Upcoming Encounters Date Type Department Care Team (Latest Contact Info) Description 02/04/2025 9:00 AM CDT Hospital Encounter [facility] [address] [place] [address] [place] [address] [place] [address] 02/04/2025 9:00 AM CDT Anesthesia Event [facility] [address] [place] [address] Karyn Petersen NP [address] [facility] [phone] [place] [address] 02/04/2025 9:00 AM CDT - 02/04/2025 11:00 AM CDT Surgery [facility] [address] [place] [address] [place] [address] [facility] [address] [facility] [address] [place] [address] LEFT KNEE ANTERIOR CRUCIATE LIGAMENT RECONSTRUCTION WITH [...] on filedocumented in this encounter Care Teams Mechanical Expert Relationship Specialty Start Date End Date Compa Correa MD [address] [place] [address] PCP - General Internal Medicine 09/06/17 [place] [address] [place] [id number] Surgeon Orthopedic Surgery 01/10/23 Polo Jeffery MD [address] [place] [address] Consulting Physician Otolaryngology 10/01/23 documented as of this encounter
--- OUTSIDE RECORDS SUMMARY | 2025-01-20 13:53 | XMS_ITS | Encounter Summary ---
Author Organization [facility] Address [address] [place] [address] Phone Care Team Providers Care Mining Manager Name Role Phone Vidhi Holley MD Primary Care Provider [phone] Compa Correa MD Primary Care Provider + [phone] Estuardo Luke MD Unavailable [phone] Polo Jeffery MD Unavailable [phone] Encounter Details Date Type Department Care Team (Late st Contact Info) Description 11/09/2016 Orders Only [facility] [address] [place] [address] Luciana Campbell RN Social History Tobacco Use Types Packs/Day Years Used Date Smoking Tobacco: Never Assessed Comments Unknown Sex and Gender Information Value Date Recorded Sex Assigned at Not on file Legal Sex Female 2:24 AM DYE HOUSE HAND Gender Identity Female 11/04/2019 10:07 PM CDT Sexual Orientation Straight 11/04/2019 10 :07 PM CDT documented as of this encounter Ordered Prescriptions Prescription Sig Dispense Quantity Refills Last Filled Start Date End Date amoxicillin (AMOXIL) 500 mg tablet/capsule Take 2 capsules twice a day for 10 days. 40 tablet/capsule 11/09/2016 2 documented in this encounter Plan of Treatment Upcoming Encounters Date Type Department Care Team (Latest Contact Info) Description 02/04/2025 9:00 AM CDT Hospital Encounter [facility] [address] [place] [address] [place] [address] [place] [address] 02/04/2025 9:00 AM CDT Anesthesia Event [facility] [address] [place] [address] Karyn Petersen, LAST SCOURER [address] [facility] [phone] [place] [address] 02/04/2025 9:00 AM CDT - 02/04/2025 11:00 AM CDT Surgery [facility] [address] [place] [address] [place] [address] [place] [address] LEFT KNEE ANTERIOR CRUCIATE LIGAMENT RECONSTRUCTION WITH [...] AM CDT documented as of this encounter Visit Diagnoses Not on filedocumented in this encounter Care Teams Mining Manager Relationship Specialty Start Date End Date Vidhi Holley MD [address] [place] [address] [place] [address] PCP - General 06/16/16 09/05/17 Compa Correa MD [address] [place] [address] PCP - General Internal Medicine 09/06/17 [place] [address] [place] [address] Surgeon Orthopedic Surgery 01/10/23 Polo Jeffery MD [address] [place] [address] Consulting Physician Otolaryngology 10/01/23 documented as of this encounter
--- OUTSIDE RECORDS SUMMARY | 2025-01-20 13:53 | XMS_ITS | Clinical Summary ---
Author Organization [facility] ospital Address [address] [place] [address] Care Team Providers Care Plant Clerk Name Role Phone Compa Correa MD Primary Care Provider [phone] Estuardo Luke MD Unavailable [phone] Polo Jeffery MD Unavailable [phone] Allergies Active Allergy Reactions Criticality Noted Date Comments Chlorhexidine Redness Low 01/24/2017 ChloraPrep local rash Medications albuterol HFA (PROVENTIL HFA,VENTOLIN HFA,PROAIR HFA) 90 mcg/actuation inhaler Inhale 1 puff every 6 (six) hours as needed for wheezing or shortness of breath Active fluticasone propionate (FLONASE) 50 mcg/actuation nasal sprayIndicatio ns:Allergic Rhinitis Administer 2 sprays into each nostril every morning Active cetirizine (ZyrTEC) 10 mg tabletIndicati ons:Allergic Rhinitis Take 1 tablet (10 mg total) by mouth daily before breakfast Active sertraline (Zoloft) 100 mg tabletIndicati ons:Anxiety with Depression Take 1 tablet (100 mg total) by mouth daily before breakfast Active acetaminophen (TYLENOL) 325 mg tablet Take 2 tablets (650 mg total) by mouth every 6 (six) hours as needed for pain Active ibuprofen 200 mg tab/cap Take 2 tablet/capsule (400 mg total) by mouth every 6 (six) hours as needed for pain Active azelastine (ASTELIN) 137 mcg (0.1 %) nasal spray Administer 1 spray into each nostril daily Use in each nostril as directed 01/09/20 Discontinu ed(Therapy completed) Active Problems Problem Noted Date Diagnosed Date Left anterior cruciate ligament tear 12/11/2024 Acute medial meniscus tear of left knee 12/12/19 25 Nasal obstruction 07/11/2023 Otalgia of both ears [...] understands. 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 She tends to grind her teeth. I recommended that she talk with her dentist about this. Probably needs to get a guard dance hall made. She understands. 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 Assessment & Plan (06/30/2023 1:06 PM LAUNDRY FOLDER): I think she would benefit from a septoplasty with bilateral inferior turbinectomy. I discussed the risk of a septoplasty with and without turbinectomy with the patient. There is a risk of continued nasal obstruction, bleeding, septal perforation, permanent anosmia. Also risk of inadequate correction which could result in continued nasal obstruction symptoms. She has a pharmacy retail support specialist and he would like to do this [...] weeks. 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 She understands. She would like to [...] wrist pain 10/13/2019 Dysuria 11/09/2016 Overview (02/02/2017): 11-07-16 nl UA but grew 50-100K GBS - Rxed since symptomatic Elbow pain 04/03/2016 Overview (02/02/2017): RIGHT. 11/05 [facility] says triceps tendonitis. US & MRI neg. Surgery by Dr. Luke (this is SECOND surgery for elbow pain). Increase PT. 02/06 still hurts to throw in softball. Overweight [...] media 11/15/2012 02/02/2017 Overview (07/27/2016): Otitis media Encounters Date Type Department Care Team Description 01/08/2025 Telephone [facility] Medicine Orthopaedic Surgery [address] [place] [address] 2nd [address] [place] [phone] Ariel Cook IV, MD 01/08/2025 Telephone [facility] Orthopaedic Surgery [address] [place] [address] 2nd Floor [address] [place] [address] Ariel Cook IV, MD 12/11/2024 9:16 AM CDT - 12/11/2024 11:59 PM CDT Hospital Encounter [facility] [address] [place] [address] Ariel Cook IV, MD Left knee pain, unspecified chronicity Discharge Disposition: Discharge to home or self care 12/11/2024 9:12 AM CDT - 12/11/2024 11:59 PM CDT Hospital Encounter [facility] [address] [place] [address] Discharge Disposition: Discharge to home or self care 12/11/2024 9:10 AM CDT - 12/11/2024 11:59 PM CDT Hospital Encounter [facility] [address] [place] [address] Discharge Disposition: Discharge to home or self care 12/11/2024 8:40 AM CDT Office Visit [facility] Orthopaedic Surgery [address] [place] [address] 2nd [address] [place] [address] Ariel Cook IV, MD Rupture of anterior cruciate ligament of left knee, initial encounter (Primary Dx); Acute medial meniscus tear of left knee, initial encounter from Last 3 Months Immunizations Immunization Administration Dates Next Due DTaP [...] has seen cariodlogy dr Robbie Romero at [facility]. [facility] see epic notes last visit 09/2021 Irritable bowel syndrome History of palpitations AFTER 2N D COVID VACCINE DEVELOPED PALPITATIONS SEES CARDIOLOGY Arrhythmia palpitations sin ce covid vaccine, moniter x2 that was ok Obesity Brain concussion Motion sickness Family History Medical History Relation Name Comments [...] Passive Smoke Exposure: Never Smokeless Tobacco: Never Tobacco Cessation:Counseling Given: Not Answered Alcohol Use Standard Drinks/Week Comments Yes 2 [...] on file Legal Sex Female 2:24 AM LAUNDRY FOLDER Gender Identity Female 11/04/2019 10:07 PM CDT [...] CDT Inhaled Oxygen Concentration - - Weight 72.6 kg (160 lb) 01/08/2025 2:20 PM CDT Height 160 cm (5' 3) 01/08/2025 2:20 PM CDT Body Mass Index 28.34 01/08/2025 2:20 PM CDT Plan of Treatment Upcoming Encounters Date Type Department Care Team (Latest Contact Info) Description 02/04/2025 9:00 AM CDT Hospital Encounter [facility] [address] [place] [address] [place], [place] [id number] [place] [address] [address] [facility] [address] [place] [address] 02/04/2025 9:00 AM CDT Anesthesia Event [facility] [address] [place] [address] Karyn Petersen NP [phone] [place] [address] 02/04/2025 9:00 AM CDT - 02/04/2025 11:00 AM CDT Surgery [facility] [address] [place] [address] [place] [address] [facility] [address] [place] [address] LEFT KNEE ANTERIOR CRUCIATE LIGAMENT RECONSTRUCTION WITH [...] knee, subsequent encounter 02/04/2025 9:00 AM CDT Health Maintenance Due Date Last Done Comments [...] history exists Varicella Vaccines Completed 01/28/2014, 01/08/2001 Goals Goal Patient Goal Type Associated Problems Recent Progress Patient-Stated? Author Autogenera [email or web address] Goal Care Plan Autogenerated Problem No Richelle Steiner MA Medical Devices Implanted Type Area Airline Transport Pilot Device Identifier Shelf Expiration Date Model / Serial / Lot Acumed Inc Plul06 6 Hole Shortening Ulna Plate Bone Titanium Sterile - [id number] Implanted:Qty: 1 on 10/29/2019 by Estuardo Luke MD at [facility] Right: Ulna [employer] Inc PLUL06 / / Acumed Inc [id number] 3.5mm 12mm Hexalobe Screw Bone Titanium Nonsterile Small Fragment - [id number] Implanted:Qty: 1 on 10/29/2019 by Estuardo Luke MD at [facility] Right: Ulna [employer] Inc [id number] / / Acumed Inc 30-0258 3.5mm 14mm Hexalobe Screw Bone Titanium Nonsterile Small Fragment - [id number] Implanted:Qty: 1 on 10/29/2019 by Estuardo Luke MD at [facility] Right: Ulna [employer] 30-0258 / / Acumed Inc [id number] 3.5mm 12mm Hexalobe Screw Bone Titanium Nonsterile Small Fragment - [id number] Implanted:Qty: 1 on 10/29/2019 by Estuardo Luke MD at [facility] Right: Ulna [employer] Inc [id number] / / Acumed Inc 682397 3.5mm 12mm Hexalobe Screw Bone Titanium Nonsterile Small Fragment - [id number] Implanted:Qty: 1 on 10/29/2019 by Estuardo Luke MD at [facility] Right: Ulna [employer] Inc [id number] / / Acumed Inc 905876 3.5mm 12mm Hexalobe Screw Bone Titanium Nonsterile Small Fragment - [id number] Implanted:Qty: 1 on 10/29/2019 by Estuardo Luke MD at [facility] Right: Ulna [employer] Inc [id number] / / Acumed Inc 559489 3.5mm 12mm Hexalobe Screw Bone Titanium Nonsterile Small Fragment - [id number] Implanted:Qty: 1 on 10/29/2019 by Estuardo Luke MD at [facility] Right: Ulna [employer] Inc [id number] / / Acumed Inc 699563 3.5mm 12mm Hexalobe Screw Bone Titanium Nonsterile Small Fragment - [id number] Implanted:Qty: 1 on 10/29/2019 by Estuardo Luke MD at [facility] Right: Ulna [employer] [id number] / / Acumed Inc 6 Hole Shortening Ulna Plate Bone Titanium Sterile Plul06 - [id number] Implanted:Qty: 1 on 01/10/2023 by Estuardo Luke MD at [facility] Left: Arm [employer] Inc [id number] / / Acumed Inc 3.5mm 12mm Hexalobe Screw Bone Titanium Nonsterile Small Fragment [id number] - [id number] Implanted:Qty: 6 on 01/10/2023 by Estuardo Luke MD at [facility] Left: Arm Ac[employer] Inc [id number] / / Acumed Inc 3.5mm 14mm Hexalobe Screw Bone Titanium Nonsterile Small Fragment 30-0258 - [id number] Implanted:Qty: 1 on 01/10/2023 by Estuardo Luke MD at [facility] Left: Arm [employer] Inc 30-0258 / / Arthrex Inc Dx Swivelock 3.5mm 13.5mm Foot Elbow Medium [place] Suture Peek Ar-8979p - [id number] Implanted:Qty: 1 on 01/10/2023 by Estuardo Luke MD at [facility] Left: Arm [employer] AR-8979P / / Acumed Inc Peg Fxatn Ulna Reduction Shortening Nonstrl 80-0422 - [id number] Implanted:Qty: 1 on 01/10/2023 by Estuardo Luke MD at [facility] Left: Arm [employer] Inc 80-0422 / / Procedures Procedure Name Priority Date/Time Associated Diagnosis Comments XR KNEE LEFT 1 OR 2 VIEWS Schedule Routine, Read Routine (OP Routine) 12/11/2024 9:21 AM CDT Left knee pain, unspecified chronicity MSK MR OUTSIDE REFERENCE Routine 12/11/2024 9:12 AM CDT XR TRANSFER OF OUTSIDE FILMS Routine 12/11/2024 9:10 AM CDT from Last 3 Months Results * XR Knee Left 1 or 2 Views (12/11/2024 9:21 AM CDT) Anatomical Region Laterality Modality Lower Extremities, Knee Left Computed Radiography 12/11/2024 9:39 AM CDT Impressions 12/11/2024 9:39 AM CDT Normal left knee joint spaces. Electronically signed by: Ubaldo Waggoner M.D. Narrative 12/11/2024 9:39 AM CDT EXAMINATION: XR KNEE LEFT 1 OR 2 VIEWS HISTORY: Left knee pain FINDINGS: 2 views of the left knee were performed with comparison to 11/28/2024. Left knee joint spaces are normal. There is no acute fracture. Procedure Note Ubaldo Waggoner MD PhD - 12/11/2024 EXAMINATION: XR KNEE LEFT 1 OR 2 VIEWS HISTORY: Left knee pain FINDINGS: 2 views of the left knee were performed with comparison to 11/28/2024. Left knee joint spaces are normal. There is no acute fracture. IMPRESSION: Normal left knee joint spaces. Electronically signed by: Ubaldo Waggoner M.D. MD MAYTE De La Cruz IV XR PROCEDURES Fin al Result * MSK MR Outside Reference (12/11/2024 9:12 AM CDT) Impressions [facility] - 12/11/2024 9:12 AM CDT These images are for Reference purposes only and have not been reviewed by [facility]. There will be no report generated by a [facility] Radiologist. Narrative RAD_PACS_[facility] - 12/11/2024 9:12 AM CDT EXAMINATION: Images For Reference Purposes Only us Ariel Cook IV, MD IMLesa MRI PROCEDURES Fi nal Result [facility] * XR Outside Reference (12/11/2024 9:10 AM CDT) Impressions [facility]CTOR [facility]UG[facility] - 12/11/2024 9:10 AM CDT These images are for Reference purposes only and have not been reviewed by [facility]. There will be no report generated by a [facility] Radiologist. Narrative [facility] - 12/11/2024 9:10 AM CDT EXAMINATION: Images For Reference Purposes Only us Ariel Cook IV, MD IMG XR PROCEDURES Fin al Result [facility] from Last 3 Months Additional Health Concerns Active Problems Noted Date Diagnosed Date Autogenerated Problem 12/11/2024 Insurance [employer] [place] [employer] [place] ANTHEM ACCESS ANTHEM ACCESS CHOICE [place] [employer] CHOICE DE [employer] [place] A[employer]ient [place] Advance Directives For more information, please contact: [phone] * Full Code (Latest Code Status on File) Date Activated Date Inactivated Comments 01/10/2023 3:03 PM 01/10/2023 8:07 PM * Full Code Date Activated Date Inactivated Comments 10/29/2019 1:32 PM 10/29/2019 6:42 PM Care Teams Plant Clerk Relationship Specialty Start Date End Date Compa Correa MD [address] [place] [address] PCP - General Internal Medicine 09/06/17 [place] [address] [place] [address] Surgeon Orthopedic Surgery 01/10/23 Polo Jeffery MD [address] [place] [address] Consulting Physician Otolaryngology 10/01/23
[2025-01-20 14:07] LABS: Hematocrit 38.1 % (35.0-49.0); Hemoglobin 12.4 g/dL (12.0-15.0); Mean Corpuscular HGB Conc 32.5 g/dL (32-36); Mean Corpuscular Hemoglobin 29.8 pg (27.0-31.0); Mean Corpuscular Volume 91.6 fL (78.0-102.0); Platelet Count Result 247 K/mm3 (150-420); Red Blood Count 4.16 M/mm3 (4.20-5.40); White Blood Count 8.4 K/mm3 (4.8-10.8)
[2025-01-20 14:14] LABS: Alanine Aminotransferase 17 U/L (6-35); Albumin Level 5.0 g/dL (3.5-5.1); Alkaline Phosphatase 68 U/L (38-126); Anion Gap 11 mmol/L (4-12); Aspartate Amino Transferase 27 U/L (14-36); Bilirubin,Total 0.3 mg/dL (0.2-1.3); Blood Urea Nitrogen 12 mg/dL (7-17); Calcium 10.0 mg/dL (8.4-10.2); Carbon Dioxide 27 mmol/L (22-30); Chloride 103 mmol/L (98-107); Creatine Kinase 98 U/L (30-135); Estimated Glomerular Filt Rate > 60; Glucose 126 mg/dL (65-110); Magnesium 1.8 mg/dL (1.6-2.3); Osmolality Calculated 293 mOsm/kg (285-295); Potassium 4.6 mmol/L (3.4-5.0); Sodium 141 mmol/L (137-145); Total Protein 9.3 g/dL (6.3-8.2)
[2025-01-20 14:26] LABS: NT Pro B Type Natriuretic Pept 105 pg/mL (19.9-100); Troponin I < 0.012 ng/mL (0.000-0.034)
[2025-01-20 14:31] LABS: Free T4 Free Thyroxine 1.22 ng/dL (0.78-2.19)
[2025-01-20 14:37] LABS: Influenza A QL RT-PCR Negative (Negative); Influenza B QL RT-PCR Negative (Negative); SARS-CoV-2 RNA PCR Negative (Negative)
[2025-01-20 14:45] LABS: Thyroid Stimulating Hormone 0.204 uIU/mL (0.465-4.680)
== END 2025-01-20 13:39 | disposition home or self-care (01) ==
LOC: CHSLAB 13:41
PROVIDERS: PCP Internal Medicine; Visit Provider Nurse Practitioner Family
DX: R00.2 Palpitations (principal); R06.02 Shortness of breath
CPT/HCPCS: 36415; 71046; 80053; 82550; 83735; 83880; 84439; 84443; 84484; 85027; 85380; 87636

== ENCOUNTER 2025-01-22 09:01 | Outpatient (CLI) | payer BC, SELFPAY ==
--- OUTSIDE RECORDS SUMMARY | 2016-08-16 13:15 | XMS_ITS | Encounter Summary ---
Author Organization [facility] Healthcare Address [address] [place] [address] Care Team Providers Care Probation Manager Name Role Phone Vidhi Holley MD Primary Care Provider [phone] Encounter Details Date Type Department Care Team (Late st Contact Info) Description 08/16/2016 1:15 PM CDT Hospital Encounter [facility] Procedure Holding [address] [place] [address] [place] [id number] [place] [id number] Social History Tobacco Use Types Packs/Day Years Used Date Smoking Tobacco: Never Passive Smoke Exposure: Never Smokeless Tobacco: Never Alcohol Use Standard Drinks/Week Comments Yes 2 (1 standard drink = 0.6 oz pur e alcohol) AUDIT-C Answer Date Recorded Q1: How often do you have a drink containing alc ohol? 2-4 times a month 01/08/2025 Q2: How many drinks containi ng alcohol do you have on a typical day when you are drinking? 3 or 4 01/08/2025 Q3: How often do you have si x or more drinks on one occasion? Never 01/08/2025 Personal Safety Answer Date Recorded Have you ever been in or are you currently in a harmful physical or emotional relationship or is someone making you feel afraid or unsafe? 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 2-4 times a month 01/08/2025 2:24 PM CDT Mary Mcgowan RN Q2: How many drinks containing alcohol do you have on a typical day when you are drinking? 3 or 4 01/08/2025 2:24 PM CDT Mary Mcgowan RN Q3: How often do you have six or more drinks on one occasion? Never 01/08/2025 2:24 PM CDT Mary Mcgowan RN documented as of this encounter Plan of Treatment Upcoming Encounters Date Type Department Care Team (Latest Contact Info) Description 02/04/2025 9:00 AM CDT Hospital En[facility] [address] [place] [id number] [place] [address] [place] [address] 02/04/2025 9:00 AM CDT Anesthesia Event [facility] [address] [place] [address] Karyn Petersen, SEB [address] [facility] [phone] [place] [address] 02/04/2025 9:00 AM CDT - 02/04/2025 11:00 AM CDT Surgery [facility] [address] [place] [address] [place] [address] [place] [phone] LEFT KNEE ANTERIOR CRUCIATE LIGAMENT RECONSTRUCTION WITH PATELLAR BONE TENDON BONE AUTOGRAFT Scheduled Procedures Name Priority Associated Diagnoses Date/Ti me ARTHROSCOPY KNEE - RECONSTRUCTION ANTERIOR CRUCIATE LIGAMENT WITH PATELLAR TENDON Rupture of anterior cruciate ligament of left knee, subsequent encounter Acute medial meniscus tear of left knee, subsequent encounter 02/04/2025 9:00 AM CDT ARTHROSCOPY KNEE MENISCAL DEBRIDEMENT Rupture of anterior cruciate ligament of left knee, subsequent encounter Acute medial meniscus tear of left knee, subsequent encounter 02/04/2025 9:00 AM CDT ARTHROSCOPY KNEE MENISCAL REPAIR Rupture of anterior cruciate ligament of left knee, subsequent encounter Acute medial meniscus tear of left knee, subsequent encounter 02/04/2025 9:00 AM CDT documented as of this encounter Procedures Procedure Name Priority Date/Time Associated Diagnosis Comments HCG, URINE, QUALITATIVE Timed 08/16/2016 3:04 PM CDT documented in this encounter Results * HCG, urine, qualitative (08/16/2016 3:04 PM CDT) HCG, ur Negative Negative [facility] Urine 08/16/2016 3:0 4 PM CDT 08/16/2016 3:07 PM CDT Anupama Barth STAFF RADIATION THERAPIST LAB URINE ORDERABLES Final Result [facility] Department [place] [address] documented in this encounter Visit Diagnoses Not on filedocumented in this encounter Care Teams Probation Manager Relationship Specialty Start Date End Date Vidhi Holley MD [address] [place] [address] PCP - General 06/16/16 09/05/17 documented as of this encounter
--- OUTSIDE RECORDS SUMMARY | 2025-01-22 09:23 | XMS_ITS | Clinical Summary ---
Author Organization [facility] ospital Address [address] [place] [address] Care Team Providers Care Senior Storage Engineer Name Role Phone Compa Correa MD Primary Care Provider [phone] Estuardo Luke MD Unavailable [phone] Polo Jeffery MD Unavailable [phone] Allergies Active Allergy Reactions Criticality Noted Date [...] understands. 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 She tends to grind her teeth. I recommended that she talk with her dentist about this. Probably needs to get a guard chief made. She understands. Left wrist pain 11/24/2022 Hypertrophy of nasal turbinates 01/26/2022 Overview (01/26/2022): Added automatically from request for surgery [id number] Overdevelopment of nasal bones 01/26/2022 Overview (01/26/2022): Added automatically from request for surgery [id number] Deviated nasal septum 11/22/2021 Assessment & Plan [...] weeks. Assessment & Plan (06/30/2023 1:06 PM PREPARATION ROOM WORKER): I think she would benefit from a septoplasty with bilateral inferior turbinectomy. I discussed the risk of a septoplasty with and without turbinectomy with the patient. There is a risk of continued nasal obstruction, bleeding, septal perforation, permanent anosmia. Also risk of inadequate correction which could result in continued nasal obstruction symptoms. She has a pharmacy graduate intern and he would like to do this [...] weeks. 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 She understands. She would like to [...] Elbow pain 04/03/2016 Overview (02/02/2017): RIGHT. 11/05 [facility] says triceps tendonitis. US & [...] Type Department Care Team Description 01/08/[address] [facility] Medicine Orthopaedic Surgery [address] [place] [address] 2nd Floor [address] [place] [phone] Ariel Cook IV, MD 01/08/2025 Telephone [facility] Orthopaedic Surgery [address] [place] [address] 2nd Floor [address] [place] [phone] Ariel Cook IV, MD 12/11/2024 9:16 AM CDT - 12/11/2024 11:59 PM CDT Hospital Encounter [facility] [address] [place] [address] Ariel Cook IV, MD Left knee pain, unspecified chronicity Discharge Disposition: Discharge to home or self care 12/11/2024 9:12 AM CDT - 12/11/2024 11:59 PM CDT Hospital Encounter [facility] [address] [place] [address] Discharge Disposition: Discharge to home or self care 12/11/2024 9:10 AM CDT - 12/11/2024 11:59 PM CDT Hospital Encounter [facility] [address] [place] [address] Discharge Disposition: Discharge to home or self care 12/11/2024 8:40 AM CDT Office Visit [facility] Orthopaedic Surgery [address] [place] [address] 2nd [address] [place] [address] Ariel Cook IV, MD Rupture of anterior [...] FIBROCARTILAGE REPAIR 04/23/2012 - 04/22/[address] Lkue WRIST ARTHROSCOPY W/ TRIANGULAR FIBROCARTILAGE REPAIR 04/23/2014 [...] has seen cariodlogy dr Robbie Romero at [facility]. [facility] see epic notes last visit 09/2021 Irritable [...] on file Legal Sex Female 2:24 AM PREPARATION ROOM WORKER Gender Identity Female 11/04/2019 10:07 PM CDT [...] Description 02/04/2025 9:00 AM CDT Hospital Encounter [facility] [address] [place] [address] [place], [place] [id number] [place] [address] [address] [place] [address] 02/04/2025 9:00 AM CDT Anesthesia Event [facility] [address] [place] [address] Karyn Petersen NP [phone] [place] [address] 02/04/2025 9:00 AM CDT - 02/04/2025 11:00 AM CDT Surgery [facility] [address] [place] [address] [place] [address] [facility] [address] [place] [address] LEFT KNEE ANTERIOR CRUCIATE LIGAMENT RECONSTRUCTION WITH [...] Steiner MA Medical Devices Implanted Type Area Igniter Assembler Device Identifier Shelf Expiration Date Model / Serial / Lot Acumed Inc Plul06 6 Hole Shortening Ulna Plate Bone Titanium Sterile - [id number] Implanted:Qty: 1 on 10/29/2019 by Estuardo Luke MD at [facility] [place] Right: Ulna [employer] Inc PLUL06 / / Acumed Inc 189899 3.5mm 12mm Hexalobe Screw Bone Titanium Nonsterile Small Fragment - [id number] Implanted:Qty: 1 on 10/29/2019 by Estuardo Luke MD at [facility] Right: Ulna [employer] Inc [id number] / / Acumed Inc 30-0258 3.5mm 14mm Hexalobe Screw Bone Titanium Nonsterile Small Fragment - [id number] Implanted:Qty: 1 on 10/29/2019 by Estuardo Luke MD at [facility] Right: Ulna [employer] Inc 30-0258 / / Acumed Inc [id number] 3.5mm 12mm Hexalobe Screw Bone Titanium Nonsterile Small Fragment - [id number] Implanted:Qty: 1 on 10/29/2019 by Estuardo Luke MD at [facility] Right: Ulna [employer]umed Inc [id number] / / Acumed Inc 158745 3.5mm 12mm Hexalobe Screw Bone Titanium Nonsterile Small Fragment - [id number] Implanted:Qty: 1 on 10/29/2019 by Estuardo Luke MD at [facility] Right: Ulna [employer] Inc 180634 / / Acumed Inc 882004 3.5mm 12mm Hexalobe Screw Bone Titanium Nonsterile Small Fragment - [id number] Implanted:Qty: 1 on 10/29/2019 by Estuardo Luke MD at [facility] Right: Ulna Acumed Inc 680556 / / Acumed Inc 132826 3.5mm 12mm Hexalobe Screw Bone Titanium Nonsterile Small Fragment - [id number] Implanted:Qty: 1 on 10/29/2019 by Estuardo Luke MD at [facility] Right: Ulna [employer]umed Inc [id number] / / Acumed Inc 458489 3.5mm 12mm Hexalobe Screw Bone Titanium Nonsterile Small Fragment - [id number] Implanted:Qty: 1 on 10/29/2019 by Estuardo Luke MD at [facility] Right: Ulna [employer] Inc 096613 / / Acumed Inc 6 Hole Shortening Ulna Plate Bone Titanium Sterile Plul06 - [id number] Implanted:Qty: 1 on 01/10/2023 by Estuardo Luke MD at [facility] [place] Left: Arm [employer] Inc PLUL06 / / Acumed Inc 3.5mm 12mm Hexalobe Screw Bone Titanium Nonsterile Small Fragment [id number] - [id number] Implanted:Qty: 6 on 01/10/2023 by Estuardo Luke MD at [facility] [place] Left: Arm Acumed Inc [id number] / / Acumed Inc 3.5mm 14mm Hexalobe Screw Bone Titanium Nonsterile Small Fragment 30-0258 - [id number] Implanted:Qty: 1 on 01/10/2023 by Estuardo Luke MD at [facility] [place] Left: Arm Acumed Inc 30-0258 / / Arthrex Inc Dx Swivelock 3.5mm 13.5mm Foot Elbow Medium [place] Suture Peek Ar-8979p - [id number] Implanted:Qty: 1 on 01/10/2023 by Estuardo Luke MD at [facility] [place] Left: Arm Ar[employer] Inc AR-8979P / / Acumed Inc Peg Fxatn Ulna Reduction Shortening Nonstrl 80-0422 - [id number] Implanted:Qty: 1 on 01/10/2023 by Estuardo Luke MD at [facility] [place] Left: Arm Acumed Inc 80-0422 / / [...] only and have not been reviewed by [facility] Radiology. There will be no report generated by a [facility] Radiologist. Narrative RAD_PACS_[facility] - 12/11/2024 9:12 AM CDT EXAMINATION: Images For Reference Purposes Only us Ariel Cook IV, MD IMLesa MRI PROCEDURES Fi nal Result [facility] * XR Outside Reference (12/11/2024 9:10 AM CDT) Impressions VICTOR [facility]UG[facility] - 12/11/2024 9:10 AM CDT These images are for Reference purposes only and have not been reviewed by [facility] Radiology. There will be no report generated by a [facility] Radiologist. Narrative [facility] - 12/11/2024 9:10 AM CDT EXAMINATION: Images For Reference Purposes Only us Ariel Cook IV, MD IMG XR PROCEDURES Fin al Result [facility] from Last 3 Months Additional Health Concerns Active Problems Noted Date Diagnosed Date Autogenerated Problem 12/11/2024 Insurance [employer] [place] [employer] [place] ANTHEM ACCESS ANTHEM ACCESS CHOICE [place] [employer] [place] [place] [place] Advance Directives For more information, please contact: [phone] * Full Code (Latest Code Status on File) Date Activated Date Inactivated Comments 01/10/2023 3:03 PM 01/10/2023 8:07 PM * Full Code Date Activated Date Inactivated Comments 10/29/2019 1:32 PM 10/29/2019 6:42 PM Care Teams Senior Storage Engineer Relationship Specialty Start Date End Date Compa Correa MD [address] [place] [address] PCP - General Internal Medicine 09/06/17 [place] [address] [place] [address] Surgeon Orthopedic Surgery 01/10/23 Polo Jeffery MD [address] [place] [address] Consulting Physician Otolaryngology 10/01/23
--- OUTSIDE RECORDS SUMMARY | 2025-01-22 09:23 | XMS_ITS | Encounter Summary ---
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 Gender Identity Female 11/04/2019 10:07 PM CDT Sexual Orientation Straight 11/04/2019 10 :07 PM CDT documented as of this encounter Plan of Treatment Upcoming Encounters Date Type Department Care Team (Latest Contact Info) Description 02/04/2025 9:00 AM CDT Hospital Encounter [facility] [address] [place] [address] [place] [address] [place] [address] 02/04/2025 9:00 AM CDT Anesthesia Event [facility] [address] [place] [address] Karyn Petersen NP [address] [facility] [address] [phone] [place] [address] 02/04/2025 9:00 AM CDT - 02/04/2025 11:00 AM CDT Surgery [facility] [address] [place] [address] [place] [address] [facility] [address] [facility] [address] [place] [address] LEFT KNEE ANTERIOR CRUCIATE LIGAMENT RECONSTRUCTION WITH [...] on filedocumented in this encounter Care Teams Transportation Department Head Relationship Specialty Start Date End Date Compa Correa MD [address] [place] [address] PCP - General Internal Medicine 09/06/17 [place] [address] [place] [address] Surgeon Orthopedic Surgery 01/10/23 Polo Jeffery MD [address] [place] [address] Consulting Physician Otolaryngology 10/01/23 documented as of this encounter
--- OUTSIDE RECORDS SUMMARY | 2025-01-22 09:23 | XMS_ITS | Encounter Summary ---
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 [address] [place] [address] [place] [address] [place] [address] 02/04/2025 9:00 AM CDT Anesthesia Event [facility] [address] [place] [address] Karyn Petersen NP [address] [facility] [address] [phone] [place] [address] 02/04/2025 9:00 AM CDT - 02/04/2025 11:00 AM CDT Surgery [facility] [address] [place] [address] [place] [address] [facility] 40 [facility] [address] [place] [address] LEFT KNEE ANTERIOR CRUCIATE LIGAMENT RECONSTRUCTION WITH [...] on filedocumented in this encounter Care Teams Salesperson Women'S Dresses Relationship Specialty Start Date End Date Compa Correa MD [address] [place] [address] PCP - General Internal Medicine 09/06/17 [place] [address] [place] [address] Surgeon Orthopedic Surgery 01/10/23 Polo Jeffery MD [address] [place] [address] Consulting Physician Otolaryngology 10/01/23 documented as of this encounter
--- OUTSIDE RECORDS SUMMARY | 2025-01-22 09:23 | XMS_ITS | Encounter Summary ---
Author Organization [facility] Address [address] [place] [address] Phone Care Team Providers Care Forepart Rasper Name Role Phone Vidhi Holley MD Primary Care Provider [phone] Compa Correa MD Primary Care Provider + [phone] Estuardo Luke MD Unavailable [phone] Polo Jeffery MD Unavailable [phone] Encounter Details Date Type Department Care Team (Late st Contact Info) Description 11/09/2016 Orders Only [facility] [address] [employer] [address] Luciana Campbell RN Social History Tobacco Use Types Packs/Day Years Used Date Smoking Tobacco: Never Assessed Comments Unknown Sex and Gender Information Value Date Recorded Sex Assigned at Not on file 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 Gender Identity Female 11/04/2019 10:07 PM [...] Description 02/04/2025 9:00 AM CDT Hospital Encounter [facility] [address] [place] [address] [place] [address] [place] [address] 02/04/2025 9:00 AM CDT Anesthesia Event [facility] [address] [place] [address] Karyn Petersen, NUT DEHYDRATOR OPERATOR [address] [facility] [address] [phone] [place] [address] 02/04/2025 9:00 AM CDT - 02/04/2025 11:00 AM CDT Surgery [facility] [address] [place] [address] [place] [address] [place] [address] LEFT KNEE ANTERIOR CRUCIATE LIGAMENT RECONSTRUCTION WITH [...] on filedocumented in this encounter Care Teams Forepart Rasper Relationship Specialty Start Date End Date Vidhi Holley MD [address] [address] [place] [address] PCP - General 06/16/16 09/05/17 Compa Correa MD [address] [place] [address] PCP - General Internal Medicine 09/06/17 [place] [address] [place] [address] Surgeon Orthopedic Surgery 01/10/23 Polo Jeffery MD [address] [place] [address] Consulting Physician Otolaryngology 10/01/23 documented as of this encounter
--- OUTSIDE RECORDS SUMMARY | 2025-01-22 09:23 | XMS_ITS | Encounter Summary ---
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 Gender Identity Female 11/04/2019 10:07 PM CDT Sexual Orientation Straight 11/04/2019 10 :07 PM CDT documented as of this encounter Plan of Treatment Upcoming Encounters Date Type Department Care Team (Latest Contact Info) Description 02/04/2025 9:00 AM CDT Hospital Encounter [facility] [address] [place] [address] [place] [address] [place] [address] 02/04/2025 9:00 AM CDT Anesthesia Event [facility] [address] [place] [address] Karyn Petersen NP [address] [facility] [address] [phone] [place] [address] 02/04/2025 9:00 AM CDT - 02/04/2025 11:00 AM CDT Surgery [facility] [address] [place] [address] [place] [address] [facility] 40 [facility] [address] [place] [address] LEFT KNEE ANTERIOR CRUCIATE LIGAMENT RECONSTRUCTION WITH [...] on filedocumented in this encounter Care Teams Plc Controls Engineer Relationship Specialty Start Date End Date Compa Correa MD [address] [place] [address] PCP - General Internal Medicine 09/06/17 [place] [address] [place] [id number] Surgeon Orthopedic Surgery 01/10/23 Polo Jeffery MD [address] [place] [address] Consulting Physician Otolaryngology 10/01/23 documented as of this encounter
--- NOTE | 2025-02-12 11:59 | WPDHOLTEREM ---
Holter/Event Monitor Holter/Event Monitor Date of procedure: 01/22/25 Holter/Event Procedure: Event Monitor Indications: palpitations Conclusion: 1. 13 days event monitor on 01/22/25. 2. Predominant rhythm is sinus rhythm. HR range 51-176 bpm; average HR 86 bpm. HR at 176 bpm was on 01/28/25 at 8:45 am. 3. There are rare premature supraventricular complexes. There are 2 episodes of atrial tachycardia one at 117 bpm with aberrancy lasting 5 beats and the other at 138 bpm lasting 5 beats. 4. There are rare premature ventricular complexes. No ventricular tachycardia. 5. No significant pauses greater than 3 seconds. 6. Patient reports 3 episodes of symptoms of lightheadedness, heart racing, shortness of breath, chest pain which demonstrate sinus rhythm, HR range 91-115 bpm.
== END 2025-01-22 09:02 | disposition home or self-care (01) ==
LOC: CHSCARD 09:02
PROVIDERS: PCP Internal Medicine; Visit Provider Nurse Practitioner Family
DX: R00.2 Palpitations (principal); R06.02 Shortness of breath
CPT/HCPCS: 93246

== ENCOUNTER 2025-02-24 12:09 | Outpatient (CLI) | payer BC, SELFPAY ==
[2025-02-24 13:30] LABS: Free T4 Free Thyroxine 1.07 ng/dL (0.78-2.19)
[2025-02-24 13:44] LABS: Thyroid Stimulating Hormone 0.567 uIU/mL (0.465-4.680)
--- OUTSIDE RECORDS SUMMARY | 2025-02-24 14:08 | XMS_ITS | Data Portability ---
Author Organization [facility] Address [address] [place] [address] Care Team Providers Care Sole Polisher Name Role Phone LIDIA MALDONADO Primary Care Provider [phone] Assessment Encounter Date Assessment Date Assessment LastModified by Organization Details LastModified Time 02/20/2024 02/20/2024 Annual gynecological exam performed. Patient will come back in a year unless there are new symptoms. [email or web address] Not available 02/04/2024 15:29:32 Plan of Treatment Reminders Order Date Submit Date Provider Last Modified By Organization Details Last Modified Time Details Appointments [facility]EST 2024 11:15A Blaise MCRAE NP Not available Not available Not available Lab HbA1c (hemoglob in A1c), blood 2023 [facility] (Lab), [address], [place], [address], 03/13/2024 13:16:29 dhea-sulf ate, serum 2023 [facility] (Lab), [address], [place], [address], 03/13/2024 13:16:26 estradiol , serum 2023 [facility] (Lab), [address], [place], [address], 03/13/2024 13:16:27 FSH (follicle -stimulat ing hormone), serum 2023 [facility] (Lab), [address], [place], [address], 03/13/2024 13:16:27 lh (luteiniz ing hormone), serum 2023 024 [facility] (Lab), [address], [place], [address], 03/13/2024 13:16:27 progester one, serum 2023 024 [facility] (Lab), [address], [place], [address], 03/13/2024 13:16:28 prolactin , serum 2023 [facility] (Lab), [address], [place], [address], 03/13/2024 13:16:28 testoster one free/test osterone total, ratio, serum 2023 [facility] (Lab), [address], [place], [address], 03/13/2024 13:16:29 test, urine 2023 [facility], [facility] [address], [place], [address], 03/05/2024 12:31:02 vitamin B12, serum 2023 024 [facility] (Lab), [address], [place], [address], 03/13/2024 13:16:28 25-hydrox yvitamin D2 + 25-hydrox yvitamin D3, QN, serum or plasma 2023 [facility] (Lab), [address], [place], [address], 03/13/2024 13:16:29 Referral None recorded. Procedures None recorded. Surgeries None recorded. Imaging None recorded. Medication Orders estradiol 2 mg tablet 2024 025 [facility], [facility] [place], [address], 01/02/2025 05:01:19 sertralin e 50 mg tablet 2024 025 IWONA [facility], [facility] [place], [address], 07/31/2024 15:59:26 sertralin e 50 mg tablet 2024 025 [facility], [facility] [place], [address], 06/17/2024 16:20:12 Nexplanon 68 mg subdermal implant 2023 024 [email or web address] [facility], [facility] [place], [address], 03/05/2024 12:31:01 buspirone 7.5 mg tablet 2023 024 [email or web address] [facility], [facility] [place], [address], 06/17/2024 16:17:10 Patient TargetsNo targets recorded. Patient InstructionsNo instructions recorded. Reason for Referral None Reported. Results Created Date Observation Date Name Description Value Unit Range Abnormal Flag Note LastModifiedBy Organization Detail LastModifiedTime 03/05/20 24 03/05/2024 DHEA SULFA TE DHEA-sulfate 355 ug/dL Femal e Range s Age(y ) Range (ug/d L) 10-15 34-28 0 15-20 65-36 8 20-25 148-4 07 25-35 99-34 0 35-45 61-33 7 45-55 35-25 6 55-65 19-20 5 65-75 9-246 > 75 12-15 4 Not Available [facility] (Lab) [address], [place], [address], 03/13/2024 13:16:26 03/05/20 24 03/05/2024 LH (LUTE [...] use: 7.7-5 8.5 mIU/m L Not Available [facility] (Lab) [address], [place], [address], 03/13/2024 13:16:27 03/05/20 24 03/05/2024 ESTRA DIOL [...] 154-3 243 pg/mL 2nd Trime ster 1561- 32902 pg/mL 3rd Trime ster 8525- >3000 0 pg/mL Not Available [facility] (Lab) [address], [place], [address], 03/13/2024 13:16:27 03/05/20 24 03/05/2024 FSH FSH 5.5 mIU/m L This assay was perfo rmed using [employer] ratio n reage nts and test kits. Value s obtai mino with other assay metho ds or kits canno t be used inter [facility] . Femal es Folli cular : 3.5-1 2.5 mIU/m L Ovula tion: 4.7-2 1.5 mIU/m L Lutea l: 1.7-7 .7 mIU/m L Postm enopa use: 25.8- 134.8 mIU/m L Not Available [facility] (Lab) [address], [place], [address], 03/13/2024 13:16:27 03/05/20 24 03/05/2024 PROGE STERO NE progesterone 0.09 NG/mL This assay was perfo rmed using [employer] ratio n reage nts and test kits. Value s obtai mino with other assay metho ds or kits canno t be used inter [facility] . Femal e Proge stero ne Range s: Folli cular phase 0.06- 0.89 ng/mL Ovula tion phase 0.12- 12.00 ng/mL Lutea l phase 1.83- 23.90 ng/mL Postm enopa usal <0.05 -0.13 ng/mL Healt hy Pregn ant Women 1st Trime ster 11.0- 44.30 2nd Trime ster 25.40 -83.3 0 3rd Trime ster 58.70 -214. 00 Not Available [facility] (Lab) [address], [place], [address], 03/13/2024 13:16:28 03/05/20 24 03/05/2024 PROLA CTIN prolactin, total 14.90 NG/mL 4.79-2 3.30 This assay was perfo rmed using [employer] ratio n reage nts and test kits. Value s obtai mino with other assay metho ds or kits canno t be used inter [facility] . Not Available [facility] (Lab) [address], [place], [address], 03/13/2024 13:16:28 03/05/20 24 03/05/2024 VITAM IN B12 vitamin B12 267 pg/mL 180-91 4 Christine l Range : 180-9 14 pg/mL . Indet ermin ate Range : 145-1 80 pg/mL . Defic ient Range : <=145 pg/mL . Not Available [facility] (Lab) [address], [place], [address], 03/13/2024 13:16:28 03/05/20 24 03/05/2024 VITAM IN D, 25-OH (TOTA L D2/D3 ) vitamin D, 25-hydroxy, total 66.5 NG/mL 30.0-1 00.0 Sugge stive of Defic iency : <20 ng/mL Sugge stive of Insuf ficie ncy: 20-29 ng/mL Sugge stive of Suffi cienc y: 30-10 0 ng/mL Sugge stive of Toxic ity: >150 ng/mL Not Available [facility] (Lab) [address], [place], [address], 03/13/2024 13:16:29 03/05/20 24 03/05/2024 HEMOG LOBIN [...] >8.0% Actio n sugge sted Not Available [facility] (Lab) [address], [place], [address], 03/13/2024 13:16:29 03/05/20 24 03/05/2024 TESTO STERO NE, FREE( DIALY SIS) AND TOTAL (LC/M S/MS) testosterone , total 19 NG/dL 2-45 For [facility]it [facility] refer to http: //rafael richardque stdia gnost ics.c om/fa q/ Total Testo stero neLCM SMSFA Q165 (This link is being provi ded for infor matsmita nal/ educa cheo l purpo ses only. ) This test was devel oped and its catherine tical perfo rmanc e april cteri stics have been deter mined by [employer] [place]. It has not been clear ed or appro rodger by the U.S. Food and Drug Admin istra tion. This assay has been valid ated pursu ant to the CLIA regul ation s and is used for clini lexa purpo ses. Not Available [facility] (Lab) [address], [place], [address], 03/13/2024 13:16:29 03/05/20 24 03/05/2024 TESTO STERO NE, FREE( DIALY SIS) AND TOTAL (LC/M S/MS) testosterone , free 3.3 pg/mL 0.1-6. 4 This test was devel oped and its catherine tical perfo rmanc e april cteri stics have been deter mined by [employer] [place]. It has not been clear ed or appro rodger by the U.S. Food and Drug Admin istra tion. This assay has been valid ated pursu ant to the CLIA regul ation s and is used for clini lexa purpo ses. Perfo rming Organ izati on [facility] n: Site ID: AMD Name: [employer] blaine [employer] collin Addre ss: [id number] [facility] [place] Direc tor: Rebecca Garcia MD PhD Not Available [facility] (Lab) [address], [place], [address], 03/13/2024 13:16:29 03/05/20 24 03/05/2024 pregn kimberly test, urine HCG negati ve Not Available [facility] [address], [place], [address], 03/05/2024 12:30:45 Result Notes None recorded. Problems Name Problem SNOMED Code Status Onset Date Resolution Date Notes Provider Name and Address Organization Details Recorded Time Procedur e by method Completed 201605/31/2020 Encounte r for oth general cnsl and advice on contrace ption;Pr actice ID: 0001 Moira maldonado, [facility] 1 09:18:41 Pregnanc y test negative [id number] Completed 201605/31/2020 Encounte r for pregnanc y test, result negative ;Practic e ID: 0001 Moira maldonado [facility] 09:18:[address] Concept Completed 201605/31/2020 Encounte r for surveill ance of other contrace ptives;P ractice ID: 0001 Moirapato maldonado, [facility] 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 09:18:38 Procedur e Completed 201705/31/2020 Enctr srvlnc implanta ble subderma l contrace ptive;Pr actice ID: 0001 Moira maldonado, [facility] 09:18:44 Problem Notes None recorded. Procedures Surgical History Date Name Laterality Status Provider Name and Address Organization Details Recorded Time 03/05/20 24 MM Nexplanon insert completed OSMANY MCRAE NP [address], [place], [address], [facility] 03/05/2024 13:54:07 10/18/19 22 Date of Last Pap Smear completed [facility] 07/31/2024 15:17:42 03/03/20 20 Nexplanon Removal completed Poly Howardharman [facility] 03/03/2020 16:55:29 04/23/19 17 open reduction of fracture of ulna completed [facility] 02/16/2020 14:26:20 04/23/19 15 procedure on elbow completed [facility] 02/16/2020 14:26:36 12/05/19 13 Orthopedic Surgery completed [facility] 07/31/2024 15:17:23 Imaging Results None recorded. Procedure Notes None recorded. Medical Equipment None Reported. Allergies Allergen ID Allergen Name Allergen Category Reaction Reaction Severity Criticality Documentation Date Start Date Code Code System Note Provider Name and Address Organization Details Recorded Time 2504 chlorhexi dine medicatio n Not available Not available Not available 02/16/2020 3058 RxNorm [facility] 0 14:25:02 Medications Name Sig [...] completed Not Available Not Available Not Available estradiol 2 mg tablet Take 1 tablet every day by oral route for 10 days. 01/02 completed Not Available Not Available Not Available [...] Not Available Not Avai lable amoxicillin 875 mg-héctor martinez clavulanate 125 mg tablet 06/17 completed Not [...] active Not Available Not Available Not Available [place] 1-20 EQ (28) 1 mg-20 mcg [...] Body mass index (BMI) Body weight Systolic And Diastolic Provider Name and Address Organization Details Last Updated DateTime 06/17/2024 162.56 cm 29.1 kg/m2 76936.55 g 118/78 mm[Hg] [facility] 06/17/2024 16:01:04 Date Recorded Body height Body mass index (BMI) Body weight Systolic And Diastolic Provider Name and Address Organization Details Last Updated DateTime 07/31/2024 162.56 cm 27.8 kg/m2 23758.96 g 110/71 mm[Hg] [facility] 07/31/2024 15:26:53 Date Recorded Body height Body mass index (BMI) Body weight Systolic And Diastolic Provider Name and Address Organization Details Last Updated DateTime 12/16/2024 162.56 cm 30.1 kg/m2 31779.1 g 110/64 mm[Hg] [facility] 12/16/2024 16:35:18 Date Recorded Body height Body mass index (BMI) Body weight Systolic And Diastolic Provider Name and Address Organization Details Last Updated DateTime 02/20/2024 162.56 cm 29.2 kg/m2 28845.42 g 130/81 mm[Hg] [facility] 02/20/2024 15:46:34 Social History Question Answer Notes LastModified by Organizat ion Details LastModified Time Tobacco Smoking Status Never Smoker Christie maldonado, [facility] 02/17/2020 10:57:01 Do You Have An Advance Directive? No [email or web address] Information n ot available 02/20/2024 How Many Years Have You Consumed Alcohol? 3 [email or web address] Information not available 02/20/2024 Are You Blind Or Do You Have Difficulty Seeing? No Information n ot available 10/17/2021 What Is Your Level Of Caffeine Consumption? Moderate Information not available 10/17/2021 How Much Tobacco Do You Chew? None [email or web address] Information not available 07/31/2024 In The 14 Days Before Symptom Onset, Have You Had Close Contact With A Laboratory-confirm ed COVID-19 While That Case Was Ill? No [email or web address] Information n ot available 02/20/2024 In The 14 Days Before Symptom Onset, Have You Had Close Contact With A Person Who Is Under Investigation For COVID-19 While That Person Was Ill? No [email or web address] Information not available 02/20/2024 Have You Been To An Area Known To Be High Risk For COVID-19? No [email or web address] Information not available 02/20/2024 Are You Deaf Or Do You Have Serious Difficulty Hearing? No Information not available 10/17/2021 What Type Of Diet Are You Following? REGULAR [email or web address] Information n ot available 02/20/2024 What Is The Highest Grade Or Level Of School You Have Completed Or The Highest Degree You Have Received? [id number] [email or web address] Information not available 02/20/2024 Are There Any Guns Present In Your Home? No [email or web address] Information not available 02/20/2024 Do You Use Protection During Sex? Always [email or web address] Information not available 02/20/2024 Do You Use Your Seat Belt Or Car Seat Routinely? Yes Information not available 10/17/2021 Do You Have Smoke And Carbon Monoxide Detectors In Your Home? Yes Information not available 10/17/2021 How Much Tobacco Do You Smoke? No Information not available 02/20/2024 Do You Use Sunscreen Routinely? Yes Information not available 10/17/2021 Have You Used IV Drugs? No [email or web address] Information not available 02/20/2024 Do You Have Difficulty Walking Or Climbing Stairs? No Information not available 10/17/2021 Sex: Unknown Functional Status Question Answer Note LastModified by Organizat ion Details LastModified Time Do you use any illicit or recreational drugs? No Information not available 10/17/2021 What is your level of alcohol consumption? Moderate [email or web address] Information not available 02/20/2024 Are you able to walk independently without assistance or assistive devices? [email or web address] Information not available 10/17/2021 Are you able to care for yourself independently? 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 No Information not available 10/17/2021 What is your exercise level? Moderate [email or web address] Information not available 02/20/2024 Mental Status Question Answer Note LastModified by Organization D etails LastModified Time Do you feel stressed (tense, restless, nervous, or anxious, or unable to sleep at night)? [id number] Information not available 10/17/2021 Family History Relationship [...] available 2019 14:24:23 Maternal Aunt Seizure disorder [email or web address] Not available 2024 15:16:13 Medical History Condition Response Allergies (Food, seasonal, environmental ) Y Gynecological History Statement/Question Response Flow Light Date of Last Mammogram Date of LMP 12/13/2024 Was last menstrual period normal Y STIs/STDs N HPV Vaccine Y Duration of Flow (days) Current Control Method Implant Are cycles usually [...] Diagnosis SNOMED-CT Code Diagnosis ICD10 Code Diagnosis IMO Codes Diagnosis Note [address] [address] 02/17/2020 10:48:22 02/18/2020 12:52:43 Gynecologic examination 22628310 Z01.419 Take Calcium with Vitamin D 1200mg [...] copy of today's plan if desired.lorena Vazquez ion care management [id number] Z30.9 Discussed all control options in great [...] nexplanon removal 2 [facility]. [facility] [address] [place] [address] 03/03/2020 15:09:33 03/03/2020 17:21:23 Removal of subcutaneous contraceptive [id number] Z30.46 Plan to return to follow up on ocp. [address] [facility] [address] [place] [address] 05/31/2020 09:35:22 05/31/2020 19:06:04 50[address] [facility] [address] [place] [address] 05/31/2020 09:46:38 05/31/2020 10:02:40 Contraception care management 264684207 Z30.9 Patient is here today for a medicaton check of control. She voices goals of therapy have been met with use of this therapy. She denies neg side effects. She is eating, drinking, sleeping well; moods are stable & periods are well regulated. Wishes to continue this method of BC. Appropriat e to continue this medication . [id number] Cherry Doshi [facility] [address] [address] 10/17/2021 11:11:27 10/17/2021 12:02:13 Gynecologic examination 18374868 Z01.419 Take Calcium with Vitamin D 1200mg [...] Labs naMammo na Contracept ion care management 541234455 Z30.9 Switch in OCP due to irregular start time of menses in her pill pack despite consistent use & timing.RTO x 3mos med check [id number] Jonny Cabral MD [facility] [address] [address] 02/20/2024 15:41:11 02/20/2024 16:23:32 Gynecologic examination 50048437 Z01.419 Annual gynecologi lexa exam performed. Patient [...] testing - declined Contracept ion care management 997000092 Z30.9 Discussed all control options in depth and pt is interested in Nexplanon. Discussed all risks and benefits including irregular unschedule d bleeding. Pt verbalized understand ing and would like to proceed. She is aware that she needs to call us on the 1st day of her period to schedule placement. Generalize d anxiety disorder 78236840 F41.1 Discussed coping mechanisms for stress and anxiety.Michele henry wishes to try a medication daily to treat anxiety.Rx sent for buspirone. Risks/bene fits/AEs discussed. RTO in 3 months for med check. [id number] Jonny Cabral MD [facility] [address] [address] 03/05/2024 12:01:35 03/05/2024 14:01:41 Fatigue 96819361 R53.83 Will check Vitamin B12 and vitamin D levels d/t c/o fatigue. Hirsutism 117995110 L68. 0 Will check hormone levels that may contribute to reported sx of hirsutism and acne.Discu ssed that Nexplanon may aid in symptom improvemen t and we can re-evaluat e sx at 3 month med check. Patient verbalizes understand ing. Implantati on of subcutaneous contraceptive 784004572 Z30.46 1. The patient was instructed that [...] need to be replaced in four years. [id number] Jonny Cabral MD [facility] [address] [address] 06/17/2024 15:58:13 06/17/2024 16:22:13 Generalized anxiety disorder 47228782 F41.1 Recommende d that patient stop buspirone [...] /therapy in addition to pharmacolo gic treatment. [id number] Jonny Cabral MD [facility] [address] [address] 07/31/2024 15:15:41 07/31/2024 16:00:30 Generalized anxiety disorder 73336743 F41.1 Patient voices improvemen t in PATTI symptoms since starting sertraline . Discussed increasing dosage of medication if patient's anxiety worsens again. Risks/bene fits/AEs reviewed. Discussed that patient is to go to ER if she experience s any suicidal/h omicidal ideation. Patient to RTO for annual WWE, or sooner if needed. [id number] OSMANY MCRAE NP [facility] [address] [address] 12/16/2024 16:17:39 12/16/2024 17:03:36 Irregular periods 66078223 N92.6 [id number] Discussed that irregular unschedule d bleeding is possible with Nexplanon. Discussed all treatment options and alternativ e control methods. Rx sent for estradiol 2 mg PO daily x 10 days to help stop the bleeding.R isks/benef its/AEs discussed. Patient will follow-up if bleeding irregulari ty persists. Health Concerns Section Related Observation LastModified by Organization Detai ls LastModified Time None Recorded Concern Status LastModified by Organization Details LastModified Time None Recorded Advance Directives Directive N: Payers Insurance Date Sequence Insurance Name Policy Number Policy Rooney Covered Member ID Rooney Member ID Guarantor Name 12/15/2024 1 [place] [id number] Tyrone Slater [id number] Tyrone Slater Notes Date Note Type Note Provider Name and Address Organization Details Recorded Time 4 text/html Annual GYNReported by PatientHistoryFor history, patient reportsno gynecologic complaints.Genitourina ry symptomsFor menstrual cycle, patient reportsnormal menses. For urinary symptoms, patient reportsno hematuriaandno incontinence. For vulva, patient reportsno genital lesion. For vagina, patient reportsnormal vaginal discharge.Breast symptomsFor breast, patient reportsno breast pain,no breast lump, andno nipple discharge.Endocrine symptomsFor sexual complaints, patient reportsno sexual complaints,no pain during intercourse, andnormal libido. For menopausal symptoms, patient reportsno menopausal symptomsandnormal vaginal lubrication.Psychologi lexa symptomsFor psychological symptoms, patient reportsanxietybut reportsno depression.Preventativ e measuresFor preventive measures, patient reportsencourage self breast examination,encourage regular exercise,encourage no tobacco use, andencourage regular mammograms starting age 40. Patient presents for annual well woman exam. [...] effects. OSMANY MCRAE, SE[facility] [address], [place], [address], [facility] 02/20/2024 16:23:03 4 text/html ROS as noted in the HPI Patient is here currently on her menses. [...] chin and acne before her cycle. [facility] 03/05/2024 15:12:19 5 text/html Patient here for 3 month med [...] SI/HI. OSMANY MCRAE NP [address], [place], [address], [facility] 06/17/2024 16:21:37 5 text/html 24 y/o female presents for 6 week med check after starting sertraline 50 mg PO daily for PATTI.Patient states that her mood and anxiety has improved significantly since starting the medication. Denies SI/HI. OSMANY MCRAE NP [address], [place], [address], [facility] 07/31/2024 15:58:46 5 text/html 24 y/o female presents with c/o irregular menses. Patient states that bleeding alternates between heavy and spotting from 2 days to one week at a time.Patient states that this has been occurring over the past 3 months.Patient states that she usually has minimal to no bleeding with Nexplanon.Denies additional concerns. OSMANY MCRAE NP [address], [place], [address], [facility] 12/16/2024 16:59:28 OBGyn Episode No OBEpisode recorded.
== END 2025-02-24 12:10 | disposition home or self-care (01) ==
PROVIDERS: PCP Internal Medicine; Visit Provider Nurse Practitioner Family
DX: R94.6 Abnormal results of thyroid function studies (principal)
CPT/HCPCS: 36415; 84439; 84443

== ENCOUNTER 2025-03-09 12:13 | Outpatient (CLI) | payer BC, SELFPAY ==
--- NOTE | ~2025-03-09 | US_ITS ---
EXAMINATION: US thyroid DATE: 03/09/2025 12:31 INDICATION: Goiter TECHNIQUE: Multiple ultrasound images of the thyroid were obtained. COMPARISON: October 02, 2024 FINDINGS: The right thyroid lobe measures 5.0 x 1.5 x 2.0 cm. The left thyroid lobe measures 5.1 x 2.0 x 2.0 cm. Isthmus measures 4.3 mm A nodule is in the left lobe and measures 1.1 x 0.8 x 0.7 cm, unchanged in appearance or size compared to the previous study. A smoothly marginated wider than tall somewhat spongiform nodules again noted with TR 2 sonographic features. IMPRESSION: 1. 1.1 cm TR 2 nodule in the left lobe. 2. Correlate with follow-up surveillance thyroid ultrasound in 12 months. RECOMMENDATION: Repeat ultrasound in 12 months with recommended dated next exam on or about March 092025. Reviewed, dictated and finalized at location A. OGRAPHY TECHNOLOGIST
--- OUTSIDE RECORDS SUMMARY | 2025-03-09 21:23 | XMS_ITS | Continuity of Care Document ---
Author Organization [facility] [place] Address [address] [place] [address] Care Team Providers Care Twisting Frame Operator Name Role Phone LIDIA MALDONADO Primary Care Provider Assessment No assessment recorded. 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 Referral None recorded. Procedures None recorded. Surgeries None recorded. Imaging None recorded. Medication Orders estradiol 2 mg tablet 2024 025 [facility], [address] [place], [address], 01/02/2025 05:01:19 Patient TargetsNo targets recorded. Patient InstructionsNo instructions recorded. Reason for Referral None Reported. Problems Name Problem SNOMED Code Status Onset Date Resolution Date Notes Provider Name and Address Organization Details Recorded Time Procedur e by method Completed 201605/31/2020 Encounte r for oth general cnsl and advice on contrace ption;Pr actice ID: 0001 Moira maldonado, [facility] 09:18:41 Pregnanc y test negative [id number] Completed 201605/31/2020 Encounte r for pregnanc y test, result negative ;Practic e ID: 0001 Moira maldonado [facility] 1 09:18:[address] Concept Completed 201605/31/2020 Encounte r for surveill ance of other contrace ptives;P ractice ID: [id number] Moira maldonado, [facility] 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 1 09:18:38 Procedur e Completed 201705/31/2020 Enctr srvlnc implanta ble subderma l contrace ptive;Pr actice ID: 0001 Moira maldonado, [facility] 09:18:44 Problem Notes None recorded. Procedures Surgical History Date Name Laterality Status Provider Name and Address Organization Details Recorded Time 03/05/20 24 MM Nexplanon insert completed OSMANY MCRAE NP [address], [place], [address], [facility] 03/05/2024 13:54:07 10/18/19 22 Date of Last Pap Smear completed Doris Beyer [facility] 07/31/2024 15:17:42 03/03/20 20 Nexplanon Removal completed Poly Mckeon [facility] 03/03/2020 16:55:29 04/23/19 17 open reduction of fracture of ulna completed Christie Zhu [facility] 02/16/2020 14:26:20 04/23/19 15 procedure on elbow completed Christie Zhu [facility] 02/16/2020 14:26:36 12/05/19 13 Orthopedic Surgery completed Doris Beyer [facility] 07/31/2024 15:17:23 Imaging Results None recorded. Procedure Notes None recorded. Medical Equipment None Reported. Allergies Allergen ID Allergen Name Allergen Category Reaction Reaction Severity Criticality Documentation Date Start Date Code Code System Note Provider Name and Address Organization Details Recorded Time 2503 chlorhexi dine medicatio n Not available Not available Not available 02/16/2020 7878 RxNorm Christie Zhu [facility] 0 14:25:02 Medications Name Sig Start [...] every day by oral route at bedtime. 03/09 completed Not Available Not Available Not Available [...] active Not Available Not Available Not Available [place] Fe 1-20 EQ (28) 1 mg-20 mcg [...] Updated DateTime 12/16/2024 162.56 cm 30.1 kg/m2 63532.1 g 110/64 mm[Hg] Doris Beyer [facility] 12/16/2024 16:35:18 Social History Question Answer Notes LastModified by Organizat ion Details LastModified Time Tobacco Smoking Status Never Smoker Christie Audra maldonado, [facility] 02/17/2020 10:57:01 Do You Have An Advance Directive? No [email or web address] Information n ot available 02/20/2024 How Many Years Have You Consumed Alcohol? 3 Information not available 02/20/2024 Are You Blind Or Do You Have Difficulty Seeing? No Information n ot available 10/17/2021 What Is Your Level Of Caffeine Consumption? Moderate Information not available 10/17/2021 How Much Tobacco Do You Chew? None [email or web address] Information not available 07/31/2024 In The 14 Days Before Symptom Onset, Have You Had Close Contact With A Laboratory-confirm ed COVID-19 While That Case Was Ill? No [email or web address] Information n ot available 02/20/2024 In The 14 Days Before Symptom Onset, Have You Had Close Contact With A Person Who Is Under Investigation For COVID-19 While That Person Was Ill? No [email or web address] Information not available 02/20/2024 Have You Been To An Area Known To Be High Risk For COVID-19? No [email or web address] Information not available 02/20/2024 Are You Deaf Or Do You Have Serious Difficulty Hearing? No Information not available 10/17/2021 What Type Of Diet Are You Following? REGULAR [email or web address] Information n ot available 02/20/2024 What Is The Highest Grade Or Level Of School You Have Completed Or The Highest Degree You Have Received? [id number] Information not available 02/20/2024 Are There Any Guns Present In Your Home? No [email or web address] Information not available 02/20/2024 Do You Use Protection During Sex? Always [email or web address] Information not available 02/20/2024 Do You Use Your Seat Belt Or Car Seat Routinely? Yes Information not available 10/17/2021 Do You Have Smoke And Carbon Monoxide Detectors In Your Home? Yes Information not available 10/17/2021 How Much Tobacco Do You Smoke? No [email or web address] Information not available 02/20/2024 Do You Use Sunscreen Routinely? Yes Information not available 10/17/2021 Have You Used IV Drugs? No [email or web address] Information not available 02/20/2024 Do You Have Difficulty Walking Or Climbing Stairs? No Information not available 10/17/2021 Sex: Unknown Functional Status Question Answer Note LastModified by Organizat ion Details LastModified Time Do you use any illicit or recreational drugs? No Information not available 10/17/2021 What is your level of alcohol consumption? Moderate [email or web address] Information not available 02/20/2024 Are you able to walk independently without assistance or assistive devices? [email or web address] Information not available 10/17/2021 Are you able to care for yourself independently? 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 No Information not available 10/17/2021 What is your exercise level? Moderate [email or web address] Information not available 02/20/2024 Mental Status Question Answer Note LastModified by Organization D etails LastModified Time Do you feel stressed (tense, restless, nervous, or anxious, or unable to sleep at night)? [id number] Information not available 10/17/2021 Family History Relationship [...] available 2019 14:24:23 Maternal Aunt Seizure disorder [email or web address] Not available 02/21 12:13:22 Medical History Condition Response Allergies (Food, seasonal, environmental ) Y Gynecological History Statement/Question Response Flow Moderate Date of Last Mammogram Date of LMP 02/17/2025 Was last menstrual period normal Y STIs/STDs N HPV Vaccine Y Duration of Flow (days) 6 Current Control Method Implant Are cycles usually normal Y Date of Last Colonoscopy Frequency of Cycle (Q days) 28 Sexually Active? Y Menses Monthly N Date of DEXA bone scan Age of first menstrual cycle 12 Date of Last Pap Smear 10/17/2021 Sexual Problems? N Desired Control Method Implant LMP Approximate N Obstetrics History GPAL:G 0 P 0 0 0 0 Past Encounters Encounter ID Performer Location Encounter Start Date Encounter Closed Date Diagnosis/Indication Diagnosis SNOMED-CT Code Diagnosis ICD10 Code Diagnosis IMO Codes Diagnosis Note [id number] OSMANY MCRAE, [facility] [place] [address] [address] 12/16/2024 16:17:39 12/16/2024 17:03:36 Irregular periods 22701837 N92.6 [id number] Discussed that irregular unschedule d bleeding is [...] by Organization Details LastModified Time None Recorded Payers Encounter Date Sequence Insurance Name Policy Number Policy Rooney Covered Member ID Rooney Member ID Guarantor Name 12/16/2024 1 [employer] [id number] Tyrone Slater [id number] Tyrone Slater Notes Date Note Type Note Provider Name and Address Organization Details Recorded Time 12/16/2024 text/html 24 y/o female presents with c/o irregular menses. Patient states that bleeding alternates between heavy and spotting from 2 days to one week at a time.Patient states that this has been occurring over the past 3 months.Patient states that she usually has minimal to no bleeding with Nexplanon.Denies additional concerns. OSMANY MCRAE NP [address], [place], [address], [facility] 12/16/2024 16:59:28 OBGyn Episode No OBEpisode recorded.
--- OUTSIDE RECORDS SUMMARY | 2025-03-09 21:23 | XMS_ITS | Data Portability ---
Author Organization [facility] Address [address] [place] [address] Care Team Providers Care Dry Food Products Mixer Name Role Phone LIDIA MALDONADO Primary Care Provider Assessment Encounter Date Assessment Date Assessment LastModified by Organization Details LastModified Time 03/09/2025 03/09/2025 Annual gynecological exam performed. Patient will come back in a year unless there are new symptoms. [email or web address] Not available 03/09/2025 12:13:57 Plan of Treatment Reminders Order Date Submit Date Provider Last Modified By Organization Details Last Modified Time Details Appointments WELL WOMAN-EST 2024 11:15A M OSMANY MCRAE, COOLING PAN TENDER Not available Not available Not available NEXPLANON REMOVAL 2024 08:45A M OSMANY MCRAE COOLING PAN TENDER Not available Not available Not available Lab pap, IG + reflex HPV if ASC-U - if positive HPV run subtyping 16,18/45 2024 025 [email or web address] [facility] (Lab), [address], [place], [address], 03/09/2025 12:37:00 HbA1c (hemoglob in A1c), blood 2023 024 [facility] (Lab), [address], [place], [address], 03/13/2024 13:16:29 dhea-sulf ate, serum 2023 024 [facility] (Lab), [address], [place], [address], 03/13/2024 13:16:26 estradiol , serum 2023 [facility] (Lab), [address], [place], [address], 03/13/2024 13:16:27 FSH (follicle -stimulat ing hormone), serum 2023 024 [facility] (Lab), [address], [place], [address], 03/13/2024 13:16:27 lh (luteiniz ing hormone), serum 2023 024 [facility] (Lab), [address], [place], [address], 03/13/2024 13:16:27 progester one, serum 2023 024 [facility] (Lab), [address], [place], [address], 03/13/2024 13:16:28 prolactin , serum 2023 024 [facility] (Lab), [address], [place], [address], 03/13/2024 13:16:28 testoster one free/test osterone total, ratio, serum 2023 024 [facility] (Lab), [address], [place], [address], 03/13/2024 13:16:29 test, urine 2023 [email or web address] , [address], [address], [place], [address], 03/05/2024 12:31:02 vitamin B12, serum 2023 [facility] (Lab), [address], [place], [address], 03/13/2024 13:16:28 25-hydrox yvitamin D2 + 25-hydrox yvitamin D3, QN, serum or plasma 2023 [facility] (Lab), [address], [place], [address], 03/13/2024 13:16:29 Referral None recorded. Procedures None recorded. Surgeries None recorded. Imaging None recorded. Medication Orders estradiol 2 mg tablet 2024 025 [facility] [place] [address] [place], [address], 01/02/2025 05:01:19 sertralin e 50 mg tablet 2024 025 [place] [facility] [place] [address] [place], [address], 07/31/2024 15:59:26 sertralin e 50 mg tablet 2024 025 [place] [facility] [place] [address] [place], [address], 06/17/2024 16:20:12 Nexplanon 68 mg subdermal implant 2023 024 [email or web address] [facility] [place] [address] [place], [address], 03/05/2024 12:31:01 Patient TargetsNo targets recorded. Patient InstructionsNo instructions [...] 9-246 > 75 12-15 4 Not Available [facility] (Lab) [address], [place], [address], 03/13/2024 13:16:26 03/05/20 24 03/05/2024 LH (LUTE [...] use: 7.7-5 8.5 mIU/m L Not Available [facility] (Lab) [address], [place], [address], 03/13/2024 13:16:27 03/05/20 24 03/05/2024 ESTRA DIOL [...] 154-3 243 pg/mL 2nd Trime ster 1561- 17057 pg/mL 3rd Trime ster 8525- >3000 0 pg/mL Not Available [facility] (Lab) [address], [place], [address], 03/13/2024 13:16:27 03/05/20 24 03/05/2024 FSH FSH 5.5 mIU/m L This assay was perfo rmed using [employer] ratio n reage nts and test kits. Value s obtai mino with other assay metho ds or kits canno t be used inter [facility] . Femal es Folli cular : 3.5-1 2.5 mIU/m L Ovula tion: 4.7-2 1.5 mIU/m L Lutea l: 1.7-7 .7 mIU/m L Postm enopa use: 25.8- 134.8 mIU/m L Not Available [facility] (Lab) [address], [place], [address], 03/13/2024 13:16:27 03/05/20 24 03/05/2024 PROGE STERO NE progesterone 0.09 NG/mL This assay was perfo rmed using [employer] ratio n reage nts and test kits. Value s obtai mino with other assay metho ds or kits canno t be used [facility] . Femal e Proge stero ne Range s: Folli cular phase 0.06- 0.89 ng/mL Ovula tion phase 0.12- 12.00 ng/mL Lutea l phase 1.83- 23.90 ng/mL Postm enopa usal <0.05 -0.13 ng/mL Healt hy Pregn ant Women 1st Trime ster 11.0- 44.30 2nd Trime ster 25.40 -83.3 0 3rd Trime ster 58.70 -214. 00 Not Available [facility] (Lab) [address], [place], [address], 03/13/2024 13:16:28 03/05/20 24 03/05/2024 PROLA CTIN prolactin, total 14.90 NG/mL 4.79-2 3.30 This assay was perfo rmed using [employer] ratio n reage nts and test kits. Value s obtai mino with other assay metho ds or kits canno t be used inter andrade eably . Not Available [facility] (Lab) [address], [place], [address], 03/13/2024 13:16:28 03/05/20 24 03/05/2024 VITAM IN B12 vitamin B12 267 pg/mL 180-91 4 Christine l Range : 180-9 14 pg/mL . Indet ermin ate Range : 145-1 80 pg/mL . Defic ient Range : <=145 pg/mL . Not Available [facility] (Lab) [address], [place], [address], 03/13/2024 13:16:28 03/05/20 24 03/05/2024 VITAM IN D, 25-OH (TOTA L D2/D3 ) vitamin D, 25-hydroxy, total 66.5 NG/mL 30.0-1 00.0 Sugge stive of Defic iency : <20 ng/mL Sugge stive of Insuf ficie ncy: 20-29 ng/mL Sugge stive of Suffi cienc y: 30-10 0 ng/mL Sugge stive of Toxic ity: >150 ng/mL Not Available [facility] (Lab) [address], [place], [address], 03/13/2024 13:16:29 03/05/20 24 03/05/2024 HEMOG LOBIN [...] >8.0% Actio n sugge sted Not Available [facility] (Lab) [address], [place], [address], 03/13/2024 13:16:29 03/05/20 24 03/05/2024 TESTO STERO NE, FREE( DIALY SIS) AND TOTAL (LC/M S/MS) testosterone , total 19 NG/dL 2-45 For addit ional rishi smalls e refer to http: //rafael carias.que stdia gnost ics.c om/fa q/ Total Testo stero neLCM SMSFA Q165 (This link is being provi ded for infor constance nal/ educa cheo l purpo ses only. ) This test was devel oped and its catherine tical perfo rmanc e april cteri stics have been deter mined by [employer] [place], [place]. It has not been clear ed or appro rodger by the U.S. Food and Drug Admin istra tion. This assay has been valid ated pursu ant to the CLIA regul ation s and is used for clini lexa purpo ses. Not Available [facility] (Lab) [address], [place], [address], 03/13/2024 13:16:29 03/05/20 24 03/05/2024 TESTO STERO NE, FREE( DIALY SIS) AND TOTAL (LC/M S/MS) testosterone , free 3.3 pg/mL 0.1-6. 4 This test was devel oped and its catherine tical perfo rmanc e april cteri stics have been deter mined by [employer] [place], [place]. It has not been clear ed or appro rodger by the U.S. Food and Drug Admin istra tion. This assay has been valid ated pursu ant to the CLIA regul ation s and is used for clini lexa purpo ses. Perfo rming Organ izati on Guero melasimta carias: Site ID: AMD Name: [employer] [facility] Insti tutkingsley Addre ss: [id number] [facility] [employer] [place], [place] Direc tor: Rebecca Garcia MD PhD Not Available [facility] (Lab) [address], [place], [address], 03/13/2024 13:16:29 03/05/20 24 03/05/2024 pregn kimberly test, urine HCG negati ve Not Available [facility] [address], [place], [address], 03/05/2024 12:30:45 Result Notes None recorded. Problems Name Problem SNOMED Code Status Onset Date Resolution Date Notes Provider Name and Address Organization Details Recorded Time Procedur e by method Completed 201605/31/2020 Encounte r for oth general cnsl and advice on contrace ption;Pr actice ID: 0001 Moiarpato maldonado [facility] 09:18:41 Pregnanc y test negative [id number] Completed 201605/31/2020 Encounte r for pregnanc y test, result negative ;Practic e ID: 0001 Moirashannan maldonado [facility] 09:18:[address] Concept Completed 201605/31/2020 Encounte r for surveill ance of other contrace ptives;P ractice ID: 0001 Moirashannan maldonado, [facility] 09:18:45 Contrace ption care manageme nt Completed 201605/31/2020 Encounte r for contrace ptive manageme nt, unspecif ied;Kristian rded Elsewher e: No [facility] S ource: EHR Desk Monitor marilou: N Practi ce ID: 0001 Thomas lable Time: 04:30:00 PM Moira Aniceto maldonado [facility] 09:18:38 Procedur e Completed 201705/31/2020 Enctr srvlnc implanta ble subderma l contrace ptive;Pr actice ID: 0001 Moira Moreland [facility] 1 09:18:44 Problem Notes None recorded. Procedures Surgical History Date Name Laterality Status Provider Name and Address Organization Details Recorded Time 03/05/20 24 MM Nexplanon insert completed OSMANY MCRAE NP [address], [place], [address], [facility] 03/05/2024 13:54:07 10/18/19 22 Date of Last Pap Smear completed [facility] 07/31/2024 15:17:42 03/03/20 20 [facility]2020 16:55:29 04/23/19 17 open reduction of fracture of ulna completed [facility] 02/16/2020 14:26:20 04/23/19 15 procedure on elbow completed [facility] 02/16/2020 14:26:36 12/05/[address] [facility] 07/31/2024 15:17:23 Imaging Results None recorded. Procedure Notes None recorded. Medical Equipment None Reported. Allergies Allergen ID Allergen Name Allergen Category Reaction Reaction Severity Criticality Documentation Date Start Date Code Code System Note Provider Name and Address Organization Details Recorded Time 2504 chlorhexi dine medicatio n Not available Not available Not available 02/16/2020 8151 RxNorm [facility] 0 14:25:02 Medications Name Sig Start [...] active Not Available Not Available Not Available Lyerly Fe 1-20 EQ (28) 1 mg-20 mcg [...] Updated DateTime 06/17/2024 162.56 cm 29.1 kg/m2 54385.55 g 118/78 mm[Hg] [facility] 06/17/2024 16:01:04 Date Recorded Body height Body mass index (BMI) Body weight Systolic And Diastolic Provider Name and Address Organization Details Last Updated DateTime 07/31/2024 162.56 cm 27.8 kg/m2 04938.96 g 110/71 mm[Hg] [facility] 07/31/2024 15:26:53 Date Recorded Body height Body mass index (BMI) Body weight Systolic And Diastolic Provider Name and Address Organization Details Last Updated DateTime 12/16/2024 162.56 cm 30.1 kg/m2 05838.1 g 110/64 mm[Hg] [facility] 12/16/2024 16:35:18 Date Recorded Body height Body mass index (BMI) Body weight Systolic And Diastolic Provider Name and Address Organization Details Last Updated DateTime 03/09/2025 162.56 cm 32.1 kg/m2 69902.05 g 122/80 mm[Hg] [facility] 03/09/2025 12:27:20 Social History Question Answer Notes LastModified by Organizat ion Details LastModified Time Tobacco Smoking Status Never Smoker Christie maldonado, [facility] 02/17/2020 10:57:01 Do You Have An Advance Directive? No [email or web address] Information n ot available 02/20/2024 How Many Years Have You Consumed Alcohol? 3 [email or web address] Information not available 02/20/2024 Are You Blind Or Do You Have Difficulty Seeing? No Information n ot available 10/17/2021 What Is Your Level Of Caffeine Consumption? Moderate Information not available 10/17/2021 How Much Tobacco Do You Chew? None [email or web address] Information not available 07/31/2024 In The 14 Days Before Symptom Onset, Have You Had Close Contact With A Laboratory-confirm ed COVID-19 While That Case Was Ill? No [email or web address] Information n ot available 02/20/2024 In The 14 Days Before Symptom Onset, Have You Had Close Contact With A Person Who Is Under Investigation For COVID-19 While That Person Was Ill? No Information not available 02/20/2024 Have You Been To An Area Known To Be High Risk For COVID-19? No [email or web address] Information not available 02/20/2024 Are You Deaf Or Do You Have Serious Difficulty Hearing? No Information not available 10/17/2021 What Type Of Diet Are You Following? REGULAR [email or web address] Information n ot available 02/20/2024 What Is The Highest Grade Or Level Of School You Have Completed Or The Highest Degree You Have Received? [id number] Information not available 02/20/2024 Are There Any Guns Present In Your Home? No [email or web address] Information not available 02/20/2024 Do You Use Protection During Sex? Always [email or web address] Information not available 02/20/2024 Do You Use Your Seat Belt Or Car Seat Routinely? Yes Information not available 10/17/2021 Do You Have Smoke And Carbon Monoxide Detectors In Your Home? Yes Information not available 10/17/2021 How Much Tobacco Do You Smoke? No Information not available 02/20/2024 Do You Use Sunscreen Routinely? Yes Information not available 10/17/2021 Have You Used IV Drugs? No [email or web address] Information not available 02/20/2024 Do You Have Difficulty Walking Or Climbing Stairs? No Information not available 10/17/2021 Sex: Unknown Functional Status Question Answer Note LastModified by Organizat ion Details LastModified Time Do you use any illicit or recreational drugs? No Information not available 10/17/2021 What is your level of alcohol consumption? Moderate [email or web address] Information not available 02/20/2024 Are you able to walk independently without assistance or assistive devices? [email or web address] Information not available 10/17/2021 Are you able to care for yourself independently? 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 No Information not available 10/17/2021 What is your exercise level? Moderate [email or web address] Information not available 02/20/2024 Mental Status Question Answer Note LastModified by Organization D etails LastModified Time Do you feel stressed (tense, restless, nervous, or anxious, or unable to sleep at night)? [id number] Information not available 10/17/2021 Family History Relationship [...] ICD10 Code Diagnosis IMO Codes Diagnosis Note [id number] Poly Mckeon CNM [address] [address] 02/17/2020 10:48:22 02/18/2020 12:52:43 Gynecologic examination 75019232 Z01.419 Take Calcium with Vitamin D 1200mg [...] plan if desired.lorena Vazquez ion care management 385738903 Z30.9 Discussed all control options in great [...] nexplanon removal 2 weeks after starting ocp. 59740 Poly Mckeon CNM [place] [address] [place] [address] 03/03/2020 15:09:33 03/03/2020 17:21:23 Removal of subcutaneous contraceptive 153002795 Z30.46 Plan to return to follow up on ocp. 42456 Poly Mckeon CNM [place] [address] [place] [address] 05/31/2020 09:35:22 05/31/2020 19:06:04 18551 Cherry Doshi [facility] [address] [place] [address] 05/31/2020 09:46:38 05/31/2020 10:02:40 Contraception care management 321099585 Z30.9 Patient is here today for a medicaton check of control. She voices goals of therapy have been met with use of this therapy. She denies neg side effects. She is eating, drinking, sleeping well; moods are stable & periods are well regulated. Wishes to continue this method of BC. Appropriat e to continue this medication . [id number] DEEPIKA [facility] [address] [address] 10/17/2021 11:11:27 10/17/2021 12:02:13 Gynecologic examination 85475510 Z01.419 Take Calcium with Vitamin D 1200mg [...] Labs naMammo na Contracept ion care management 348111231 Z30.9 Switch in OCP due to irregular start time of menses in her pill pack despite consistent use & timing.RTO x 3mos med check [id number] Jonny Cabral MD [place] [address] [address] 02/20/2024 15:41:11 02/20/2024 16:23:32 Gynecologic examination 56652361 Z01.419 Annual gynecologi lexa exam performed. Patient [...] testing - declined Contracept ion care management 257423481 Z30.9 Discussed all control options in depth and pt is interested in Nexplanon. Discussed all risks and benefits including irregular unschedule d bleeding. Pt verbalized understand ing and would like to proceed. She is aware that she needs to call us on the 1st day of her period to schedule placement. Generalize d anxiety disorder 67391094 F41.1 Discussed coping mechanisms for stress and anxiety.Michele henry wishes to try a medication daily to treat anxiety.Rx sent for buspirone. Risks/bene fits/AEs discussed. RTO in 3 months for med check. [id number] Jonny Cabral MD [place] [address] [address] 03/05/2024 12:01:35 03/05/2024 14:01:41 Fatigue 24916094 R53.83 Will check Vitamin B12 and vitamin D levels d/t c/o fatigue. Hirsutism 008413526 L68. 0 Will check hormone levels that may contribute to reported sx of hirsutism and acne.Discu ssed that Nexplanon may aid in symptom improvemen t and we can re-evaluat e sx at 3 month med check. Patient verbalizes understand ing. Implantati on of subcutaneous contraceptive 880676155 Z30.46 1. The patient was instructed that [...] need to be replaced in four years. [id number] Jonny Cabral MD [place] [address],[place] [address] 06/17/2024 15:58:13 06/17/2024 16:22:13 Generalized anxiety disorder 28546985 F41.1 Recommende d that patient stop buspirone [...] /therapy in addition to pharmacolo gic treatment. [id number] Jonny Cabral MD [place] [address],[place] [address] 07/31/2024 15:15:41 07/31/2024 16:00:30 Generalized anxiety disorder 28027391 F41.1 Patient voices improvemen t in PATTI symptoms since starting sertraline . Discussed increasing dosage of medication if patient's anxiety worsens again. Risks/bene fits/AEs reviewed. Discussed that patient is to go to ER if she experience s any suicidal/h omicidal ideation. Patient to RTO for annual WWE, or sooner if needed. [id number] OSMANY MCRAE NP [place] [address],[place] [address] 12/16/2024 16:17:39 12/16/2024 17:03:36 Irregular periods 58199207 N92.6 384010 Discussed that irregular unschedule d bleeding is possible with Nexplanon. Discussed all treatment options and alternativ e control methods. Rx sent for estradiol 2 mg PO daily x 10 days to help stop the bleeding.R isks/benef its/AEs discussed. Patient will follow-up if bleeding irregulari ty persists. [id number] OSMANY MCRAE, SEB [place] [address] [address] 03/09/2025 12:11:19 03/09/2025 12:52:25 Gynecologic examination 07478221 Z01.419 Annual gynecologi lexa exam performed. Patient [...] questions please call or email. Pap smear- pap w/ HPV reflex collected laboratory evaluation - PCP STI testing - declined Nexplanon inserted 03/05/24. Health Concerns Section Related Observation LastModified by Organization Detai ls LastModified Time None Recorded Concern Status LastModified by Organization Details LastModified Time None Recorded Advance Directives Directive N: Payers Insurance Date Sequence Insurance Name Policy Number Policy Rooney Covered Member ID Rooney Member ID Guarantor Name 03/09/2025 2 [place] [id number] Ira Slater [id number] Tyrone Slater 03/09/2025 1 [place] [id number] Tyrone Slater [id number] Tyrone Slater Notes Date Note Type Note Provider Name and Address Organization Details Recorded Time 03/05/20 24 text/htm l ROS as noted in the HPI Patient [...] and acne before her cycle. Doris maldonado, [facility] 03/05/2024 15:12:19 06/17/19 25 text/htm l Patient here for 3 month med check [...] SI/HI. OSMANY MCRAE NP [address], [place], [address], [facility] 06/17/2024 16:21:37 08/01/19 25 text/htm l 24 y/o female presents for 6 week med check after starting sertraline 50 mg PO daily for PATTI.Patient states that her mood and anxiety has improved significantly since starting the medication. Denies SI/HI. OSMANY MCRAE NP [address], [place], [address], [facility] 07/31/2024 15:58:46 12/17/19 25 text/htm l 24 y/o female presents with c/o irregular menses. Patient states that bleeding alternates between heavy and spotting from 2 days to one week at a time.Patient states that this has been occurring over the past 3 months.Patient states that she usually has minimal to no bleeding with Nexplanon.Denies additional concerns. OSMANY MCRAE NP [address], [place], [address], [facility] 12/16/2024 16:59:28 03/09/20 25 text/htm l Annual GYNReported by PatientGenitourinary symptomsFor menstrual cycle, patient reportsnormal menses. For urinary symptoms, patient reportsno hematuriaandno incontinence. For vulva, patient reportsno genital lesion. For vagina, patient reportsnormal vaginal discharge.Breast symptomsFor breast, patient reportsno breast pain,no breast lump, andno nipple discharge.ContraceptionFor current contraception, patient reportssatisfied with current contraceptionandsubdermal contraceptive implant.Endocrine symptomsFor sexual complaints, patient reportsno sexual complaints,no pain during intercourse, andnormal libido. For menopausal symptoms, patient reportsno menopausal symptomsandnormal vaginal lubrication.Psychological symptomsFor psychological symptoms, patient reportsno depression,no anxiety, andno pmdd.Preventative measuresFor preventive measures, patient reportsencourage self breast examination,encourage regular exercise,encourage no tobacco use, andencourage regular mammograms starting age 40. Patient presents for annual well woman exam. Patient denies concerns today. OSMANY MCRAE, SEB [address], [place], [address], [facility] 03/09/2025 12:44:29 OBGyn Episode No OBEpisode recorded.
== END 2025-03-09 12:14 | disposition home or self-care (01) ==
PROVIDERS: PCP Internal Medicine; Visit Provider Internal Medicine
DX: E01.0 Iodine-deficiency related diffuse (endemic) goiter (principal)
CPT/HCPCS: 76536